=== PATIENT | female | born 1990 ===

== ENCOUNTER 2020-05-19 09:38 | Outpatient (REF) | payer OTHER, SELFPAY ==
[2020-05-19 10:23] LABS: MANUAL DIFF FLAG NO
[2020-05-19 10:30] LABS: Basophils Percent Auto 0.3 % (0-2); Eosinophils Absolute Auto 0.1 X10*3/uL (0.0-0.4); Eosinophils Percent Auto 1.5 % (0-4); Hematocrit 42.2 % (37-47); Hemoglobin 14.6 g/dl (12.0-16.0); Imm Gran Abs Auto 0.04 X10*3/uL (0.00-0.03); Imm Gran Pct Auto 0.7 % (0.0-0.4); Lymphocytes Absolute Auto 2.2 X10*3/uL (1.2-4.9); Lymphocytes Percent Auto 36.9 % (20-40); Mean Corpuscular HGB Conc 34.6 g/dl (31.0-35.0); Mean Corpuscular Hemoglobin 28.2 pg (27.0-33.0); Mean Corpuscular Volume 81.6 fL (80-98); Mean Platelet Volume 11.7 fL (9.4-12.3); Monocytes Absolute Auto 0.4 X10*3/uL (0.1-1.2); Monocytes Percent Auto 5.8 % (2-11); Neutrophils Absolute Auto 3.3 X10*3/uL (2.0-8.3); Neutrophils Percent Auto 54.8 % (45-73); Platelet Count 237 X10*3/uL (160-400); Red Blood Count 5.17 X10*6/uL (4.20-5.50); Red Cell Distribution Width 12.3 % (11.0-16.0)
[2020-05-19 10:55] LABS: Alanine Aminotransferase 34 U/L (0-31); Albumin Level 4.3 g/dL (3.5-5.0); Alkaline Phosphatase 93 U/L (39-117); Anion Gap 14 (12-20); Aspartate Amino Transferase 25 U/L (5-31); Bilirubin Total 0.7 mg/dL (0.0-1.0); Blood Urea Nitrogen 10 mg/dL (9-16); Calcium 9.3 mg/dL (8.4-10.2); Carbon Dioxide 27 mmol/L (22-29); Chloride 98 mmol/L (96-108); Cholesterol 170 mg/dL; Estimated Glomerular Filt Rate > 60; Glucose Fasting 344 mg/dL (60-99); HDL Cholesterol 33 mg/dL; LDL Cholesterol Calculated 88 mg/dl; Potassium 4.7 mmol/L (3.3-5.1); Sodium 134 mmol/L (135-145); Total Protein 7.9 g/dL (6.5-8.0); Triglycerides 247 mg/dL
[2020-05-19 10:59] LABS: Creatinine Urine 98.43 mg/dL; Microalbum/Creatinine Ratio Ur 34.5 ug/mg cr
[2020-05-19 11:06] LABS: Estimated Average Glucose 252 mg/dL; Hemoglobin A1c % 10.4 %
[2020-05-19 11:18] LABS: Thyroid Stimulating Hormone 0.93 uIU/mL (0.32-4.0)
== END 2020-05-19 09:39 | disposition home or self-care (01) ==
LOC: HO.LAB 09:38
PROVIDERS: PCP Internal Medicine; Visit Provider Internal Medicine
DX: Z00.00 Encounter for general adult medical examination without abnormal findings (principal); E11.9 Type 2 diabetes mellitus without complications; E03.9 Hypothyroidism, unspecified
CPT/HCPCS: 36415; 80053; 80061; 82043; 83036; 84443; 85025

== ENCOUNTER 2020-07-09 14:46 | Outpatient (REF) | payer OTHER, SELFPAY | END 2020-07-09 14:47 | disposition home or self-care (01) | LOC: HO.LNP 14:46 | PROVIDERS: Visit Provider Hospitalist | DX: R30.0 Dysuria (principal); E11.9 Type 2 diabetes mellitus without complications; Z79.4 Long term (current) use of insulin | CPT/HCPCS: 87086 ==

== ENCOUNTER 2020-08-05 10:23 | Outpatient (REF) | payer OTHER, SELFPAY ==
--- NOTE | ~2020-08-05 | XR_ITS ---
EXAMINATION: XR ANKLE, LEFT CLINICAL INFORMATION: Lower leg pain. COMPARISON: None TECHNIQUE: AP, lateral, and mortise views of the left ankle. FINDINGS: The lateral metallic plate distal fibula with screws stabilizing old healed fracture. Fracture line is partially visualized on the lateral view. There are 2 cancellous screws from medial malleolar stabilizing healed medial malleolar fracture. The hardware is intact. The ankle mortise and subtalar joints are normal. There is diffuse osteopenia. The soft tissues are normal. XR/XR ankle LT min 3V IMPRESSION: Old healed distal fibular fracture stabilized with metallic plate and screws. The fracture line is partially still visualized on the lateral view. Old healed medial malleolar fracture stabilized with 2 cancellous screws. Mild osteopenia.
== END 2020-08-05 10:24 | disposition home or self-care (01) ==
LOC: HO.HOSX 10:23
PROVIDERS: Visit Provider Orthopaedic Surgery
DX: S82.891D Other fracture of right lower leg, subsequent encounter for closed fracture with routine healing (principal)
CPT/HCPCS: 73610; 99202

== ENCOUNTER → 2020-08-31 14:00 | Outpatient (BNVA) | payer MEDICAID, SELFPAY | PROVIDERS: Visit Provider Nurse Practitioner Gerontology | DX: E11.65 Type 2 diabetes mellitus with hyperglycemia (principal); E11.29 Type 2 diabetes mellitus with other diabetic kidney complication; R80.9 Proteinuria, unspecified; I10 Essential (primary) hypertension; E66.01 Morbid (severe) obesity due to excess calories; Z68.35 Body mass index [BMI] 35.0-35.9, adult; Z79.4 Long term (current) use of insulin | CPT/HCPCS: 82947; 99212 ==

== ENCOUNTER 2020-09-16 10:00 | Emergency (ER) | payer MEDICAID, SELFPAY ==
[2020-09-16 10:11] VITALS: PULSE 95; RESP 16; TEMP 36.6; O2SAT 97; BMI 34.7
--- NOTE | 2020-09-16 10:31 | ED.SKABFB ---
HPI - Skin/Abscess/Foreign Bdy General Chief complaint: Skin/Abscess/Foreign Body Stated complaint: abcess Time Seen by Provider: 09/16/20 10:30 History of Present Illness HPI narrative: patient complains of right groin abscess for 3 days, red swollen small area that is increasingly painful, no fever no chills Related Data Previous Rx's Medication Instructions Recorded blood sugar diagnostic #150 ea 08/31/20 blood-glucose meter #1 ea 08/31/20 flash glucose scanning reader #1 ea 08/31/20 flash glucose sensor #2 ea 08/31/20 insulin glargine U-300 conc 300 120 unit SUBCUT DAILY 30 Days #12 08/31/20 unit/mL (3 mL) subcutaneous pen ml insulin lispro 200 unit/mL (3 mL) 46 unit SUBCUT TID 30 Days #24 ml 08/31/20 subcutaneous pen lancets 28 gauge #200 ea 08/31/20 pen needle, diabetic 32 gauge x #150 ea 08/31/20 cephalexin 500 mg PO QID 7 Days #28 tab 09/16/20 ibuprofen 600 mg PO Q6H PRN #20 tab 09/16/20 sulfamethoxazole-trimethoprim 1 tab PO BID 7 Days #14 tab 09/16/20 [Bactrim DS] Allergies Allergy/AdvReac Type Severity Reaction Status Date / Time metformin Allergy Mild stomach Verified 08/31/20 14:25 pains canagliflozin [From Invokana] Allergy UTI and Verified 08/31/20 14:25 yeast infections dulaglutide [From Trulicity] Allergy stomach Verified 08/31/20 14:25 pains, nausea and vomiting Review of Systems Review of Systems: positive for painful red swollen area on right groin Negative no fever no chills no dizziness no weakness no abdominal pain no nausea no vomiting no diarrhea no dysuria no other rash no joint pains Yes all other systems are reviewed and are negative PMFSH Past Medical History Source: nursing notes reviewed Medical History (Updated 09/16/20 @ 10:38 by KULWINDER Fischer) Diabetes mellitus Essential hypertension Obesity Obesity due to excess calories PCOS (polycystic ovarian syndrome) Proteinuria Type 2 diabetes mellitus with hyperglycemia Type 2 diabetes mellitus with other diabetic kidney complication Surgical History History of ankle surgery History of cholecystectomy History of tonsillectomy Family History Family History (Updated 08/31/20 @ 14:13 by Mai Tracey Fabi) Father Diabetes Mother Diabetes Maternal Grandmother Diabetes Paternal Grandmother Diabetes Social History Social History Housing: Apartment Alcohol intake: current Alcohol intake frequency: holidays/special occasions only Patient Tobacco Use Status: Never used Tobacco Second Hand Smoke Exposure: No Advance Directives: No Advance Directives Information Provided: No Patient : No service: No Current occupational status: employed 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 Physical Exam Vital Signs: Vital Signs: Last Vital Signs Temp 97.9 F 09/16/20 10:11 Pulse 95 09/16/20 10:11 Resp 16 09/16/20 10:11 Pulse Ox 97 09/16/20 10:11 Body Mass Index 34.7 general appearance no distress Head is normocephalic atraumatic Neck is supple Respiratory no distress Abdomen soft nontender Skin exam the right groin area has a 2 cmx 2 cm area of redness fluctuance and tenderness with surrounding erythema, skin is intact there is no discharge No other skin rash no other painful swollen area Extremities full range of motion x4 Course Course Course Narrative: right groin abscess procedure note The abscess is cleansed with Betadine Anesthesia is 6 cc of 1% lidocaine A small incision was made with discharge of pus and packing was placed Discharge Plan Discharge Clinical Impression: Abscess Patient Disposition: Home, Self-Care Additional Instructions: return in 2 days for packing removal and wound check Return any time for spreading redness, worse pain and swelling, fever, any worsening infection any worse condition or any concerns Take probiotics every day you are taking antibiotics to prevent antibiotic associated diarrhea, they are available [id number] at any pharmacy Prescriptions: New sulfamethoxazole-trimethoprim [Bactrim DS] 800-160 mg tablet 1 tab PO BID 7 Days Qty: 14 RF: 0 cephalexin 500 mg tablet 500 mg PO QID 7 Days Qty: 28 RF: 0 ibuprofen 600 mg tablet 600 mg PO Q6H PRN (Reason: pain) Qty: 20 RF: 0 No Action Toujeo Max U-300 SoloStar 300 unit/mL (3 mL) insulin pen 120 unit subcut DAILY 30 Days Qty: 12 RF: 3 Humalog KwikPen Insulin 200 unit/mL (3 mL) insulin pen 46 unit subcut TID 30 Days Qty: 24 RF: 3 (DME) pen needle, diabetic [BD Ultra-Fine Teresa Pen Needle] 32 gauge x 5/32 needle See Rx Instructions .ROUTE .MEDSUPPLY Qty: 150 RF: 10 (DME) FreeStyle Olivia 2 Sensor Kit See Rx Instructions .ROUTE .MEDSUPPLY Qty: 2 RF: 0 (DME) FreeStyle Lite Strips Strip See Rx Instructions .ROUTE .MEDSUPPLY Qty: 150 RF: 11 (DME) lancets [FreeStyle Lancets] 28 gauge misc See Rx Instructions .ROUTE .MEDSUPPLY Qty: 200 RF: 11 (DME) FreeStyle Olivia 2 [place] Misc See Rx Instructions .ROUTE .MEDSUPPLY Qty: 1 RF: 0 (DME) blood-glucose meter [FreeStyle Lite Meter] Kit See Rx Instructions .ROUTE .MEDSUPPLY Qty: 1 RF: 0
[2020-09-16] MEDS: Lidocaine HCl 1 % MPF 5 ML VIAL SUBCUT ×2 (10:50)
[2020-09-16] MEDS: cephALEXin 500 MG CAPSULE PO (11:11)
[2020-09-16] MEDS: Ibuprofen 600 MG TABLET PO (11:11)
== END 2020-09-16 11:15 | disposition home or self-care (01) ==
PROVIDERS: Emergency Provider Emergency Medicine; PCP Internal Medicine
DX: L02.214 Cutaneous abscess of groin (principal); I10 Essential (primary) hypertension; E11.9 Type 2 diabetes mellitus without complications; Z79.4 Long term (current) use of insulin
CPT/HCPCS: 10060; 99284

== ENCOUNTER 2020-09-17 15:50 | Inpatient (IN) | payer MEDICAID, SELFPAY ==
[2020-09-17] VITALS (8 sets, daily range): BP systolic 120–150; BP diastolic 63–86; PULSE 94–134; RESP 16–20; TEMP 36.3–39.2; O2SAT 96–100; BMI 34.7
--- NOTE | ~2020-09-17 | XR_ITS ---
EXAMINATION: XR chest 2V CLINICAL INFORMATION: Reason for Exam fever, r.o pna COMPARISON: No prior chest x-ray available in our system for comparison at the time of this dictation. TECHNIQUE: XR chest 2V Lungs and Kierra: Both lungs are clear. Pleura: Normal. Costophrenic angles are sharp. No pneumothorax. Heart: The heart is normal in size. Mediastinum: The mediastinum is within normal limits.. Bones: Skeletal structures included are normal for patient's age. XR/XR chest 2V IMPRESSION: No radiographic evidence of acute cardiopulmonary disease.
--- NOTE | ~2020-09-17 | CT_ITS ---
EXAMINATION: CT ABDOMEN AND PELVIS WITH CONTRAST CLINICAL INFORMATION: Groin abscess with fever COMPARISON: None TECHNIQUE: Multidetector volumetric images were obtained from the superior aspect of the liver through the pubic symphysis following administration 85 mL of Omnipaque 350 intravenous contrast. Sagittal and coronal reformatted images were obtained on the technologist's workstation. Oral contrast: No This CT examination was performed using dose optimization techniques as appropriate, variously including the following: *Automated exposure control *Adjustment of mA and/or kV according to patient size (this includes techniques or standardized protocols for targeted exams where dose is matched to indication/reason for exam; i.e. extremities or head) *Use of iterative reconstruction technique DLP: 694 mGy-cm FINDINGS: LUNG BASES: The visualized lung bases are unremarkable. LIVER, GALLBLADDER, AND BILIARY TREE: Liver is enlarged at 22.5 cm and demonstrates hepatic steatosis. The gallbladder is unremarkable with no evidence of radiopaque gallstones, gallbladder wall thickening, or obvious pericholecystic inflammatory changes. PANCREAS: Unremarkable. SPLEEN: Mild splenomegaly with spleen measuring 13.2 cm in greatest length. ADRENAL GLANDS: Unremarkable. KIDNEYS AND URETERS: The kidneys are normal in size, shape, and attenuation. There is minimal prominence of the right ureter. No hydronephrosis, hydroureter, or calculi seen. No perinephric stranding. BLADDER: The bladder wall is symmetrically thickened which can be seen with cystitis. GASTROINTESTINAL TRACT: The small and large bowel are unremarkable. The appendix is unremarkable. ABDOMINAL WALL: Streaky changes with inflammation are present in the right groin. A fistulous tract to the skin is seen. Small ill-defined fluid collection present measuring 2.2 x 2.1 x 2.6 cm. Some groin lymph nodes are present. There is no extension of the inflammatory process into the abdominal cavity. LYMPH NODES: No retroperitoneal lymphadenopathy. VASCULAR: Unremarkable. 2 renal arteries present on the right with a single renal artery on the left. PELVIC VISCERA: An anteverted uterus is present. Ovarian cysts are seen. No free intraperitoneal fluid is present. OSSEOUS STRUCTURES: Unremarkable. CT/CT abdomen pelvis w con IMPRESSION: 1. Right groin abscess and inflammatory changes without extension into peritoneal cavity. 2. Enlarged fatty liver 3. Mild splenomegaly 4. Symmetrically thickened bladder wall which can be seen with cystitis. Correlate with urinalysis.
[2020-09-17] MEDS: Acetaminophen 325 MG TABLET 650 MG PO (16:20)
[2020-09-17] MEDS: Ibuprofen 600 MG TABLET PO (17:38)
--- NOTE | 2020-09-17 17:59 | ED.GENADULT ---
HPI - General Adult General Chief complaint: Dizziness Stated complaint: Dizziness/Vomiting Time Seen by Provider: 09/17/20 17:46 Source: patient Mode of arrival: ambulatory Limitations: no limitations History of Present Illness HPI narrative: 29-year-old female with a past medical history of insulin-dependent diabetes, PCOS, hypertension here with complaints of headache, body aches, fevers, chills, lightheadedness with position changes since yesterday. Patient tells me she was seen yesterday for a right groin abscess and had an I&D. She was started on Bactrim and cephalexin but returns. Related Data Previous Rx's Medication Instructions Recorded blood sugar diagnostic #150 ea 08/31/20 blood-glucose meter #1 ea 08/31/20 flash glucose scanning reader #1 ea 08/31/20 flash glucose sensor #2 ea 08/31/20 insulin glargine U-300 conc 300 120 unit SUBCUT DAILY 30 Days #12 08/31/20 unit/mL (3 mL) subcutaneous pen ml insulin lispro 200 unit/mL (3 mL) 46 unit SUBCUT TID 30 Days #24 ml 08/31/20 subcutaneous pen lancets 28 gauge #200 ea 08/31/20 pen needle, diabetic 32 gauge x #150 ea 08/31/20 cephalexin 500 mg PO QID 7 Days #28 tab 09/16/20 ibuprofen 600 mg PO Q6H PRN #20 tab 09/16/20 sulfamethoxazole-trimethoprim 1 tab PO BID 7 Days #14 tab 09/16/20 [Bactrim DS] Allergies Allergy/AdvReac Type Severity Reaction Status Date / Time metformin Allergy Mild stomach Verified 09/17/20 16:18 pains canagliflozin [From Invokana] Allergy UTI and Verified 09/17/20 16:18 yeast infections dulaglutide [From Trulicity] Allergy stomach Verified 09/17/20 16:18 pains, nausea and vomiting Review of Systems Review of Systems: Yes all other systems are reviewed and are negative Constitutional: Constitutional: Reports no additional constitutional complaints, Reports body ache(s), Reports chills, Reports fever(s), Reports headache(s) and Denies weakness Eyes: Eyes: Reports no additional eye complaints and Denies change in vision ENT: Reports system reviewed and no additional complaints, except as documented, Reports dizziness, Reports headache(s), Denies nasal congestion, Denies nasal discharge and Denies neck pain Cardiovascular: Cardiovascular: Reports no additional cardiovascular complaints, Denies chest pain, Denies leg edema and Denies dyspnea Respiratory: Respiratory: Reports no additional respiratory complaints, Denies cough and Denies dyspnea Gastrointestinal: Gastrointestinal: Reports no additional gastrointestinal complaints, Denies abdominal pain, Denies diarrhea, Denies nausea and Denies vomiting Genitourinary: Genitourinary: Reports no additional female genitourinary complaints and Denies urinary incontinence Musculoskeletal: Musculoskeletal: Reports no additional musculoskeletal complaints, Denies back pain, Denies arthralgias, Denies joint swelling, Denies neck pain, Denies numbness and Denies tingling Integumentary/Breasts: Skin/Breast: Reports system reviewed and no additional complaints, except as docu and Denies rash Neurologic: Reports system reviewed and no additional complaints, except as documented, Denies Abnormal speech present, Reports dizziness, Reports headache(s), Denies numbness, Denies tingling and Denies weakness PMFSH Past Medical History Attestation statement: The following information was validated with the patient. Source: old records reviewed and nursing notes reviewed Medical History Diabetes mellitus Essential hypertension Obesity Obesity due to excess calories PCOS (polycystic ovarian syndrome) Proteinuria Type 2 diabetes mellitus with hyperglycemia Type 2 diabetes mellitus with other diabetic kidney complication Surgical History History of ankle surgery History of cholecystectomy History of tonsillectomy Family History Family History Father Diabetes Mother Diabetes Maternal Grandmother Diabetes Paternal Grandmother Diabetes Social History Social History Housing: Apartment Alcohol intake: never Patient Tobacco Use Status: Never used Tobacco Second Hand Smoke Exposure: No Use of substances other than those prescribed or required for medical reasons: No Advance Directives: Yes Advance Directives Information Provided: Yes Advance Directives on File: No Patient : No service: No 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 occupational status: employed 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 Physical Exam Vital Signs: Vital Signs: Last Vital Signs Temp 98.5 F 09/17/20 20:47 Pulse 97 09/17/20 20:47 Resp 18 09/17/20 20:47 BP 124/76 09/17/20 20:47 Pulse Ox 98 09/17/20 20:47 Body Mass Index 34.7 Const: General: cooperative, healthy appearing, comfortable and no acute distress Orientation/consciousness: patient oriented x3 Limitations: no limitations HENMT: Head: Yes normal to inspection Ears: hearing grossly normal bilaterally General nose exam: Normal external nose present Face and sinus: Yes normal facial exam Mouth: Normal oral and palatal mucosa present Throat: Yes posterior oropharynx normal Eyes: General: appearance normal, both eyes and all related structures Pupils: Equal, round and reactive pupils present Neck: Neck: Yes normal visual inspection Chest: Chest palpation & inspection: normal inspection of the chest Resp: Effort & Inspection: normal respiratory effort Auscultation: clear to auscultation bilaterally Cardio: Rate: regular rate Rhythm: regular rhythm Peripheral pulses: Peripheral pulses 2+ throughout GI: Other: To the right groin there is a local area of swelling and induration with packing present there is no edema or warmth or tenderness outside of the local area No redness or swelling extending to the perineum Inspection: Yes normal to inspection Palpation (GI): Soft to palpation and nontender Auscultation: normal bowel sounds Back/Spine/Pelvis: Thoracic/Lumbar Spine: thoracic and lumbar spine normal to inspection Skin: General skin exam: no rashes or lesions noted Neuro: General: patient oriented x3, no focal motor deficits and normal sensation to monofilament Cranial nerves: Yes Equal, round and reactive pupils present Cognition (Neuro): normal cognition Speech: No Abnormal speech present Gait exam (Neuro): Normal gait present Motor exam (neuro): 5/5 motor strength present throughout Extrem: General: Yes normal to inspection, Yes no pedal edema and Yes no calf tenderness Course Course Course Narrative: 29-year-old female with a past medical history of insulin-dependent diabetes, hypertension, PCOS here with recent abscess requiring I and D on antibiotics for 24 hours now with body aches, fevers, chills, headache, lightheadedness. On arrival the patient has tachycardia and febrile. This is from a virus. Will check labs including blood cultures, lactic, COVID screen, chest x-ray, CTA/P, UA. Will order NSB, antipyretic. 2145-CT shows IMPRESSION: 1. Right groin abscess and inflammatory changes without extension into peritoneal cavity. 2. Enlarged fatty liver 3. Mild splenomegaly 4. Symmetrically thickened bladder wall which can be seen with cystitis. Correlate with urinalysis. Chest x-ray, UA and COVID screen negative. Initial chemistry showed mild hyponatremia, mild hyperglycemia, hypo magnesemia which improved with IV hydration and magnesium replacement. -D/t right groin abscess with local cellulitis with fever and tachycardia w/ history of IDDM bacterial infection is considered. At this time infection is suspected (2144). Antibiotics ordered. Call out to medicine to discuss. 2149-Discussed with Dr Wright who accepted admission. Procedures Procedure Narrative Procedure Narrative: Packing removed from right groin. Site was cleansed with NS and hydrogen peroxide. New iodoform packing placed with dressing applied over this. Medical Decision Making MDM Narrative Medical decision making narrative: Viral syndrome, cellulitis, pneumonia, UTI Medical Records Medical records reviewed: Yes I reviewed the patient's medical records. Lab Data Lab results reviewed: Yes I reviewed the patient's lab results. Result diagrams: 09/17/20 18:25 09/17/20 20:59 Labs: Lab Results 09/17/20 09/17/20 09/17/20 Range/Units 18:23 18:24 18:24 WBC (4.8-10.8) X10*3/uL RBC (4.20-5.50) X10*6/uL Hgb (12.0-16.0) g/dl Hct (37-47) % MCV (80-98) fL MCH (27.0-33.0) pg MCHC (31.0-35.0) g/dl RDW (11.0-16.0) % Plt Count (160-400) X10*3/uL MPV (9.4-12.3) fL Immature Gran % (Auto) (0.0-0.4) % Neut % (Auto) (45-73) % Lymph % (Auto) (20-40) % [place] % (Auto) (2-11) % Eos % (Auto) (0-4) % Baso % (Auto) (0-2) % Lymph # (Auto) (1.2-4.9) X10*3/uL [place] # (Auto) (0.1-1.2) X10*3/uL Eos # (Auto) (0.0-0.4) X10*3/uL Baso # (Auto) (0.0-0.2) X10*3/uL Abs Immat Gran (auto) (0.00-0.03) X10*3/uL Absolute Neuts (auto) (2.0-8.3) X10*3/uL Absolute Nucleated RBC (0.0-0.012) X10*3/uL Nucleated RBC % (auto) (0.0-0.2) /100WBC VBG pH (7.32-7.43) VBG pCO2 mmHg VBG pO2 mmHg VBG HCO3 (22-26) mmol/L VBG O2 Saturation % VBG Base Excess mmol/L Sodium (135-145) mmol/L Potassium (3.3-5.1) mmol/L Chloride (96-108) mmol/L Carbon Dioxide (22-29) mmol/L Anion Gap (12-20) BUN (9-16) mg/dL Creatinine (0.5-1.4) mg/dL Estim Creat Clear Calc Estimated GFR Random Glucose (60-115) mg/dL Lactic Acid (0.5-2.0) mmol/L Calcium (8.4-10.2) mg/dL Magnesium (1.6-2.6) mg/dL Total Bilirubin (0.0-1.0) mg/dL Direct Bilirubin (0.0-0.5) mg/dL AST (5-31) U/L ALT (0-31) U/L Alkaline Phosphatase (39-117) U/L Total Protein (6.5-8.0) g/dL Albumin (3.5-5.0) g/dL Urine Color YELLOW Urine Appearance HAZY Urine pH 6.0 (5.0-8.0) Ur Specific [place] 1.025 (1.005-1.025) Urine Protein 1+ H (NEG-TRACE) MG/DL Urine Glucose (UA) 500 H (NEG) MG/DL Urine Ketones 40 (NEG) MG/DL Urine Blood NEG (NEG) Urine Nitrite NEG (NEG) Ur Leukocyte Esterase NEG (NEG) Urine RBC 0-2 (0) /HPF Urine WBC 0-2 (0-4) /HPF Ur Squamous Epith Cells 1+ /LPF Urine Bacteria NONE /LPF Urine Test NEGATIVE (NEGATIVE) Acetone, Qual (Negative) COVID-19 (JOSE) Negative (Negative) COVID-19 Clin Com See Note 09/17/20 09/17/20 09/17/20 Range/Units 18:25 18:25 18:25 WBC 8.2 (4.8-10.8) X10*3/uL RBC 5.41 (4.20-5.50) X10*6/uL Hgb 15.5 (12.0-16.0) g/dl Hct 43.3 (37-47) % MCV 80.0 (80-98) fL MCH 28.7 (27.0-33.0) pg MCHC 35.8 H (31.0-35.0) g/dl RDW 12.6 (11.0-16.0) % Plt Count 158 L D (160-400) X10*3/uL MPV 12.4 H (9.4-12.3) fL Immature Gran % (Auto) 1.2 H (0.0-0.4) % Neut % (Auto) 72.7 (45-73) % Lymph % (Auto) 18.1 L (20-40) % [place] % (Auto) 7.8 (2-11) % Eos % (Auto) 0.0 (0-4) % Baso % (Auto) 0.2 (0-2) % Lymph # (Auto) 1.5 (1.2-4.9) X10*3/uL [place] # (Auto) 0.6 (0.1-1.2) X10*3/uL Eos # (Auto) 0.0 (0.0-0.4) X10*3/uL Baso # (Auto) 0.0 (0.0-0.2) X10*3/uL Abs Immat Gran (auto) 0.10 H (0.00-0.03) X10*3/uL Absolute Neuts (auto) 5.9 (2.0-8.3) X10*3/uL Absolute Nucleated RBC 0.000 (0.0-0.012) X10*3/uL Nucleated RBC % (auto) 0.0 (0.0-0.2) /100WBC VBG pH (7.32-7.43) VBG pCO2 mmHg VBG pO2 mmHg VBG HCO3 (22-26) mmol/L VBG O2 Saturation % VBG Base Excess mmol/L Sodium 130 L (135-145) mmol/L Potassium 3.6 D (3.3-5.1) mmol/L Chloride 98 (96-108) mmol/L Carbon Dioxide 19 L (22-29) mmol/L Anion Gap 17 (12-20) BUN 6 L (9-16) mg/dL Creatinine 0.89 (0.5-1.4) mg/dL Estim Creat Clear Calc 96.6 Estimated GFR > 60 Random Glucose 291 H (60-115) mg/dL Lactic Acid 1.8 (0.5-2.0) mmol/L Calcium 9.5 (8.4-10.2) mg/dL Magnesium 1.5 L (1.6-2.6) mg/dL Total Bilirubin 1.2 H (0.0-1.0) mg/dL Direct Bilirubin 0.5 (0.0-0.5) mg/dL AST 27 (5-31) U/L ALT 40 H (0-31) U/L Alkaline Phosphatase 98 (39-117) U/L Total Protein 8.6 H (6.5-8.0) g/dL Albumin 4.5 (3.5-5.0) g/dL Urine Color Urine Appearance Urine pH (5.0-8.0) Ur Specific [place] (1.005-1.025) Urine Protein (NEG-TRACE) MG/DL Urine Glucose (UA) (NEG) MG/DL Urine Ketones (NEG) MG/DL Urine Blood (NEG) Urine Nitrite (NEG) Ur Leukocyte Esterase (NEG) Urine RBC (0) /HPF Urine WBC (0-4) /HPF Ur Squamous Epith Cells /LPF Urine Bacteria /LPF Urine Test (NEGATIVE) Acetone, Qual (Negative) COVID-19 (JOSE) (Negative) COVID-19 Clin Com 09/17/20 09/17/20 09/17/20 Range/Units 18:26 18:29 20:59 WBC (4.8-10.8) X10*3/uL RBC (4.20-5.50) X10*6/uL Hgb (12.0-16.0) g/dl Hct (37-47) % MCV (80-98) fL MCH (27.0-33.0) pg MCHC (31.0-35.0) g/dl RDW (11.0-16.0) % Plt Count (160-400) X10*3/uL MPV (9.4-12.3) fL Immature Gran % (Auto) (0.0-0.4) % Neut % (Auto) (45-73) % Lymph % (Auto) (20-40) % [place] % (Auto) (2-11) % Eos % (Auto) (0-4) % Baso % (Auto) (0-2) % Lymph # (Auto) (1.2-4.9) X10*3/uL [place] # (Auto) (0.1-1.2) X10*3/uL Eos # (Auto) (0.0-0.4) X10*3/uL Baso # (Auto) (0.0-0.2) X10*3/uL Abs Immat Gran (auto) (0.00-0.03) X10*3/uL Absolute Neuts (auto) (2.0-8.3) X10*3/uL Absolute Nucleated RBC (0.0-0.012) X10*3/uL Nucleated RBC % (auto) (0.0-0.2) /100WBC VBG pH 7.41 (7.32-7.43) VBG pCO2 26 mmHg VBG pO2 67 mmHg VBG HCO3 17 L (22-26) mmol/L VBG O2 Saturation 92.0 % VBG Base Excess -5.5 mmol/L Sodium 134 L (135-145) mmol/L Potassium 3.6 (3.3-5.1) mmol/L Chloride 104 (96-108) mmol/L Carbon Dioxide 18 L (22-29) mmol/L Anion Gap 16 (12-20) BUN 5 L (9-16) mg/dL Creatinine 0.74 (0.5-1.4) mg/dL Estim Creat Clear Calc 116.3 Estimated GFR > 60 Random Glucose 229 H (60-115) mg/dL Lactic Acid (0.5-2.0) mmol/L Calcium 8.3 L D (8.4-10.2) mg/dL Magnesium (1.6-2.6) mg/dL Total Bilirubin (0.0-1.0) mg/dL Direct Bilirubin (0.0-0.5) mg/dL AST (5-31) U/L ALT (0-31) U/L Alkaline Phosphatase (39-117) U/L Total Protein (6.5-8.0) g/dL Albumin (3.5-5.0) g/dL Urine Color Urine Appearance Urine pH (5.0-8.0) Ur Specific [place] (1.005-1.025) Urine Protein (NEG-TRACE) MG/DL Urine Glucose (UA) (NEG) MG/DL Urine Ketones (NEG) MG/DL Urine Blood (NEG) Urine Nitrite (NEG) Ur Leukocyte Esterase (NEG) Urine RBC (0) /HPF Urine WBC (0-4) /HPF Ur Squamous Epith Cells /LPF Urine Bacteria /LPF Urine Test (NEGATIVE) Acetone, Qual Negative (Negative) COVID-19 (JOSE) (Negative) COVID-19 Clin Com 09/17/20 Range/Units 20:59 WBC (4.8-10.8) X10*3/uL RBC (4.20-5.50) X10*6/uL Hgb (12.0-16.0) g/dl Hct (37-47) % MCV (80-98) fL MCH (27.0-33.0) pg MCHC (31.0-35.0) g/dl RDW (11.0-16.0) % Plt Count (160-400) X10*3/uL MPV (9.4-12.3) fL Immature Gran % (Auto) (0.0-0.4) % Neut % (Auto) (45-73) % Lymph % (Auto) (20-40) % [place] % (Auto) (2-11) % Eos % (Auto) (0-4) % Baso % (Auto) (0-2) % Lymph # (Auto) (1.2-4.9) X10*3/uL [place] # (Auto) (0.1-1.2) X10*3/uL Eos # (Auto) (0.0-0.4) X10*3/uL Baso # (Auto) (0.0-0.2) X10*3/uL Abs Immat Gran (auto) (0.00-0.03) X10*3/uL Absolute Neuts (auto) (2.0-8.3) X10*3/uL Absolute Nucleated RBC (0.0-0.012) X10*3/uL Nucleated RBC % (auto) (0.0-0.2) /100WBC VBG pH (7.32-7.43) VBG pCO2 mmHg VBG pO2 mmHg VBG HCO3 (22-26) mmol/L VBG O2 Saturation % VBG Base Excess mmol/L Sodium (135-145) mmol/L Potassium (3.3-5.1) mmol/L Chloride (96-108) mmol/L Carbon Dioxide (22-29) mmol/L Anion Gap (12-20) BUN (9-16) mg/dL Creatinine (0.5-1.4) mg/dL Estim Creat Clear Calc Estimated GFR Random Glucose (60-115) mg/dL Lactic Acid (0.5-2.0) mmol/L Calcium (8.4-10.2) mg/dL Magnesium 2.0 (1.6-2.6) mg/dL Total Bilirubin (0.0-1.0) mg/dL Direct Bilirubin (0.0-0.5) mg/dL AST (5-31) U/L ALT (0-31) U/L Alkaline Phosphatase (39-117) U/L Total Protein (6.5-8.0) g/dL Albumin (3.5-5.0) g/dL Urine Color Urine Appearance Urine pH (5.0-8.0) Ur Specific [place] (1.005-1.025) Urine Protein (NEG-TRACE) MG/DL Urine Glucose (UA) (NEG) MG/DL Urine Ketones (NEG) MG/DL Urine Blood (NEG) Urine Nitrite (NEG) Ur Leukocyte Esterase (NEG) Urine RBC (0) /HPF Urine WBC (0-4) /HPF Ur Squamous Epith Cells /LPF Urine Bacteria /LPF Urine Test (NEGATIVE) Acetone, Qual (Negative) COVID-19 (JOSE) (Negative) COVID-19 Clin Com Imaging Data Chest x-ray: Attestation: I personally reviewed and interpreted this imaging study as follows: Radiologist's impression: IMPRESSION: No radiographic evidence of acute cardiopulmonary disease. CT scan - abdomen: Attestation: I personally reviewed and interpreted this imaging study as follows: Radiologist's impression: FINDINGS: LUNG BASES: The visualized lung bases are unremarkable. LIVER, GALLBLADDER, AND BILIARY TREE: Liver is enlarged at 22.5 cm and demonstrates hepatic steatosis. The gallbladder is unremarkable with no evidence of radiopaque gallstones, gallbladder wall thickening, or obvious pericholecystic inflammatory changes. PANCREAS: Unremarkable. SPLEEN: Mild splenomegaly with spleen measuring 13.2 cm in greatest length. ADRENAL GLANDS: Unremarkable. KIDNEYS AND URETERS: The kidneys are normal in size, shape, and attenuation. There is minimal prominence of the right ureter. No hydronephrosis, hydroureter, or calculi seen. No perinephric stranding. BLADDER: The bladder wall is symmetrically thickened which can be seen with cystitis. GASTROINTESTINAL TRACT: The small and large bowel are unremarkable. The appendix is unremarkable. ABDOMINAL WALL: Streaky changes with inflammation are present in the right groin. A fistulous tract to the skin is seen. Small ill-defined fluid collection present measuring 2.2 x 2.1 x 2.6 cm. Some groin lymph nodes are present. There is no extension of the inflammatory process into the abdominal cavity. LYMPH NODES: No retroperitoneal lymphadenopathy. VASCULAR: Unremarkable. 2 renal arteries present on the right with a single renal artery on the left. PELVIC VISCERA: An anteverted uterus is present. Ovarian cysts are seen. No free intraperitoneal fluid is present. OSSEOUS STRUCTURES: Unremarkable. CT/CT abdomen pelvis w con IMPRESSION: 1. Right groin abscess and inflammatory changes without extension into peritoneal cavity. 2. Enlarged fatty liver 3. Mild splenomegaly 4. Symmetrically thickened bladder wall which can be seen with cystitis. Correlate with urinalysis. Discharge Plan Discharge Clinical Impression: Abscess of groin, right, Fever, Acute hyponatremia, Hypomagnesemia Patient Disposition: Admitted As Inpatient
[2020-09-17] MEDS: 0.9 % Sodium Chloride 2,585.49 ML 2585.49 ML IV (18:30)
[2020-09-17 18:32] LABS: MANUAL DIFF FLAG NO
[2020-09-17 18:35] LABS: Glucose Urine UA 500 MG/DL (NEG); Leukocyte Esterase Urine NEG (NEG); Nitrite Urine NEG (NEG); Specific Gravity - Urine 1.025 (1.005-1.025); Urine Blood NEG (NEG); Urine Ketones 40 MG/DL (NEG); Urine Protein 1+ MG/DL (NEG-TRACE)
[2020-09-17 18:36] LABS: Appearance Urine HAZY; Color Urine YELLOW
[2020-09-17 18:38] LABS: UPreg QC Valid YES; Urine Pregnancy NEGATIVE (NEGATIVE)
[2020-09-17 18:45] LABS: Basophils Percent Auto 0.2 % (0-2); Hematocrit 43.3 % (37-47); Hemoglobin 15.5 g/dl (12.0-16.0); Imm Gran Pct Auto 1.2 % (0.0-0.4); Lymphocytes Absolute Auto 1.5 X10*3/uL (1.2-4.9); Lymphocytes Percent Auto 18.1 % (20-40); Mean Corpuscular HGB Conc 35.8 g/dl (31.0-35.0); Mean Corpuscular Hemoglobin 28.7 pg (27.0-33.0); Mean Platelet Volume 12.4 fL (9.4-12.3); Monocytes Absolute Auto 0.6 X10*3/uL (0.1-1.2); Monocytes Percent Auto 7.8 % (2-11); Neutrophils Absolute Auto 5.9 X10*3/uL (2.0-8.3); Neutrophils Percent Auto 72.7 % (45-73); Platelet Count 158 X10*3/uL (160-400); Red Blood Count 5.41 X10*6/uL (4.20-5.50); Red Cell Distribution Width 12.6 % (11.0-16.0); White Blood Count 8.2 X10*3/uL (4.8-10.8)
[2020-09-17 18:47] LABS: RBC Urine 0-2 /HPF (0); Squamous Epithelial Cell Urine 1+ /LPF; WBC Urine 0-2 /HPF (0-4)
[2020-09-17 18:48] LABS: Acetone, serum QL Negative (Negative)
[2020-09-17 18:49] LABS: COVID-19 Test Negative (Negative)
[2020-09-17 18:52] LABS: Lactic Acid 1.8 mmol/L (0.5-2.0)
[2020-09-17 18:55] LABS: Venous Blood Gas Refer to POC result
[2020-09-17 18:57] LABS: VBG Base Excess -5.5 mmol/L; VBG HCO3 17 mmol/L (22-26); VBG pCO2 26 mmHg; VBG pH 7.41 (7.32-7.43); VBG pO2 67 mmHg
[2020-09-17 18:59] LABS: Alanine Aminotransferase 40 U/L (0-31); Albumin Level 4.5 g/dL (3.5-5.0); Alkaline Phosphatase 98 U/L (39-117); Anion Gap 17 (12-20); Aspartate Amino Transferase 27 U/L (5-31); Bilirubin Direct 0.5 mg/dL (0.0-0.5); Bilirubin Total 1.2 mg/dL (0.0-1.0); Blood Urea Nitrogen 6 mg/dL (9-16); Calcium 9.5 mg/dL (8.4-10.2); Carbon Dioxide 19 mmol/L (22-29); Chloride 98 mmol/L (96-108); Creatinine Clr Calc Pharmacy 96.6; Estimated Glomerular Filt Rate > 60; Glucose Random 291 mg/dL (60-115); Magnesium 1.5 mg/dL (1.6-2.6); Potassium 3.6 mmol/L (3.3-5.1); Sodium 130 mmol/L (135-145); Total Protein 8.6 g/dL (6.5-8.0)
[2020-09-17] MEDS: iohexoL 350 MG/ML 100 ML INFUS..BTL IV (19:37)
[2020-09-17] MEDS: Magnesium Sulfate/H2O 2 GM/50 ML PIGGYBACK IV (19:52)
[2020-09-17 21:35] LABS: Anion Gap 16 (12-20); Blood Urea Nitrogen 5 mg/dL (9-16); Calcium 8.3 mg/dL (8.4-10.2); Carbon Dioxide 18 mmol/L (22-29); Chloride 104 mmol/L (96-108); Creatinine Clr Calc Pharmacy 116.3; Estimated Glomerular Filt Rate > 60; Glucose Random 229 mg/dL (60-115); Potassium 3.6 mmol/L (3.3-5.1); Sodium 134 mmol/L (135-145)
[2020-09-17] MEDS: Piperacillin Sodium/Tazobactam 3.375 GM in 0.9 % Sodium Chloride 50 ML IV (21:57)
--- NOTE | 2020-09-17 22:05 | P.HPHOSP_ITS ---
History of Present Illness Date of Service: 09/17/20 Chief Complaint: Fever 29-year-old female with a past medical history of hypertension, diabetes, PCOS, obesity presented to the hospital with a chief complaint of fever. Patient reported that she came to the ER yesterday with a chief complaint of small red area in her right groin which has been gradually growing and painful; in the ER noted to have small groin abscess status post I&D and sent home on cephalexin, Bactrim; after she went home she cell chills and body aches, dizziness, and had fever; to couple doses of her antibiotics; as she does not feel Code she decided to come to the ER for further evaluation. Denies any discharge. Has packing in place in the groin abscess; complains of pain; Denies any fever chills cough. Denies any urinary symptoms. Denies any diarrhea. Denies any chest pain palpitations lightheadedness or dizziness. Review of all other systems is negative except mentioned above ER course: Per ER team patient noted to have packing in her right groin; on labs noted to have elevated blood glucose levels otherwise CBC and BMP at baseline; pH within normal limits; COVID-19 negative; CT abdomen pelvis showed mild hepatospleno megaly, right groin abscess; given vanc and Zosyn. Admitted for further management. [facility] Medical History Diabetes mellitus Essential hypertension Obesity Obesity due to excess calories PCOS (polycystic ovarian syndrome) Proteinuria Type 2 diabetes mellitus with hyperglycemia Type 2 diabetes mellitus with other diabetic kidney complication Family History Father Diabetes Mother Diabetes Maternal Grandmother Diabetes Paternal Grandmother Diabetes Surgical History History of ankle surgery History of cholecystectomy History of tonsillectomy Social History Household Members: Family Housing: House Do you presently have visiting nurse or other home services: No Alcohol intake: never Patient Tobacco Use Status: Never used Tobacco Second Hand Smoke Exposure: No Advance Directives Date on File: 09/17/20 service: No Current occupational status: employed 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[employer] Allergies Allergy/AdvReac Type Severity Reaction Status Date / Time metformin Allergy Mild stomach Verified 09/23/20 13:18 pains canagliflozin [From Invokana] Allergy UTI and Verified 09/23/20 13:18 yeast infections dulaglutide [From Trulicity] Allergy stomach Verified 09/23/20 13:18 pains, nausea and vomiting Active Medications: Current Medications Generic Name Dose Route Start Last Admin Trade Name Freq PRN Reason Stop Dose Admin Acetaminophen 650 mg 09/17/20 21:56 Acetaminophen 325 Mg Tablet PO Q6H PRN Pain, Mild (Pain Scale 1-3) Heparin Sodium (Porcine) 5,000 unit 09/17/20 22:00 Heparin Sodium,Porcine 5,000 Unit/Ml Vial SUBCUT Q8H [facility] Piperacillin Sod/Tazobactam 50 mls @ 100 mls/hr 09/17/20 21:43 09/17/20 21:57 Sod 3.375 gm/ Sodium Chloride IV 09/17/20 22:12 100 mls/hr ONCE ONE Administration Vancomycin HCl 1,250 mg/ 250 mls @ 166.667 mls/hr 09/17/20 21:43 Sodium Chloride IV 09/17/20 23:12 ONCE ONE Sodium Chloride 1,000 mls @ 100 mls/hr 09/17/20 22:00 Ns IVCONT .Q10H [facility] Vancomycin HCl 1,000 mg/ 270 mls @ 270 mls/hr 09/17/20 22:00 Sodium Chloride IV Q12H [facility] Piperacillin Sod/Tazobactam 50 mls @ 100 mls/hr 09/17/20 22:00 Sod 3.375 gm/ Sodium Chloride IV Q6H [facility] Insulin Glargine 60 unit 09/18/20 09:00 Insulin Glargine,Hum.Rec.Anlog 100 Unit/Ml 10 Ml Vial SUBCUT BID [facility] Insulin Human Lispro 0 unit 09/18/20 07:30 Insulin Lispro 100 Unit/Ml 3 Ml Vial SUBCUT QIDACHS [facility] Protocol Ketorolac Tromethamine 30 mg 09/17/20 21:56 Ketorolac Tromethamine 30 Mg/Ml Vial IVPUSH 09/22/20 21:55 Q6H PRN Pain, Severe (Pain Scale 7-10) Melatonin 6 mg 09/17/20 21:56 Melatonin 3 Mg Tablet PO BEDTIME PRN Insomnia Pharmacy Consult 1 each 09/17/20 21:43 Consult Rx Vancomycin Dosing MISCELLANE DAILY PRN Consult order Pharmacy Consult 1 each 09/17/20 21:59 Consult Rx Vancomycin Dosing MISCELLANE DAILY PRN Consult order Senna 17.2 mg 09/17/20 21:56 Sennosides 8.6 Mg Tablet PO BEDTIME PRN Constipation Sodium Chloride 3 ml 09/18/20 00:00 0.9 % Sodium Chloride Flush 3 Ml Syringe IVFLUSH QSHIFT [facility] Physical Exam Vital Signs and Narrative: Vital Signs: Last Vital Signs Temp 98.5 F 09/17/20 20:47 Pulse 97 09/17/20 20:47 Resp 18 09/17/20 20:47 BP 124/76 09/17/20 20:47 Pulse Ox 98 09/17/20 20:47 Body Mass Index 34.7 Gen: Appears be in no acute distress; obese HEENT: NCAT, Moist mucosa. Pulmonary: Vesicular breath sounds, fair air entry CVS: Normal S1-S2 Abdomen: BS+, Soft, Nontender Extremities: Warm well perfused; right groin local area of swelling and induration; mildly tender; no erythema; packing in place. Neuro: Alert and awake. Results Labs CBC and Chem 7: 09/18/20 05:35 09/18/20 05:35 Labs: Laboratory Results - last 24 hr 09/17/20 09/17/20 09/17/20 18:23 18:24 18:24 MCV MCH MCHC RDW Plt Count MPV Immature Gran % (Auto) Neut % (Auto) Lymph % (Auto) [place] % (Auto) Eos % (Auto) Baso % (Auto) Lymph # (Auto) [place] # (Auto) Eos # (Auto) Baso # (Auto) Abs Immat Gran (auto) Absolute Neuts (auto) Absolute Nucleated RBC Nucleated RBC % (auto) VBG pH VBG pCO2 VBG pO2 VBG HCO3 VBG O2 Saturation VBG Base Excess Anion Gap Estim Creat Clear Calc Estimated GFR Random Glucose Lactic Acid Calcium Magnesium Total Bilirubin Direct Bilirubin AST ALT Alkaline Phosphatase Total Protein Albumin Urine Color YELLOW Urine Appearance HAZY Urine pH 6.0 Ur Specific [place] 1.025 Urine Protein 1+ H Urine Glucose (UA) 500 H Urine Ketones 40 Urine Blood NEG Urine Nitrite NEG Ur Leukocyte Esterase NEG Urine RBC 0-2 Urine WBC 0-2 Ur Squamous Epith Cells 1+ Urine Bacteria NONE Urine Test NEGATIVE Acetone, Qual COVID-19 (JOSE) Negative COVID-19 Clin Com See Note 09/17/20 09/17/20 09/17/20 18:25 18:25 18:25 MCV 80.0 MCH 28.7 MCHC 35.8 H RDW 12.6 Plt Count 158 L D MPV 12.4 H Immature Gran % (Auto) 1.2 H Neut % (Auto) 72.7 Lymph % (Auto) 18.1 L [place] % (Auto) 7.8 Eos % (Auto) 0.0 Baso % (Auto) 0.2 Lymph # (Auto) 1.5 [place] # (Auto) 0.6 Eos # (Auto) 0.0 Baso # (Auto) 0.0 Abs Immat Gran (auto) 0.10 H Absolute Neuts (auto) 5.9 Absolute Nucleated RBC 0.000 Nucleated RBC % (auto) 0.0 VBG pH VBG pCO2 VBG pO2 VBG HCO3 VBG O2 Saturation VBG Base Excess Anion Gap 17 Estim Creat Clear Calc 96.6 Estimated GFR > 60 Random Glucose 291 H Lactic Acid 1.8 Calcium 9.5 Magnesium 1.5 L Total Bilirubin 1.2 H Direct Bilirubin 0.5 AST 27 ALT 40 H Alkaline Phosphatase 98 Total Protein 8.6 H Albumin 4.5 Urine Color Urine Appearance Urine pH Ur Specific [place] Urine Protein Urine Glucose (UA) Urine Ketones Urine Blood Urine Nitrite Ur Leukocyte Esterase Urine RBC Urine WBC Ur Squamous Epith Cells Urine Bacteria Urine Test Acetone, Qual COVID-19 (JOSE) COVID-19 Clin Com 09/17/20 09/17/20 09/17/20 18:26 18:29 20:59 MCV MCH MCHC RDW Plt Count MPV Immature Gran % (Auto) Neut % (Auto) Lymph % (Auto) [place] % (Auto) Eos % (Auto) Baso % (Auto) Lymph # (Auto) [place] # (Auto) Eos # (Auto) Baso # (Auto) Abs Immat Gran (auto) Absolute Neuts (auto) Absolute Nucleated RBC Nucleated RBC % (auto) VBG pH 7.41 VBG pCO2 26 VBG pO2 67 VBG HCO3 17 L VBG O2 Saturation 92.0 VBG Base Excess -5.5 Anion Gap 16 Estim Creat Clear Calc 116.3 Estimated GFR > 60 Random Glucose 229 H Lactic Acid Calcium 8.3 L D Magnesium Total Bilirubin Direct Bilirubin AST ALT Alkaline Phosphatase Total Protein Albumin Urine Color Urine Appearance Urine pH Ur Specific [place] Urine Protein Urine Glucose (UA) Urine Ketones Urine Blood Urine Nitrite Ur Leukocyte Esterase Urine RBC Urine WBC Ur Squamous Epith Cells Urine Bacteria Urine Test Acetone, Qual Negative COVID-19 (JOSE) COVID-19 Clin Com 09/17/20 20:59 MCV MCH MCHC RDW Plt Count MPV Immature Gran % (Auto) Neut % (Auto) Lymph % (Auto) [place] % (Auto) Eos % (Auto) Baso % (Auto) Lymph # (Auto) [place] # (Auto) Eos # (Auto) Baso # (Auto) Abs Immat Gran (auto) Absolute Neuts (auto) Absolute Nucleated RBC Nucleated RBC % (auto) VBG pH VBG pCO2 VBG pO2 VBG HCO3 VBG O2 Saturation VBG Base Excess Anion Gap Estim Creat Clear Calc Estimated GFR Random Glucose Lactic Acid Calcium Magnesium 2.0 Total Bilirubin Direct Bilirubin AST ALT Alkaline Phosphatase Total Protein Albumin Urine Color Urine Appearance Urine pH Ur Specific [place] Urine Protein Urine Glucose (UA) Urine Ketones Urine Blood Urine Nitrite Ur Leukocyte Esterase Urine RBC Urine WBC Ur Squamous Epith Cells Urine Bacteria Urine Test Acetone, Qual COVID-19 (JOSE) COVID-19 Clin Com Imaging Radiologist's Impressions: Impressions Abdomen/Pelvis CT 09/17/20 17:52 IMPRESSION: 1. Right groin abscess and inflammatory changes without extension into peritoneal cavity. 2. Enlarged fatty liver 3. Mild splenomegaly 4. Symmetrically thickened bladder wall which can be seen with cystitis. Correlate with urinalysis. Chest X-Ray 09/17/20 17:52 IMPRESSION: No radiographic evidence of acute cardiopulmonary disease. Assessment and Plan (1) Abscess of groin, right: Status: Acute 29-year-old female with a past medical history of hypertension, diabetes, obesity, PCOS, right groin abscess status post I&D on 09/16/2020; presented with fevers and chills. Noted to be in sepsis. Sepsis: In the setting of right groin abscess. CT abdomen showed small right groin abscess. General surgery consult Continue vanc and Zosyn. Follow-up cultures Id consult Diabetes with hyperglycemia: Patient takes 120 units of Lantus daily and 46 units of lispro t.i.d. at home. Will keep the patient on Lantus 60 units b.i.d. and insulin sliding scale. Mo nitor fingerstick glucose and adjust accordingly. History of asthma: Stable. DVT prophylaxis: Subcu heparin Code status: Full code Quality Stroke Does the patient have a stroke diagnosis?: No VTE Prior VTE?: No VTE Risk Level:: Medical - moderate - high VTE Device Contraindication: Patient Refused VTE Drug Contraindication: N/A - Med Ordered
[2020-09-17] MEDS: vancomycin HCL 1,250 MG in 0.9 % Sodium Chloride 250 ML 166.67 MG IV (22:26)
[2020-09-17] MEDS: Heparin Sodium,Porcine 5,000 UNIT/ML VIAL 5000 UNIT SUBCUT (23:31)
[2020-09-17] MEDS: 0.9 % Sodium Chloride 1,000 ML 100 ML IVCONT (23:31)
[2020-09-17] MEDS: 0.9 % Sodium Chloride Flush 3 ML SYRINGE IVFLUSH (23:34)
[2020-09-17 23:43] LABS: Glucose, Whole Blood 260 mg/dL (60-115)
[2020-09-18] VITALS (7 sets, daily range): BP systolic 121–153; BP diastolic 57–90; PULSE 91–114; RESP 16–18; TEMP 36.4–37.2; O2SAT 97–100
[2020-09-18] MEDS: Piperacillin Sodium/Tazobactam 3.375 GM in 0.9 % Sodium Chloride 50 ML IV ×4 (04:19→20:53)
[2020-09-18] MEDS: Ketorolac Tromethamine 15 MG/ML VIAL 30 MG IVPUSH (04:23)
[2020-09-18] MEDS: Heparin Sodium,Porcine 5,000 UNIT/ML VIAL 5000 UNIT SUBCUT ×3 (05:42→20:52)
[2020-09-18 06:31] LABS: MANUAL DIFF FLAG NO
[2020-09-18 07:14] LABS: Glucose, Whole Blood 226 mg/dL (60-115)
[2020-09-18 07:36] LABS: Basophils Percent Auto 0.4 % (0-2); Eosinophils Percent Auto 0.4 % (0-4); Hematocrit 37.4 % (37-47); Hemoglobin 12.8 g/dl (12.0-16.0); Imm Gran Abs Auto 0.07 X10*3/uL (0.00-0.03); Imm Gran Pct Auto 1.4 % (0.0-0.4); Lymphocytes Absolute Auto 1.2 X10*3/uL (1.2-4.9); Lymphocytes Percent Auto 23.7 % (20-40); Mean Corpuscular HGB Conc 34.2 g/dl (31.0-35.0); Mean Corpuscular Hemoglobin 28.3 pg (27.0-33.0); Mean Corpuscular Volume 82.6 fL (80-98); Mean Platelet Volume 12.7 fL (9.4-12.3); Monocytes Absolute Auto 0.6 X10*3/uL (0.1-1.2); Monocytes Percent Auto 12.4 % (2-11); Neutrophils Absolute Auto 3.2 X10*3/uL (2.0-8.3); Neutrophils Percent Auto 61.7 % (45-73); Platelet Count 117 X10*3/uL (160-400); Red Blood Count 4.53 X10*6/uL (4.20-5.50); Red Cell Distribution Width 12.9 % (11.0-16.0); White Blood Count 5.1 X10*3/uL (4.8-10.8)
[2020-09-18 07:38] LABS: Anion Gap 14 (12-20); Blood Urea Nitrogen 4 mg/dL (9-16); Calcium 7.7 mg/dL (8.4-10.2); Carbon Dioxide 17 mmol/L (22-29); Chloride 107 mmol/L (96-108); Creatinine Clr Calc Pharmacy 130.4; Estimated Glomerular Filt Rate > 60; Glucose Random 228 mg/dL (60-115); Potassium 3.7 mmol/L (3.3-5.1); Sodium 134 mmol/L (135-145)
[2020-09-18] MEDS: Insulin Glargine,Hum.rec.anlog 100 UNIT/ML 10 ML VIAL 60 UNIT SUBCUT ×2 (09:05→20:53)
[2020-09-18] MEDS: 0.9 % Sodium Chloride 1,000 ML 100 ML IVCONT ×2 (09:05→20:56)
[2020-09-18] MEDS: Insulin Lispro 100 UNIT/ML 3 ML VIAL SUBCUT ×4 (09:15→20:53)
--- NOTE | 2020-09-18 09:30 | MHC.CM.PN ---
09/18: No IMM required. Met w/patient: Patient lives w/brother and is fully independent, drives and is employed. She will call for a ride when D/C ready- she was brought by family to hospital. May require VNA for D/C: I&D performed at hospital and may need VNA for a brief period for in-home teaching for self care for wound care teaching.
[2020-09-18] MEDS: vancomycin HCL 1,250 MG in 0.9 % Sodium Chloride 250 ML 166.67 MG IV ×2 (10:36→21:48)
[2020-09-18 11:27] LABS: Glucose, Whole Blood 246 mg/dL (60-115)
--- NOTE | 2020-09-18 13:14 | PM.IMPN ---
Subjective Subjective Date of Service: 09/18/20 Interval History: Follow up groin abscess No fever or chills minimal pain Physical Exam Vital Signs: Vital Signs: Last Vital Signs Temp 98 F 09/18/20 11:27 Pulse 98 09/18/20 11:27 Resp 16 09/18/20 11:27 BP 140/66 H 09/18/20 11:27 Pulse Ox 97 09/18/20 11:27 Body Mass Index 34.7 Appearing in no acute distress lung sounds are clear to auscultation heart regular rate rhythm, clear S1, S2 positive bowel sounds, abdomen is soft, nontender neuro patient is alert x3, no focal deficits Small right groin abscess with packing and dressing Objective Data Current Medications Generic Name Dose Route Start Last Admin Trade Name Freq PRN Reason Stop Dose Admin Acetaminophen 650 mg 09/17/20 21:56 Acetaminophen 325 Mg Tablet PO Q6H PRN Pain, Mild (Pain Scale 1-3) Heparin Sodium (Porcine) 5,000 unit 09/17/20 22:00 09/18/20 12:17 Heparin Sodium,Porcine 5,000 Unit/Ml Vial SUBCUT 5,000 unit Q8H [facility] Administration Sodium Chloride 1,000 mls @ 100 mls/hr 09/17/20 22:00 09/18/20 09:05 Ns IVCONT 100 mls/hr .Q10H [facility] Administration Piperacillin Sod/Tazobactam 50 mls @ 100 mls/hr 09/18/20 04:00 09/18/20 10:35 Sod 3.375 gm/ Sodium Chloride IV Infused Q6H [facility] Infusion Vancomycin HCl 1,250 mg/ 250 mls @ 166.667 mls/hr 09/18/20 10:00 09/18/20 12:48 Sodium Chloride IV Infused Q12H [facility] Infusion Insulin Glargine 60 unit 09/18/20 09:00 09/18/20 09:05 Insulin Glargine,Hum.Rec.Anlog 100 Unit/Ml 10 Ml Vial SUBCUT 60 unit BID [facility] Administration Insulin Human Lispro 0 unit 09/18/20 07:30 09/18/20 12:18 Insulin Lispro 100 Unit/Ml 3 Ml Vial SUBCUT 4 unit QIDACHS [facility] Administration Protocol Ketorolac Tromethamine 30 mg 09/17/20 22:47 09/18/20 04:23 Ketorolac Tromethamine 15 Mg/Ml Vial IVPUSH 30 mg Q6H PRN Administration Pain, Severe (Pain Scale 7-10) Melatonin 6 mg 09/17/20 21:56 Melatonin 3 Mg Tablet PO BEDTIME PRN Insomnia Pharmacy Consult 1 each 09/17/20 21:59 Consult Rx Vancomycin Dosing MISCELLANE DAILY PRN Consult order Senna 17.2 mg 09/17/20 21:56 Sennosides 8.6 Mg Tablet PO BEDTIME PRN Constipation Sodium Chloride 3 ml 09/18/20 00:00 09/18/20 09:06 0.9 % Sodium Chloride Flush 3 Ml Syringe IVFLUSH Not Given QSHIFT [facility] Labs CBC & Chem 7: 09/18/20 05:35 09/18/20 05:35 Labs: Laboratory Results - last 24 hr 09/17/20 09/17/20 09/17/20 18:23 18:24 18:24 MCV MCH MCHC RDW Plt Count MPV Immature Gran % (Auto) Neut % (Auto) Lymph % (Auto) [place] % (Auto) Eos % (Auto) Baso % (Auto) Lymph # (Auto) [place] # (Auto) Eos # (Auto) Baso # (Auto) Abs Immat Gran (auto) Absolute Neuts (auto) Absolute Nucleated RBC Nucleated RBC % (auto) VBG pH VBG pCO2 VBG pO2 VBG HCO3 VBG O2 Saturation VBG Base Excess Anion Gap Estim Creat Clear Calc Estimated GFR POC Glucose Random Glucose Lactic Acid Calcium Magnesium Total Bilirubin Direct Bilirubin AST ALT Alkaline Phosphatase Total Protein Albumin Urine Color YELLOW Urine Appearance HAZY Urine pH 6.0 Ur Specific [place] 1.025 Urine Protein 1+ H Urine Glucose (UA) 500 H Urine Ketones 40 Urine Blood NEG Urine Nitrite NEG Ur Leukocyte Esterase NEG Urine RBC 0-2 Urine WBC 0-2 Ur Squamous Epith Cells 1+ Urine Bacteria NONE Urine Test NEGATIVE Acetone, Qual COVID-19 (JOSE) Negative COVID-19 Clin Com See Note 09/17/20 09/17/20 09/17/20 18:25 18:25 18:25 MCV 80.0 MCH 28.7 MCHC 35.8 H RDW 12.6 Plt Count 158 L D MPV 12.4 H Immature Gran % (Auto) 1.2 H Neut % (Auto) 72.7 Lymph % (Auto) 18.1 L [place] % (Auto) 7.8 Eos % (Auto) 0.0 Baso % (Auto) 0.2 Lymph # (Auto) 1.5 [place] # (Auto) 0.6 Eos # (Auto) 0.0 Baso # (Auto) 0.0 Abs Immat Gran (auto) 0.10 H Absolute Neuts (auto) 5.9 Absolute Nucleated RBC 0.000 Nucleated RBC % (auto) 0.0 VBG pH VBG pCO2 VBG pO2 VBG HCO3 VBG O2 Saturation VBG Base Excess Anion Gap 17 Estim Creat Clear Calc 96.6 Estimated GFR > 60 POC Glucose Random Glucose 291 H Lactic Acid 1.8 Calcium 9.5 Magnesium 1.5 L Total Bilirubin 1.2 H Direct Bilirubin 0.5 AST 27 ALT 40 H Alkaline Phosphatase 98 Total Protein 8.6 H Albumin 4.5 Urine Color Urine Appearance Urine pH Ur Specific [place] Urine Protein Urine Glucose (UA) Urine Ketones Urine Blood Urine Nitrite Ur Leukocyte Esterase Urine RBC Urine WBC Ur Squamous Epith Cells Urine Bacteria Urine Test Acetone, Qual COVID-19 (JOSE) [employer] 09/17/20 09/17/20 09/17/20 18:26 18:29 20:59 MCV MCH MCHC RDW Plt Count MPV Immature Gran % (Auto) Neut % (Auto) Lymph % (Auto) [place] % (Auto) Eos % (Auto) Baso % (Auto) Lymph # (Auto) [place] # (Auto) Eos # (Auto) Baso # (Auto) Abs Immat Gran (auto) Absolute Neuts (auto) Absolute Nucleated RBC Nucleated RBC % (auto) VBG pH 7.41 VBG pCO2 26 VBG pO2 67 VBG HCO3 17 L VBG O2 Saturation 92.0 VBG Base Excess -5.5 Anion Gap 16 Estim Creat Clear Calc 116.3 Estimated GFR > 60 POC Glucose Random Glucose 229 H Lactic Acid Calcium 8.3 L D Magnesium Total Bilirubin Direct Bilirubin AST ALT Alkaline Phosphatase Total Protein Albumin Urine Color Urine Appearance Urine pH Ur Specific [place] Urine Protein Urine Glucose (UA) Urine Ketones Urine Blood Urine Nitrite Ur Leukocyte Esterase Urine RBC Urine WBC Ur Squamous Epith Cells Urine Bacteria Urine Test Acetone, Qual Negative COVID-19 (JOSE) COVID-19 [employer] 09/17/20 09/17/20 09/18/20 20:59 23:36 05:35 MCV 82.6 MCH 28.3 MCHC 34.2 RDW 12.9 Plt Count 117 L D MPV 12.7 H Immature Gran % (Auto) 1.4 H Neut % (Auto) 61.7 Lymph % (Auto) 23.7 [place] % (Auto) 12.4 H Eos % (Auto) 0.4 Baso % (Auto) 0.4 Lymph # (Auto) 1.2 [place] # (Auto) 0.6 Eos # (Auto) 0.0 Baso # (Auto) 0.0 Abs Immat Gran (auto) 0.07 H Absolute Neuts (auto) 3.2 Absolute Nucleated RBC 0.000 Nucleated RBC % (auto) 0.0 VBG pH VBG pCO2 VBG pO2 VBG HCO3 VBG O2 Saturation VBG Base Excess Anion Gap Estim Creat Clear Calc Estimated GFR POC Glucose 260 H Random Glucose Lactic Acid Calcium Magnesium 2.0 Total Bilirubin Direct Bilirubin AST ALT Alkaline Phosphatase Total Protein Albumin Urine Color Urine Appearance Urine pH Ur Specific [place] Urine Protein Urine Glucose (UA) Urine Ketones Urine Blood Urine Nitrite Ur Leukocyte Esterase Urine RBC Urine WBC Ur Squamous Epith Cells Urine Bacteria Urine Test Acetone, Qual COVID-19 (JOSE) [employer] 09/18/20 09/18/20 09/18/20 05:35 07:09 11:24 MCV MCH MCHC RDW Plt Count MPV Immature Gran % (Auto) Neut % (Auto) Lymph % (Auto) [place] % (Auto) Eos % (Auto) Baso % (Auto) Lymph # (Auto) [place] # (Auto) Eos # (Auto) Baso # (Auto) Abs Immat Gran (auto) Absolute Neuts (auto) Absolute Nucleated RBC Nucleated RBC % (auto) VBG pH VBG pCO2 VBG pO2 VBG HCO3 VBG O2 Saturation VBG Base Excess Anion Gap 14 Estim Creat Clear Calc 130.4 Estimated GFR > 60 POC Glucose 226 H 246 H Random Glucose 228 H Lactic Acid Calcium 7.7 L D Magnesium Total Bilirubin Direct Bilirubin AST ALT Alkaline Phosphatase Total Protein Albumin Urine Color Urine Appearance Urine pH Ur Specific [place] Urine Protein Urine Glucose (UA) Urine Ketones Urine Blood Urine Nitrite Ur Leukocyte Esterase Urine RBC Urine WBC Ur Squamous Epith Cells Urine Bacteria Urine Test Acetone, Qual COVID-19 (JOSE) COVID-19 Clin Com Progress Note: A&P (1) Abscess of groin, right: Status: Acute Assessment and Plan: 29-year-old female with a past medical history of hypertension, diabetes, obesity, PCOS, right groin abscess status post I&D on 09/16/2020; presented with fevers and chills. Noted to be in sepsis. Sepsis. In the setting of right groin abscess. CT abdomen showed small right groin abscess. General surgery consult Continue vanc and Zosyn. Follow-up cultures Id consult Diabetes with hyperglycemia Sliding scale, ADA diet Lantus History of asthma Stable. DVT prophylaxis: Subcu heparin Code status: Full code Attending: Dr. Johnson Quality Stroke Does the patient have a stroke diagnosis?: No VTE Prior VTE?: No VTE Risk Level:: Medical - moderate - high VTE Device Contraindication: Patient Refused VTE Drug Contraindication: N/A - Med Ordered
--- NOTE | 2020-09-18 13:42 | PM.CNGS ---
History of Present Illness Consult details Consult date: 09/18/20 Reason for consult: other (Right groin abscess) Requesting physician: Melonie Grimm Narrative: This is a 29-year-old female with a history of polycystic ovarian syndrome, diabetes mellitus, hypertension, who reports that she 1st noticed tenderness and swelling in the right groin about 5 days ago. The area slowly enlarged and became more painful. She was seen 2 days ago and underwent incision and drainage. She change the bandage is instructed the following day and thought the area looked better, but she then experienced some chills and weakness. She thought that this might be a reaction to the antibiotics that she was taking, but she discussed it with her primary physician who advised her to return to the emergency room for re-evaluation. Because of the symptoms, admission for IV antibiotic therapy was advised. She reports that she is feeling better. She does not have any right groin pain and feels that the area has continued to improve. Review of Systems Constitutional: Constitutional: Reports chills, Reports fever(s) (Subjective), Reports malaise and Reports weakness Cardiovascular: Cardiovascular: Denies chest pain, Denies palpitations and Denies dyspnea Respiratory: Respiratory: Denies cough and Denies dyspnea Neurologic: Reports weakness Endocrine: Endocrine: Denies palpitations PMFSH Past Medical History Medical History Diabetes mellitus Essential hypertension Obesity Obesity due to excess calories PCOS (polycystic ovarian syndrome) Proteinuria Type 2 diabetes mellitus with hyperglycemia Type 2 diabetes mellitus with other diabetic kidney complication Family History Family History Father Diabetes Mother Diabetes Maternal Grandmother Diabetes Paternal Grandmother Diabetes Surgical History Surgical History History of ankle surgery History of cholecystectomy History of tonsillectomy Social History Social History Household Members: Family Housing: House Do you presently have visiting nurse or other home services: No Alcohol intake: never Patient Tobacco Use Status: Never used Tobacco Second Hand Smoke Exposure: No Use of substances other than those prescribed or required for medical reasons: No Currently Displaying Signs/Symptoms of Drug Intoxication Withdrawal: No Have you been hit, kicked, punched, or otherwise hurt by someone within the past year? If so, by whom?: No Do you feel safe in your current relationship?: No Current Relationship Is there a partner from a previous relationship who is making you feel unsafe now?: No Are you made to feel afraid or neglected: No Advance Directives: Yes Advance Directives Information Provided: Yes Advance Directives on File: No Advance Directives Date on File: 09/17/20 Do you have thoughts of harming others: None Do you have a plan to hurt others: No Plan Recently lost weight without trying: No Eating poorly because of decreased appetite: No Nutrition Risks: No Nutritional Risk Patient : No : No Poor oral hygiene: No service: No Current occupational status: employed Current occupation: [employer] Allergies Allergy/AdvReac Type Severity Reaction Status Date / Time metformin Allergy Mild stomach Verified 09/17/20 16:18 pains canagliflozin [From Invokana] Allergy UTI and Verified 09/17/20 16:18 yeast infections dulaglutide [From Trulicity] Allergy stomach Verified 09/17/20 16:18 pains, nausea and vomiting Active Medications: Current Medications Generic Name Dose Route Start Last Admin Trade Name Freq PRN Reason Stop Dose Admin Acetaminophen 650 mg 09/17/20 21:56 Acetaminophen 325 Mg Tablet PO Q6H PRN Pain, Mild (Pain Scale 1-3) Heparin Sodium (Porcine) 5,000 unit 09/17/20 22:00 09/18/20 12:17 Heparin Sodium,Porcine 5,000 Unit/Ml Vial SUBCUT 5,000 unit Q8H MURIEL Administration Sodium Chloride 1,000 mls @ 100 mls/hr 09/17/20 22:00 09/18/20 09:05 Ns IVCONT 100 mls/hr .Q10H MURIEL Administration Piperacillin Sod/Tazobactam 50 mls @ 100 mls/hr 09/18/20 04:00 09/18/20 10:35 Sod 3.375 gm/ Sodium Chloride IV Infused Q6H MURIEL Infusion Vancomycin HCl 1,250 mg/ 250 mls @ 166.667 mls/hr 09/18/20 10:00 09/18/20 12:48 Sodium Chloride IV Infused Q12H MURIEL Infusion Insulin Glargine 60 unit 09/18/20 09:00 09/18/20 09:05 Insulin Glargine,Hum.Rec.Anlog 100 Unit/Ml 10 Ml Vial SUBCUT 60 unit BID MURIEL Administration Insulin Human Lispro 0 unit 09/18/20 07:30 09/18/20 12:18 Insulin Lispro 100 Unit/Ml 3 Ml Vial SUBCUT 4 unit QIDACHS [facility] Administration Protocol Ketorolac Tromethamine 30 mg 09/17/20 22:47 09/18/20 04:23 Ketorolac Tromethamine 15 Mg/Ml Vial IVPUSH 30 mg Q6H PRN Administration Pain, Severe (Pain Scale 7-10) Melatonin 6 mg 09/17/20 21:56 Melatonin 3 Mg Tablet PO BEDTIME PRN Insomnia Pharmacy Consult 1 each 09/17/20 21:59 Consult Rx Vancomycin Dosing MISCELLANE DAILY PRN Consult order Senna 17.2 mg 09/17/20 21:56 Sennosides 8.6 Mg Tablet PO BEDTIME PRN Constipation Sodium Chloride 3 ml 09/18/20 00:00 09/18/20 09:06 0.9 % Sodium Chloride Flush 3 Ml Syringe IVFLUSH Not Given QSHIFT [facility] Physical Exam Vital Signs: Vital Signs: Last Vital Signs Temp 98 F 09/18/20 11:27 Pulse 98 09/18/20 11:27 Resp 16 09/18/20 11:27 BP 140/66 H 09/18/20 11:27 Pulse Ox 97 09/18/20 11:27 Body Mass Index 34.7 Const: General: healthy appearing, no acute distress and alert HENMT: Head: Yes normocephalic and Yes atraumatic Resp: Effort & Inspection: normal respiratory effort Auscultation: clear to auscultation bilaterally Cardio: Rate: regular rate Rhythm: regular rhythm Skin: Other: Approximately 1 cm, clean transverse incision right groin with a small amount of serosanguineous drainage present. There is some resolving medium brown purple discoloration of the surrounding skin and mild to moderate induration of the surrounding tissues without significant tenderness Results Labs Result diagrams: 09/18/20 05:35 09/18/20 05:35 Labs: Abnormal lab results 09/17/20 09/17/20 09/17/20 Range/Units 18:24 18:25 18:25 MCHC 35.8 H (31.0-35.0) g/dl Plt Count 158 L D (160-400) X10*3/uL MPV 12.4 H (9.4-12.3) fL Immature Gran % (Auto) 1.2 H (0.0-0.4) % Lymph % (Auto) 18.1 L (20-40) % [place] % (Auto) (2-11) % Abs Immat Gran (auto) 0.10 H (0.00-0.03) X10*3/uL VBG HCO3 (22-26) mmol/L Sodium 130 L (135-145) mmol/L Carbon Dioxide 19 L (22-29) mmol/L BUN 6 L (9-16) mg/dL POC Glucose (60-115) mg/dL Random Glucose 291 H (60-115) mg/dL Calcium (8.4-10.2) mg/dL Magnesium 1.5 L (1.6-2.6) mg/dL Total Bilirubin 1.2 H (0.0-1.0) mg/dL ALT 40 H (0-31) U/L Total Protein 8.6 H (6.5-8.0) g/dL Urine Protein 1+ H (NEG-TRACE) MG/DL Urine Glucose (UA) 500 H (NEG) MG/DL 09/17/20 09/17/20 09/17/20 Range/Units 18:29 20:59 23:36 MCHC (31.0-35.0) g/dl Plt Count (160-400) X10*3/uL MPV (9.4-12.3) fL Immature Gran % (Auto) (0.0-0.4) % Lymph % (Auto) (20-40) % [place] % (Auto) (2-11) % Abs Immat Gran (auto) (0.00-0.03) X10*3/uL VBG HCO3 17 L (22-26) mmol/L Sodium 134 L (135-145) mmol/L Carbon Dioxide 18 L (22-29) mmol/L BUN 5 L (9-16) mg/dL POC Glucose 260 H (60-115) mg/dL Random Glucose 229 H (60-115) mg/dL Calcium 8.3 L D (8.4-10.2) mg/dL Magnesium (1.6-2.6) mg/dL Total Bilirubin (0.0-1.0) mg/dL ALT (0-31) U/L Total Protein (6.5-8.0) g/dL Urine Protein (NEG-TRACE) MG/DL Urine Glucose (UA) (NEG) MG/DL 09/18/20 09/18/20 09/18/20 Range/Units 05:35 05:35 07:09 MCHC (31.0-35.0) g/dl Plt Count 117 L D (160-400) X10*3/uL MPV 12.7 H (9.4-12.3) fL Immature Gran % (Auto) 1.4 H (0.0-0.4) % Lymph % (Auto) (20-40) % [place] % (Auto) 12.4 H (2-11) % Abs Immat Gran (auto) 0.07 H (0.00-0.03) X10*3/uL VBG HCO3 (22-26) mmol/L Sodium 134 L (135-145) mmol/L Carbon Dioxide 17 L (22-29) mmol/L BUN 4 L (9-16) mg/dL POC Glucose 226 H (60-115) mg/dL Random Glucose 228 H (60-115) mg/dL Calcium 7.7 L D (8.4-10.2) mg/dL Magnesium (1.6-2.6) mg/dL Total Bilirubin (0.0-1.0) mg/dL ALT (0-31) U/L Total Protein (6.5-8.0) g/dL Urine Protein (NEG-TRACE) MG/DL Urine Glucose (UA) (NEG) MG/DL 09/18/20 Range/Units 11:24 MCHC (31.0-35.0) g/dl Plt Count (160-400) X10*3/uL MPV (9.4-12.3) fL Immature Gran % (Auto) (0.0-0.4) % Lymph % (Auto) (20-40) % [place] % (Auto) (2-11) % Abs Immat Gran (auto) (0.00-0.03) X10*3/uL VBG HCO3 (22-26) mmol/L Sodium (135-145) mmol/L Carbon Dioxide (22-29) mmol/L BUN (9-16) mg/dL POC Glucose 246 H (60-115) mg/dL Random Glucose (60-115) mg/dL Calcium (8.4-10.2) mg/dL Magnesium (1.6-2.6) mg/dL Total Bilirubin (0.0-1.0) mg/dL ALT (0-31) U/L Total Protein (6.5-8.0) g/dL Urine Protein (NEG-TRACE) MG/DL Urine Glucose (UA) (NEG) MG/DL Short CBC 09/17/20 09/18/20 Range/Units 18:25 05:35 WBC 8.2 5.1 (4.8-10.8) X10*3/uL Hgb 15.5 12.8 (12.0-16.0) g/dl Hct 43.3 37.4 (37-47) % Plt Count 158 L D 117 L D (160-400) X10*3/uL BMP 09/17/20 09/17/20 09/18/20 18:25 20:59 05:35 Sodium 130 L 134 L 134 L Potassium 3.6 D 3.6 3.7 Chloride 98 104 107 Carbon Dioxide 19 L 18 L 17 L BUN 6 L 5 L 4 L Creatinine 0.89 0.74 0.66 Calcium 9.5 8.3 L D 7.7 L D Liver Function 09/17/20 Range/Units 18:25 Total Bilirubin 1.2 H (0.0-1.0) mg/dL Direct Bilirubin 0.5 (0.0-0.5) mg/dL AST 27 (5-31) U/L ALT 40 H (0-31) U/L Alkaline Phosphatase 98 (39-117) U/L Albumin 4.5 (3.5-5.0) g/dL Urine 09/17/20 09/17/20 Range/Units 18:24 18:24 Urine Color YELLOW Urine Appearance HAZY Urine pH 6.0 (5.0-8.0) Ur Specific [place] 1.025 (1.005-1.025) Urine Protein 1+ H (NEG-TRACE) MG/DL Urine Glucose (UA) 500 H (NEG) MG/DL Urine Test NEGATIVE (NEGATIVE) All other labs normal. Assessment and Plan (1) Abscess of groin, right: Status: Acute 29-year-old female with history of PCOS, diabetes mellitus, and resolving abscess right groin presenting with symptoms concerning for systemic infection. Currently on vancomycin and Zosyn. I advanced the packing in the right groin wound and applied a clean dressing. Will return to remove remaining packing tomorrow. No concern for undrained collection or significant soft tissue infection at this time. Procedures Date of Service Date of Service: 09/18/20
[2020-09-18 16:04] LABS: Glucose, Whole Blood 182 mg/dL (60-115)
[2020-09-18] MEDS: Acetaminophen 325 MG TABLET 650 MG PO (16:47)
[2020-09-18 20:35] LABS: Glucose, Whole Blood 173 mg/dL (60-115)
--- NOTE | 2020-09-18 22:42 | W.PM.IDCN ---
History of Present Illness Data of Consult Service Date: 09/18/20 Requesting physician: Seth Stanford Primary Care Provider: Davonte Seals MD [facility] Reason for consult: right groin abscess She presents with 2-3 days of swelling and redness in right groin area She has pain and has diabetes She started Bactrim and Keflex she thinks and is not better Review of Systems Review of Systems: Yes all other systems are reviewed and are negative PMFSH Past Medical History Medical History Diabetes mellitus Essential hypertension Obesity Obesity due to excess calories PCOS (polycystic ovarian syndrome) Proteinuria Type 2 diabetes mellitus with hyperglycemia Type 2 diabetes mellitus with other diabetic kidney complication Family History Family History Father Diabetes Mother Diabetes Maternal Grandmother Diabetes Paternal Grandmother Diabetes Surgical History Surgical History History of ankle surgery History of cholecystectomy History of tonsillectomy Social History Social History Household Members: Family Housing: House Do you presently have visiting nurse or other home services: No Alcohol intake: never Patient Tobacco Use Status: Never used Tobacco Second Hand Smoke Exposure: No Use of substances other than those prescribed or required for medical reasons: No Currently Displaying Signs/Symptoms of Drug Intoxication Withdrawal: No Have you been hit, kicked, punched, or otherwise hurt by someone within the past year? If so, by whom?: No Do you feel safe in your current relationship?: No Current Relationship Is there a partner from a previous relationship who is making you feel unsafe now?: No Are you made to feel afraid or neglected: No Advance Directives: Yes Advance Directives Information Provided: Yes Advance Directives on File: No Advance Directives Date on File: 09/17/20 Do you have thoughts of harming others: None Do you have a plan to hurt others: No Plan Recently lost weight without trying: No Eating poorly because of decreased appetite: No Nutrition Risks: No Nutritional Risk Patient : No : No Poor oral hygiene: No service: No Current occupational status: employed Current occupation: [employer] Meds Allergies Allergy/AdvReac Type Severity Reaction Status Date / Time metformin Allergy Mild stomach Verified 09/17/20 16:18 pains canagliflozin [From Invokana] Allergy UTI and Verified 09/17/20 16:18 yeast infections dulaglutide [From Trulicity] Allergy stomach Verified 09/17/20 16:18 pains, nausea and vomiting Active Medications: Current Medications Generic Name Dose Route Start Last Admin Trade Name Freq PRN Reason Stop Dose Admin Acetaminophen 650 mg 09/17/20 21:56 09/18/20 16:47 Acetaminophen 325 Mg Tablet PO 650 mg Q6H PRN Administration Pain, Mild (Pain Scale 1-3) Heparin Sodium (Porcine) 5,000 unit 09/17/20 22:00 09/18/20 20:52 Heparin Sodium,Porcine 5,000 Unit/Ml Vial SUBCUT 5,000 unit Q8H MURIEL Administration Sodium Chloride 1,000 mls @ 100 mls/hr 09/17/20 22:00 09/18/20 20:56 Ns IVCONT 100 mls/hr .Q10H MURIEL Administration Piperacillin Sod/Tazobactam 50 mls @ 100 mls/hr 09/18/20 04:00 09/18/20 21:43 Sod 3.375 gm/ Sodium Chloride IV Infused Q6H [facility]EL Infusion Vancomycin HCl 1,250 mg/ 250 mls @ 166.667 mls/hr 09/18/20 10:00 09/18/20 21:48 Sodium Chloride IV 166.67 mls/hr Q12H MURIEL Administration Insulin Glargine 60 unit 09/18/20 09:00 09/18/20 20:53 Insulin Glargine,Hum.Rec.Anlog 100 Unit/Ml 10 Ml Vial SUBCUT 60 unit BID MURIEL Administration Insulin Human Lispro 0 unit 09/18/20 07:30 09/18/20 20:53 Insulin Lispro 100 Unit/Ml 3 Ml Vial SUBCUT 2 unit QIDACHS [facility] Administration Protocol Ketorolac Tromethamine 30 mg 09/17/20 22:47 09/18/20 04:23 Ketorolac Tromethamine 15 Mg/Ml Vial IVPUSH 30 mg Q6H PRN Administration Pain, Severe (Pain Scale 7-10) Melatonin 6 mg 09/17/20 21:56 Melatonin 3 Mg Tablet PO BEDTIME PRN Insomnia Pharmacy Consult 1 each 09/17/20 21:59 Consult Rx Vancomycin Dosing MISCELLANE DAILY PRN Consult order Senna 17.2 mg 09/17/20 21:56 Sennosides 8.6 Mg Tablet PO BEDTIME PRN Constipation Sodium Chloride 3 ml 09/18/20 00:00 09/18/20 16:47 0.9 % Sodium Chloride Flush 3 Ml Syringe IVFLUSH Not Given QSHIFT [facility] Physical Exam Vital Signs: Vital Signs: Last Vital Signs Temp 97.5 F 09/18/20 19:08 Pulse 94 09/18/20 19:08 Resp 16 09/18/20 19:08 BP 144/78 H 09/18/20 19:08 Pulse Ox 98 09/18/20 19:08 Body Mass Index 34.7 Const: General: cooperative HENMT: Head: Yes normal to inspection Mouth: Normal oral and palatal mucosa present Eyes: General: appearance normal, both eyes and all related structures Resp: Effort & Inspection: normal respiratory effort Cardio: Rate: regular rate Rhythm: regular rhythm GI: Palpation (GI): Soft to palpation and nontender Extrem: Other: groin one cm right swelling,no drainage Results Labs CBC & Chem 7: 09/18/20 05:35 09/18/20 05:35 Labs: Short CBC 09/18/20 Range/Units 05:35 WBC 5.1 (4.8-10.8) X10*3/uL Hgb 12.8 (12.0-16.0) g/dl Hct 37.4 (37-47) % Plt Count 117 L D (160-400) X10*3/uL BMP 09/18/20 05:35 Sodium 134 L Potassium 3.7 Chloride 107 Carbon Dioxide 17 L BUN 4 L Creatinine 0.66 Calcium 7.7 L D Microbiology Microbiology Results: Microbiology 09/17/20 18:26 Blood - Venous Blood Culture - Preliminary No growth after 24 hours. 09/17/20 18:26 Blood - Venous Blood Culture - Preliminary No growth after 24 hours. Assessment and Plan (1) Abscess of groin, right: Status: Acute There is no evidence of necrotizing fasciitis She still may have gram negative and gram positive infection Suggest Would continue Vancomycin and Zosyn If improved and nothing more to drain change to po Doxycycline and Agumentin for 10 days (2) Type 2 diabetes mellitus with other diabetic kidney complication: Status: Acute
[2020-09-19] MEDS: ondansetron HCL 4 MG/2 ML VIAL IVPUSH (02:17)
[2020-09-19 03:15] VITALS: BP 143/78; PULSE 101; RESP 18; TEMP 36.8; O2SAT 100
[2020-09-19] MEDS: Piperacillin Sodium/Tazobactam 3.375 GM in 0.9 % Sodium Chloride 50 ML IV ×2 (03:21→09:30)
[2020-09-19] MEDS: Heparin Sodium,Porcine 5,000 UNIT/ML VIAL 5000 UNIT SUBCUT (05:07)
[2020-09-19] MEDS: 0.9 % Sodium Chloride 1,000 ML 100 ML IVCONT (05:07)
[2020-09-19 07:14] LABS: Glucose, Whole Blood 157 mg/dL (60-115)
[2020-09-19 07:23] VITALS: BP 132/85; PULSE 96; RESP 20; TEMP 36.8; O2SAT 98
[2020-09-19] MEDS: Insulin Lispro 100 UNIT/ML 3 ML VIAL SUBCUT (07:45)
[2020-09-19] MEDS: Insulin Glargine,Hum.rec.anlog 100 UNIT/ML 10 ML VIAL 60 UNIT SUBCUT (09:29)
[2020-09-19] MEDS: vancomycin HCL 1,500 MG in 0.9 % Sodium Chloride 500 ML 333.33 MG IV (10:10)
[2020-09-19] MEDS: Acetaminophen 325 MG TABLET 650 MG PO (10:10)
--- NOTE | 2020-09-19 10:16 | PM.DS ---
DS: Providers Provider Date of Service: 09/19/20 Date of admission: 09/17/20 21:56 Date of discharge: 09/19/20 Primary care physician: Davonte Seals MD Admitting clinician: Mariano Wright Attending physician on admission: Mariano Wright Consults: 09/17/20 21:59 Consult to General Surgery Routine Consulting Provider: Loki Elaine Reason for consultation: rt groin abscess Consult to Infectious Diseases Routine Consulting Provider: Yareli Doyle Reason for consultation: rt groin abscess 09/18/20 09:57 Consult to General Surgery Routine Consulting Provider: Sybil Browne Reason for consultation: right groin abscess Has provider been notified: Yes Attending physician on discharge: Isauro Johnson Discharging clinician: Melonie Grimm DS: Diagnosis Discharge Diagnosis (1) Abscess of groin, right: Status: Acute (2) Type 2 diabetes mellitus with other diabetic kidney complication: Status: Acute DS: Medications Discharge Medications Home Medications: Previous Rx's Medication Instructions Recorded blood sugar diagnostic #150 08/31/20 blood-glucose meter #1 ea 08/31/20 flash glucose scanning reader #1 ea 08/31/20 flash glucose sensor #2 ea 08/31/20 insulin glargine U-300 conc 300 120 unit SUBCUT DAILY 30 Days #12 08/31/20 unit/mL (3 mL) subcutaneous pen ml insulin lispro 200 unit/mL (3 mL) 46 unit SUBCUT TID 30 Days #24 ml 08/31/20 subcutaneous pen lancets 28 gauge #200 08/31/20 pen needle, diabetic 32 gauge x #150 ea 08/31/20 ibuprofen 600 mg PO Q6H PRN #20 tab 09/16/20 amoxicillin-pot clavulanate 1 tab PO BID #20 tab 09/19/20 [Augmentin] doxycycline hyclate 100 mg PO BID #20 tab 09/19/20 DS: Summary Hospital Course Hospital Course: HP as per admitting provider 29-year-old female with a past medical history of hypertension, diabetes, PCOS, obesity presented to the hospital with a chief complaint of fever. Patient reported that she came to the ER yesterday with a chief complaint of small red area in her right groin which has been gradually growing and painful; in the ER noted to have small groin abscess status post I&D and sent home on cephalexin, Bactrim; after she went home she cell chills and body aches, dizziness, and had fever; to couple doses of her antibiotics; as she does not feel Code she decided to come to the ER for further evaluation. Denies any discharge. Has packing in place in the groin abscess; complains of pain; Denies any fever chills cough. Denies any urinary symptoms. Denies any diarrhea. Denies any chest pain palpitations lightheadedness or dizziness. Review of all other systems is negative except mentioned above ER course: Per ER team patient noted to have packing in her right groin; on labs noted to have elevated blood glucose levels otherwise CBC and BMP at baseline; pH within normal limits; COVID-19 negative; CT abdomen pelvis showed mild hepatosplenomegaly, right groin abscess; given vanc and Zosyn. Admitted for further management . Right-sided groin abscess. History of diabetes mellitus. Initially presented to the ER with 3 days of redness and swelling to the right groin area with increased pain. She had I and D and was sent home with Bactrim and Keflex. She presented back to the ER on 09/17/[address] scan showed right groin abscess and inflammatory changes. The abscess was packed, she was seen and evaluated by General surgery and packing was removed, no further drainage or collection present. She was treated with vancomycin and Zosyn, blood cultures after 24 hour show no growth. She was seen and evaluated by Infectious Disease with recommendation for doxycycline and Augmentin for 10 more days. Patient is to keep the wound clean and apply dressing daily or as needed if soiled and follow-up with her primary care provider. Time Spent with Patient Time attestation: Total time spent providing and/or coordinating discharge services: Discharge coordination time: Greater than 30 minutes Quality: Stroke Does the patient have a stroke diagnosis?: No Physical Exam Vital Signs: Vital Signs: Last Vital Signs Temp 98.2 F 09/19/20 07:23 Pulse 96 09/19/20 07:23 Resp 20 09/19/20 07:23 BP 132/85 09/19/20 07:23 Pulse Ox 98 09/19/20 07:23 Body Mass Index 34.7 Appearing in no acute distress head is normocephalic atraumatic eyes pupils are PERRLA sclera is anicteric mouth throat mucous membranes are intact and moist neck is supple no lymphadenopathy, no JVD noted lung sounds are clear to auscultation heart regular rate rhythm, clear S1, S2 positive bowel sounds, abdomen is soft, nontender neuro patient is alert x3, no focal deficits 0.5 in I&D area of abscess, surrounding skn intact, no erythema DS: Data Data Completed and Pending Labs on day of discharge: Laboratory Results - last 24 hr 09/18/20 09/18/20 09/18/20 11:24 15:59 20:26 POC Glucose 246 H 182 H 173 H Vancomycin Trough 09/19/20 09/19/20 07:10 08:54 POC Glucose 157 H Vancomycin Trough 8.0 L Preliminary micro results at discharge 09/17/20 18:26 Blood Culture - Preliminary Blood - Venous No growth after 24 hours. 09/17/20 18:26 Blood Culture - Preliminary Blood - Venous No growth after 24 hours. Discharge Plan Discharge Anticipated Discharge Date/Time: 09/19/20 10:10 Patient Disposition: Home, Self-Care Discharge Diagnosis: Groin abscess Referrals: Davonte Seals MD [Primary Care Provider] - 1 Week Discharge Medications: New doxycycline hyclate 100 mg tablet 100 mg PO BID Qty: 20 RF: 0 amoxicillin-pot clavulanate [Augmentin] 875-125 mg tablet 1 tab PO BID Qty: 20 RF: 0 Continued ibuprofen 600 mg tablet 600 mg PO Q6H PRN (Reason: pain) Qty: 20 RF: 0 Toujeo Max U-300 SoloStar 300 unit/mL (3 mL) insulin pen 120 unit subcut DAILY 30 Days Qty: 12 RF: 3 Humalog KwikPen Insulin 200 unit/mL (3 mL) insulin pen 46 unit subcut TID 30 Days Qty: 24 RF: 3 (DME) pen needle, diabetic [BD Ultra-Fine Teresa Pen Needle] 32 gauge x 5/32 needle See Rx Instructions .ROUTE .MEDSUPPLY Qty: 150 RF: 10 (DME) FreeStyle Olivia 2 Sensor Kit See Rx Instructions .ROUTE .MEDSUPPLY Qty: 2 RF: 0 (DME) FreeStyle Lite Strips Strip See Rx Instructions .ROUTE .MEDSUPPLY Qty: 150 RF: 11 (DME) lancets [FreeStyle Lancets] 28 gauge misc See Rx Instructions .ROUTE .MEDSUPPLY Qty: 200 RF: 11 (DME) FreeStyle Olivia 2 [place] Misc See Rx Instructions .ROUTE .MEDSUPPLY Qty: 1 RF: 0 (DME) blood-glucose meter [FreeStyle Lite Meter] Kit See Rx Instructions .ROUTE .MEDSUPPLY Qty: 1 RF: 0 Discontinued sulfamethoxazole-trimethoprim [Bactrim DS] 800-160 mg tablet 1 tab PO BID 7 Days Qty: 14 RF: 0 cephalexin 500 mg tablet 500 mg PO QID 7 Days Qty: 28 RF: 0 Discharge Orders: Discharge Order (Routine); Ordered 09/19/20 Ordered By: Melonie Grimm Diet: advance to usual diet Activity on Discharge: As tolerated Stand Alone Forms: Patient Portal Discharge page Care Plan Goals: resolution of abscess Health Concerns: groin abscess Plan of Treatment: Continue 10 days of doxycycline and Augmentin keep wound area clean and dry cover with gauze and bandage follow-up with your primary care provider in 1 week Assessment: See discharge summary
--- NOTE | 2020-09-19 10:20 | MHC.CM.PN ---
Patient has been medically cleared for dc to home today, no services.
--- NOTE | 2020-09-19 10:59 | P.PNGS_ITS ---
Subjective Subjective Date of Service: 09/19/20 Interval history: No significant pain right groin. Reports the dressing was changed last night because of saturation. Physical Exam Vital Signs: Vital Signs: Last Vital Signs Temp 98.2 F 09/19/20 07:23 Pulse 96 09/19/20 07:23 Resp 20 09/19/20 07:23 BP 132/85 09/19/20 07:23 Pulse Ox 98 09/19/20 07:23 Body Mass Index 34.7 Const: General: cooperative, no acute distress and alert Skin: Other: I and D site right groin is clean. Packing out. Has some ongoing serosanguineous drainage. No purulence discharge. Induration of surrounding tissues is resolving slowly. Progress Note: A&P Assessment and plan (1) Abscess of groin, right: Status: Acute (2) Type 2 diabetes mellitus with other diabetic kidney complication: Status: Acute Assessment and Plan: Abscess site right groin is clean and appears well drained. Continue slow improvement in induration of the tissues surrounding I and D site. I discussed wound care with her. Following discharge, she can cleanse the area in the shower, pat it dry and apply a light dressing until the drainage stops. Discharge on oral antibiotics when medically stable. Fall Risk Details Current Medications: Current Medications Generic Name Dose Route Start Last Admin Trade Name Freq PRN Reason Stop Dose Admin Acetaminophen 650 mg 09/17/20 21:56 09/19/20 10:10 Acetaminophen 325 Mg Tablet PO 650 mg Q6H PRN Administration Pain, Mild (Pain Scale 1-3) Heparin Sodium (Porcine) 5,000 unit 09/17/20 22:00 09/19/20 05:07 Heparin Sodium,Porcine 5,000 Unit/Ml Vial SUBCUT 5,000 unit Q8H MURIEL Administration Sodium Chloride 1,000 mls @ 100 mls/hr 09/17/20 22:00 09/19/20 05:07 Ns IVCONT 100 mls/hr .Q10H MURIEL Administration Piperacillin Sod/Tazobactam 50 mls @ 100 mls/hr 09/18/20 04:00 09/19/20 10:04 Sod 3.375 gm/ Sodium Chloride IV Infused Q6H MURIEL Infusion Vancomycin HCl 1,500 mg/ 500 mls @ 333.333 mls/hr 09/19/20 10:00 09/19/20 10:10 Sodium Chloride IV 333.33 mls/hr Q12H MURIEL Administration Insulin Glargine 60 unit 09/18/20 09:00 09/19/20 09:29 Insulin Glargine,Hum.Rec.Anlog 100 Unit/Ml 10 Ml Vial SUBCUT 60 unit BID MURIEL Administration Insulin Human Lispro 0 unit 09/18/20 07:30 09/19/20 07:45 Insulin Lispro 100 Unit/Ml 3 Ml Vial SUBCUT 2 unit QIDACHS MURIEL Administration Protocol Ketorolac Tromethamine 30 mg 09/17/20 22:47 09/18/20 04:23 Ketorolac Tromethamine 15 Mg/Ml Vial IVPUSH 30 mg Q6H PRN Administration Pain, Severe (Pain Scale 7-10) Melatonin 6 mg 09/17/20 21:56 Melatonin 3 Mg Tablet PO BEDTIME PRN Insomnia Pharmacy Consult 1 each 09/17/20 21:59 Consult Rx Vancomycin Dosing MISCELLANE DAILY PRN Consult order Senna 17.2 mg 09/17/20 21:56 Sennosides 8.6 Mg Tablet PO BEDTIME PRN Constipation Sodium Chloride 3 ml 09/18/20 00:00 09/19/20 07:29 0.9 % Sodium Chloride Flush 3 Ml Syringe IVFLUSH Not Given QSHIFT [facility] Time Spent With Patient Time: Total time spent is greater than 50% in coordination of care (as d ocumented) at patient's floor/unit and/or counseling patient: Time with patient: less than 15 minutes Procedures Date of Service Date of Service: 09/19/20 Quality Stroke Does the patient have a stroke diagnosis?: No VTE Prior VTE?: No VTE Risk Level:: Medical - moderate - high VTE Device Contraindication: Patient Refused VTE Drug Contraindication: N/A - Med Ordered
[2020-09-19 11:24] LABS: Glucose, Whole Blood 191 mg/dL (60-115)
== END 2020-09-19 12:28 | disposition home or self-care (01) | DRG 720 ==
LOC: HO.ED 21:51 → HO.IMC 22:40
PROVIDERS: Nurse Practitioner Family; Physician Assistant; Admitting Provider Hospitalist; Emergency Provider Internal Medicine; PCP Internal Medicine; Visit Provider Internal Medicine
DX: A41.9 Sepsis, unspecified organism (principal); E11.65 Type 2 diabetes mellitus with hyperglycemia; L02.214 Cutaneous abscess of groin; E83.42 Hypomagnesemia; J45.909 Unspecified asthma, uncomplicated; E28.2 Polycystic ovarian syndrome; E87.1 Hypo-osmolality and hyponatremia; Z20.822 Contact with and (suspected) exposure to COVID-19; Z79.1 Long term (current) use of non-steroidal anti-inflammatories (NSAID); Z79.4 Long term (current) use of insulin; Z79.899 Other long term (current) drug therapy
CPT/HCPCS: 36415; 71046; 74177; 80048; 80076; 80202; 81001; 81025; 82009; 82947; 83605; 83735; 85025; 87040; 87635; 99219; 99285; J1885; J2405; J2543; J3370; J3475; Q9967

== ENCOUNTER → 2020-09-23 13:06 | Outpatient (BNVA) | payer MEDICAID, SELFPAY | PROVIDERS: Visit Provider Orthopaedic Surgery | DX: S82.899A Other fracture of unspecified lower leg, initial encounter for closed fracture (principal) | CPT/HCPCS: 99212 ==

== ENCOUNTER 2020-12-13 08:12 | Outpatient (REF) | payer OTHER, SELFPAY ==
--- NOTE | ~2020-12-13 | XR_ITS ---
EXAMINATION: XR ANKLE, LEFT CLINICAL INFORMATION: Pain. COMPARISON: Left ankle radiographs dated 08/05/2020. TECHNIQUE: AP, lateral, and mortise views of the left ankle. FINDINGS: Distal fibular lateral stabilization plate with fixation screws. Medial malleoli orthopedic screws. No hardware fracture. No perihardware lucency to suggest loosening or infection. Healed distal fibular and medial malleolar fractures in anatomic alignment. The ankle mortise is maintained. Tibiotalar joint space narrowing with small marginal osteophytes, unchanged. No abnormal soft tissue calcification. XR/XR ankle LT min 3V IMPRESSION: Distal fibular and medial malleoli ORIF without evidence of hardware complication. Chronic, healed fractures in anatomic alignment. 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
== END 2020-12-13 08:13 | disposition home or self-care (01) ==
LOC: HO.HOSX 08:12
PROVIDERS: Visit Provider Orthopaedic Surgery
DX: S82.892D Other fracture of left lower leg, subsequent encounter for closed fracture with routine healing (principal)
CPT/HCPCS: 73610; 99212

== ENCOUNTER → 2021-01-13 08:56 | Outpatient (BNVA) | payer OTHER, SELFPAY | PROVIDERS: PCP Internal Medicine; Visit Provider Nurse Practitioner Gerontology | DX: E11.65 Type 2 diabetes mellitus with hyperglycemia (principal); E11.29 Type 2 diabetes mellitus with other diabetic kidney complication; E66.01 Morbid (severe) obesity due to excess calories; I10 Essential (primary) hypertension; R80.9 Proteinuria, unspecified; Z79.4 Long term (current) use of insulin; Z68.35 Body mass index [BMI] 35.0-35.9, adult | CPT/HCPCS: 82947; 83036; 99212 ==

== ENCOUNTER → 2021-01-26 13:34 | Outpatient (BNVA) | payer OTHER, SELFPAY | PROVIDERS: PCP Internal Medicine; Visit Provider Registered Nurse Diabetes Educator ==

== ENCOUNTER → 2021-03-16 07:21 | Outpatient (BNVA) | payer OTHER, SELFPAY | PROVIDERS: PCP Internal Medicine; Visit Provider Internal Medicine ==

== ENCOUNTER 2021-04-20 07:01 | Outpatient (REF) | payer OTHER, SELFPAY ==
[2021-04-20 07:42] LABS: Estimated Average Glucose 174 mg/dL; Hemoglobin A1c % 7.7 %
[2021-04-20 07:57] LABS: Cholesterol 182 mg/dL; HDL Cholesterol 26 mg/dL; Triglycerides 739 mg/dL
[2021-04-20 07:58] LABS: Alanine Aminotransferase 31 U/L (0-31); Albumin Level 4.3 g/dL (3.5-5.0); Alkaline Phosphatase 75 U/L (39-117); Anion Gap 12 (12-20); Aspartate Amino Transferase 22 U/L (5-31); Bilirubin Total 0.7 mg/dL (0.0-1.0); Blood Urea Nitrogen 12 mg/dL (9-16); Calcium 9.5 mg/dL (8.4-10.2); Carbon Dioxide 26 mmol/L (22-29); Chloride 102 mmol/L (96-108); Cholesterol 184 mg/dL; Estimated Glomerular Filt Rate > 60; Glucose Fasting 214 mg/dL (60-99); HDL Cholesterol 27 mg/dL; Sodium 136 mmol/L (135-145); Total Protein 8.7 g/dL (6.5-8.0); Triglycerides 750 mg/dL
[2021-04-20 08:19] LABS: Free T4 (Free Thyroxine) 0.95 ng/dL (0.71-1.85); HCG Quantitative < 2 mIU/mL; Thyroid Stimulating Hormone 1.76 uIU/mL (0.32-4.0); Vitamin D 25-OH Total 8.8 ng/mL (>30)
[2021-04-20 08:20] LABS: Free T4 (Free Thyroxine) 0.94 ng/dL (0.71-1.85); Thyroid Stimulating Hormone 1.86 uIU/mL (0.32-4.0)
[2021-04-20 09:38] LABS: Creatinine Urine 135.36 mg/dL; Microalbum/Creatinine Ratio Ur 18.4 ug/mg cr
[2021-04-20 13:53] LABS: Cortisol Random 11.7 ug/dL
[2021-04-20 16:27] LABS: CT PCR NOT DETECTED (Not Detect.); NG PCR NOT DETECTED (Not Detect.)
[2021-04-21 09:19] LABS: BV Int Neg Control Negative (Negative); BV Int Pos Control Positive (Positive)
[2021-04-22 06:17] LABS: Follicle Stimulating Hormone 5.4 mIU/mL; Lutenizing Hormone 13.2 mIU/mL; Prolactin 10.3 ng/mL; Sex Hormone Binding Globulin 22 nmol/L (17-124)
[2021-04-22 07:06] LABS: LDL Cholesterol Direct 80 mg/dL (<100)
[2021-04-22 07:51] LABS: DHEA Sulfate 227 mcg/dL (18-391)
[2021-04-22 08:07] LABS: LDL Cholesterol Direct 84 mg/dL (<100)
[2021-04-22 11:07] LABS: Adrenocorticotropic Hormone 47 pg/mL (6-50)
[2021-04-26 16:22] LABS: Androstenedione 199 ng/dL
[2021-04-26 17:37] LABS: Testosterone, Free 22.4 pg/mL (0.1-6.4); Testosterone, Total 128 ng/dL (2-45)
[2021-04-28 22:26] LABS: Estradiol Free 0.83 pg/mL; Estradiol, Ultrasensitive 44 pg/mL
== END 2021-04-20 07:02 | disposition home or self-care (01) ==
LOC: HO.LAB 07:01
PROVIDERS: Advanced Practice Midwife; Absent Provider Internal Medicine; PCP Internal Medicine; Visit Provider Nurse Practitioner Gerontology
DX: Z01.419 Encounter for gynecological examination (general) (routine) without abnormal findings (principal); N89.8 Other specified noninflammatory disorders of vagina; R30.0 Dysuria; E28.2 Polycystic ovarian syndrome; Z11.3 Encounter for screening for infections with a predominantly sexual mode of transmission; Z11.8 Encounter for screening for other infectious and parasitic diseases; L68.0 Hirsutism; E11.29 Type 2 diabetes mellitus with other diabetic kidney complication; E11.65 Type 2 diabetes mellitus with hyperglycemia; E55.9 Vitamin D deficiency, unspecified; E66.01 Morbid (severe) obesity due to excess calories; Z68.38 Body mass index [BMI] 38.0-38.9, adult; Z88.8 Allergy status to other drugs, medicaments and biological substances; Z79.4 Long term (current) use of insulin; N28.9 Disorder of kidney and ureter, unspecified
CPT/HCPCS: 36415; 80053; 80061; 81003; 82024; 82043; 82157; 82306; 82533; 82627; 82670; 82681; 83001; 83002; 83036; 83498; 83721; 84146; 84270; 84402; 84403; 84439; 84443; 84702; 87480; 87491; 87510; 87591; 87660; 88142

== ENCOUNTER → 2021-05-06 10:00 | Outpatient (BNVA) | payer OTHER, SELFPAY | PROVIDERS: PCP Internal Medicine; Visit Provider Nurse Practitioner Gerontology ==

== ENCOUNTER → 2021-05-11 09:37 | Outpatient (BNVA) | payer OTHER, SELFPAY | PROVIDERS: PCP Internal Medicine; Visit Provider Internal Medicine | DX: L68.0 Hirsutism (principal); E11.65 Type 2 diabetes mellitus with hyperglycemia; E55.9 Vitamin D deficiency, unspecified; E66.01 Morbid (severe) obesity due to excess calories; R79.89 Other specified abnormal findings of blood chemistry; Z68.37 Body mass index [BMI] 37.0-37.9, adult; Z79.4 Long term (current) use of insulin | CPT/HCPCS: 99212 ==

== ENCOUNTER → 2021-06-06 08:18 | Outpatient (BNVA) | payer OTHER, SELFPAY | PROVIDERS: PCP Internal Medicine; Visit Provider Physician Assistant Surgical | DX: Z13.89 Encounter for screening for other disorder (principal) ==

== ENCOUNTER 2021-06-13 07:36 | Outpatient (REF) | payer OTHER, SELFPAY ==
--- NOTE | ~2021-06-13 | US_ITS ---
EXAMINATION: PELVIC ULTRASOUND CLINICAL INFORMATION: Elevated testosterone COMPARISON: Previous CT of the abdomen and pelvis September 2020 TECHNIQUE: Transabdominal and transvaginal pelvic ultrasound was performed. Transvaginal exam was performed for better visualization of the uterus and ovaries. FINDINGS: The uterus is anteverted and measures 7.3 x 3.7 x 4.4 cm in dimension. No focal uterine lesion is seen. The right ovary is enlarged. The right ovary measures 5.2 x 4.1 x 4.5 cm. There is a 2.8 x 2.6 x 3.1 cm right ovarian cyst. Ultrasound follow-up in a patient of this age not indicated. The left ovary is prominent and measures 4.5 x 2.7 x 2.9 cm. There are small peripheral cysts or follicles seen in the left ovary or polycystic appearance. There is no fluid in the pelvis. US/US transvaginal IMPRESSION: Enlarged right ovary. 2.8 x 2.6 x 3.1 cm right ovarian simple cyst. Polycystic appearance of the left ovary.
--- NOTE | ~2021-06-13 | US_ITS ---
EXAMINATION: PELVIC ULTRASOUND CLINICAL INFORMATION: Elevated testosterone COMPARISON: Previous CT of the abdomen and pelvis September 2020 TECHNIQUE: Transabdominal and transvaginal pelvic ultrasound was performed. Transvaginal exam was performed for better visualization of the uterus and ovaries. FINDINGS: The uterus is anteverted and measures 7.3 x 3.7 x 4.4 cm in dimension. No focal uterine lesion is seen. The right ovary is enlarged. The right ovary measures 5.2 x 4.1 x 4.5 cm. There is a 2.8 x 2.6 x 3.1 cm right ovarian cyst. Ultrasound follow-up in a patient of this age not indicated. The left ovary is prominent and measures 4.5 x 2.7 x 2.9 cm. There are small peripheral cysts or follicles seen in the left ovary or polycystic appearance. There is no fluid in the pelvis. US/US pelvic complete IMPRESSION: Enlarged right ovary. 2.8 x 2.6 x 3.1 cm right ovarian simple cyst. Polycystic appearance of the left ovary.
--- NOTE | ~2021-06-13 | XR_ITS ---
EXAMINATION: XR CHEST CLINICAL INFORMATION: Obesity COMPARISON: Previous chest x-ray most recent September 2020 TECHNIQUE: 2 views of the chest were obtained. FINDINGS: No significant abnormality is noted involving the heart, lungs, mediastinum, bony thorax or soft tissues. XR/XR chest 2V IMPRESSION: Unremarkable examination.
--- NOTE | 2021-06-13 07:57 | ECG_ITS ---
Test Reason : E66.01 Blood Pressure : / mmHG Vent. Rate : 093 BPM Atrial Rate : 093 BPM P-R Int : 146 ms QRS Dur : 078 ms QT Int : 358 ms P-R-T Axes : 037 022 029 degrees QTc Int : 445 ms Normal sinus rhythm Normal ECG No previous ECGs available Referred By: [place] Electronically Signed By:ASIA ARGUELLO MD
[2021-06-13 08:09] LABS: MANUAL DIFF FLAG NO
[2021-06-13 08:27] LABS: Basophils Percent Auto 0.4 % (0-2); Eosinophils Percent Auto 0.4 % (0-4); Hematocrit 44.1 % (37.0-47.0); Hemoglobin 15.3 g/dl (12.0-16.0); Imm Gran Abs Auto 0.04 X10*3/uL (0.00-0.03); Imm Gran Pct Auto 0.5 % (0.0-0.4); Lymphocytes Absolute Auto 2.1 X10*3/uL (1.2-4.9); Lymphocytes Percent Auto 24.3 % (20-40); Mean Corpuscular HGB Conc 34.7 g/dl (31.0-35.0); Mean Corpuscular Hemoglobin 28.8 pg (27.0-33.0); Mean Corpuscular Volume 82.9 fL (80.0-98.0); Mean Platelet Volume 12.4 fL (9.4-12.3); Monocytes Absolute Auto 0.4 X10*3/uL (0.1-1.2); Monocytes Percent Auto 4.8 % (2-11); Neutrophils Absolute Auto 5.9 x10*3/uL (2.0-8.3); Neutrophils Percent Auto 69.6 % (45-73); Platelet Count 220 X10*3/uL (160-400); Red Blood Count 5.32 X10*6/uL (4.20-5.50); Red Cell Distribution Width 12.2 % (11.0-16.0); White Blood Count 8.5 X10*3/uL (4.8-10.8)
[2021-06-13 08:35] LABS: Estimated Average Glucose 203 mg/dL; Hemoglobin A1c % 8.7 %
[2021-06-13 09:05] LABS: Cholesterol 202 mg/dL; HDL Cholesterol 36 mg/dL; Iron 77 mcg/dL (30-160); LDL Cholesterol Calculated 136 mg/dl; Percent Iron Saturation 21 % (15-50); Total Iron Binding Capacity 368 mcg/dL (228-428); Triglycerides 151 mg/dL; Unsaturated Iron Binding 291 ug/dL
[2021-06-13 09:12] LABS: Ferritin 258 ng/mL (10-122)
[2021-06-13 10:34] LABS: Folate > 20.0 ng/mL (> or = 4.0); Vitamin B12 554 pg/mL (200-900)
[2021-06-13 11:15] LABS: Cortisol Random < 1.0 ug/dL
[2021-06-14 13:27] LABS: Calcium (PTHI) 10.1 mg/dL (8.6-10.2); PTHI 22 pg/mL (16-77)
[2021-06-14 18:17] LABS: Adrenocorticotropic Hormone 5 pg/mL (6-50)
[2021-06-17 06:17] LABS: Zinc 85 mcg/dL (60-130)
[2021-06-17 13:26] LABS: Vitamin B1 9 nmol/L (8-30)
[2021-06-20 09:07] LABS: Vitamin A 51 mcg/dL (38-98)
[2021-06-22 15:06] LABS: Dexamethasone 526 ng/dL
== END 2021-06-13 07:37 | disposition home or self-care (01) ==
LOC: HO.US 07:36
PROVIDERS: Absent Provider Physician Assistant Surgical; PCP Internal Medicine; Visit Provider Internal Medicine
DX: E66.01 Morbid (severe) obesity due to excess calories (principal); Z68.35 Body mass index [BMI] 35.0-35.9, adult; L68.0 Hirsutism; E11.65 Type 2 diabetes mellitus with hyperglycemia; E78.1 Pure hyperglyceridemia; Z79.4 Long term (current) use of insulin; R79.89 Other specified abnormal findings of blood chemistry
CPT/HCPCS: 36415; 71046; 76830; 76856; 80061; 80299; 82024; 82533; 82607; 82728; 82746; 83036; 83540; 83970; 84425; 84590; 84630; 85025; 86140; 93005

== ENCOUNTER 2021-06-16 08:43 | Emergency (ER) | payer OTHER, SELFPAY ==
[2021-06-16 08:49] VITALS: BP 159/100; PULSE 94; RESP 16; TEMP 37; O2SAT 100; BMI 36.9
--- NOTE | 2021-06-16 09:26 | ED_ITS ---
HPI - Abdominal Pain General Chief Complaint: Abdominal Pain Stated Complaint: abd pain Time Seen by Provider: 06/16/21 09:15 Source: patient Mode of arrival: ambulatory Limitations: no limitations History of Present Illness HPI narrative: Patient is a 30 year old female presenting to the emergency department today with abdominal pain. Patient states that she was seen here a few days ago for pain and had an ultrasound that showed an ovarian cyst. Patient describes the pain as being in her lower abdomen. Patient denies any vaginal discharge or vaginal bleeding. Patient denies any dizziness, lightheadedness, nausea, vomiting, fever, chills, blurry vision, double vision, loss of vision, chest pain, difficulty breathing, shortness of breath, back pain, night sweats, pain with urination, increased urinary frequency, increased urinary urgency, blood in her urine or stool, syncope or a near syncopal episode, recent trauma or falls, bowel incontinence, bladder incontinence, bowel retention, bladder retention, or any other complaints at this time. MD elicited complaint: abdominal pain Pertinent past history: none Onset (ago): day(s) Pain Consistency: intermittent Location: suprapubic Severity: mild Pain scale (0-10): 3 Quality: dull Radiation: none Migration to: no migration Exacerbating factors: nothing Relieving factors: nothing Associated symptoms: denies other symptoms Related Data Home Medications Medication Instructions Recorded Confirmed metformin 500 mg tablet,extended 500 mg PO BID tab 05/06/21 06/06/21 release 24hr fluconazole 150 mg tablet 150 mg PO Q3D 05/19/21 06/06/21 (Diflucan) Previous Rx's Medication Instructions Recorded blood-glucose meter (FreeStyle #1 ea 08/31/20 Lite Meter) flash glucose scanning reader #1 ea 08/31/20 (FreeStyle Olivia 2 [place]) ibuprofen 600 mg tablet 600 mg PO Q6H PRN #20 tab 09/16/20 pioglitazone 15 mg tablet 15 mg PO DAILY #30 tab 01/13/21 flash glucose sensor (FreeStyle #2 ea 02/23/21 Olivia 2 Sensor) cholecalciferol (vitamin D3) 50 50 mcg PO DAILY 30 Days #30 cap 04/20/21 mcg (2,000 unit) capsule fenofibrate micronized 67 mg 67 mg PO DAILY #30 cap 05/06/21 capsule insulin glargine U-300 conc 300 130 unit (0.4333 mL) SUBCUT DAILY 05/06/21 unit/mL (3 mL) subcutaneous pen 30 Days #18 ml (Toujeo Max U-300 SoloStar) insulin lispro 200 unit/mL (3 mL) 46 - 68 unit (0.23 - 0.34 mL) 05/06/21 subcutaneous pen (Humalog KwikPen SUBCUT TID 30 Days #30.6 ml U-200 Insulin) liraglutide 0.6 mg/0.1 mL (18 mg/3 0.6 mg (0.1 mL) SUBCUT DAILY #9 ml 05/06/21 mL) subcutaneous pen injector (Victoza 3-Jamshid) dexamethasone 1 mg tablet 1 mg PO ONCE #1 tab 05/11/21 fluconazole 100 mg tablet 100 mg PO DAILY #3 tab 06/06/21 (Diflucan) Allergies Allergy/AdvReac Type Severity Reaction Status Date / Time metformin Allergy Mild stomach Verified 06/06/21 11:37 pains canagliflozin [From Invokana] Allergy UTI and Verified 06/06/21 11:37 yeast infections dulaglutide [From Trulicity] Allergy stomach Verified 06/06/21 11:37 pains, nausea and vomiting Review of Systems Constitutional: Reports no additional constitutional complaints, Denies chills, Denies fever(s) and Denies night sweats Eyes: Reports no additional eye complaints, Denies blurry vision, Denies change in vision, Denies diplopia, Denies eye discharge, Denies loss of vision and Denies eye pain Denies dizziness Cardiovascular: Reports no additional cardiovascular complaints, Denies chest pain, Denies lightheadedness, Denies Loss of Consciousness and Denies dyspnea Respiratory: Reports no additional respiratory complaints and Denies dyspnea Gastrointestinal: Reports no additional gastrointestinal complaints, Reports abdominal pain, Denies melena, Denies hematochezia, Denies change in bowel habits and Denies change in stool character Genitourinary: Denies hematuria, Denies urinary frequency, Denies dysuria, Denies urinary incontinence, Denies urinary hesitancy and Denies urinary urgency Musculoskeletal: Reports no additional musculoskeletal complaints, Denies numbness and Denies tingling Denies dizziness, Denies loss of vision, Denies numbness and Denies tingling Psychiatric: Reports no additional psychiatric complaints Endocrine: Reports no additional endocrine complaints Hematologic/Lymphatic: Reports no additional hematologic/lymphatic complaints Allergic/Immunologic: Reports no additional allergic/immunologic complaints [facility] Past Medical History Attestation statement: The following information was validated with the patient. Source: old records reviewed Medical History Diabetes mellitus Elevated testosterone level in female Essential hypertension Hirsutism Hypertriglyceridemia Obesity Obesity due to excess calories PCOS (polycystic ovarian syndrome) Proteinuria Type 2 diabetes mellitus with hyperglycemia Type 2 diabetes mellitus with other diabetic kidney complication Vitamin D deficiency Surgical History History of ankle surgery History of cholecystectomy History of tonsillectomy Family History Family History Father Diabetes Mother Diabetes Maternal Grandmother Diabetes Paternal Grandmother Diabetes Brother No problems noted. 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 Sexual orientation: Straight/Heterosexual Gender identity: Female Physical Exam ED Vital Signs: Vital Signs - 24 hr 06/16/21 08:49 06/16/21 09:47 Temperature 98.6 F 98.6 F Pulse Rate 94 86 Respiratory Rate 16 Blood Pressure 159/100 H 134/88 Pulse Oximetry 100 99 BMI result Body Mass Index 36.9 Const General: cooperative, no acute distress, alert and awake Nutritional Appearance: well nourished Orientation/consciousness: patient oriented x3 Limitations: no limitations HENMT Head: Yes normal to inspection and Yes atraumatic Ears: hearing grossly normal bilaterally and external ears normal General nose exam: Normal external nose present, no nasal discharge noted and no epistaxis Face and sinus: Yes normal facial exam, No abrasion and No laceration Mouth: Normal oral and palatal mucosa present, no drooling and no muffled voice Eyes General: appearance normal, both eyes and all related structures Periorbital: periorbital findings normal Eyelids: Yes eyelids normal Conjunctivae: conjunctivae normal Pupils: Equal, round and reactive pupils present EOM: EOMs intact bilaterally Neck Neck: Yes normal visual inspection, Yes full ROM and Yes no lymphadenopathy Chest Chest palpation & inspection: normal inspection of the chest Resp Effort & Inspection: normal respiratory effort and able to speak in complete sentences Auscultation: clear to auscultation bilaterally Cardio Rate: regular rate Rhythm: regular rhythm GI Inspection: Yes normal to inspection Neuro General: patient oriented x3 and moves all extremities Cranial nerves: Yes Equal, round and reactive pupils present Cognition (Neuro): normal cognition Motor exam (neuro): 5/5 motor strength present throughout Sensory Exam: Normal double simultaneous stimulation for sensation Coordination: [id number] test normal Extrem General: Yes normal to inspection, Yes full ROM and Yes capillary refill normal Psych Appearance: grossly normal Mental Status: mental status grossly normal Affect: normal affect Attitude: cooperative Thought process: Normal thought process present Thought content: Normal thought content present Insight: Good insight present (Psych) MDM - Abdominal Pain MDM Narrative Medical decision making narrative: Patient is a 30 year old female presenting to the emergency department today with abdominal pain. Patient's physical exam was unremarkable. Patient's blood work was unremarkable. I explained my physical exam findings as well as all test results to the patient. I answered all questions asked by the patient. Patient received IM Toradol which she stated helped her symptoms significantly. I stressed the importance of the patient taking her medication as prescribed. I stressed the importance of the patient following up with her primary care provider. I stressed the importance of the patient returning to the emergency department immediately if her symptoms were to worsen or if she were to develop any dizziness, shortness of breath, difficulty breathing, chest pain, blurry vision, loss of vision, nausea, vomiting, abdominal pain, fever, chills, back pain, or any other complaints. Patient verbalized agreement and understanding with this treatment plan and discharge. Differential Diagnosis Differential diagnosis: Likely abdominal pain and ovarian cyst Medical Records Attestation: I reviewed the patient's medical records. Lab Data Attestation: I reviewed the patient's lab results. Result diagrams: 06/16/21 09:56 06/16/21 09:56 Labs: Lab Results 06/16/21 06/16/21 Range/Units 09:56 09:56 WBC 7.8 (4.8-10.8) X10*3/uL RBC 4.80 (4.20-5.50) X10*6/uL Hgb 14.1 (12.0-16.0) g/dl Hct 40.0 (37.0-47.0) % MCV 83.3 (80.0-98.0) fL MCH 29.4 (27.0-33.0) pg MCHC 35.3 H (31.0-35.0) g/dl RDW 12.2 (11.0-16.0) % Plt Count 189 (160-400) X10*3/uL MPV 12.1 (9.4-12.3) fL Immature Gran % (Auto) 0.4 (0.0-0.4) % Neut % (Auto) 53.2 (45-73) % Lymph % (Auto) 36.7 (20-40) % [place] % (Auto) 8.9 (2-11) % Eos % (Auto) 0.5 (0-4) % Baso % (Auto) 0.3 (0-2) % Lymph # (Auto) 2.9 (1.2-4.9) X10*3/uL [place] # (Auto) 0.7 (0.1-1.2) X10*3/uL Eos # (Auto) 0.0 (0.0-0.4) X10*3/uL Baso # (Auto) 0.0 (0.0-0.2) X10*3/uL Abs Immat Gran (auto) 0.03 (0.00-0.03) X10*3/uL Absolute Neuts (auto) 4.2 (2.0-8.3) x10*3/uL Absolute Nucleated RBC 0.000 (0.0-0.012) X10*3/uL Nucleated RBC % (auto) 0.0 (0.0-0.2) /100WBC Sodium 134 L (135-145) mmol/L Potassium 4.9 D (3.3-5.1) mmol/L Chloride 103 (96-108) mmol/L Carbon Dioxide 25 (22-29) mmol/L Anion Gap 11 L (12-20) BUN 12 (9-16) mg/dL Creatinine 0.80 (0.5-1.4) mg/dL Estim Creat Clear Calc 110.2 Estimated GFR > 60 Random Glucose 226 H (60-115) mg/dL Calcium 9.9 (8.4-10.2) mg/dL Total Bilirubin 0.9 (0.0-1.0) mg/dL AST 24 (5-31) U/L ALT 37 H (0-31) U/L Alkaline Phosphatase 65 (39-117) U/L Total Protein 7.8 (6.5-8.0) g/dL Albumin 4.2 (3.5-5.0) g/dL Discharge Plan Discharge Clinical Impression: Ovarian cyst Patient Disposition: Home, Self-Care Instructions: Ovarian Cyst (ED) Additional Instructions: Follow up with your primary care provider. Return to the emergency department immediately if your symptoms worsen or if you develop any dizziness, shortness of breath, difficulty breathing, chest pain, blurry vision, loss of vision, nausea, vomiting, abdominal pain, fever, chills, back pain, or any other complaints. Prescriptions: No Action (DME) FreeStyle Olivia 2 Sensor Kit See Rx Instructions .ROUTE .MEDSUPPLY Qty: 2 11RF Rx Instructions: As directed every 2 weeks cholecalciferol (vitamin D3) 50 mcg (2,000 unit) capsule 50 mcg PO DAILY 30 Days Qty: 30 11RF fluconazole [Diflucan] 150 mg tablet 150 mg PO Q3D 0RF fluconazole [Diflucan] 100 mg tablet 100 mg PO DAILY Qty: 3 0RF ibuprofen 600 mg tablet 600 mg PO Q6H PRN (Reason: pain) Qty: 20 0RF (DME) FreeStyle Olivia 2 [place] Misc See Rx Instructions .ROUTE .MEDSUPPLY Qty: 1 0RF Rx Instructions: As directed (DME) blood-glucose meter [FreeStyle Lite Meter] Kit See Rx Instructions .ROUTE .MEDSUPPLY Qty: 1 0RF Rx Instructions: to test bg 4 times a day pioglitazone 15 mg tablet 15 mg PO DAILY Qty: 30 6RF metformin 500 mg tablet extended release 24hr 500 mg PO BID 0RF Humalog KwikPen Insulin 200 unit/mL (3 mL) insulin pen 46 - 68 unit subcut TID 30 Days Qty: 30.6 6RF Rx Instructions: as directed fenofibrate micronized 67 mg capsule 67 mg PO DAILY Qty: 30 6RF Toujeo Max U-300 SoloStar 300 unit/mL (3 mL) insulin pen 130 unit subcut DAILY 30 Days Qty: 18 5RF Victoza 3-Jamshid 0.6 mg/0.1 mL (18 mg/3 mL) pen injector 0.6 mg subcut DAILY Qty: 9 6RF dexamethasone 1 mg tablet 1 mg PO ONCE Qty: 1 0RF Referrals: Davonte Seals MD [Primary Care Provider] - (Follow up with your PCP as needed. ) Stand Alone Forms: Work/School Release Interventions: ED Discharge Assessment Last Done: 06/16/21 11:03 Discharge Date/Time: 06/16/21 11:04 Print Language: Armenian
[2021-06-16 09:47] VITALS: BP 134/88; PULSE 86; TEMP 37; O2SAT 99
[2021-06-16 10:00] LABS: MANUAL DIFF FLAG NO
[2021-06-16] MEDS: Ketorolac Tromethamine 30 MG/ML VIAL IM (10:00)
[2021-06-16 10:08] LABS: Basophils Percent Auto 0.3 % (0-2); Eosinophils Percent Auto 0.5 % (0-4); Hemoglobin 14.1 g/dl (12.0-16.0); Imm Gran Abs Auto 0.03 X10*3/uL (0.00-0.03); Imm Gran Pct Auto 0.4 % (0.0-0.4); Lymphocytes Absolute Auto 2.9 X10*3/uL (1.2-4.9); Lymphocytes Percent Auto 36.7 % (20-40); Mean Corpuscular HGB Conc 35.3 g/dl (31.0-35.0); Mean Corpuscular Hemoglobin 29.4 pg (27.0-33.0); Mean Corpuscular Volume 83.3 fL (80.0-98.0); Mean Platelet Volume 12.1 fL (9.4-12.3); Monocytes Absolute Auto 0.7 X10*3/uL (0.1-1.2); Monocytes Percent Auto 8.9 % (2-11); Neutrophils Absolute Auto 4.2 x10*3/uL (2.0-8.3); Neutrophils Percent Auto 53.2 % (45-73); Platelet Count 189 X10*3/uL (160-400); Red Cell Distribution Width 12.2 % (11.0-16.0); White Blood Count 7.8 X10*3/uL (4.8-10.8)
[2021-06-16 10:34] LABS: Alanine Aminotransferase 37 U/L (0-31); Albumin Level 4.2 g/dL (3.5-5.0); Alkaline Phosphatase 65 U/L (39-117); Anion Gap 11 (12-20); Aspartate Amino Transferase 24 U/L (5-31); Bilirubin Total 0.9 mg/dL (0.0-1.0); Blood Urea Nitrogen 12 mg/dL (9-16); Calcium 9.9 mg/dL (8.4-10.2); Carbon Dioxide 25 mmol/L (22-29); Chloride 103 mmol/L (96-108); Creatinine Clr Calc Pharmacy 110.2; Estimated Glomerular Filt Rate > 60; Glucose Random 226 mg/dL (60-115); Potassium 4.9 mmol/L (3.3-5.1); Sodium 134 mmol/L (135-145); Total Protein 7.8 g/dL (6.5-8.0)
== END 2021-06-16 11:04 | disposition home or self-care (01) ==
PROVIDERS: Physician Assistant Medical; Emergency Provider Emergency Medicine Emergency Medical Services; PCP Internal Medicine
DX: N83.209 Unspecified ovarian cyst, unspecified side (principal); R10.30 Lower abdominal pain, unspecified; I10 Essential (primary) hypertension; E11.9 Type 2 diabetes mellitus without complications; Z79.4 Long term (current) use of insulin
CPT/HCPCS: 36415; 80053; 85025; 96372; 99284; J1885

== ENCOUNTER → 2021-06-24 09:21 | Outpatient (BNVA) | payer OTHER, SELFPAY | PROVIDERS: PCP Internal Medicine; Referring Provider Internal Medicine; Visit Provider Physician Assistant Surgical | DX: Z11.0 Encounter for screening for intestinal infectious diseases (principal); E66.9 Obesity, unspecified | CPT/HCPCS: 36415; 99211 ==

== ENCOUNTER 2021-06-24 14:57 | Outpatient (REF) | payer OTHER, SELFPAY ==
[2021-06-26 10:30] LABS: H Pylori Breath Test Negative (Negative)
== END 2021-06-24 14:58 | disposition home or self-care (01) ==
LOC: HO.LNP 14:57
PROVIDERS: Visit Provider Physician Assistant Surgical
DX: E66.9 Obesity, unspecified (principal)
CPT/HCPCS: 83013

== ENCOUNTER → 2021-07-04 08:11 | Outpatient (BNVA) | payer OTHER, SELFPAY | PROVIDERS: PCP Internal Medicine; Visit Provider Surgery | DX: Z13.89 Encounter for screening for other disorder (principal) ==

== ENCOUNTER → 2021-07-07 15:00 | Outpatient (BNVA) | payer OTHER, SELFPAY | PROVIDERS: PCP Internal Medicine; Visit Provider Counselor Mental Health | DX: F32.A Depression, unspecified (principal); E28.2 Polycystic ovarian syndrome; E66.9 Obesity, unspecified | CPT/HCPCS: 90791 ==

== ENCOUNTER → 2021-07-08 08:06 | Outpatient (BNVA) | payer OTHER, SELFPAY | PROVIDERS: PCP Internal Medicine; Visit Provider Dietitian, Registered | DX: E66.9 Obesity, unspecified (principal); Z68.37 Body mass index [BMI] 37.0-37.9, adult | CPT/HCPCS: 97802 ==

== ENCOUNTER 2021-07-13 10:48 | Outpatient (REF) | payer OTHER, SELFPAY ==
--- NOTE | ~2021-07-13 | CT_ITS ---
EXAMINATION: CT ABDOMEN WITHOUT CONTRAST CLINICAL INFORMATION: Elevated testosterone level COMPARISON: Previous CT of the abdomen and pelvis September 2020 TECHNIQUE: Contiguous axial thin section helical images of the abdomen were performed without contrast. The data set was reformatted in the coronal and sagittal planes and reviewed on an independent workstation. This CT examination was performed using dose optimization techniques as appropriate, variously including the following: *Automated exposure control *Adjustment of mA and/or kV according to patient size (this includes techniques or standardized protocols for targeted exams where dose is matched to indication/reason for exam; i.e. extremities or head) *Use of iterative reconstruction technique DLP: 256 mGy-cm FINDINGS: LIVER, GALLBLADDER, BILIARY TREE: The visualized liver is normal appearing. The gallbladder is not seen. There is no biliary duct dilatation or focal liver lesion. PANCREAS: Normal SPLEEN: The visualized spleen is normal. ADRENAL GLANDS AND KIDNEYS: The adrenal glands are normal. There is a small 1 mm stone in the mid left kidney. Kidneys are otherwise normal. BOWEL LOOPS: Visualized bowel is normal. LYMPH NODES: Normal. VASCULAR: Normal. BONES: Normal CT/CT abdomen wo con IMPRESSION: Normal adrenal glands. Small 1 mm nonobstructing left renal stone. Fleischner guidelines were followed.
== END 2021-07-13 10:49 | disposition home or self-care (01) ==
LOC: HO.CT 10:48
PROVIDERS: Visit Provider Internal Medicine
DX: R79.89 Other specified abnormal findings of blood chemistry (principal)
CPT/HCPCS: 74150

== ENCOUNTER → 2021-07-21 12:15 | Outpatient (BNVA) | payer OTHER, SELFPAY | PROVIDERS: PCP Internal Medicine; Visit Provider Counselor Mental Health | DX: F32.A Depression, unspecified (principal); E28.2 Polycystic ovarian syndrome; E66.9 Obesity, unspecified | CPT/HCPCS: 90832 ==

== ENCOUNTER → 2021-08-05 08:23 | Outpatient (BNVA) | payer OTHER, SELFPAY | PROVIDERS: PCP Internal Medicine; Visit Provider Surgery | DX: Z13.89 Encounter for screening for other disorder (principal) ==

== ENCOUNTER 2021-08-09 08:05 | Outpatient (REF) | payer OTHER, SELFPAY ==
--- NOTE | ~2021-08-09 | FL_ITS ---
EXAMINATION: XR FLUOROSCOPY UPPER GI WITH AIR CLINICAL INFORMATION: Obesity. COMPARISON: None TECHNIQUE: Routine upper GI air-contrast study was performed. FINDINGS: Following oral administration of thick barium and effervescent granules there is normal propagation of bolus from the oral cavity through the pharynx, esophagus into stomach without any evidence of obstruction, narrowing or stricture. There is retention of barium in the right piriform sinus which clears with subsequent dry swallowing. The mucosal pattern of esophagus is normal. On placing patient supine and prone there is moderate gastroesophageal reflux without hiatal hernia. Rest of the course of the stomach, duodenal bulb and the sweep is normal. The mucosal pattern of the stomach and the duodenum is normal. FLUOROSCOPY TIME: 2.6 minutes DOSE AREA PRODUCT: 36.403 uGy-m2 (microgray-meter squared) FL/FL upper GI w air IMPRESSION: Moderate gastroesophageal reflux without hiatal hernia. Mild retention of barium in the right piriform sinus which clears with subsequent swallowing.
--- NOTE | ~2021-08-09 | US_ITS ---
EXAMINATION: US COMPLETE ABDOMEN WITH LIVER ELASTOGRAPHY CLINICAL INFORMATION: Obesity. COMPARISON: None. TECHNIQUE: Real-time imaging of the abdominal viscera. Noninvasive ultrasound liver fibrosis assessment is performed using Saul ElastPQ point quantification shear wave elastography (2D-SWE) with a C5-2 MHz transducer. Multiple elastography samples are obtained. FINDINGS: PANCREAS: Normal. The visualized pancreatic head and body are normal in appearance. The remainder of the pancreas is obscured from visualization by the overlying bowel gas. ABDOMINAL AORTA: The proximal abdominal aorta is obscured by overlying gas. The middle, and distal aortic segments are normal in caliber. INFERIOR VENA CAVA: Visualized portions are normal. LIVER: The liver demonstrates normal size, contour and diffuse increased echogenicity. No focal lesion or intrahepatic biliary duct dilatation. The right lobe measures 18.4 cm in length. The left lobe measures 11.9 cm in length. Portal flow is hepatopedal. Shear wave liver elastography median stiffness is 1.61 m/s (reference: normal median stiffness is 1.3 m/s or less). IQR/median stiffness to assess sampling precision is 0.06 (reference: good quality data set is IQR/median stiffness of 0.15 or less). GALLBLADDER: Normal. The gallbladder is physiologically distended without evidence of stones, sludge, polyps, wall thickening or pericholecystic fluid. COMMON BILE DUCT: Normal in caliber measuring 0.7 cm in diameter. RIGHT KIDNEY: Normal. No hydronephrosis. No renal calculi or focal parenchymal lesions. The kidney measures 12.1 cm in maximum dimension. LEFT KIDNEY: Normal. No hydronephrosis. No renal calculi or focal parenchymal lesions. The kidney measures 12.7 cm in maximum dimension. SPLEEN: Normal. The spleen measures 12.5 cm in maximum dimension. FREE FLUID: None. US/US abdomen comp w elastography IMPRESSION: 1. Mild hepatic steatosis without focal lesion. The rest of the abdominal ultrasound is unremarkable. 2. Liver elastography: Median liver stiffness 1.61 m/s suggestive of cACLD ruled out. REFERENCE: Society of Radiologists in Ultrasound Liver Stiffness Thresholds (2019): LIVER STIFFNESS THRESHOLDS: *Liver Stiffness equal or less than 1.3 m/s: High probability of being normal. *Liver Stiffness less than 1.7 m/s: In the absence of other known clinical signs, rules out compensated advanced chronic liver disease. *Liver Stiffness 1.7-2.1 m/s: Suggestive of compensated advanced chronic liver disease but need further test for confirmation. *Liver Stiffness over 2.1 m/s: Rules in compensated advanced chronic liver disease. *Liver Stiffness over 2.4 m/s: Suggestive of clinically significant portal hypertension. QUALITY OF DATA SET: *IQR/Median value equal or less than 0.15 implies a quality data set. *IQR/Median value over 0.15 implies a poor quality data set. SIGNIFICANT CHANGE FROM PRIOR EXAM: Significant change if liver stiffness measurement is 10% or greater from prior exam. OTHER CONSIDERATIONS: The stage of liver fibrosis may be overestimated in the setting of acute hepatitis, liver inflammation, elevated liver function tests, hepatic vascular congestion, obstructive cholestasis, non-fasting state, and infiltrative diseases such as amyloidosis and lymphoma. In some patients with NAFLD, the liver stiffness thresholds for compensated advanced chronic liver disease may be lower. In causes other than viral hepatitis and NAFLD, liver stiffness thresholds are not well established.
== END 2021-08-09 08:06 | disposition home or self-care (01) ==
LOC: HO.US 08:05
PROVIDERS: Visit Provider Surgery
DX: E66.9 Obesity, unspecified (principal)
CPT/HCPCS: 74246; 76705; 76981

== ENCOUNTER → 2021-08-16 12:31 | Outpatient (BNVA) | payer OTHER, SELFPAY | PROVIDERS: PCP Internal Medicine; Visit Provider Internal Medicine | DX: Z13.89 Encounter for screening for other disorder (principal) ==

== ENCOUNTER 2021-11-03 06:24 | Inpatient (IN) | payer OTHER, SELFPAY ==
[2021-10-20 11:30] VITALS: BMI 33.3
[2021-10-28 09:05] LABS: MANUAL DIFF FLAG NO
[2021-10-28 09:31] LABS: Basophils Percent Auto 0.3 % (0-2); Eosinophils Percent Auto 0.6 % (0-4); Estimated Average Glucose 140 mg/dL; Hematocrit 42.5 % (37.0-47.0); Hemoglobin A1c % 6.5 %; Imm Gran Abs Auto 0.03 X10*3/uL (0.00-0.03); Imm Gran Pct Auto 0.4 % (0.0-0.4); Lymphocytes Absolute Auto 1.9 X10*3/uL (1.2-4.9); Lymphocytes Percent Auto 28.2 % (20-40); Mean Corpuscular HGB Conc 35.3 g/dl (31.0-35.0); Mean Corpuscular Hemoglobin 29.2 pg (27.0-33.0); Mean Corpuscular Volume 82.8 fL (80.0-98.0); Mean Platelet Volume 13.4 fL (9.4-12.3); Monocytes Absolute Auto 0.4 X10*3/uL (0.1-1.2); Monocytes Percent Auto 6.5 % (2-11); Neutrophils Absolute Auto 4.4 x10*3/uL (2.0-8.3); Platelet Count 165 X10*3/uL (160-400); Red Blood Count 5.13 X10*6/uL (4.20-5.50); Red Cell Distribution Width 12.4 % (11.0-16.0); White Blood Count 6.8 X10*3/uL (4.8-10.8)
[2021-10-28 09:47] LABS: INTERNATIONAL NORM RATIO 1.1 (0.9-1.1); Prothrombin Time 12.8 SEC (10.0-13.1)
[2021-10-28 09:49] LABS: Partial Thromboplastin Time 32.4 SEC (26.0-36.4)
[2021-10-28 09:50] LABS: Alanine Aminotransferase 15 U/L (0-31); Albumin Level 4.8 g/dL (3.5-5.0); Alkaline Phosphatase 69 U/L (39-117); Anion Gap 15 (12-20); Aspartate Amino Transferase 15 U/L (5-31); Bilirubin Total 0.5 mg/dL (0.0-1.0); Blood Urea Nitrogen 11 mg/dL (9-16); C Reactive Protein 0.21 mg/dL (< or = 0.50); Calcium 10.2 mg/dL (8.4-10.2); Carbon Dioxide 25 mmol/L (22-29); Chloride 103 mmol/L (96-108); Cholesterol 154 mg/dL; Creatinine Clr Calc Pharmacy 108.3; Estimated Glomerular Filt Rate > 60; Glucose Random 175 mg/dL (60-115); HDL Cholesterol 37 mg/dL; LDL Cholesterol Calculated 97 mg/dl; Potassium 4.6 mmol/L (3.3-5.1); Sodium 138 mmol/L (135-145); Total Protein 8.8 g/dL (6.5-8.0); Triglycerides 104 mg/dL
[2021-10-28 10:13] LABS: TSH reflex Free T4 1.09 uIU/mL (0.32-4.0)
--- NOTE | 2021-10-29 14:26 | MHC.SHP ---
Pre-Procedural Eval Section A Date of Service: 10/29/21 The patient is an INPATIENT: Yes The History & Physical has been completed within 30 days and I have reviewed it.: Yes Section B Chief Complaint: obesity Relevant Family History (Specify if Yes): No Relevant Social History: None Present Medications: None Medical History: No relevant PMH History of Previous Operations: No relevant previous surgery Allergies: Allergies Allergy/AdvReac Type Severity Reaction Status Date / Time dulaglutide [From Trulicity] Allergy Severe stomach Verified 10/20/21 11:29 pains, nausea and vomiting metformin Allergy Severe stomach Verified 10/20/21 11:29 pains canagliflozin [From Invokana] Allergy Intermediate UTI and Verified 10/20/21 11:29 yeast infections Review of Systems Sugical H&P ROS: Negative: Constitution, Cardiovascular, Respiratory, Neurological, Psychiatric, Hem-Onc, Allergic/Immunologic, Gastrointestinal, Genitourinary, Musculoskeletal, Integumentary, Endocrine and Eyes/Ears/Nose/Throat Exam Surgical H&P Exam: Normal: HEENT, Normal: Heart, Normal: Lungs, Normal: Extremities, Normal: Abdomen, Normal: Skin and Normal: Neurological Plan Diagnosis/Plan: Unchanged I have reviewed the history and physical and performed a pertinent physical examination on my patient. No changes have occurred unless specified.
[2021-11-02 12:26] LABS: COVID-19 Test Negative (Negative)
[2021-11-03] VITALS (16 sets, daily range): BP systolic 131–168; BP diastolic 80–103; PULSE 88–111; RESP 12–24; TEMP 36.1–36.7; O2SAT 98–100
[2021-11-03 06:42] LABS: Glucose, Whole Blood 150 mg/dL (60-115)
[2021-11-03 06:53] LABS: UPreg QC Valid YES; Urine Pregnancy NEGATIVE (NEGATIVE)
[2021-11-03] MEDS: Lactated Ringers 1,000 ML 999 ML IV (06:55)
--- NOTE | 2021-11-03 07:22 | HO.ANESPROP2 ---
HPI - Anesthesia Eval Consult details Narrative: 31 F for Sleeve Gastrectomy DM, PCOS , Obesity PMFSH Active Problems Active Problems: All Active Problems (Updated 10/27/21 @ 09:20 by Desirae Taylor RN) Physical exam (Acute) Dysuria (Acute) Ankle fracture (Acute) Abscess of groin, right (Acute) Abscess of skin (Acute) Knee pain (Acute) BMI 37.0-37.9, adult (Acute) Hordeolum externum right upper eyelid (Acute) BMI 36.0-36.9,adult (Acute) Physical exam (Acute) Obesity (Acute) Constipation (Acute) BMI 35.0-35.9,adult (Acute) Pre-op evaluation (Acute) PCOS (polycystic ovarian syndrome) (Acute) Anxiety (Acute) Depression (Acute) Elevated testosterone level in female (Acute) Hypertriglyceridemia (Acute) Vitamin D deficiency (Acute) Hirsutism (Acute) Essential hypertension (Acute) Proteinuria (Acute) Type 2 diabetes mellitus with other diabetic kidney complication (Acute) Type 2 diabetes mellitus with hyperglycemia (Acute) Obesity due to excess calories (Acute) Obesity (Acute) PCOS (polycystic ovarian syndrome) (Acute) Diabetes mellitus (Acute) Past Medical History Medical History (Updated 11/03/21 @ 10:25 by Surya Baron MD) Anesthesia Anxiety Depression Diabetes mellitus Elevated testosterone level in female Essential hypertension Hirsutism Hypertriglyceridemia Obesity Obesity due to excess calories PCOS (polycystic ovarian syndrome) PCOS (polycystic ovarian syndrome) Proteinuria Type 2 diabetes mellitus with hyperglycemia Type 2 diabetes mellitus with other diabetic kidney complication Vitamin D deficiency Functional capacity: independent ambulation Family History Family History Father Diabetes Mother Diabetes Maternal Grandmother Diabetes Paternal Grandmother Diabetes Brother No problems noted. Family history of problems with anesthesia: Yes (Delayed emergence in mother ) Surgical History Surgical History (Updated 11/03/21 @ 10:25 by Surya Baron MD) History of ankle surgery History of cholecystectomy History of myringotomy History of tonsillectomy History of Problems with Anesthesia: No Social History Social History Household Members: Family Housing: House Are you a primary career services manager to a significant other at home: No Do you presently have visiting nurse or other home services: No Alcohol intake: current Alcohol intake frequency: does not drink Patient Tobacco Use Status: Never used Tobacco e-Cigarette/Vaping Use: Never Used Second Hand Smoke Exposure: No Use of substances other than those prescribed or required for medical reasons: No Currently Displaying Signs/Symptoms of Drug Intoxication Withdrawal: No Have you been hit, kicked, punched, or otherwise hurt by someone within the past year? 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 Sexual orientation: Straight/Heterosexual Gender identity: Female Cognitive needs: No Hearing needs: No Vision needs: No Meds Allergies Allergy/AdvReac Type Severity Reaction Status Date / Time dulaglutide [From Trulicity] Allergy Severe stomach Verified 10/20/21 11:29 pains, nausea and vomiting metformin Allergy Severe stomach Verified 10/20/21 11:29 pains canagliflozin [From Invokana] Allergy Intermediate UTI and Verified 10/20/21 11:29 yeast infections Active Medications: Current Medications Lactated Ringer's (Lr) 1,000 mls @ 999 mls/hr IV .Q1H1M [facility] Stop: 11/03/21 08:30 Last Admin: 11/03/21 06:55 Dose: 999 mls/hr Lactated Ringer's (Lr) 1,000 mls @ 50 mls/hr IVCONT .Q20H [facility] Exam Exam Date and Time: November 03, 2021721 Height,Weight and Vital Signs: Height 5 ft 2 in Weight 82.554 kg Last Vital Signs Temp 97.8 F 11/03/21 06:37 Pulse 90 11/03/21 06:37 Resp 18 11/03/21 06:37 BP 131/84 11/03/21 06:37 Pulse Ox 99 11/03/21 06:37 O2 Del Method 11/03/21 06:37 Pertinent Lab Results Pertinent Lab Results: Laboratory Tests 10/28/21 10/28/21 10/28/21 09:00 09:03 09:03 WBC 6.8 RBC 5.13 Hgb 15.0 Hct 42.5 MCV 82.8 MCH 29.2 MCHC 35.3 H RDW 12.4 Plt Count 165 MPV 13.4 H Immature Gran % (Auto) 0.4 Neut % (Auto) 64.0 Lymph % (Auto) 28.2 Bowie % (Auto) 6.5 Eos % (Auto) 0.6 Baso % (Auto) 0.3 Lymph # (Auto) 1.9 Bowie # (Auto) 0.4 Eos # (Auto) 0.0 Baso # (Auto) 0.0 Abs Immat Gran (auto) 0.03 Absolute Neuts (auto) 4.4 Absolute Nucleated RBC 0.000 Nucleated RBC % (auto) 0.0 PT 12.8 INR 1.1 APTT 32.4 Sodium Potassium Chloride Carbon Dioxide Anion Gap BUN Creatinine Estim Creat Clear Calc Estimated GFR POC Glucose Random Glucose Estimat Average Glucose Hemoglobin A1c % Calcium Total Bilirubin AST ALT Alkaline Phosphatase C-Reactive Protein Total Protein Albumin Triglycerides Cholesterol LDL Cholesterol, Calc HDL Cholesterol TSH Urine Test COVID-19 ([facility]SE) COVID-[employer] Com Blood Type O Positive Antibody Screen NEGATIVE 10/28/21 10/28/21 11/02/21 09:03 09:03 12:00 WBC RBC Hgb Hct MCV MCH MCHC RDW Plt Count MPV Immature Gran % (Auto) Neut % (Auto) Lymph % (Auto) Bowie % (Auto) Eos % (Auto) Baso % (Auto) Lymph # (Auto) Bowie # (Auto) Eos # (Auto) Baso # (Auto) Abs Immat Gran (auto) Absolute Neuts (auto) Absolute Nucleated RBC Nucleated RBC % (auto) PT INR APTT Sodium 138 Potassium 4.6 Chloride 103 Carbon Dioxide 25 Anion Gap 15 BUN 11 Creatinine 0.77 Estim Creat Clear Calc 108.3 Estimated GFR > 60 POC Glucose Random Glucose 175 H Estimat Average Glucose 140 Hemoglobin A1c % 6.5 Calcium 10.2 Total Bilirubin 0.5 AST 15 ALT 15 Alkaline Phosphatase 69 C-Reactive Protein 0.21 Total Protein 8.8 H Albumin 4.8 Triglycerides 104 Cholesterol 154 D LDL Cholesterol, Calc 97 HDL Cholesterol 37 TSH 1.09 Urine Test COVID-19 (JOSE) Negative COVID-[employer] See Note Blood Type Antibody Screen 11/03/21 11/03/21 06:27 06:38 WBC RBC Hgb Hct MCV MCH MCHC RDW Plt Count MPV Immature Gran % (Auto) Neut % (Auto) Lymph % (Auto) Bowie % (Auto) Eos % (Auto) Baso % (Auto) Lymph # (Auto) Bowie # (Auto) Eos # (Auto) Baso # (Auto) Abs Immat Gran (auto) Absolute Neuts (auto) Absolute Nucleated RBC Nucleated RBC % (auto) PT INR APTT Sodium Potassium Chloride Carbon Dioxide Anion Gap BUN Creatinine Estim Creat Clear Calc Estimated GFR POC Glucose 150 H Random Glucose Estimat Average Glucose Hemoglobin A1c % Calcium Total Bilirubin AST ALT Alkaline Phosphatase C-Reactive Protein Total Protein Albumin Triglycerides Cholesterol LDL Cholesterol, Calc HDL Cholesterol TSH Urine Test NEGATIVE COVID-19 (JOSE) COVID-19 Clin Com Blood Type Antibody Screen Airway Mallampati Class: III TM Dist: <=3cm Neck ROM: Full Loose/Missing/Broken Teeth: Yes Heart: S1,S2 Lungs: b/l breath sounds Assessment and Plan Final Anesthetic Review Family History of Problems with Anesthesia: Yes (Delayed emergence in mother ) History of Problems with Anesthesia: No NPO: Yes ASA Class: III Final Preanesthetic Review: Meds/Allgs Chart Reviewed, Consent Obtained/Reviewed and Anes Risks/Benef Reviewed Patient Risk: Intermediate Procedure Risk: Intermediate Anesthetic Plan Anesthetic Plan: GA Disposition: Standard PACU
--- NOTE | 2021-11-03 10:14 | PM.DS ---
DS: Providers Provider Date of Service: 11/04/21 Date of admission: 11/03/21 06:24 Primary care physician: Unknown Physician DS: Summary Hospital Course Hospital Course: ADMITTING DIAGNOSIS: obesity, PCOS, anxiety, depression ? DISCHARGE DIAGNOSIS: same, s/p laparoscopic sleeve gastrectomy ? PAST SURGICAL HISTORY: ankle surgey, tonsillectomy ? PROCEDURE: upper endoscopy, laparoscopic sleeve gastrectomy ? DISCHARGE SUMMARY: ? History of Present Illness: ? The patient is a?31 year-old woman with a BMI of?37.3 kg/m2 and associated co-morbidities as described above. The patient had extensive work-up,lost?19.4 lbs preoperatively and was electively scheduled for laparoscopic, possible open sleeve gastrectomy and gastropexy. Risks and complications of the surgery were discussed with the patient in advance, particularly the possibility of , pulmonary embolism, anastomotic leak, bleeding, bowel injury, GERD, cardiac, renal or pulmonary complications. The patient understood all the risks and was in agreement with the surgical plan. ? Hospital Course: ? The patient underwent an uneventful laparoscopic sleeve gastrectomy with gastropexy on the day of admission. Postoperatively, the patient was transferred to the surgical floor. The patient received IV Acetaminophen and IV dilaudid for pain control. Patient was started on bariatric phase 1 diet POD #0. On postoperative day one, the patient was feeling well without nausea, vomiting, fevers, or tachycardia. The patient had some mild incisional pain and the abdomen was soft. ? On the morning of postoperative day one, the patient was continued on 1 ounce of water or ice every half hour. During the day, the patient did fairly well, having some incisional pain, but able to ambulate adequately and to tolerate liquids well. ? Since the patient is doing well, we decided that the patient was ready to be discharged. The patient was given instructions to follow-up with me next week and to call my office for any fever over 101, persistent abdominal pain, nausea, vomiting, GERD, symptoms of DVT such as calf tenderness, or leg swelling, or pulmonary embolism such as chest pain or shortness of breath. The patient was also instructed to drink 40-60 ounces of liquids per day using the 1-ounce cups. The patient had been given prescriptions for Tylenol for pain, Zofran prn for nausea, and pantoprazole and carafate previously. The patient was encouraged to ambulate and use the incentive spirometer. The patient was allowed to shower, but no baths, and encouraged to stay active at home. All of these instructions were given to the patient personally. All questions were answered and the patient understood all instructions, the instructions were also given to the patient in print. Time Spent with Patient Time attestation: Total time spent providing and/or coordinating discharge services: Discharge coordination time: Less than 30 minutes Quality: Safe Use of Opioids Does Pt have an Active Cancer Diagnosis on the Problem List?: No Quality: Stroke Does the patient have a stroke diagnosis?: No Physical Exam Vital Signs: Vital Signs: Last Vital Signs Temp 97.8 F 11/03/21 06:37 Pulse 90 11/03/21 06:37 Resp 18 11/03/21 06:37 BP 131/84 11/03/21 06:37 Pulse Ox 99 11/03/21 06:37 O2 Del Method 11/03/21 06:37 BMI result Body Mass Index 33.3 DS: Data Data Completed and Pending Pending studies at discharge: Pending at discharge 11/03/21 09:25 Surgical [PTH] Routine Labs on day of discharge: Laboratory Results - last 24 hr 11/02/21 11/03/21 11/03/21 12:00 06:27 06:38 POC Glucose 150 H Urine Test NEGATIVE COVID-19 ([facility]SE) Negative COVID-19 Clin Com See Note Discharge Plan Discharge Patient Disposition: Home, Self-Care Discharge Diagnosis: s/p laparoscopic sleeve gastrectomy Referrals: Physician,Unknown J [Primary Care Provider] - 1 Week Discharge Medications: Continued (DME) FreeStyle Olivia 2 Sensor Kit See Rx Instructions .ROUTE .MEDSUPPLY Qty: 2 11RF Rx Instructions: As directed every 2 weeks (DME) FreeStyle Olivia 2 [place] Misc See Rx Instructions .ROUTE .MEDSUPPLY Qty: 1 0RF Rx Instructions: As directed (DME) blood-glucose meter [FreeStyle Lite Meter] Kit See Rx Instructions .ROUTE .MEDSUPPLY Qty: 1 0RF Rx Instructions: to test bg 4 times a day docusate sodium [Colace] 100 mg capsule 100 mg PO DAILY Qty: 30 2RF pantoprazole 40 mg tablet,delayed release (DR/EC) 40 mg PO DAILY Qty: 30 2RF sucralfate 100 mg/mL suspension 10 ml PO BID Qty: 400 3RF ondansetron HCl 4 mg tablet 4 mg PO Q6H PRN (Reason: nausea and vomiting) Qty: 20 0RF Discontinued cholecalciferol (vitamin D3) 50 mcg (2,000 unit) capsule 50 mcg PO DAILY 30 Days Qty: 30 11RF Discharge Orders: Discharge Order (Routine); Ordered 11/04/21 Ordered By: Surya Baron Activity on Discharge: No heavy lifting Stand Alone Forms: Patient Portal Discharge page Care Plan Goals: weight loss Health Concerns: obesity Plan of Treatment: No tub baths, sex or returning to work until discussed at first post op appointment. No exercise, alcohol, tobacco or illegal drug use. Continue to use incentive spirometer hourly while awake. Walk in home for 5- 10 minutes every 2 hours during the first week. Follow all instructions in the bariatric handbook and call with any questions.Discharge Instructions 1. Please call your doctor or come back to the emergency room should any new symptoms arise. 2. You will receive a courtesy call from [facility] 24-48 hours after discharge. 3. Activity: abstain from alcohol, practice limited stair climbing, no bending, no driving, no exercise, no illicit substances, no lifting, no sex, no tub bath, no work. 4. Diet: continue as discussed with Dr. Baron. 5. Dressing Change/Wound Care: Your incision is covered by clear bandages and guaze underneath. If the area is tender, you may apply an ice pack for short intervals (no more than 20 minutes on, followed by at least 20 minutes off). Do not apply heat. Do not use creams, lotions, or topical antibiotics unless instructed to do so by your surgeon. These can cause infection or allergic reaction. 6. Call your doctor if: - Your temperature exceeds 101.5 F - You experience excessive pain or swelling - You have an unexpected reaction to medication - You have excessive bleeding - You experience continued vomiting/nausea - Your incision begins to separate - Your incision shows signs of infection such as increased redness, swelling, excessive pain, heat, or drainage (light blood or clear fluid is normal) 7. General instructions: No lifting greater than 5 lbs for the next 4 weeks[address] within 24 hours of taking narcotic pain medications. If you do not move your bowels in the next 2 days, please take milk of magnesia over the counter. Please follow the post op diet and do not advance your diet until you are seen in the office in about 2 weeks. Please walk around your home every hour or two to prevent blood clots from forming in your legs. You do not need to wake from sleeping to walk. Please sleep in a bed or couch to prevent kinking at the hips and knees. Please take your incentive spirometer (your lung turbine blade assembler) home with you and use it for the next few days to prevent pneumonias. You may shower, no hot tubs, baths or swimming pools. Please call the office with any questions or concerns such as increasing abdominal pain, fever, chills, shortness of breath, chest pain, leg pain or swelling, or redness or drainage from your incisions. Please stay on stage 3 diet which includes sugar free clear liquids such as ice pops and jello and broth and crystal light. Avoid all carbonation. Please drink 3 protein shakes with at least 25-30 grams of protein daily or 3 of the Celebrate 4:1 shakes which can be purchased in our office. The Celebrate shakes have all of the bariatric vitamins you need if you consume these shakes. If you are drinking other protein shakes, you will need to purchase the Celebrate multivitamins and calcium that we provide in the office (they will provide all the vitamins you need). Please make sure you are consuming at least 40-60 ounces of water in addition to your 3 protein shakes daily. Do not hesitate to contact the office with any questions at . The patient's medical history has been reviewed and they are considered low risk for post op DVT and therefore DVT prophylaxis is not considered necessary. Travel after surgery was reviewed. The patient has not disclosed any travel plans during the first 30 days after surgery and they have been advised that within the first 30 days after surgery any bus, plane, train or car travel over 2 hours in duration is contraindicated due to the possibility of developing blood clots from immobility. Any travel, needs to include periods of ambulation of 10 minutes in duration every 2 hours.? The patient was instructed to discuss any plans for travel during this period with their bariatric surgeon. Assessment: stable s/p laparoscopic sleeve gastrectomy
--- NOTE | 2021-11-03 10:16 | PM.OP ---
Brief Operative Note Date of Service: 11/03/21 Pre-op diagnosis: Severe obesity with comorbidities (see below) Post-op diagnosis: same Procedure: INITIAL PATIENT BMI ON PRESENTATION AT OUR OFFICE: 37.3 kg/m2 LAST BMI BEFORE SURGERY: 33.3 kg/m2 COMORBIDITIES: insulin dependent diabetes, hyperlipidemia, PCOS, depression, GERD, liver steatosis, liver fibrosis, ankle pain ?The patient presented to the Weight Management Program with significant obesity that was negatively impacting the patient's comorbidities as listed above.? The program is a phased program with a special focus on preoperative medical weight management to promote substantial weight loss and prepare the patients for the second phase of the program: bariatric surgery. The patient participated in an intensive weekly lifestyle ?intervention and exercise program during which the patient ?has lost between the initial office visit and the last preoperative visit 23 lbs, or 11.29% of initial actual body weight. It was deemed appropriate for the patient to now have bariatric surgery. In light of the current Covid-19 pandemic and the well documented strong association of obesity and increased risk of worse outcomes if infected with Covid-19 (REFERENCES:https://pubmed.ncbi.nlm.nih.gov/01297659/,?https://pubmed.ncbi.nlm.nih.gov/98040907/), any delay in undergoing bariatric surgery may lead to the patient's worsening health condition and increased?risk of more severe Covid-19 disease if infected. In addition a recent?study from [facility] published in [facility] [facility] on 03/07/2021 ([email or web address]) found that, among patients with obesity, substantial weight loss achieved with surgery was associated with improved outcomes of COVID-19 infection. The findings suggest that obesity can be a modifiable risk factor for the severity of COVID-19 infection. In addition, the patient met the BMI-criteria for bariatric surgery based on the BMI on initial presentation. The patient should not be penalized for achieving such weight loss because ?it is not sustainable long-term without surgical intervention and it was achieved in preparation for bariatric surgery ?under my direction and based on my published research ([email or web address]).[email or web address] and?[email or web address].soard.org/article/[email or web address])07730-X/pdf) ?that a 10% preoperative weight loss improves long-term weight loss after surgery and reduces perioperative complications.? Insurance carriers such as [facility] have endorsed my recommendations ?and have included in their policies criteria to include a 10% preoperative weight loss requirement. PROCEDURE: Esophago-gastroscopy, laparoscopic lysis of adhesions, laparoscopic sleeve gastrectomy and laparoscopic gastropexy INDICATIONS: This is a 31 year-old female who was electively scheduled for laparoscopic, possibly open sleeve gastrectomy. The risks and complications of the procedure were discussed with the patient in advance, particularly the possibility of ; pulmonary embolism; staple line leak; bleeding; GERD; cardiac, pulmonary, or renal complications; as well as long-term problems such as insufficient weight loss, vitamin deficiency, strictures, or ulcers. The patient understood all the risks, and was in agreement to proceed with surgery. DESCRIPTION OF PROCEDURE: After informed consent was obtained from the patient, the patient was given preoperative antibiotics, and was transferred to the operating room. After successful induction of general anesthesia, pneumatic compression devices were placed on both lower extremities. An upper endoscopy was performed next. The oropharynx and esophagus appeared to be within normal limits. There was no diaphragmatic hernia present consistent with the findings of the preoperative upper GI. The stomach was entered. Then after all fluid and air were suctioned and the stomach was fully decompressed, the scope was withdrawn and secured in the mid esophagus. The patient was then prepped and draped in the usual sterile manner, and abdominal access was established at the right upper quadrant with the Norm technique. A 12 mm blunt port was inserted, and the abdomen was insufflated with CO2 to a pressure of 15 mmHg. Under direct visualization, additional ports were placed, specifically two 5 mm Versi-step ports to the left upper quadrant, and a 5 mm Versi-Step port to the right upper quadrant. 1% lidocaine plain was used to infiltrate all port sites as well as all fascia defects. Using the EndoClose suture passer device, I placed a #1 Polysorb tie across the falciform ligament in order to retract it up against the abdominal wall and prevent injury of the ligament with our instruments during the procedure. Following that, the patient was placed in a steep reverse Trendelenburg position. An additional 5 mm port was placed to the right flank for the Mediflex retractor that was used to retract the left lobe of the liver. The gastro-esophageal fat pad was opened with the ultrasonic device (Thunderbeat, Olympus) and the anterior esophagus and hiatus were exposed. The angle of His was opened with the ultrasonic device the fundus of the stomach from any diaphragmatic and splenic attachments. I then opened the gastrocolic ligament between the transverse colon and the greater curvature of the stomach with the ultrasonic device to enter the lesser sac and facilitate the ligation of the short gastric vessels. I started at a mid-point along the greater curvature and using the Thunderbeat, all short gastric vessels were divided all the way to the angle of His until the left ines was completely dissected at its entirety. I then divided the gastro-colic ligament distally to a distance of about 3-4 cm proximal to the pylorus. There were extensive congenital adhesions between the pancreas and posterior gastric wall. Those were lysed completely with the ultrasonic device. Adhesiolysis took approximately 45 min to complete. The stomach was then divided transversely with one Endo UMU-45 purple, one UMU-45 orange load, 2 UMU-60 purple loads and 2 UMU-60 articulating orange loads using the AEON stapler and loads. Every effort was made that the gastric sleeve had a tubular shape and an even caliber throughout. Once the sleeve resection was completed, the staple line of the gastric sleeve was reinforced with Hemoclips. The resected stomach was retrieved without difficulty from the Norm port. A gastropexy was then performed in order to prevent postoperative GERD and partial gastric volvulus. Several interrupted 2.0 Surgidac sutures were placed between the sleeve's staple line and the previously divided greater omentum and gastro-colic ligament using the Endo-Stitch device. ?An upper endoscopy was performed. There was no narrowing at the GE junction. The scope was easily advanced all the way to the pylorus which was clearly visualized. There was no narrowing anywhere and the sleeve's caliber was even throughout. The sleeve's staple line was inspected and there was no evidence of ischemia, bleeding or dehiscence. At that point the gastroscope was withdrawn from the patient?s mouth while we were decompressing the bowel and the stomach from any remaining air. I looked into the lesser sac to see how the sleeve was situating and it was situating well. There was no bleeding from the staple line, spleen, or short gastric vessels. The Mediflex retractor was removed, and the undersurface of the liver was inspected and there was no bleeding. The patient was placed in supine position. I closed the fascial defect of the 12 mm port site with a figure of eight #1 Polysorb suture. Then 60cc Ropivacaine plain with 10 mg of Dexamethasone were used to infiltrate the fascial closure as well as all skin incisions. A total of 7ml of Zynrelef was placed in the Norm wound. At this point, the abdomen was deflated, all ports were removed under direct vision, and no bleeding was noted from any of the port sites. The skin incisions were irrigated with saline and were closed with 4-0 absorbable monofilament sutures. Steri-Strips and OpSites were used to cover all incisions. The patient was extubated and was transferred in stable condition to the recovery room for further care. I was present and performed all delong parts of the procedure. Mr. Bay was the retail event and sales assistant. There were no residents to assist with this case. Romulo Baron MD, PhD, FACS Surgeon: Surya Baron MD Anesthesia: GETA, local and other (TAP block & 7ml Zynrelef) Was an Grand Jury Deputy Sheriff used for this Procedure?: Yes Grand Jury Deputy Sheriff: Tu Bay Estimated blood loss (mL): 10 IV fluids (mL): 3,000 Urine output (mL): 0 (No Jacinto to record) Pathology: other (Stomach) Condition: stable Disposition: PACU
--- NOTE | 2021-11-03 10:21 | PM.PNGS ---
Subjective Subjective Date of Service: 11/04/21 Interval history: Patient has mild incisional pain, but was able to ambulate and use the incentive spirometer. She is tolerating phase 1 bariatric diet Physical Exam Vital Signs: Vital Signs: Last Vital Signs Temp 97.8 F 11/03/21 06:37 Pulse 90 11/03/21 06:37 Resp 18 11/03/21 06:37 BP 131/84 11/03/21 06:37 Pulse Ox 99 11/03/21 06:37 O2 Del Method 11/03/21 06:37 BMI result Body Mass Index 33.3 GI: Inspection: Yes normal to inspection, Yes incision (dry, clean and intact) and Yes obesity Extrem: Right lower extremity: normal to inspection (no calf tenderness) Left lower extremity: normal to inspection (no calf tenderness) Objective Data Active Medications Famotidine (Famotidine/Pf 20 Mg/2 Ml Vial) 20 mg IVPUSH BID MURIEL Fentanyl (Fentanyl Citrate/Pf 100 Mcg/2 Ml Vial) 25 mcg IVPUSH Q5M PRN; Protocol PRN Reason: Pain, Moderate (Pain Scale 4-6 Hydromorphone HCl (Hydromorphone Hcl 0.5 Mg/0.5 Ml Syringe) 0.25 mg IVPUSH Q5M PRN; Protocol PRN Reason: Pain, Severe (Pain Scale 7-10) Lactated Ringer's (Lr) 1,000 mls @ 50 mls/hr IVCONT .Q20H [facility] Promethazine HCl 6.25 mg/ (Sodium Chloride) 50.25 mls @ 201 mls/hr IV ONCE PRN PRN Reason: Nausea and Vomiting Lactated Ringer's (Lr) 1,000 mls @ 125 mls/hr IVCONT .Q8H [facility] Labs CBC & Chem 7: 11/04/21 05:57 11/04/21 05:57 Labs: Laboratory Results - last 24 hr 11/02/21 11/03/21 11/03/21 12:00 06:27 06:38 POC Glucose 150 H Urine Test NEGATIVE COVID-19 (JOSE) Negative COVID-19 Clin Com See Note Procedures Date of Service Date of Service: 11/04/21 Progress Note: A&P Assessment and plan (1) Obesity: Status: Acute Assessment and Plan: s/p laparoscopic sleeve gastrectomy, lysis of adhesions and gastropexy Doing well Check am labs. If OK, will discharge home? 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
[2021-11-03] MEDS: fentaNYL citrate/PF 100 MCG/2 ML VIAL 25 MCG IVPUSH (10:48)
[2021-11-03] MEDS: Famotidine/PF 20 MG/2 ML VIAL IVPUSH ×2 (10:52→20:41)
[2021-11-03 11:21] LABS: Anion Gap 19 (12-20); Blood Urea Nitrogen 7 mg/dL (9-16); Carbon Dioxide 16 mmol/L (22-29); Chloride 104 mmol/L (96-108); Creatinine Clr Calc Pharmacy 105.9; Estimated Glomerular Filt Rate > 60; Glucose Random 206 mg/dL (60-115); Potassium 4.3 mmol/L (3.3-5.1); Sodium 135 mmol/L (135-145)
[2021-11-03 11:27] LABS: Calcium 8.6 mg/dL (8.4-10.2)
[2021-11-03] MEDS: Metoclopramide HCl 10 MG/2 ML VIAL IVPUSH (11:46)
[2021-11-03 12:32] LABS: Hematocrit 38.9 % (37.0-47.0); Hemoglobin 13.8 g/dl (12.0-16.0)
[2021-11-03] MEDS: ceFAZolin Sodium/Dextrose,Iso 2 GM/50 ML PIGGYBACK IV (13:13)
--- NOTE | 2021-11-03 14:57 | PHA.MEDREC ---
Pharmacy Consult ? Medication Reconciliation Pharmacy has completed the medication reconciliation.
--- NOTE | 2021-11-03 15:31 | MHC.CM.PN ---
PATIENT LIVES WITH FAMILY HCP/COPY REQUESTED INDEPENDENT AT HOME AND COMMUNITY DENIES DME USE OR HOME SERVICES COVID SUSIE'D X3 MRNA PCP: ALIA TOSCANO FATHER WILL TRANSPORT D/C PLAN: HOME SELF-CARE
[2021-11-03] MEDS: ondansetron HCL 4 MG/2 ML VIAL IVPUSH (19:15)
[2021-11-04] MEDS: Lactated Ringers 1,000 ML 125 ML IVCONT ×2 (01:18→09:23)
[2021-11-04] MEDS: Metoclopramide HCl 10 MG/2 ML VIAL IVPUSH (01:37)
--- NOTE | 2021-11-04 01:40 | PC.NURSE ---
Pt c/o nausea-Reglan given at 01:37.
[2021-11-04 03:33] VITALS: BP 136/75; PULSE 89; RESP 16; TEMP 36.4; O2SAT 98
[2021-11-04] MEDS: ondansetron HCL 4 MG/2 ML VIAL IVPUSH (03:48)
[2021-11-04 06:29] LABS: MANUAL DIFF FLAG NO
[2021-11-04 06:40] LABS: Basophils Percent Auto 0.1 % (0-2); Hematocrit 32.8 % (37.0-47.0); Hemoglobin 11.7 g/dl (12.0-16.0); Imm Gran Abs Auto 0.07 X10*3/uL (0.00-0.03); Imm Gran Pct Auto 0.6 % (0.0-0.4); Lymphocytes Absolute Auto 1.5 X10*3/uL (1.2-4.9); Lymphocytes Percent Auto 12.1 % (20-40); Mean Corpuscular HGB Conc 35.7 g/dl (31.0-35.0); Mean Corpuscular Hemoglobin 28.4 pg (27.0-33.0); Mean Corpuscular Volume 79.6 fL (80.0-98.0); Mean Platelet Volume 12.9 fL (9.4-12.3); Monocytes Absolute Auto 0.7 X10*3/uL (0.1-1.2); Monocytes Percent Auto 5.8 % (2-11); Neutrophils Absolute Auto 10.1 x10*3/uL (2.0-8.3); Neutrophils Percent Auto 81.4 % (45-73); Platelet Count 163 X10*3/uL (160-400); Red Blood Count 4.12 X10*6/uL (4.20-5.50); White Blood Count 12.4 X10*3/uL (4.8-10.8)
[2021-11-04 06:41] LABS: Glucose, Whole Blood 154 mg/dL (60-115)
[2021-11-04 07:04] LABS: Anion Gap 14 (12-20); Blood Urea Nitrogen 7 mg/dL (9-16); Calcium 8.8 mg/dL (8.4-10.2); Carbon Dioxide 23 mmol/L (22-29); Chloride 104 mmol/L (96-108); Creatinine Clr Calc Pharmacy 127.2; Estimated Glomerular Filt Rate > 60; Glucose Random 151 mg/dL (60-115); Potassium 4.1 mmol/L (3.3-5.1); Sodium 137 mmol/L (135-145)
[2021-11-04 07:23] VITALS: BP 149/85; PULSE 84; RESP 18; TEMP 36.6; O2SAT 99
[2021-11-04 08:16] VITALS: O2SAT 99
--- NOTE | 2021-11-04 08:46 | MHC.CM.PN ---
PATIENT IS MEDICALLY CLEARED FOR DISCHARGE TODAY; DISCHARGE DISPOSITION IS HOME SELF-CARE. FAMILY WILL TRANSPORT
[2021-11-04] MEDS: Famotidine/PF 20 MG/2 ML VIAL IVPUSH (09:21)
[2021-11-04] MEDS: 0.9 % Sodium Chloride Flush 3 ML SYRINGE IVFLUSH (09:23)
--- NOTE | 2021-11-04 14:53 | HO.POSTANES ---
Post Anesthesia Evaluation Post Anesthesia Evaluation Vital Signs: Vital Signs Temp Pulse Resp BP Pulse Ox O2 Del Method 11/04/21 08:16 99 Room Air 11/04/21 07:23 97.8 F 84 18 149/85 H 99 Room Air 11/04/21 03:33 97.5 F 89 16 136/75 98 Room Air Anesthesia: General Endotracheal-GETA Mental Status: Awake Pain Control: Satisfactory Nausea/Vomiting: None Hydration: Adequate Anesthesia-Related Issues: No Anes. Related Issues
== END 2021-11-04 10:44 | disposition home or self-care (01) | DRG 403 ==
LOC: HO.SSSA 10:16 → HO.S3 10:28
PROVIDERS: Anesthesiology; Physician Assistant Surgical; Admitting Provider Surgery; PCP Internal Medicine; Visit Provider Surgery
PROC: 0DB64Z3 Excision of Stomach, Percutaneous Endoscopic Approach, Vertical (ICD-10-PCS; CPT 43845; principal; 2021-11-03 07:30)
DX: E66.01 Morbid (severe) obesity due to excess calories (principal); E11.9 Type 2 diabetes mellitus without complications; K21.9 Gastro-esophageal reflux disease without esophagitis; E78.1 Pure hyperglyceridemia; Z68.33 Body mass index [BMI] 33.0-33.9, adult; E28.2 Polycystic ovarian syndrome; K66.0 Peritoneal adhesions (postprocedural) (postinfection); F41.9 Anxiety disorder, unspecified; F32.A Depression, unspecified; E55.9 Vitamin D deficiency, unspecified; Z20.822 Contact with and (suspected) exposure to COVID-19; Z88.8 Allergy status to other drugs, medicaments and biological substances; Z79.899 Other long term (current) drug therapy
CPT/HCPCS: 36415; 80048; 80053; 80061; 81025; 82947; 83036; 84443; 85014; 85018; 85025; 85610; 85730; 86140; 86850; 86900; 86901; 87635; 88307; 88342; A4649; C9088; J0131; J0690; J1100; J1170; J2250; J2370; J2405; J2550; J2765; J2795; J3010

== ENCOUNTER → 2022-02-08 12:43 | Outpatient (BNVA) | payer OTHER, SELFPAY | PROVIDERS: PCP Internal Medicine; Visit Provider Physician Assistant Surgical | DX: Z90.3 Acquired absence of stomach [part of] (principal) | CPT/HCPCS: 99212 ==

== ENCOUNTER → 2022-03-03 13:39 | Outpatient (BNVA) | payer OTHER, SELFPAY | PROVIDERS: PCP Internal Medicine; Visit Provider Dietitian, Registered | DX: E66.3 Overweight (principal); Z68.28 Body mass index [BMI] 28.0-28.9, adult | CPT/HCPCS: 97803 ==

== ENCOUNTER 2022-08-08 17:06 | Emergency (ER) | payer OTHER, SELFPAY ==
[2022-08-08 17:56] LABS: MANUAL DIFF FLAG NO
[2022-08-08 17:58] LABS: Basophils Percent Auto 0.4 % (0-2); Eosinophils Absolute Auto 0.1 X10*3/uL (0.0-0.4); Eosinophils Percent Auto 1.5 % (0-4); Hematocrit 40.1 % (37.0-47.0); Imm Gran Abs Auto 0.02 X10*3/uL (0.00-0.03); Imm Gran Pct Auto 0.2 % (0.0-0.4); Lymphocytes Absolute Auto 2.4 X10*3/uL (1.2-4.9); Lymphocytes Percent Auto 29.1 % (20-40); Mean Corpuscular HGB Conc 34.9 g/dl (31.0-35.0); Mean Corpuscular Hemoglobin 29.7 pg (27.0-33.0); Mean Corpuscular Volume 85.1 fL (80.0-98.0); Monocytes Absolute Auto 0.6 X10*3/uL (0.1-1.2); Monocytes Percent Auto 7.2 % (2-11); Neutrophils Absolute Auto 5.2 x10*3/uL (2.0-8.3); Neutrophils Percent Auto 61.6 % (45-73); Platelet Count 191 X10*3/uL (160-400); Red Blood Count 4.71 X10*6/uL (4.20-5.50); Red Cell Distribution Width 11.9 % (11.0-16.0); White Blood Count 8.4 X10*3/uL (4.8-10.8)
[2022-08-08 18:00] VITALS: BP 156/91; PULSE 90; RESP 18; TEMP 36.6; O2SAT 98; BMI 29.3
--- NOTE | 2022-08-08 18:00 | ED.PREGNANCY ---
HPI - General Chief complaint: Abdominal Pain Stated complaint: pain in abdominal Time Seen by Provider: 08/08/22 19:44 Source: patient Mode of arrival: ambulatory Limitations: no limitations History of Present Illness HPI Narrative: 31-year-old female presents to the ER for evaluation of lower abdominal cramping and vaginal spotting that started today. She states the pain is a 3/10, intermittent and comes and goes. She states her last menstrual period was May 28 and she has had both positive and negative home test. She has never been before. She denies any vaginal discharge, fevers, chills, nausea, vomiting. She called her OBGYN has an appointment tomorrow. MD Complaint: abdominal pain and vaginal bleeding Onset (ago): hour(s) Pain Consistency: intermittent Location: pelvis Severity: mild Severity scale (1-10): 3 Quality: Cramping and Aching Relieving factors: none Exacerbating factors: none Associated symptoms: vaginal bleeding Vaginal discharge: none Vaginal bleeding: light Date of Last Menstrual Period: 05/28/22 Related Data Previous Rx's Medication Instructions Recorded flash glucose scanning reader #1 ea 08/31/20 (FreeStyle Olivia 2 [place]) flash glucose sensor (FreeStyle #2 ea 02/23/21 Olivia 2 Sensor kit) Allergies Allergy/AdvReac Type Severity Reaction Status Date / Time dulaglutide [From Trulicity] Allergy Severe stomach Verified 08/08/22 18:00 pains, nausea and vomiting metformin Allergy Severe stomach Verified 08/08/22 18:00 pains canagliflozin [From Invokana] Allergy Intermediate UTI and Verified 08/08/22 18:00 yeast infections Review of Systems Review of Systems: Yes all other systems are reviewed and are negative PMFSH Past Medical History Medical History Anesthesia Anxiety Depression Diabetes mellitus Elevated testosterone level in female Essential hypertension Hirsutism Hypertriglyceridemia Obesity Obesity due to excess calories PCOS (polycystic ovarian syndrome) PCOS (polycystic ovarian syndrome) Proteinuria Type 2 diabetes mellitus with hyperglycemia Type 2 diabetes mellitus with other diabetic kidney complication Vitamin D deficiency Surgical History History of ankle surgery History of cholecystectomy History of myringotomy History of tonsillectomy Date of Last Menstrual Period: 03/19/23 Family History Family History Father Diabetes Mother Diabetes Maternal Grandmother Diabetes Paternal Grandmother Diabetes Brother No problems noted. 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 Oriented X3. No acute distress. Head: normocephalic, atraumatic. Eyes: Pupils equal, round and reactive to light. ENT: Normal external inspection Neck: Normal inspection. CVS: Normal heart rate and rhythm. Pulses normal. Respiratory: No respiratory distress. Breath sounds normal. Abdomen: Soft and nontender. +BS x4. Pelvic deferred Skin: Skin warm and dry. Normal skin color. Normal skin turgor. No rashes. Extremities: No lower extremity edema. No joint swelling. Neuro/psych: Oriented X 3. Nonfocal, grossly normal Course Course Course Narrative: RME - 31 yo female presents to the ER for evaluation of 3/10 lower abdominal cramping and spotting that started today. She states her LMP was 3. No history of in the past. RH+ Plan: beta HCG, lab workup, UA. if will get U/S Medical Decision Making Medical Decision Making MDM Narrative: 31-year-old female presents the ER for evaluation of light vaginal bleeding and cramping that started today. Last menstrual period was in May, with both positive and negative home test. Lab workup today shows beta hCG is less than 2. She may have had a miscarriage at home over the last couple of months. No role for imaging today. She has outpatient follow-up tomorrow with her OBGYN. She is stable for discharge. Differential Diagnosis Differential Diagnoses: The differential diagnosis associated with the presentation includes Miscarriage, bleeding in early , missed , menstrual cycle, dysfunctional uterine bleeding Lab Data MDM Lab Attestation statement: I reviewed the patient's lab results. Normal CBC, no anemia. HCG negative. 08/08/22 17:48 08/08/22 17:48 Labs: Lab Results 08/08/22 08/08/22 Range/Units 17:48 17:48 WBC 8.4 (4.8-10.8) X10*3/uL RBC 4.71 (4.20-5.50) X10*6/uL Hgb 14.0 (12.0-16.0) g/dl Hct 40.1 D (37.0-47.0) % MCV 85.1 (80.0-98.0) fL MCH 29.7 (27.0-33.0) pg MCHC 34.9 (31.0-35.0) g/dl RDW 11.9 (11.0-16.0) % Plt Count 191 (160-400) X10*3/uL MPV 12.0 (9.4-12.3) fL Immature Gran % (Auto) 0.2 (0.0-0.4) % Neut % (Auto) 61.6 (45-73) % Lymph % (Auto) 29.1 (20-40) % [place] % (Auto) 7.2 (2-11) % Eos % (Auto) 1.5 (0-4) % Baso % (Auto) 0.4 (0-2) % Lymph # (Auto) 2.4 (1.2-4.9) X10*3/uL [place] # (Auto) 0.6 (0.1-1.2) X10*3/uL Eos # (Auto) 0.1 (0.0-0.4) X10*3/uL Baso # (Auto) 0.0 (0.0-0.2) X10*3/uL Abs Immat Gran (auto) 0.02 (0.00-0.03) X10*3/uL Absolute Neuts (auto) 5.2 (2.0-8.3) x10*3/uL Absolute Nucleated RBC 0.000 (0.0-0.012) X10*3/uL Nucleated RBC % (auto) 0.0 (0.0-0.2) /100WBC Sodium 140 (135-145) mmol/L Potassium 4.2 (3.3-5.1) mmol/L Chloride 106 (96-108) mmol/L Carbon Dioxide 25 (22-29) mmol/L Anion Gap 13 (12-20) BUN 14 (9-16) mg/dL Creatinine 0.76 (0.5-1.4) mg/dL Estim Creat Clear Calc 101.8 Estimated GFR > 60 Random Glucose 120 H (60-115) mg/dL Calcium 9.9 D (8.4-10.2) mg/dL Magnesium 1.7 (1.6-2.6) mg/dL Total Bilirubin 0.6 (0.0-1.0) mg/dL Direct Bilirubin 0.1 (0.0-0.5) mg/dL AST 16 (5-31) U/L ALT 27 (0-31) U/L Alkaline Phosphatase 61 (39-117) U/L Total Protein 8.0 (6.5-8.0) g/dL Albumin 4.2 (3.5-5.0) g/dL Lipase 25 (8-78) U/L Beta HCG, Quant < 2 mIU/mL Independent Historian Clinical information obtained from an independent historian. History obtained from or confirmed by: Parent External Record Review External record reviewed: Office record, Outpatient record and Prior outpatient labs Tests considered The following testing was considered but not selected: Pelvic ultrasound considered, deferred today given negative test. Chronic Conditions Patient?s care impacted by: Diabetes Critical Care Time Critical Care Time Critical Care Time: No Discharge Plan Discharge Clinical Impression: Abdominal cramping Patient Disposition: Home, Self-Care Instructions: Acute Abdominal Pain (ED) Additional Instructions: Your lab workup today was unremarkable. Your hormone was negative. Follow-up with your OBGYN as scheduled tomorrow. If you develop new or worsening symptoms call 911 or come back to the ER for further evaluation. Prescriptions: No Action (DME) FreeStyle Olivia 2 Sensor Kit See Rx Instructions .ROUTE .MEDSUPPLY Qty: 2 11RF Rx Instructions: As directed every 2 weeks (DME) FreeStyle Olivia 2 [place] Misc See Rx Instructions .ROUTE .MEDSUPPLY Qty: 1 0RF Rx Instructions: As directed Interventions: ED Discharge Assessment Last Done: 08/08/22 19:46 Discharge Date/Time: 08/08/22 19:50
[2022-08-08 18:15] LABS: Alanine Aminotransferase 27 U/L (0-31); Albumin Level 4.2 g/dL (3.5-5.0); Alkaline Phosphatase 61 U/L (39-117); Anion Gap 13 (12-20); Aspartate Amino Transferase 16 U/L (5-31); Bilirubin Direct 0.1 mg/dL (0.0-0.5); Bilirubin Total 0.6 mg/dL (0.0-1.0); Blood Urea Nitrogen 14 mg/dL (9-16); Calcium 9.9 mg/dL (8.4-10.2); Carbon Dioxide 25 mmol/L (22-29); Chloride 106 mmol/L (96-108); Creatinine Clr Calc Pharmacy 101.8; Estimated Glomerular Filt Rate > 60; Glucose Random 120 mg/dL (60-115); Lipase 25 U/L (8-78); Magnesium 1.7 mg/dL (1.6-2.6); Potassium 4.2 mmol/L (3.3-5.1); Sodium 140 mmol/L (135-145)
[2022-08-08 18:51] LABS: HCG Quantitative < 2 mIU/mL
== END 2022-08-08 19:50 | disposition home or self-care (01) ==
LOC: HO.ED 19:50
PROVIDERS: Physician Assistant; Emergency Provider Emergency Medicine
DX: R10.9 Unspecified abdominal pain (principal); E11.9 Type 2 diabetes mellitus without complications; I10 Essential (primary) hypertension
CPT/HCPCS: 36415; 80048; 80076; 83690; 83735; 84702; 85025; 99282; 99283

== ENCOUNTER 2022-08-09 09:32 | Outpatient (REF) | payer OTHER, SELFPAY ==
[2022-08-09 15:41] LABS: CT PCR NOT DETECTED (Not Detect.); NG PCR NOT DETECTED (Not Detect.)
[2022-08-10 08:54] LABS: BV Int Neg Control Negative (Negative); BV Int Pos Control Positive (Positive)
== END 2022-08-09 09:33 | disposition home or self-care (01) ==
LOC: HO.LAB 09:32
PROVIDERS: PCP Internal Medicine; Visit Provider Advanced Practice Midwife
DX: N94.6 Dysmenorrhea, unspecified (principal); Z20.2 Contact with and (suspected) exposure to infections with a predominantly sexual mode of transmission
CPT/HCPCS: 0353U; 87480; 87510; 87660

== ENCOUNTER 2022-08-09 10:04 | Outpatient (REF) | payer OTHER, SELFPAY | END 2022-08-09 10:05 | disposition home or self-care (01) | LOC: HO.LNP 10:04 | PROVIDERS: Visit Provider Advanced Practice Midwife | DX: Z13.89 Encounter for screening for other disorder (principal) ==

== ENCOUNTER 2022-11-05 10:02 | Emergency (ER) | payer OTHER, SELFPAY ==
--- NOTE | ~2022-11-05 | XR_ITS ---
EXAMINATION: XR HAND, LEFT CLINICAL INFORMATION: Swelling COMPARISON: None available. TECHNIQUE: PA, lateral, and oblique views of the left hand. FINDINGS: Nondisplaced oblique fracture through the diaphysis of the distal phalanx fourth finger. No dislocation. No other fractures. No radiodense foreign body. XR/XR hand LT min 3V IMPRESSION: Nondisplaced oblique fracture through the proximal diaphysis of the distal phalanx fourth finger.
[2022-11-05 10:03] VITALS: PULSE 79; RESP 18; O2SAT 100; BMI 31.7
--- NOTE | 2022-11-05 10:24 | ED_ITS ---
HPI - Extremity Problem General Chief complaint: Extremity Injury, Upper Stated complaint: Broken finger L hand Time Seen by Provider: 11/05/22 10:22 Source: patient Mode of arrival: ambulatory Limitations: no limitations History of Present Illness HPI Narrative: Patient is a 32-year-old uqhmu-roms-rnzvwkrg female presenting to the emergency department with complaint of left 4th finger pain. Patient reports that she was attempting to get in to her door earlier this morning, as she was opening the door she tripped on the step and when she tried to prevent herself from falling got her hand stuck in the door. States is unable to flex finger at distal joint. States pain is radiating down hand towards wrist. Took Tylenol prior to arrival. Denies numbness or tingling. MD Complaint: extremity pain Onset (ago): hour(s) Pain Consistency: constant Location: left and other (4th finger) Severity scale (1-10): 9 Quality: aching Radiation: proximal Relieving factors: nothing Exacerbating factors: range of motion and palpation Associated symptoms: denies other symptoms Related Data Home Medications Medication Instructions Recorded Confirmed pantoprazole 40 mg tablet,delayed 40 mg PO DAILY 08/09/22 release Previous Rx's Medication Instructions Recorded flash glucose scanning reader #1 ea 08/31/20 (FreeStyle Olivia 2 [place]) flash glucose sensor (FreeStyle #2 ea 02/23/21 Olivia 2 Sensor kit) metronidazole 500 mg tablet 500 mg PO BID 7 days #14 tabs 08/23/22 Allergies Allergy/AdvReac Type Severity Reaction Status Date / Time dulaglutide [From Trulicity] Allergy Severe stomach Verified 11/05/22 10:08 pains, nausea and vomiting metformin Allergy Severe stomach Verified 11/05/22 10:08 pains canagliflozin [From Invokana] Allergy Intermediate UTI and Verified 11/05/22 10:08 yeast infections Review of Systems Review of Systems: As per HPI. Yes all other systems are reviewed and are negative Constitutional: Constitutional: Reports as per HPI [facility] Past Medical History Medical History Anesthesia Anxiety Depression Diabetes mellitus Elevated testosterone level in female Essential hypertension Hirsutism Hypertriglyceridemia Obesity Obesity due to excess calories PCOS (polycystic ovarian syndrome) PCOS (polycystic ovarian syndrome) Proteinuria Type 2 diabetes mellitus with hyperglycemia Type 2 diabetes mellitus with other diabetic kidney complication Vitamin D deficiency Surgical History H/O gastric sleeve History of ankle surgery History of cholecystectomy History of myringotomy History of tonsillectomy Family History Family History Father Diabetes Mother Diabetes Maternal Grandmother Diabetes Paternal Grandmother Diabetes Brother No problems noted. 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 Sexual orientation: Straight/Heterosexual Gender identity: Female Cognitive needs: No Hearing needs: No Vision needs: No Physical Exam Vital Signs: Vital Signs: Last Vital Signs Temp 96.6 F L 11/05/22 10:29 Pulse 79 11/05/22 10:03 Resp 18 11/05/22 10:03 BP 137/89 11/05/22 10:29 Pulse Ox 100 11/05/22 10:03 O2 Del Method Room Air 11/05/22 10:03 BMI result Body Mass Index 31.7 Const: General: cooperative, healthy appearing and no acute distress Orientation/consciousness: oriented to person, oriented to place, oriented to time and patient oriented x3 Limitations: no limitations HEENT: Head: Yes normocephalic and Yes atraumatic Ears: external ears normal General nose exam: Normal external nose present Face and sinus: Yes face symmetric Mouth: oropharynx normal and moist mucous membranes Throat: Yes uvula midline Eyes: Pupils: Equal, round and reactive pupils present Neck: Neck: Yes normal visual inspection and Yes supple Resp: Effort & Inspection: normal respiratory effort and able to speak in co mplete sentences Auscultation: clear to auscultation bilaterally Cardio: Rate: regular rate Rhythm: regular rhythm Heart sounds: S1 normal heart sound present and S2 normal heart sound present GI: Palpation (GI): Soft to palpation and nontender Auscultation: normoactive bowel sounds : General: Yes no CVA tenderness Back/Spine/Pelvis: Back: no CVA tenderness Skin: General skin exam: elasticity normal and turgor normal Neuro: General: oriented to person, oriented to place, oriented to time, patient oriented x3, gait normal, tone normal, moves all extremities, no focal motor deficits and CN's II-XI intact bilaterally Cranial nerves: Yes Equal, round and reactive pupils present Cognition (Neuro): normal cognition Extrem: General: Yes full ROM, Yes normal exam except as noted, Yes no pedal edema and Yes no calf tenderness Left upper extremity: hand Details: normal capillary refill, neurosensory exam normal, tenderness Location: of the 4th digit Location: at the middle phalanx, at the distal phalanx and at the DIP joint, vascular exam Details: normal capillary refill and abnormal ROM of finger Details: unable to flex (ROM to all other digits normal) Location: of the 4th digit; ROM of fingers abnormal Psych: Mental Status: mental status grossly normal Affect: normal affect Thought process: Normal thought process present Medical Decision Making Medical Decision Making MDM Narrative: Patient is a 32-year-old iygmv-stef-qmyetqdk female presenting to the emergency department with complaint of left 4th finger pain. On exam patient is awake, A+Ox3, VS WNL, afebrile, normal neurological exam without focal deficits, left 4th finger tenderness to palpation of middle and distal phalanx, unable to flex DIP joint, all other fingers with normal range of motion, normal cap refill all fingers. Given reported symptoms and physical exam findings, initial differential includes fracture, contusion, sprain/strain. X-ray notable for nondisplaced oblique fracture through proximal diaphysis of distal phalanx 4th finger. My interpretation is in agreement with the radiologist's interpretation. Finger splint applied in the emergency department. Patient specifically requesting referral to Dr. Suggs as she has seen him previously. Will refer to Dr. Chamorro as well. Advised patient to apply ice to finger for 10-15 minutes at a time several times daily, Tylenol and ibuprofen as needed for discomfort. Patient instructed to keep splint in place until follow-up with Orthopedics. All results discussed and all questions answered. Return precautions discussed at bedside. Patient verbalized understanding of and ag reement with plan. Differential Diagnosis Differential Diagnoses: The differential diagnosis associated with the presentation includes As per MDM. Independent Interpretation I performed an independent interpretation of an: Plain X-Ray Interpretation: Left 4th distal phalanx fracture Radiology Impression Discussion of test interpretation with radiology: I have reviewed the radiologist's reading. Radiologist Impression: RDER #: [id number] XR/XR hand LT min 3V IMPRESSION: ? Nondisplaced oblique fracture through the proximal diaphysis of the distal phalanx fourth finger. ? External Record Review External record reviewed: Inpatient record, Office record and Outpatient record Discharge Plan Discharge Clinical Impression: Fracture of distal phalanx of finger of left hand Patient Disposition: Home, Self-Care Instructions: Finger Fracture (ED), R.I.C.E. Treatment (ED) Additional Instructions: You have been evaluated in the emergency department today for finger pain. Your x-ray showed a fracture to your distal 4th phalanx. A splint was applied in the emergency department today. Please do not remove the splint until your follow-up appointment with Orthopedics. Please rest, ice, and elevate your hand. You should not bear weight with your left hand until you follow-up with orthopedics. We recommend you take 600mg ibuprofen every 6 hours or 650mg Tylenol every 6 hours as needed for pain. If needed you can alternate these medications as they take 1 medication every 3 hours. For instance at noon take ibuprofen, then at 3:00 p.m. take Tylenol, then at 6:00 p.m. take ibuprofen. Please schedule an appointment for follow-up with your primary care provider this week. Return to the emergency department if you experience worsening pain, numbness, tingling, change of color in your finger or hand, or any other concerning symptoms. Prescriptions: No Action (DME) FreeStyle Olivia 2 Sensor Kit See Rx Instructions .ROUTE .MEDSUPPLY Qty: 2 11RF Rx Instructions: As directed every 2 weeks metronidazole 500 mg tablet 500 mg PO BID 7 Days Qty: 14 0RF Rx Instructions: Take with food, Avoid alcohol and vinegar products (DME) FreeStyle Olivia 2 [place] [facility] Rx Instructions .ROUTE .MEDSUPPLY Qty: 1 0RF Rx Instructions: As directed pantoprazole 40 mg tablet,delayed release (DR/EC) 40 mg PO DAILY Referrals: [facility] [place] [facility] [Provider Group] Kacy Chamorro MD [Physician] -
[2022-11-05 10:29] VITALS: BP 137/89; TEMP 35.9
== END 2022-11-05 12:17 | disposition home or self-care (01) ==
PROVIDERS: Emergency Provider Emergency Medicine; PCP Internal Medicine
DX: S62.635A Displaced fracture of distal phalanx of left ring finger, initial encounter for closed fracture (principal); W18.49XA Other slipping, tripping and stumbling without falling, initial encounter; W23.0XXA Caught, crushed, jammed, or pinched between moving objects, initial encounter; Y93.9 Activity, unspecified; Y92.9 Unspecified place or not applicable; Y99.9 Unspecified external cause status; M79.645 Pain in left finger(s); E11.9 Type 2 diabetes mellitus without complications; I10 Essential (primary) hypertension
CPT/HCPCS: 73130; 99282; 99283

== ENCOUNTER 2022-11-07 10:31 | Outpatient (AMB) | payer OTHER, SELFPAY ==
--- NOTE | 2022-11-07 10:46 | MHC.PC.OV ---
Vital Signs 11/07/22 10:47 Height 5 ft 2 in Weight 173 lb 8 oz BMI 31.7 BP 110/70 Blood Pressure Location Rt brachial Position Sitting Pulse 73 Pulse Source Pulse Oximeter Pulse Oximetry (%) 99 Oxygen Delivery Method Room Air Intake Visit Reasons: [facility] 11/05/22 Broken Finger Intake Note: Patient is here to follow-up after a visit the emergency department at [facility] on 11/05/22. Request letter for work. 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: Not Required per policy Accompanied by: Self / Same As Patient Allergies dulaglutide [From Trulicity] Allergy (Severe, Verified 11/07/22 10:46) stomach pains, nausea and vomiting metformin Allergy (Severe, Verified 11/07/22 10:46) stomach pains canagliflozin [From Invokana] Allergy (Intermediate, Verified 11/07/22 10:46) UTI and yeast infections Medication List - Last Reconciled 11/07/22 by Davonte Seals MD pantoprazole 40 mg PO DAILY Tobacco use date assessed: 11/07/22 Dental Screening Dental Screen Date: 11/07/22 Did you have a dental visit in the last 12 months?: Yes Did you have a dental problem in the last 6 months where you did not have access to dental care?: No Was dental information given to patient?: Patient has dentist HPI [facility] 11/05/22 Broken Finger HPI Details broke distal phal right 4th finger; nees oow note; has appt with ortho next week [facility] Medical History Anesthesia Anxiety Depression Diabetes mellitus Elevated testosterone level in female Essential hypertension Hirsutism Hypertriglyceridemia Obesity Obesity due to excess calories PCOS (polycystic ovarian syndrome) PCOS (polycystic ovarian syndrome) Proteinuria Type 2 diabetes mellitus with hyperglycemia Type 2 diabetes mellitus with other diabetic kidney complication Vitamin D deficiency Surgical History H/O gastric sleeve History of ankle surgery History of cholecystectomy History of myringotomy History of tonsillectomy Family History Father Diabetes Mother Diabetes Maternal Grandmother Diabetes Paternal Grandmother Diabetes Brother No problems noted. 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 1. Little interest or pleasure in doing things: not at all 2. Feeling down, depressed, or hopeless: not at all 3. Trouble falling or staying asleep, or sleeping too much: not at all 4. Feeling tired or having little energy: not at all 5. Poor appetite or overeating: not at all 6. Feeling bad about yourself - or that you are a failure or have let yourself or your family down: not at all 7. Trouble concentrating on things, such as reading the newspaper or watching television: not at all 8. Moving or speaking so slowly that other people could have noticed. Or the opposite - being so fidgety or restless that you have been moving around a lot more than usual: not at all 9. Thoughts that you would be better off or of hurting yourself in some way: not at all Total score: 0 Depression Screening Interpretation: Negative Source: Developed by Drs. Ramo Gallego, Sujey Price, Ulises Bains and colleagues, with an educational tata from [employer]. Thrive Questionnaire Date Thrive assessed: 11/07/22 I am a: Patient What is your living situation today?: I have a steady place to live Within the past 12 months, did the food you bought not last and you didn't have the money to get more?: Never true Within the past 12 months, did you worry whether your food would run out before you got money to buy more?: Never true Do you have trouble paying for medicines?: No Do you have trouble getting transportation to medical appointments?: No Do you have trouble paying your heating and electricity bill?: No Do you have trouble taking care of your child, family member or friend?: No Do you have trouble with day-to-day activities such as bathing, preparing meals, shopping, managing finances, etc.?: No Are you currently unemployed and looking for a job?: No Are you interested in more education?: No Currently or been in a relationship where the following occur: no concerns reported AUDIT C Alcohol Use Questionnaire (AUDIT-C) 1. How often do you have a drink containing alcohol?: Monthly or less 2. How many drinks containing alcohol do you have on a typical day when you are drinking?: 1 or 2 Total Score: 1 EFRAIN-7 AMB Questionnaire EFRAIN-7 Date EFRAIN - 7 assessed: 08/22/21 Feeling nervous, anxious, or on edge: 0 = Not at all Not being able to stop or control worryin = Not at all Worrying too much about different things: 0 = Not at all Trouble relaxin = Not at all Being so restless that it is hard to sit still: 0 = Not at all Becoming easily annoyed or irritable: 0 = Not at all Feeling afraid as if something awful might happen: 0 = Not at all Total EFRAIN-7 score (0-4 normal; 5-9 mild; 10-14 moderate; 15-21 severe): 0 Source: Developed by Drs. Ramo Gallego, Sujey Price, Ulises Bains and colleagues, with an educational tata from [employer]. Review of Systems Const Denies chills, Denies headache(s) and Denies weight loss ENT Denies headache(s) Card Denies chest pain, Denies syncope, Denies irregular heart rhythm and Denies dyspnea Resp Denies chest congestion, Denies cough and Denies dyspnea GI Denies abdominal pain, Denies change in stool character, Denies nausea and Denies vomiting Musc Denies deformity and Denies joint swelling Neuro Denies syncope and Denies headache(s) Physical exam (Primary Care) Vital Signs: Last Vital Signs Pulse 73 11/07/22 10:47 BP 110/70 11/07/22 10:47 Pulse Ox 99 11/07/22 10:47 Oxygen Delivery Method Room Air 11/07/22 10:47 BMI result Body Mass Index 31.7 Tobacco/Smoking Status: Tobacco use Status Tobacco use date assessed 11/07/22 11/07/22 10:51 Patient Tobacco Use Status Never used Tobacco 11/07/22 10:51 e-Cigarette/Vaping Use Never Used 11/07/22 10:51 PHQ-9: PHQ-9 Score PHQ-9: Total score 0 11/07/22 10:51 Depression Screening Interpretation: Negative Thrive Assessment: Date of Thrive Assessment Date Thrive assessed 11/07/22 11/07/22 10:51 Currently or been in a relationship where the following occur: no concerns reported Const General: cooperative, comfortable and no acute distress HENMT Head: Yes normal to inspection Eyes General: appearance normal, both eyes and all related structures Neck Neck: Yes normal visual inspection Extrem Other: right 4th finger splinted Assessment and Plan Assessment & Plan (1) Finger fracture, right: Code(s): S62.609A - Fracture of unspecified phalanx of unspecified finger, initial encounter for closed fracture Plan: per ortho Coding Level of Care Code Est Pt Level 3 (71893) Diagnoses Finger fracture, right S62.609A
[2022-11-07 10:47] VITALS: BP 110/70; PULSE 73; O2SAT 99; BMI 31.7
== END 2022-11-07 11:06 | disposition home or self-care (01) ==
PROVIDERS: PCP Internal Medicine; Visit Provider Internal Medicine
DX: S62.609A Fracture of unspecified phalanx of unspecified finger, initial encounter for closed fracture (principal)
CPT/HCPCS: 99213

== ENCOUNTER 2022-11-14 08:55 | Outpatient (REF) | payer OTHER, SELFPAY ==
--- NOTE | ~2022-11-14 | XR_ITS ---
EXAMINATION: XR HAND, LEFT CLINICAL INFORMATION: Pain COMPARISON: Previous x-ray October 2022 TECHNIQUE: PA, lateral, and oblique views of the left hand. FINDINGS: Transverse nondisplaced fracture of the distal phalanx of the fourth finger. This appears unchanged. No other fracture. Joint spaces are normal. Soft tissues are normal. XR/XR hand LT min 3V IMPRESSION: Nondisplaced fracture of the distal phalanx of the fourth finger.
== END 2022-11-14 08:56 | disposition home or self-care (01) ==
LOC: HO.HOSX 08:55
PROVIDERS: Visit Provider Orthopaedic Surgery
DX: S62.635A Displaced fracture of distal phalanx of left ring finger, initial encounter for closed fracture (principal)
CPT/HCPCS: 73130

== ENCOUNTER 2022-11-14 15:08 | Outpatient (AMB) | payer OTHER, SELFPAY ==
--- NOTE | 2022-11-14 15:45 | A.OFFVIS_ITS ---
Intake Vital Signs 11/14/22 15:46 Height 5 ft 2 in Weight 173 lb BMI 31.6 Intake Visit Reasons: N/P left RF fx 11/05/22 Intake Note: Apurva 32 yr old right hand dominant female presents today for her left ring finger. Patient reports on 11/05/22, she was attempting to get in to her door, as she was opening the door she tripped on the step and when she tried to prevent herself from falling got her hand stuck in the screen door. Seen in ED same day where xrays were taken and patient was placed in a finger splint. Currently states her pain is currently at an 10/19. Allergies dulaglutide [From Trulicity] Allergy (Severe, Verified 11/14/22 15:46) stomach pains, nausea and vomiting metformin Allergy (Severe, Verified 11/14/22 15:46) stomach pains canagliflozin [From Invokana] Allergy (Intermediate, Verified 11/14/22 15:46) UTI and yeast infections HPI N/P left RF fx 11/05/22 HPI Details Apurva is a 32 year old right hand dominant woman who presents to discuss her left ring finger fracture. She says she got her finger caught in her screen door on 11/05/22. She was seen in the ED, splinted, and referred here. She complains of pain in her ring finger. She is seen today wearing her splint. She is a Diabetic [facility] Medical History Anesthesia Anxiety Depression Diabetes mellitus Elevated testosterone level in female Essential hypertension Hirsutism Hypertriglyceridemia Obesity Obesity due to excess calories PCOS (polycystic ovarian syndrome) PCOS (polycystic ovarian syndrome) Proteinuria Type 2 diabetes mellitus with hyperglycemia Type 2 diabetes mellitus with other diabetic kidney complication Vitamin D deficiency Surgical History H/O gastric sleeve History of ankle surgery History of cholecystectomy History of myringotomy History of tonsillectomy Family History Father Diabetes Mother Diabetes Maternal Grandmother Diabetes Paternal Grandmother Diabetes Brother No problems noted. 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 Sexual orientation: Straight/Heterosexual Gender identity: Female Cognitive needs: No Hearing needs: No Vision needs: No Review of Systems Const All systems reviewed & are unremarkable except as noted in HPI and below Physical Exam Vital Signs: BMI result Body Mass Index 31.6 Const General: cooperative, healthy appearing and no acute distress Orientation/consciousness: patient oriented x3 HEENT Head: Yes normocephalic and Yes atraumatic Eyes EOM: EOMs intact bilaterally Resp Effort & Inspection: normal respiratory effort and able to speak in complete sentences Cardio Jugular venous distension: no JVD Skin General skin exam: turgor normal Rashes: no rashes Neuro General: patient oriented x3 Extrem Other: Evaluation of Left Upper Extremity: The patient is alert, oriented, and in no acute distress Neuro: Median, Ulnar, Radial nerves motor and sensory intact and sensation is normal to the tips of all digits Vascular: Cap refill brisk ROM: With encouragement she could make a fist and extend all her digits at the PIP & MCP joints Skin: No lacerations or abrasions. No open wounds Nailbed intact General: No Ecchymosis. No Erythema or evidence of infection. Tender over the ring finger distal phalanx fracture site No lacerations or evidence of open injury. No nail bed injury seen. Radiographs: 3 views of the left hand, with attention to the ring finger, were taken and viewed by me today in clinic. They show a ring finger distal phalanx fracture, transverse through the body and non-displaced. Psych Appearance: grossly normal Affect: normal affect Attitude: cooperative Office Procedures Fracture Care Details: Fracture care [id number] Fracture Billing Code: Fracture Billing Code Assessment & Plan Assessment & Plan (1) Diabetes mellitus: Code(s): E11.9 - Type 2 diabetes mellitus without complications Qualifiers: Diabetes mellitus complication status: without complication Diabetes mellitus principal technical specialist insulin use: with principal technical specialist use Diabetes mellitus type: type 2 Qualified Code(s): E11.9 - Type 2 diabetes mellitus without complications; Z79.4 - retirement (current) use of insulin (2) Closed fracture of distal phalanx of left ring finger: Code(s): S62.635A - Displaced fracture of distal phalanx of left ring finger, initial encounter for closed fracture Plan Assessment & Plan: 1. Left ring finger distal phalanx fracture, transverse & non-displaced From an injury, DOI: 11/05/22 I educated her about this condition This has been managed non-operative with a finger splint I recommend we continue to manage this non-operatively She was fitted for a new velcro finger spica splint that allows for PIP joint motion, to be worn for the next 3 weeks She will work on finger ROM exercises at home while wearing her splint She is to avoid any heavy impact or lifting activities, or activities prone to falling. 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 I suspect she can return to work 4-6 weeks post-injury, depending on hr healing She will follow up in 3 weeks for a ROM check, x-rays. Depending on her motion I may consider ordering OT hand therapy Scribed for Kacy Chamorro MD by Tj Ferraro, medical van driver, on 11/14/22 at 4:05 PM, EST. Orders: Orders XR hand LT min 3V Today M79.642 - Pain in left hand Coding Level of Care Code New Pt Level 3 (36612) Diagnoses Diabetes mellitus E11.9; Z79.4 Diabetes mellitus complication status: without complication Diabetes mellitus mcc insulin use: with mcc use Diabetes mellitus type: type 2 Closed fracture of distal phalanx of left ring finger S62.635A CPT Codes Fracture Care - Fracture Billing Code: Fracture Billing Code ([id number])
[2022-11-14 15:46] VITALS: BMI 31.6
== END 2022-11-14 16:21 | disposition home or self-care (01) ==
PROVIDERS: PCP Internal Medicine; Visit Provider Orthopaedic Surgery
DX: S62.665A Nondisplaced fracture of distal phalanx of left ring finger, initial encounter for closed fracture (principal)
CPT/HCPCS: 26750; 99214

== ENCOUNTER 2022-12-05 11:47 | Outpatient (AMB) | payer OTHER, SELFPAY ==
--- NOTE | 2022-12-05 11:07 | MHC.OFFVIS ---
Intake Vital Signs 12/05/22 12:14 Height 5 ft 2 in Weight 173 lb BMI 31.6 Intake Visit Reasons: OV- RT Ring fx ROM check & discuss RTW status Intake Note: Apurva 32 yr old right hand dominant female presents today for her follow up visit for her Left ring finger distal phalanx fracture, transverse & non-displaced from an injury, DOI: 11/05/22 ROM check. States she has not tried to bend her DIP, state she has no trouble bending at her PIP. Denies numbness or tingling. Allergies dulaglutide [From Trulicity] Allergy (Severe, Verified 12/05/22 12:25) stomach pains, nausea and vomiting metformin Allergy (Severe, Verified 12/05/22 12:25) stomach pains canagliflozin [From Invokana] Allergy (Intermediate, Verified 12/05/22 12:25) UTI and yeast infections HPI OV- RT Ring fx ROM check & discuss RTW status HPI Details Apurva is a 32 year old right hand dominant woman who presents for a ROM check concerning her left ring finger distal phalanx fracture. She says she got her finger caught in her screen door on 11/05/22. She says she continues to have pain when trying to bend her finger, or whenever pressure is applied. She says she has no issue bending her ring finger at the PIP joint but has not attempted to bend at the DIP joint due to the pain. 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 [facility] Medical History Anesthesia Anxiety Depression Diabetes mellitus Elevated testosterone level in female Essential hypertension Hirsutism Hypertriglyceridemia Obesity Obesity due to excess calories PCOS (polycystic ovarian syndrome) PCOS (polycystic ovarian syndrome) Proteinuria Type 2 diabetes mellitus with hyperglycemia Type 2 diabetes mellitus with other diabetic kidney complication Vitamin D deficiency Surgical History H/O gastric sleeve History of ankle surgery History of cholecystectomy History of myringotomy History of tonsillectomy Family History Father Diabetes Mother Diabetes Maternal Grandmother Diabetes Paternal Grandmother Diabetes Brother No problems noted. 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 Sexual orientation: Straight/Heterosexual Gender identity: Female Cognitive needs: No Hearing needs: No Vision needs: No Review of Systems Const All systems reviewed & are unremarkable except as noted in HPI and below Physical Exam Vital Signs: BMI result Body Mass Index 31.6 Const General: no acute distress and alert Orientation/consciousness: patient oriented x3 Neuro General: patient oriented x3 Extrem Other: Evaluation of Left Upper Extremity: The patient is alert, oriented, and in no acute distress Neuro: Median, Ulnar, Radial nerves motor and sensory intact and sensation is normal to the tips of all digits Vascular: Cap refill brisk ROM: She can make a fist and has active flexion at the DIP joint, and bring her fingers back into extension Tender over the ring finger distal phalanx fracture site Increase in displacement and apex volar deformirty No lacerations or evidence of open injury. No nail bed injury seen. Radiographs: 3 views of the left hand, with attention to the ring finger, were taken and viewed by me today in clinic. They show a ring finger distal phalanx fracture, transverse through the body, with an increased apex volar deformity, now to about 20-25 degrees, seen on the lateral view when compared to images from 11/05/22. Psych Appearance: grossly normal Affect: normal affect Attitude: cooperative Assessment & Plan Assessment & Plan (1) Diabetes mellitus: Code(s): E11.9 - Type 2 diabetes mellitus without complications Qualifiers: Diabetes mellitus complication status: without complication Diabetes mellitus remote computer terminal operator insulin use: with remote computer terminal operator use Diabetes mellitus type: type 2 Qualified Code(s): E11.9 - Type 2 diabetes mellitus without complications; Z79.4 - ocean transportation intermediary (current) use of insulin (2) Closed fracture of distal phalanx of left ring finger: Code(s): S62.635A - Displaced fracture of distal phalanx of left ring finger, initial encounter for closed fracture Plan Assessment & Plan: 1. Left ring finger distal phalanx fracture, transverse & now with increased displacement Clarissa volar deformity of ~25 degrees, seen on lateral view spinning frame tender on exam From an injury, DOI: 11/05/22 I educated her about this condition This has been managed non-operative with a finger splint, however she now has some increased displacement and apex volar deformity We discussed operative and non operative treatment options. I recommend surgery, and she is in agreement The risks and benefits of operative treatment were discussed with the patient and the patient wishes to proceed with surgery. These risks include, but are not limited to risk of damage to blood vessels, nerves, tendons, infection, recurrence, incomplete relief of preoperative symptoms, persistent pain, possible need for further surgery and the risks associated with regional blocks and anesthesia. The plan is to take the patient to the operating room sometime on 12/07/22 for the following procedures: 1. Left ring finger distal phalanx fracture CR vs ORIF, under general All of the preoperative paperwork including the consent was filled out today. All the patient's questions were answered. The patient understands that they will be contacted by our spares scheduler soon to schedule this procedure She denies blood thinners, asthma, heart, lung, kidney issues She is a Diabetic and says she is well-controlled. Scribed for Kacy Chamorro MD by Tj Ferraro, medical laboratory technician, on 12/05/22 at 1:20 PM, EST. Orders: Orders XR hand LT min 3V Today M79.642 - Pain in left hand Coding Level of Care Code Est Pt Level 4 (26144) Diagnoses Type 2 diabetes mellitus without complication, with long-term current use of insulin E11.9; Z79.4 Diabetes mellitus complication status: without complication Diabetes mellitus remote computer terminal operator insulin use: with chcf use Diabetes mellitus type: type 2 Closed fracture of distal phalanx of left ring finger S62.635A
[2022-12-05 12:14] VITALS: BMI 31.6
== END 2022-12-05 13:49 | disposition home or self-care (01) ==
PROVIDERS: PCP Internal Medicine; Visit Provider Orthopaedic Surgery
DX: S62.635A Displaced fracture of distal phalanx of left ring finger, initial encounter for closed fracture (principal)
CPT/HCPCS: 99024

== ENCOUNTER 2022-12-05 11:55 | Outpatient (REF) | payer OTHER, SELFPAY ==
--- NOTE | ~2022-12-05 | XR_ITS ---
EXAMINATION: XR HAND, LEFT CLINICAL INFORMATION: Pain in left hand COMPARISON: None available. TECHNIQUE: PA, lateral, and oblique views of the left hand. FINDINGS: There is a mildly displaced dorsally angulated fracture of the proximal shaft of the distal phalanx of the ring finger with associated soft tissue swelling. The remainder of the bones are intact. Joint spaces are within normal limits. XR/XR hand LT min 3V IMPRESSION: Mildly displaced dorsally angulated fracture of the proximal shaft of the distal phalanx of the ring finger.
== END 2022-12-05 11:56 | disposition home or self-care (01) ==
LOC: HO.HOSX 11:55
PROVIDERS: Visit Provider Orthopaedic Surgery
DX: S62.635A Displaced fracture of distal phalanx of left ring finger, initial encounter for closed fracture (principal); E11.9 Type 2 diabetes mellitus without complications; Z79.4 Long term (current) use of insulin
CPT/HCPCS: 73130; 99212

== ENCOUNTER 2022-12-07 08:38 | Day surgery (SDC) | payer OTHER, SELFPAY ==
--- NOTE | 2022-12-06 09:17 | HO.ANESPROP2 ---
Documented by User: Enriqueta Ordonez NP 12/06/22 09:18 HPI - Anesthesia Eval Consult details Narrative: 32yo F for Left Ring finger Distal Phanlax Finger Fx Closed vs ORIF PMFSH Active Problems Active Problems: All Active Problems (Updated 11/14/22 @ 16:06 by Tj Ferraro) Closed fracture of distal phalanx of left ring finger (Acute) Cough (Acute) Status post sleeve gastrectomy (Acute) Congenital intra-abdominal adhesions (Acute) Intra-abdominal adhesions (Acute) Liver fibrosis (Acute) Steatosis, liver (Acute) Ankle pain (Acute) Insulin dependent type 2 diabetes mellitus (Acute) BMI 33.0-33.9,adult (Acute) Physical exam (Acute) Dysuria (Acute) Ankle fracture (Acute) Abscess of groin, right (Acute) Abscess of skin (Acute) Knee pain (Acute) BMI 37.0-37.9, adult (Acute) Hordeolum externum right upper eyelid (Acute) BMI 36.0-36.9,adult (Acute) Physical exam (Acute) Obesity (Acute) Constipation (Acute) BMI 35.0-35.9,adult (Acute) Pre-op evaluation (Acute) PCOS (polycystic ovarian syndrome) (Acute) Anxiety (Acute) Depression (Acute) Elevated testosterone level in female (Acute) Hypertriglyceridemia (Acute) Vitamin D deficiency (Acute) Hirsutism (Acute) Essential hypertension (Acute) Proteinuria (Acute) Type 2 diabetes mellitus with other diabetic kidney complication (Acute) Type 2 diabetes mellitus with hyperglycemia (Acute) Obesity due to excess calories (Acute) Obesity (Acute) PCOS (polycystic ovarian syndrome) (Acute) Diabetes mellitus (Acute) Past Medical History Medical History Anesthesia PCOS (polycystic ovarian syndrome) Anxiety Depression Elevated testosterone level in female Hypertriglyceridemia Vitamin D deficiency Hirsutism Essential hypertension Proteinuria Type 2 diabetes mellitus with other diabetic kidney complication Obesity due to excess calories Type 2 diabetes mellitus with hyperglycemia Family History Family History Father Diabetes Mother Diabetes Maternal Grandmother Diabetes Paternal Grandmother Diabetes Brother No problems noted. Family history of problems with anesthesia: Yes (Delayed emergence in mother ) Surgical History Surgical History H/O gastric sleeve History of myringotomy History of ankle surgery History of cholecystectomy History of tonsillectomy History of Problems with Anesthesia: No Social History Social History Household Members: Family Housing: House Are you a primary day care home provider to a significant other at home: No Do you presently have visiting nurse or other home services: No Alcohol intake: never Patient Tobacco Use Status: Never used Tobacco e-Cigarette/Vaping Use: Never Used Second Hand Smoke Exposure: No Use of substances other than those prescribed or required for medical reasons: No Are you DNR?: No Advance Directives: No Advance Directives Information Provided: Yes Advance Directives Date on File: 09/17/20 service: No Current occupational status: employed 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 Sexual orientation: Straight/Heterosexual Gender identity: Female Cognitive needs: No Hearing needs: No Vision needs: No Meds Allergies Allergy/AdvReac Type Severity Reaction Status Date / Time dulaglutide [From Trulicity] Allergy Severe stomach Verified 12/05/22 12:25 pains, nausea and vomiting metformin Allergy Severe stomach Verified 12/05/22 12:25 pains canagliflozin [From Invokana] Allergy Intermediate UTI and Verified 12/05/22 12:25 yeast infections Home Medications Medication Instructions Recorded Confirmed Last Taken Type pantoprazole 40 mg tablet,delayed 40 mg PO DAILY 08/09/22 12/07/22 Unknown History release Exam Exam Date and Time: December 06, [id number] Pertinent Lab Results Pertinent Lab Results: Laboratory Tests 08/08/22 17:48 WBC 8.4 Hgb 14.0 Hct 40.1 D Plt Count 191 Sodium 140 Potassium 4.2 Chloride 106 Carbon Dioxide 25 BUN 14 Creatinine 0.76 Assessment and Plan Assessment Anesthesia Assessment: Chart Reviewed Final Anesthetic Review Family History of Problems with Anesthesia: Yes (Delayed emergence in mother ) History of Problems with Anesthesia: No Documented by User: Bud Jeffery MD 12/07/22 12:29 [facility] Past Medical History Medical History Anesthesia PCOS (polycystic ovarian syndrome) Anxiety Depression Elevated testosterone level in female Hypertriglyceridemia Vitamin D deficiency Hirsutism Essential hypertension Proteinuria Type 2 diabetes mellitus with other diabetic kidney complication Obesity due to excess calories Type 2 diabetes mellitus with hyperglycemia Family History Family History Father Diabetes Mother Diabetes Maternal Grandmother Diabetes Paternal Grandmother Diabetes Brother No problems noted. Surgical History Surgical History H/O gastric sleeve History of myringotomy History of ankle surgery History of cholecystectomy History of tonsillectomy Social History Social History Household Members: Family Housing: House Are you a primary day care home provider to a significant other at home: No Do you presently have visiting nurse or other home services: No Alcohol intake: never Patient Tobacco Use Status: Never used Tobacco e-Cigarette/Vaping Use: Never Used Second Hand Smoke Exposure: No Use of substances other than those prescribed or required for medical reasons: No Are you DNR?: No Advance Directives: No Advance Directives Information Provided: Yes Advance Directives Date on File: 09/17/20 service: No Current occupational status: employed 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 Sexual orientation: Straight/Heterosexual Gender identity: Female Cognitive needs: No Hearing needs: No Vision needs: No Meds Allergies Allergy/AdvReac Type Severity Reaction Status Date / Time dulaglutide [From Trulicity] Allergy Severe stomach Verified 12/05/22 12:25 pains, nausea and vomiting metformin Allergy Severe stomach Verified 12/05/22 12:25 pains canagliflozin [From Invokana] Allergy Intermediate UTI and Verified 12/05/22 12:25 yeast infections Home Medications Medication Instructions Recorded Confirmed Last Taken Type pantoprazole 40 mg tablet,delayed 40 mg PO DAILY 08/09/22 12/07/22 Unknown History release Exam Airway Mallampati Class: II TM Dist: >3cm Neck ROM: Full Loose/Missing/Broken Teeth: Yes Assessment and Plan Assessment Anesthesia Assessment: Anesthesia Plan Discussed Final Anesthetic Review NPO: Yes ASA Class: III Final Preanesthetic Review: No Changes in Pt Med Stat, Meds/Allgs Chart Reviewed, Consent Obtained/Reviewed and Anes Risks/Benef Reviewed Patient Risk: Intermediate Procedure Risk: Low Anesthetic Plan Anesthetic Plan: GA Disposition: Standard PACU
--- NOTE | ~2022-12-07 | FL_ITS ---
EXAMINATION: XR FLUOROSCOPY WITH IMAGES CLINICAL INFORMATION: Fracture left ring finger. COMPARISON: None available. TECHNIQUE: Fluoroscopy Supervised By: Dr. Kacy Chamorro. Fluoroscopy Time: 11.60 seconds. Cumulative Dose: 0.1998 mGy. DAP: 0.0121 Gycm2. Images: 4. FINDINGS: There is a displaced fracture of the distal phalanx of the left fourth finger. Images demonstrate K wire or pin across the fracture and DIP joint. There is improved alignment. FL/FL guidance in OR IMPRESSION: Fluoroscopy guidance for ORIF of left fourth finger distal phalanx fracture.
[2022-12-07 09:07] LABS: UPreg QC Valid YES; Urine Pregnancy NEGATIVE (NEGATIVE)
[2022-12-07 09:19] VITALS: BMI 31.8
[2022-12-07 10:17] VITALS: BP 129/81; PULSE 81; RESP 18; TEMP 36.1; O2SAT 99
--- NOTE | 2022-12-07 12:05 | MHC.SHP ---
Pre-Procedural Eval Section A Date of Service: 12/07/22 The patient is an INPATIENT: No Changes since office visit: No Cold of Flu in the past 2 weeks, No New Medical Problems, No Changes in Medication and No Patient answered all questions The History & Physical has been completed within 30 days and I have reviewed it.: Yes Section B Chief Complaint: Displaced fracture of distal phalanx of left ring Allergies: Allergies Allergy/AdvReac Type Severity Reaction Status Date / Time dulaglutide [From Trulicity] Allergy Severe stomach Verified 12/05/22 12:25 pains, nausea and vomiting metformin Allergy Severe stomach Verified 12/05/22 12:25 pains canagliflozin [From Invokana] Allergy Intermediate UTI and Verified 12/05/22 12:25 yeast infections Plan I have reviewed the history and physical and performed a pertinent physical examination on my patient. No changes have occurred unless specified. Time Spent With Patient Time: Total time managing care of this patient today ____ minutes.
--- NOTE | 2022-12-07 12:05 | W.PM.OPN ---
Operative Note Operative Note Date of Service: 12/07/22 Narrative: Operative Note Narrative: Preop diagnosis: 1. left ring finger distal phalanx fracture with displacement Postop diagnosis: Same Procedure: 1. left ring finger distal phalanx fracture closed reduction percutaneous pinning Surgeon: Kacy Chamorro MD Anesthesia: General Anesthesia Findings: finger fracture Implants: 0.045 K-wires times 1 Tourniquet time: None EBL: Minimal Specimen: None Drains: None Complications: None Disposition: Brought to the recovery room in stable condition Plan: Follow-up in 10-14 days for a wound check, postop radiographs if things look good she can be to transition to a regular finger splint that will extend beyond the pin to protected. She can also be taught pin site care and work on MCP and PIP range of motion. Anticipate K-wire removal in 4 weeks Postop based on interval bony healing Educate the patient that full fracture healing anticipated in approximately 8 weeks. Indications: The patient is 32 years old with a left ring finger distal phalanx fracture with increased apex volar angulation. . The risks and benefits of operative treatment, including but not limited to risk of damage to blood vessels, nerves, tendons, infection, recurrence, delayed or nonunion of fracture, persistent pain or numbness, incomplete resolution of preoperative symptoms, or need for further surgery were discussed with the patient and they wished to proceed with surgery. Procedure: Once consent was obtained patient was brought back to the operating suite and placed in the operating table in a supine position. . Perioperative antibiotics and general anesthesia was administered by the anesthesia team. A tourniquet was applied to the proximal aspect of the Left upper extremity and the limb was prepped and draped in a standard surgical fashion. Tourniquet was not inflated during the case. The FluoroScan was used during the case to assist with our fracture reduction and placement of all implants. A closed reduction was performed on the patient's left ring finger distal phalanx fracture. I placed a single 0.045 K-wire retrograde through the tip of the left ring finger distal phalanx. This was advanced retrograde across the fracture site and then across the D IP joint down the shaft of the middle phalanx. Fracture alignment was assessed for both angular and rotational malalignment. Once satisfied with our fracture reduction and implant placement, the K-wire Wasbent and cut short and pin caps applied. Final fluoroscopic images were then obtained. The wounds were copiously irrigated with normal saline. a digital block was performed using some 0.5% plain ropivacaine for postop pain control. A Sterile dressing and short volar splint extending From the fingertips of the small and ring fingersto the forearm was applied. The patient appears to have tolerated the procedure well and with no complications. All digits were well vascularized at the conclusion of the case.
[2022-12-07 12:52] VITALS: BP 140/84; PULSE 95; RESP 16; TEMP 36.4; O2SAT 100
[2022-12-07 12:57] VITALS: BP 129/84; PULSE 85; RESP 16; O2SAT 100
[2022-12-07 13:02] VITALS: BP 134/83; PULSE 85; RESP 16; O2SAT 100
[2022-12-07 13:07] VITALS: BP 140/85; PULSE 70; RESP 16; O2SAT 100
[2022-12-07 13:22] VITALS: BP 132/87; PULSE 74; RESP 18; TEMP 36.4; O2SAT 100
== END 2022-12-07 13:53 | disposition home or self-care (01) ==
PROVIDERS: Nurse Practitioner; PCP Internal Medicine; Visit Provider Orthopaedic Surgery
PROC: (CPT 26756; principal; 2022-12-07 11:00)
DX: S62.635A Displaced fracture of distal phalanx of left ring finger, initial encounter for closed fracture (principal); W23.0XXA Caught, crushed, jammed, or pinched between moving objects, initial encounter; Y93.9 Activity, unspecified; Y92.89 Other specified places as the place of occurrence of the external cause; Y99.8 Other external cause status; I10 Essential (primary) hypertension; E11.8 Type 2 diabetes mellitus with unspecified complications; Z79.4 Long term (current) use of insulin; Z88.8 Allergy status to other drugs, medicaments and biological substances; E66.01 Morbid (severe) obesity due to excess calories; Z68.31 Body mass index [BMI] 31.0-31.9, adult; Z98.84 Bariatric surgery status; Z98.890 Other specified postprocedural states
CPT/HCPCS: 26756; 81025; J0690; J1100; J2405; J2795; J3010

== ENCOUNTER → 2022-12-07 08:38 | Outpatient (BNV) | payer OTHER, SELFPAY | PROVIDERS: PCP Internal Medicine; Visit Provider Orthopaedic Surgery | DX: S62.635A Displaced fracture of distal phalanx of left ring finger, initial encounter for closed fracture (principal) | CPT/HCPCS: 26756 ==

== ENCOUNTER 2022-12-19 08:57 | Outpatient (AMB) | payer OTHER, SELFPAY ==
--- NOTE | 2022-12-19 09:45 | MHC.OFFVIS ---
Intake Intake Visit Reasons: PO-Lt RF P3Fx CRPP vs ORIF 12/07 Intake Note: Apurva 32 year old female presents today for her P/O visit for her left ring finger P3 fracture CRPP from 12/07/[address] Chamorro. Dressing removed and xrays updated in office. States she has no pain at the moment. Allergies dulaglutide [From Trulicity] Allergy (Severe, Verified 12/19/22 09:45) stomach pains, nausea and vomiting metformin Allergy (Severe, Verified 12/19/22 09:45) stomach pains canagliflozin [From Invokana] Allergy (Intermediate, Verified 12/19/22 09:45) UTI and yeast infections HPI PO-Lt RF P3Fx CRPP vs ORIF 12/07 HPI Details Apurva is a 32 year old right hand dominant woman who presents S/P left ring finger CRPP, DOS: 12/07/22. She says she got her finger caught in her screen door on 11/05/22. She says she is doing well and denies any pain at this time. She is happy with the results of her surgery at this time. 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 She says her Diabetes is well controlled and she had Bariatric surgery last year which has helped her to lose weight. She is currently out of work until the end of the month. [facility] Medical History Anesthesia PCOS (polycystic ovarian syndrome) Anxiety Depression Elevated testosterone level in female Hypertriglyceridemia Vitamin D deficiency Hirsutism Essential hypertension Proteinuria Type 2 diabetes mellitus with other diabetic kidney complication Obesity due to excess calories Type 2 diabetes mellitus with hyperglycemia Surgical History H/O gastric sleeve History of myringotomy History of ankle surgery History of cholecystectomy History of tonsillectomy Family History Father Diabetes Mother Diabetes Maternal Grandmother Diabetes Paternal Grandmother Diabetes Brother No problems noted. 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 With encouragement she can make a fist and extend all her digits Fracture site is non-tender to palpation Sensation is intact Cap refill is brisk Radiographs: 3 views of the left hand, with attention to the ring finger, were taken and viewed by me today in clinic. They show a distal phalanx fracture with satisfactory fracture alignment and position of K-wire Psych Appearance: grossly normal Affect: normal affect Attitude: cooperative Assessment & Plan Assessment & Plan (1) Diabetes mellitus: Code(s): E11.9 - Type 2 diabetes mellitus without complications Qualifiers: Diabetes mellitus complication status: without complication Diabetes mellitus exterminator insulin use: with exterminator use Diabetes mellitus type: type 2 Qualified Code(s): E11.9 - Type 2 diabetes mellitus without complications; Z79.4 - termite control technician (current) use of insulin (2) Closed fracture of distal phalanx of left ring finger: Code(s): S62.635A - Displaced fracture of distal phalanx of left ring finger, initial encounter for closed fracture Plan Assessment & Plan: 1. Left ring finger distal phalanx fracture, S/P CRPP From an injury, DOI: 11/05/22 DOS: 12/07/22 The patient appears to be doing well post-operatively I educated her about the post-operative course & pin-site care which she will perform at home. I explained the signs and symptoms of infection, if the patient develops any new or worsening erythema, drainage, pain, or warmth they should contact the clinic or attend the ED. I discussed activity modifications, she is to lift nothing heavier than a cellphone for the next 2 weeks She was fitted for a finger spica splint that allows for PIP joint ROM to wear for the next 2 weeks She is to avoid any underwater activities at this time She will work on gentle ROM exercises at home Her previous note for work has her remaining out of work until 01/09/23, we will keep this date She will follow up in 2 weeks, no X-rays unless she has pain I anticipate removal of her K-wire depending on her healing Scribed for Kacy Chamorro MD by Tj Ferraro, medical esthetician, on 12/19/22 at 9:50 AM, EST. Orders: Orders XR hand LT min 3V Today M79.642 - Pain in left hand Coding Level of Care Code Global (14216) Diagnoses Type 2 diabetes mellitus without complication, with long-term current use of insulin E11.9; Z79.4 Diabetes mellitus complication status: without complication Diabetes mellitus exterminator insulin use: with assisted use Diabetes mellitus type: type 2 Closed fracture of distal phalanx of left ring finger S62.635A
== END 2022-12-19 10:18 | disposition home or self-care (01) ==
PROVIDERS: PCP Internal Medicine; Visit Provider Orthopaedic Surgery
DX: E11.9 Type 2 diabetes mellitus without complications (principal); Z79.4 Long term (current) use of insulin; S62.635A Displaced fracture of distal phalanx of left ring finger, initial encounter for closed fracture
CPT/HCPCS: 99024

== ENCOUNTER 2022-12-19 15:13 | Outpatient (REF) | payer OTHER, SELFPAY ==
--- NOTE | ~2022-12-19 | XR_ITS ---
EXAMINATION: XR HAND, LEFT CLINICAL INFORMATION: Left hand pain. COMPARISON: December 05, 2022. TECHNIQUE: PA, lateral, and oblique views of the left hand. FINDINGS: An orthopedic pin traverses a fracture of the fourth distal phalanx and extends into the middle phalanx. No bony callus formation is seen. No evidence of hardware fracture or loosening. The bones and soft tissues otherwise appear unremarkable. No other fracture is appreciated. Alignment appears anatomic. Joint spaces appear maintained. No erosions or soft tissue calcifications. XR/XR hand LT min 3V IMPRESSION: An orthopedic pin traverses a fracture of the fourth distal phalanx and extends into the middle phalanx. No bony callus formation is seen. No evidence of hardware fracture or loosening.
== END 2022-12-19 15:14 | disposition home or self-care (01) ==
LOC: HO.HOSX 15:13
PROVIDERS: Visit Provider Orthopaedic Surgery
DX: S62.635D Displaced fracture of distal phalanx of left ring finger, subsequent encounter for fracture with routine healing (principal); E11.9 Type 2 diabetes mellitus without complications; Z79.4 Long term (current) use of insulin
CPT/HCPCS: 73130

== ENCOUNTER 2023-01-03 12:39 | Outpatient (AMB) | payer OTHER, SELFPAY ==
--- NOTE | 2023-01-03 13:17 | MHC.OFFVIS ---
Intake Intake Visit Reasons: PO-Lt RF P3Fx CRPP vs ORIF 12/07 Intake Note: Apurva 32 year old female presents today for her P/O visit for her left ring finger P3 fracture CRPP from 12/07/[address] Chamorro, for pin removal. Allergies dulaglutide [From Trulicity] Allergy (Severe, Verified 01/03/23 13:22) stomach pains, nausea and vomiting metformin Allergy (Severe, Verified 01/03/23 13:22) stomach pains canagliflozin [From Invokana] Allergy (Intermediate, Verified 01/03/23 13:22) UTI and yeast infections HPI PO-Lt RF P3Fx CRPP vs ORIF 12/07 HPI Details Apurva is a 32 year old right hand dominant woman who presents S/P left ring finger CRPP, DOS: 12/07/22. She says she got her finger caught in her screen door on 11/05/22. She says she is doing well and denies any pain at this time. She is happy with the results of her surgery at this time. 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 She says her Diabetes is well controlled and she had Bariatric surgery last year which has helped her to lose weight. She is currently out of work until the end of the month. [facility] Medical History Anesthesia PCOS (polycystic ovarian syndrome) Anxiety Depression Elevated testosterone level in female Hypertriglyceridemia Vitamin D deficiency Hirsutism Essential hypertension Proteinuria Type 2 diabetes mellitus with other diabetic kidney complication Obesity due to excess calories Type 2 diabetes mellitus with hyperglycemia Surgical History H/O gastric sleeve History of myringotomy History of ankle surgery History of cholecystectomy History of tonsillectomy Family History Father Diabetes Mother Diabetes Maternal Grandmother Diabetes Paternal Grandmother Diabetes Brother No problems noted. 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 The K-wire was withdrawn except for perhaps a couple cm that was still in the finger. K-wire was removed easily today in clinic, which she tolerated well With encouragement she can make a fist and extend all her digits Fracture site is non-tender to palpation Satisfactory clinical alignment Sensation is intact Cap refill is brisk Radiographs: 3 views of the left hand, with attention to the ring finger, were taken and viewed by me today in clinic. They show a distal phalanx fracture where the K-wire appears to have been partially withdrawn, and the tip of it is now distal to the fracture Psych Appearance: grossly normal Affect: normal affect Attitude: cooperative Assessment & Plan Assessment & Plan (1) Diabetes mellitus: Code(s): E11.9 - Type 2 diabetes mellitus without complications Qualifiers: Diabetes mellitus complication status: without complication Diabetes mellitus intermediate insulin use: with supervisor intermediates use Diabetes mellitus type: type 2 Qualified Code(s): E11.9 - Type 2 diabetes mellitus without complications; 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 Left ring finger distal phalanx fracture, S/P CRPP From an injury, DOI: 11/05/22 DOS: 12/07/22 K-wire removed: 01/03/23 The patient appears to be doing well post-operatively I educated her about the post-operative course & pin-site care which she will perform at home. I explained the signs and symptoms of infection, if the patient develops any new or worsening erythema, drainage, pain, or warmth they should contact the clinic or attend the ED. I discussed activity modifications, she is to avoid any heavy impact activities or activities prone to falling for the next few weeks She is to avoid any underwater activities for the next few days She will continue to work on gentle ROM exercises at home Her previous note for work has her remaining out of work until 01/09/23, we will keep this date She can follow up prn Scribed for Kacy Chamorro MD by Tj Ferraro, medical billing manager, on 01/03/23 at 1:40 PM, EST. Orders: Orders XR hand LT min 3V Today M79.642 - Pain in left hand Coding Level of Care Code Global (61760) Diagnoses Type 2 diabetes mellitus without complication, with long-term current use of insulin E11.9; Z79.4 Diabetes mellitus complication status: without complication Diabetes mellitus intermediate insulin use: with intermediate use Diabetes mellitus type: type 2 Closed fracture of distal phalanx of left ring finger S62.635A
== END 2023-01-03 13:53 | disposition home or self-care (01) ==
PROVIDERS: PCP Internal Medicine; Visit Provider Orthopaedic Surgery
DX: E11.9 Type 2 diabetes mellitus without complications (principal); Z79.4 Long term (current) use of insulin; S62.635A Displaced fracture of distal phalanx of left ring finger, initial encounter for closed fracture
CPT/HCPCS: 99024

== ENCOUNTER 2023-01-03 12:51 | Outpatient (REF) | payer OTHER, SELFPAY ==
--- NOTE | ~2023-01-03 | XR_ITS ---
EXAMINATION: XR HAND, LEFT CLINICAL INFORMATION: Left hand pain. COMPARISON: 12/19/2022 TECHNIQUE: PA, lateral, and oblique views of the left hand. FINDINGS: At the time of the 12/19/2022 study an orthopedic pin had been present extending through the distal phalanx into the midportion of the middle phalanx of the 4th digit. On today's exam, the pin has been retracted and now extends only through the distal portion of the distal phalanx. There is a fracture of the distal phalanx with distraction of fragments measuring about 2 mm. The pin no longer traverses the fracture. XR/XR hand LT min 3V IMPRESSION: Retraction of orthopedic pin from the distal phalanx of the 4th digit which no longer extends through the fracture line.
== END 2023-01-03 12:52 | disposition home or self-care (01) ==
LOC: HO.HOSX 12:51
PROVIDERS: Visit Provider Orthopaedic Surgery
DX: S62.635D Displaced fracture of distal phalanx of left ring finger, subsequent encounter for fracture with routine healing (principal); E11.9 Type 2 diabetes mellitus without complications; Z79.4 Long term (current) use of insulin
CPT/HCPCS: 73130; 99212

== ENCOUNTER 2023-01-28 13:20 | Emergency (ER) | payer OTHER, SELFPAY ==
--- NOTE | ~2023-01-28 | XR_ITS ---
EXAMINATION: XR CHEST CLINICAL INFORMATION: Shortness breath, cough COMPARISON: Chest x-ray from 06/13/2021 TECHNIQUE: 2 views of the chest were obtained. FINDINGS: No significant abnormality is noted involving the heart, lungs, mediastinum, bony thorax or soft tissues. XR/XR chest 2V IMPRESSION: Unremarkable examination.
[2023-01-28 13:29] VITALS: BP 138/87; PULSE 89; RESP 18; TEMP 36.7; O2SAT 100; BMI 31.2
[2023-01-28 14:05] LABS: IDNOW Serial# 08D9AD1C; Strep A Nucleic Acid Negative (Negative)
[2023-01-28 14:15] LABS: UPreg QC Valid YES; Urine Pregnancy NEGATIVE (NEGATIVE)
[2023-01-28 14:38] LABS: Influenza A PCR NEGATIVE (Negative); Influenza B PCR NEGATIVE (Negative); Resp Syncy Virus RNA Qual PCR NEGATIVE (Negative); SARS COV2 PCR INHOUSE NEGATIVE (Negative)
--- NOTE | 2023-01-28 15:02 | ED_ITS ---
HPI - URI/Sore Throat General Chief Complaint: Upper Respiratory Symptoms Stated Complaint: Diff breathing Time Seen by Provider: 01/28/23 13:41 Source: patient and RN notes reviewed Mode of arrival: ambulatory Limitations: no limitations History of Present Illness HPI Narrative: This is a 32-year-old female presenting to the emergency department for evaluation of cough, congestion x1 week. Patient states that she called her primary care physician who prescribed her azithromycin. She took the antibiotic as directed however reports that her symptoms have not been improving. The cough is dry and keeps her awake at night. No fevers, chills, abdominal pain, nausea, vomiting or diarrhea. No urinary symptoms. Reports sick contacts at work. No other complaints or concerns at this time. MD elicited complaint: cough and nasal congestion Onset (ago): day(s) Severity: moderate Description of mucous: clear and watery Able to tolerate fluids by mouth: Yes Exacerbating factors: nothing Relieving factors: nothing Context: sick contacts Associated symptoms: sore throat Treatments prior to arrival: antibiotics Related Data Home Medications Medication Instructions Recorded Confirmed pantoprazole 40 mg tablet,delayed 40 mg PO DAILY 08/09/22 12/07/22 release Previous Rx's Medication Instructions Recorded azithromycin 250 mg tablet See Rx Instructions PO .COMPLEX #6 01/24/23 tabs benzonatate 200 mg capsule 200 mg PO TID PRN cough #20 caps 01/28/23 hydrocodone-homatropine 5 mg-1.5 5 ml PO Q4-6H PRN cough #100 mL 01/28/23 mg/5 mL (5 mL) oral syrup (Hycodan) Allergies Allergy/AdvReac Type Severity Reaction Status Date / Time dulaglutide [From Trulicity] Allergy Severe stomach Verified 01/28/23 13:29 pains, nausea and vomiting metformin Allergy Severe stomach Verified 01/28/23 13:29 pains canagliflozin [From Invokana] Allergy Intermediate UTI and Verified 01/28/23 13:29 yeast infections Review of Systems Review of Systems: Yes all other systems are reviewed and are negative Constitutional: Constitutional: Reports as per HPI [facility] Past Medical History Medical History Anesthesia PCOS (polycystic ovarian syndrome) Anxiety Depression Elevated testosterone level in female Hypertriglyceridemia Vitamin D deficiency Hirsutism Essential hypertension Proteinuria Type 2 diabetes mellitus with other diabetic kidney complication Obesity due to excess calories Type 2 diabetes mellitus with hyperglycemia Surgical History H/O gastric sleeve History of myringotomy History of ankle surgery History of cholecystectomy History of tonsillectomy Family History Family History Father Diabetes Mother Diabetes Maternal Grandmother Diabetes Paternal Grandmother Diabetes Brother No problems noted. 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 Sexual orientation: Straight/Heterosexual Gender identity: Female Cognitive needs: No Hearing needs: No Vision needs: No Physical Exam Vital Signs: Vital Signs: Last Vital Signs Temp 98.1 F 01/28/23 13:29 Pulse 82 01/28/23 15:54 Resp 20 01/28/23 15:54 BP 142/89 H 01/28/23 15:54 Pulse Ox 99 01/28/23 15:54 O2 Del Method Room Air 01/28/23 15:54 BMI result Body Mass Index 31.2 Const: General: cooperative, comfortable and no acute distress Orientation/consciousness: patient oriented x3 Limitations: no limitations HEENT: Head: Yes normal to inspection, Yes normocephalic and Yes atraumatic Ears: hearing grossly normal bilaterally and TM's normal bilaterally General nose exam: Normal external nose present Face and sinus: Yes normal facial exam Mouth: Normal oral and palatal mucosa present, oropharynx normal and moist mucous membranes Throat: Yes posterior oropharynx normal Eyes: General: appearance normal, both eyes and all related structures Eyelids: Yes eyelids normal Conjunctivae: conjunctivae normal Sclerae: sclerae normal Pupils: Equal, round and reactive pupils present EOM: EOMs intact bilaterally Neck: Neck: Yes normal visual inspection, Yes full ROM and Yes no lymphadenopathy Lymphatic: no lymphadenopathy noted Chest: Chest palpation & inspection: normal inspection of the chest Resp: Effort & Inspection: normal respiratory effort and able to speak in complete sentences Auscultation: clear to auscultation bilaterally, no crackles, no rales, no rhonchi and no wheezes Cardio: Rate: regular rate Rhythm: regular rhythm Heart sounds: S1 normal heart sound present and S2 normal heart sound present GI: Inspection: Yes normal to inspection Skin: General skin exam: no rashes or lesions noted Trauma: no lacerations or abrasions Wounds: no wounds Neuro: General: patient oriented x3 and moves all extremities Cranial nerves: Yes Equal, round and reactive pupils present Extrem: General: Yes normal to inspection Right upper extremity: normal to inspection Left upper extremity: normal to inspection Right lower extremity: normal to inspection Left lower extremity: normal to inspection Medical Decision Making Medical Decision Making [facility] Narrative: 32 y/o F presenting to the ER with complaints of dry cough and congestion x 1 week. On arrival, vitals within normal limits. Lungs CTAB, pt nontoxic appearing. Frequent dry cough heard during examination. CXR ordererd. Pt has already been treated with Zpak w/o relief. Sxs likely viral- given rx for tessalon & hycodan. given return precautions. Pt stable for d/c. Differential Diagnosis Differential Diagnoses: The differential diagnosis associated with the presentation includes URI, bronchitis, pneumonia, covid Lab Data [facility] Lab Attestation statement: I reviewed the patient's lab results. negative Labs: Lab Results 01/28/23 01/28/23 Range/Units 13:52 14:02 Urine Test NEGATIVE (NEGATIVE) Influenza Type A (PCR) NEGATIVE (Negative) Influenza Type B (PCR) NEGATIVE (Negative) RSV RNA Qual (PCR) NEGATIVE (Negative) SARS-CoV-2 RNA (RT-PCR) NEGATIVE (Negative) S. pyogenes GrpA LA Negative (Negative) Radiology Impression Discussion of test interpretation with radiology: I have reviewed the radiologist's reading. Radiologist Impression: EXAMINATION: XR CHEST CLINICAL INFORMATION: Shortness breath, cough COMPARISON: Chest x-ray from 06/13/2021 TECHNIQUE: 2 views of the chest were obtained. FINDINGS: No significant abnormality is noted involving the heart, lungs, mediastinum, bony thorax or soft tissues. XR/XR chest 2V IMPRESSION: Unremarkable examination. Discharge Plan Discharge Clinical Impression: URI (upper respiratory infection) Patient Disposition: Home, Self-Care Instructions: Upper Respiratory Infection (ED) Additional Instructions: You tested negative for COVID, RSV, flu, and strep throat. Your chest x-ray did not show a pneumonia. Please continue taking your prescribed antibiotic. I am also giving you two medications to help with the cough. Hycodan Is a liquid cough medicine containing a narcotic. this is going to cause drowsiness, do not drink alcohol or drive while taking this. I am also prescribing you Tessalon. This is a cough medication you can take throughout the day as needed for cough. Please drink plenty of fluids and get plenty of rest. Follow-up with your primary care physician. If any new or worsening symptoms occur, please return for re-evaluation. Prescriptions: New hydrocodone-homatropine [Hycodan] 5-1.5 mg/5 mL (5 mL) syrup 5 ml PO Q4-6H PRN (Reason: cough) Qty: 100 0RF Rx Instructions: Partial Fill upon patient request. benzonatate 200 mg capsule 200 mg PO TID PRN (Reason: cough) Qty: 20 0RF No Action azithromycin 250 mg tablet See Rx Instructions PO .COMPLEX Qty: 6 0RF Rx Instructions: take 500 mg today (day 1), then 250 mg for 4 days (days 2-5) PO pantoprazole 40 mg tablet,delayed release (DR/EC) 40 mg PO DAILY Stand Alone Forms: Work/School Release Interventions: ED Discharge Assessment Last Done: 01/28/23 15:56 Discharge Date/Time: 01/28/23 15:57
[2023-01-28 15:54] VITALS: BP 142/89; PULSE 82; RESP 20; O2SAT 99
== END 2023-01-28 15:57 | disposition home or self-care (01) ==
PROVIDERS: Physician Assistant; Physician Assistant Medical; Emergency Provider Emergency Medicine; PCP Internal Medicine
DX: J06.9 Acute upper respiratory infection, unspecified (principal); R06.02 Shortness of breath; R05.9 Cough, unspecified; Z20.822 Contact with and (suspected) exposure to COVID-19; Z20.828 Contact with and (suspected) exposure to other viral communicable diseases
CPT/HCPCS: 0241U; 71046; 81025; 87651; 99283

== ENCOUNTER 2023-06-08 20:43 | Emergency (ER) | payer OTHER, SELFPAY ==
[2023-06-08 21:19] VITALS: BP 139/81; PULSE 106; RESP 16; TEMP 37.3; O2SAT 98; BMI 29.8
[2023-06-08 21:50] LABS: COVID-19 Test Negative (Negative); IDNOW Serial# 08D9AD1C; IDNOW Serial# 58CA691E; Influenza A Positive (Negative); Influenza B2 Negative (Negative)
--- NOTE | 2023-06-08 22:02 | ED.URI ---
HPI - URI/Sore Throat General Chief Complaint: Upper Respiratory Symptoms Stated Complaint: Flu like Symptoms Time Seen by Provider: 06/08/23 21:53 Source: patient Mode of arrival: ambulatory Limitations: no limitations History of Present Illness HPI Narrative: Patient comes in the emergency room complaining of 2 days of diffuse body aches, cough, fever and headache. Patient states that she has been taking Tylenol and Motrin at home without any significant relief. Patient denies chest pain or shortness of breath. Complaining of nausea, no vomiting or diarrhea, no abdominal pain. Related Data Home Medications Medication Instructions Recorded Confirmed pantoprazole 40 mg tablet,delayed 40 mg PO DAILY 08/09/22 12/07/22 release Previous Rx's Medication Instructions Recorded azithromycin 250 mg tablet See Rx Instructions PO .COMPLEX #6 01/24/23 tabs benzonatate 200 mg capsule 200 mg PO TID PRN cough #20 caps 01/28/23 hydrocodone-homatropine 5 mg-1.5 5 ml PO Q4-6H PRN cough #100 mL 01/28/23 mg/5 mL (5 mL) oral syrup (Hycodan) fluconazole 100 mg tablet 100 mg PO DAILY #3 tabs 02/28/23 (Diflucan) ondansetron HCl 4 mg tablet 4 mg PO Q6H PRN nausea and 06/08/23 vomiting #10 tabs oseltamivir 75 mg capsule (Tamiflu) 75 mg PO BID 5 days #10 caps 06/08/23 Allergies Allergy/AdvReac Type Severity Reaction Status Date / Time dulaglutide [From Trulicity] Allergy Severe stomach Verified 06/08/23 21:19 pains, nausea and vomiting metformin Allergy Severe stomach Verified 06/08/23 21:19 pains canagliflozin [From Invokana] Allergy Intermediate UTI and Verified 06/08/23 21:19 yeast infections Review of Systems Review of Systems: Constitutional : No Weight loss, complaining of fever, chills, fatigue and generalized malaise, diffuse myalgias ENT/Mouth : No Hearing loss, No Ear Pain, No Nasal Congestion, No Sinus Pain, No Hoarseness, No sore throat, No Rhinorrhea, No Swallowing Difficulty Eyes: No Eye Pain, No Swelling, No Redness, No Foreign Body, No Discharge, No Vision Changes Cardiovascular : No Chest Pain, No SOB, No Dyspnea on Exertion, No Orthopnea, No Edema, No Palpitations Respiratory : Complaining of dry Cough, No Sputum, No Wheezing, No Smoke Exposure, No Dyspnea Gastrointestinal : No Nausea, No Vomiting, No Diarrhea, No Constipation, No abdominal Pain, No Hematochezia, No Melena Genitourinary : no irregular bleeding, No Dysuria, No Urinary Frequency, No Hematuria, No Urinary Incontinence, No Urgency, No Flank Pain, No Urinary Flow Changes, No Hesitancy Musculoskeletal : No joint pain, No Myalgias, No Joint Swelling Skin : No Skin Lesions, No rash Neuro : No Weakness, No Numbness, No Paresthesias, No Loss of Consciousness, No Dizziness, complaining of Headache Psych : No Anxiety/Panic, No Depression, No SI/HI/AH/VH, No Social Issues, Heme/Lymph: No Bruising, No Bleeding,No Lymphadenopathy Endocrine : No Polyuria, No Polydipsia, No Temperature Intolerance PMFSH Past Medical History Medical History Anesthesia PCOS (polycystic ovarian syndrome) Anxiety Depression Elevated testosterone level in female Hypertriglyceridemia Vitamin D deficiency Hirsutism Essential hypertension Proteinuria Type 2 diabetes mellitus with other diabetic kidney complication Obesity due to excess calories Type 2 diabetes mellitus with hyperglycemia Surgical History H/O gastric sleeve History of myringotomy History of ankle surgery History of cholecystectomy History of tonsillectomy Family History Family History Father Diabetes Mother Diabetes Maternal Grandmother Diabetes Paternal Grandmother Diabetes Brother No problems noted. 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 Oriented X3. No acute distress. Eyes: Pupils equal, round and reactive to light. ENT: Pharynx normal. Neck: Normal inspection. Neck supple. No lymph nodes noted. No crepitus CVS: Normal heart rate and rhythm. Pulses normal. Normal S1 and S2 Respiratory: No respiratory distress. Breath sounds normal. No Wheezing. No rales Abdomen: Soft and nontender. No rigidity. No distention. Skin: Skin warm and dry. Normal skin color. Normal skin turgor. Extremities: No lower extremity edema. No Lacerations. No Rash Neuro: Oriented X 3. No motor deficit. No sensory deficit. Moving all extremities. No slurred speech. CN 2 through 12 grossly intact Psych: calm, cooperative, normal affect Medical Decision Making Medical Decision Making [facility] Narrative: My interpretation of labs: Patient tested positive for influenza. -for symptomatic relief, patient was given IM Toradol and p.o. Zofran -discussed with the patient that she can either be treated with Tamiflu at home since she is still within the window of treatment versus symptomatic treatment. Patient decided to go ahead and try Tamiflu Differential Diagnosis Differential Diagnoses: The differential diagnosis associated with the presentation includes (Influenza, COVID, RSV, viral illness) Lab Data [facility] Lab Attestation statement: I reviewed the patient's lab results. Labs: Lab Results 06/08/23 Range/Units 21:24 COVID-19 (JOSE) Negative (Negative) COVID-19 Clin Com See Note Influenza Type A (LA) Positive A (Negative) Influenza Type B (LA) Negative (Negative) Influenza A & B Note See Note Discharge Plan Discharge Clinical Impression: Influenza A Patient Disposition: Home, Self-Care Instructions: Influenza (ED) Additional Instructions: Please follow-up with your primary care physician tomorrow. If you have any worsening or new symptoms, please return to the emergency room or call 911 Prescriptions: New oseltamivir [Tamiflu] 75 mg capsule 75 mg PO BID 5 Days Qty: 10 0RF ondansetron HCl 4 mg tablet 4 mg PO Q6H PRN (Reason: nausea and vomiting) Qty: 10 0RF No Action azithromycin 250 mg tablet See Rx Instructions PO .COMPLEX Qty: 6 0RF Rx Instructions: take 500 mg today (day 1), then 250 mg for 4 days (days 2-5) PO fluconazole [Diflucan] 100 mg tablet 100 mg PO DAILY Qty: 3 0RF hydrocodone-homatropine [Hycodan] 5-1.5 mg/5 mL (5 mL) syrup 5 ml PO Q4-6H PRN (Reason: cough) Qty: 100 0RF Rx Instructions: Partial Fill upon patient request. benzonatate 200 mg capsule 200 mg PO TID PRN (Reason: cough) Qty: 20 0RF pantoprazole 40 mg tablet,delayed release (DR/EC) 40 mg PO DAILY Stand Alone Forms: Work/School Release
--- NOTE | 2023-06-08 22:14 | PC.NURSE ---
Pt ca&ox4, no signs of distress. Pt reports 6/10 body aches Pts family at bedside. Plan of care ongoing.
[2023-06-08] MEDS: Ondansetron ODT 4 MG TAB.RAPDIS TRANSLINGU (22:19)
[2023-06-08] MEDS: Ketorolac Tromethamine 60 MG/2 ML VIAL IM (22:19)
[2023-06-08 22:26] VITALS: BP 139/81; PULSE 106; RESP 16; TEMP 37.3; O2SAT 98
== END 2023-06-08 22:29 | disposition home or self-care (01) ==
PROVIDERS: Emergency Provider Emergency Medicine; PCP Internal Medicine
DX: J10.1 Influenza due to other identified influenza virus with other respiratory manifestations (principal); R05.9 Cough, unspecified; R51.9 Headache, unspecified; R50.9 Fever, unspecified; E11.9 Type 2 diabetes mellitus without complications; I10 Essential (primary) hypertension; Z79.899 Other long term (current) drug therapy
CPT/HCPCS: 87502; 87635; 96372; 99284; J1885

== ENCOUNTER 2023-09-17 12:55 | Outpatient (REF) | payer OTHER, SELFPAY ==
[2023-09-18 11:10] LABS: CT PCR NOT DETECTED (Not Detect.); NG PCR NOT DETECTED (Not Detect.)
[2023-09-18 11:51] LABS: Bacterial Vaginosis PCR NEGATIVE (Negative); Candida Group PCR NOT DETECTED (Not Detect); Candida glab krusei PCR NOT DETECTED (Not Detect); Trichomonas vaginalis PCR NOT DETECTED (Not Detect)
== END 2023-09-17 12:56 | disposition home or self-care (01) ==
LOC: HO.LNP 12:55
PROVIDERS: PCP Internal Medicine; Visit Provider Advanced Practice Midwife
DX: Z01.419 Encounter for gynecological examination (general) (routine) without abnormal findings (principal); Z87.42 Personal history of other diseases of the female genital tract; R79.89 Other specified abnormal findings of blood chemistry; E28.2 Polycystic ovarian syndrome
CPT/HCPCS: 0352U; 87491; 87591; 88175; 99385

== ENCOUNTER 2023-09-17 12:55 | Outpatient (AMB) | payer OTHER, SELFPAY ==
--- NOTE | 2023-09-17 13:00 | A.OFFVIS_ITS ---
Vital Signs 09/17/23 13:02 Height 5 ft 2 in Weight 168 lb BMI 30.7 BP 120/84 Blood Pressure Location Rt radial Position Sitting Intake Visit Reasons: HAND TWISTER annual exam Intake Note: Patient had a miscarriage in 2022, tested positive in May experienced the same pressure as the year before, went to [place], was told that there was no their urine HCG and blood tests came back negative, started bleeding 06/14 with extreme pain felt the need to push and clots came out then bleeding slowed down. Wants to discuss. Has PCOS, irregular periods, lower back pain with periods. Wants to have children, is not actively trying to not get . Is currently lactating Allergies dulaglutide [From Trulicity] Allergy (Severe, Verified 06/08/23 21:19) stomach pains, nausea and vomiting metformin Allergy (Severe, Verified 06/08/23 21:19) stomach pains canagliflozin [From Invokana] Allergy (Intermediate, Verified 06/08/23 21:19) UTI and yeast infections Is last menstrual period known: Yes Last menstrual period: 08/09/23 Post menopausal: No Patient : No (has not used protection) HPI HPI HAND TWISTER annual exam: Details: Patient is here for dedicated driver annual exam. 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 She was prediabetic and developed diabetes she had a history of very irregular periods and very severe hirsute is Um. She was given spironolactone and OCPs she felt they weren't doing anything and the hair growth all over and the hair thinning at the top of her head was getting worse, so she stopped. she got weight loss surgery and did manage to lose some weight and she also got laser treatments for the hirsuteisUm. She has recently been sexually active with men but currently wishes to conceive otherwise. She had an unusual pain on right side along with a positive tests at home, this past may or june, that was about a year after a miscarriage she was seen at [facility] but feels she did not get any answers the test done there was negative that was in June of this year she says she has been leaking milk ever since. Says her last menstrual period was August 08 and it lasted for 5 days. She had told [place] that it was June 14. COUNTS INCLUDE 234 BEDS AT THE [facility] Medical History (Updated 09/17/23 @ 16:13 by Debbie Rai CNM) Anesthesia PCOS (polycystic ovarian syndrome) Anxiety Depression Elevated testosterone level in female Hypertriglyceridemia Vitamin D deficiency Hirsutism Essential hypertension Proteinuria Type 2 diabetes mellitus with other diabetic kidney complication Obesity due to excess calories Type 2 diabetes mellitus with hyperglycemia Surgical History H/O gastric sleeve History of myringotomy History of ankle surgery History of cholecystectomy History of tonsillectomy Family History (Updated 09/17/23 @ 13:15 by Judie Braswell) Father Diabetes Mother Diabetes Epilepsy Cardiac arrest Maternal Grandmother Diabetes Paternal Grandmother Diabetes Brother No problems noted. 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 Sexual orientation: Straight/Heterosexual Gender identity: Female Cognitive needs: No Hearing needs: No Vision needs: No Female Reproductive History Menstrual Date of last menstrual period: 08/09/23 Total pregnancies: 1 Full term: 0 Number of Living Children: 0 Ab spontaneous: 1 Date of last pap smear: 06/12/22 History of abnormal pap smear: No History of STI: No Physical Exam Vital Signs: Last Vital Signs BP 120/84 09/17/23 13:02 BMI result Body Mass Index 30.7 Const Other: Patient pointed out some hair thinning at top of her head evidence of hirsutisUm and elevated BMI patient has lost weight status post bariatric surgery and she had laser treatments to deal with the hirsutism. General: healthy appearing, comfortable, no acute distress, well developed and alert Nutritional Appearance: average body habitus Orientation/consciousness: patient oriented x3 Limitations: no limitations HEENT Head: Yes normocephalic Neck Other: Some darkening skin consistent with acanthosis nigracans Neck: Yes normal visual inspection Thyroid: Thyroid normal Chest Chest palpation & inspection: normal inspection of the chest Breast/axilla inspection: normal inspection of the breasts and normal inspection of the axillae Breast/axilla palpation: normal palpation of the breasts and normal palpation of the axillae Resp Effort & Inspection: normal respiratory effort GI Inspection: Yes normal to inspection, No Abdominal wall edema and No distended Palpation (GI): Soft to palpation and nontender Other: External exam within normal limits increased hirsute is Um very obvious.. Clitoromegaly noted in discussed with patient Vagina pink and moist cervix nulliparous pink smooth mobile nontender uterus midposition nontender not enlarged adnexa nontender not enlarged very good muscle tone. Pap smear and cultures were done. Bleeding noted with Pap smear. General: Yes bladder normal to palpation External Female Exam: normal external appearance and normal appearance of the urethra Speculum Exam - Vagina: normal appearance of the vagina, normal palpation and normal vaginal discharge Speculum Exam - Cervix: normal appearance of the cervix, normal palpation and nontender Bimanual exam- vagina & uterus: normal bimanual exam, normal palpation, uterine size normal, bladder normal to palpation, consistency normal, normal palpation, uterine mobility normal, uterine shape normal, No Cervical tenderness present, non-tender and no cervical motion tenderness Bimanual Exam- Adnexa, other: normal adnexae, no masses, normal and No adnexal tenderness Neuro General: patient oriented x3 Results Reviewed Results Reviewed: Name: Colon,Apurva Age/Sex: 30/F Attending: Evelia Willett : 1990 Submitted by: Mago Monte CNM Copies to: Davonte Seals MD MR #: [id number] Evelia Willett Status: DEP REF Collected: 04/20/21 Location: .LAB Received: 04/21/21 Interpretation Satisfactory for evaluation. Negative for intraepithelial lesion or malignancy. Clinical Information LMP: 03/22/21 Previous PAP test: 3 yrs, WNL Material Received ThinPrep- Cervical Copies To Davonte Seals MD [address] [place] [address] Mago Monte CNM [address] [place] [address] [address] [place], [place] [id number] Evelia Willett [address] [place] [address] Dr[address] [place] [address] Electronically Signed By: TAMELA Guzman ([facility]) 05/05/21 [id number] The Pap Test is a screening procedure with the inherent possibility of both false negative and false positive results. Results should be interpreted in the context of historic and current clinical findings. Reliability of the Pap Test is enhanced by performing the test on a regular repetitive basis. Patient: Colon,Apurva Age/Sex: 30/F MR#: [id number] Page 1 of 1 Assessment & Plan Assessment & Plan (1) PCOS (polycystic ovarian syndrome): Comment: diagnosed at [facility] at age 15, has had laser to manage hirsutism. Was on pills for some years (OCPs and spironolactone). was diagnosed with diabetes says it is improved since weight loss, has had high blood pressure, (and fatty liver,?) today it is fine. History of unusual pains in ovaries 06/30/2023, desires , currently with a female partner most recently with male partner August of 2023 . Has had 1 miscarriage last year we would like to have a baby. Would most likely need referral to [facility] for reproductive assistance. Code(s): E28.2 - Polycystic ovarian syndrome Category: Medical (2) Hirsutism: Code(s): L68.0 - Hirsutism Category: Medical (3) Elevated testosterone level in female: Code(s): R79.89 - Other specified abnormal findings of blood chemistry Category: Medical (4) Status post sleeve gastrectomy: Comment: 8/25/22 Code(s): Z90.3 - Acquired absence of stomach [part of] Category: Surgical (5) History of irregular menstrual cycles: Code(s): Z87.42 - Personal history of other diseases of the female genital tract Category: Medical (6) Type 2 diabetes mellitus with other diabetic kidney complication: Comment: Patient states her diabetes has resolved since her weight loss after surgery.... Code(s): E11.29 - Type 2 diabetes mellitus with other diabetic kidney complication Category: Medical (7) Encounter for screening examination for sexually transmitted disease: Code(s): Z11.3 - Encounter for screening for infections with a predominantly sexual mode of transmission Category: Medical (8) Cervical cancer screening: Code(s): Z12.4 - Encounter for screening for malignant neoplasm of cervix Category: Medical Plan -----Discussed in this visit the following: healthy balanced diet, regular and consistent exercise, getting recommended health screens, doing the best she can for her particular health concerns, kegel exercises, pap smear screening and followup recommendations, mammography screening and SBE, normal changes in cycles in her life stage--- . ---Discussed PCOS in general and specifically about the interplay of the abnormal hormonal milieu related to being overweight, with the elevations of many hormone levels, including testosterone and estrogen, as well as others that contribute to cycles that are anovulatory and therefore prolonged, and when periods do come they come very heavy, and can contribute to lots of cramping, with passage of clots and anemia. Discussed the common symptoms related to the elvated hormonal levels, including increased facial hair, male pattern hair thinning, acne, and increased central abdominal girth. Discussed the interplay with difficulty getting when desired, but still possible, and therefore the need to contracept as appropriate and when needed. Discussed the role of weight loss as the primary, most important, and most likely to succeed, intervention, in achieving healthier status as regards PCOS, and ovulatory regular cycles. Additionally the very important relationship to elevated insulin levels, and blood sugars, and high risk of pre diabetes, progressing to diabetes as well as other metabolic syndromes related to this was discussed. Also discussed common interventions for some of the above, including if appropriate, use of oral contraceptives, and progestin iuds, and provera.This note is constructed using voice recognition software. While every effort has been made to ensure accuracy, semiconductor technician errors may have been included. I am ordering a pelvic ultrasound to check on the current status of her ovaries and see if there were evidence of any cyst that could explain her evidence but since so much time has passed since June it is not likely. It may show evidence of polycystic ovaries. Discussed if she ever misses a period for more than 3 months it should discussed and managed to prevent the lining building up. I also offered blood work which maybe repetitious blood work she has had before periods Explains that many of her physical findings or completely in keeping with the elevated hormone levels particularly testosterone . Suggested taking a multivitamin with folic acid but she does every day in preparation for future Discussed that she may very well need a referral from her primary care provider's to reproductive Services at [facility] and that she should have all her fasting done as well did discuss this all with her primary. We will have a visit after the ultrasound and labs. Orders: Orders US pelvic and transvaginal Today E28.2 - Polycystic ovarian syndrome, L68.0 - Hirsutism, R79.89 - Other specified abnormal findings of blood chemistry, Z87.42 - Personal history of other diseases of the female genital tract Testosterone, Free/Total Today E28.2 - Polycystic ovarian syndrome, L68.0 - Hirsutism, N92.6 - Irregular menstruation, unspecified, R79.89 - Other specified abnormal findings of blood chemistry, Z87.42 - Personal history of other diseases of the female genital tract, Z90.3 - Acquired absence of stomach [part of] HCG Quantitative Today E28.2 - Polycystic ovarian syndrome, L68.0 - Hirsutism, R79.89 - Other specified abnormal findings of blood chemistry, Z87.42 - Personal history of other diseases of the female genital tract, Z90.3 - Acquired absence of stomach [part of] Hepatitis B Surface Antigen Today E11.29 - Type 2 diabetes mellitus with other diabetic kidney complication, E28.2 - Polycystic ovarian syndrome, L68.0 - Hirsutism, R79.89 - Other specified abnormal findings of blood chemistry, Z11.3 - Encounter for screening for infections with a predominantly sexual mode of transmission, Z87.42 - Personal history of other diseases of the female genital tract, Z90.3 - Acquired absence of stomach [part of] CT NG by PCR Today Z01.419 - Encounter for gynecological examination (general) (routine) without abnormal findings Thyroid Stimulating Hormone Today E28.2 - Polycystic ovarian syndrome, L68.0 - Hirsutism, R79.89 - Other specified abnormal findings of blood chemistry, Z87.42 - Personal history of other diseases of the female genital tract, Z90.3 - Acquired absence of stomach [part of] Prolactin Today E28.2 - Polycystic ovarian syndrome, L68.0 - Hirsutism, R79.89 - Other specified abnormal findings of blood chemistry, Z87.42 - Personal history of other diseases of the female genital tract, Z90.3 - Acquired absence of stomach [part of] Hemoglobin A1c Today E28.2 - Polycystic ovarian syndrome, L68.0 - Hirsutism, R79.89 - Other specified abnormal findings of blood chemistry, Z87.42 - Personal history of other diseases of the female genital tract, Z90.3 - Acquired absence of stomach [part of] Syphilis Screen Today E11.29 - Type 2 diabetes mellitus with other diabetic kidney complication, E28.2 - Polycystic ovarian syndrome, L68.0 - Hirsutism, R79.89 - Other specified abnormal findings of blood chemistry, Z87.42 - Personal history of other diseases of the female genital tract, Z90.3 - Acquired absence of stomach [part of] Hepatitis C Antibody Today E11.29 - Type 2 diabetes mellitus with other diabetic kidney complication, E28.2 - Polycystic ovarian syndrome, L68.0 - Hirsutism, R79.89 - Other specified abnormal findings of blood chemistry, Z87.42 - Personal history of other diseases of the female genital tract, Z90.3 - Acquired absence of stomach [part of] HIV Ab/Ag Today E11.29 - Type 2 diabetes mellitus with other diabetic kidney complication, E28.2 - Polycystic ovarian syndrome, L68.0 - Hirsutism, R79.89 - Other specified abnormal findings of blood chemistry, Z87.42 - Personal history of other diseases of the female genital tract, Z90.3 - Acquired absence of stomach [part of] Bacterial Vaginosis Panel Today Z01.419 - Encounter for gynecological examination (general) (routine) without abnormal findings PAP Smear Today Z01.419 - Encounter for gynecological examination (general) (routine) without abnormal findings Coding Level of Care Code New Pt Prev Care 18-39yr([id number] Diagnoses PCOS (polycystic ovarian syndrome) E28.2 Hirsutism L68.0 Elevated testosterone level in female R79.89 Status post sleeve gastrectomy Z90.3 History of irregular menstrual cycles Z87.42 Type 2 diabetes mellitus with other diabetic kidney complication E11.29 Encounter for screening examination for sexually transmitted disease Z11.3 Cervical cancer screening Z12.4
[2023-09-17 13:02] VITALS: BP 120/84; BMI 30.7
== END 2023-09-17 14:20 | disposition home or self-care (01) ==
LOC: HO.HWSM 12:55
PROVIDERS: PCP Internal Medicine; Visit Provider Advanced Practice Midwife
DX: Z01.419 Encounter for gynecological examination (general) (routine) without abnormal findings (principal); E28.2 Polycystic ovarian syndrome; L68.0 Hirsutism; R79.89 Other specified abnormal findings of blood chemistry; Z90.3 Acquired absence of stomach [part of]; Z87.42 Personal history of other diseases of the female genital tract; E11.29 Type 2 diabetes mellitus with other diabetic kidney complication
CPT/HCPCS: 99385

== ENCOUNTER 2023-09-19 14:07 | Outpatient (REF) | payer OTHER, SELFPAY ==
--- NOTE | ~2023-09-19 | US_ITS ---
EXAMINATION: US PELVIS CLINICAL INFORMATION: Polycystic ovarian syndrome, history of irregular menstrual cysts, last menstrual period August 09, 2023. COMPARISON: None available. TECHNIQUE: Ultrasound of the pelvis is performed using both transabdominal and transvaginal transducers along with Doppler. Transvaginal imaging is performed due to inadequate visualization transabdominally. FINDINGS: Uterus is anteverted and measures 8.5 x 3.4 x 4.9 cm. Nabothian cysts in the cervix. Dilated uterine vessels. Endometrial thickness is 6 mm. Right ovary measures 3.5 x 2.5 x 2.7 cm, volume 12.4 mL. Left ovarian measures 4.4 x 2.2 x 1.8 cm, volume 9.4 mL. Limited visualization of bilateral ovaries due to bowel gas. A few small peripheral follicles are identified in these limited images of the bilateral ovaries. US/US pelvic and transvaginal IMPRESSION: 1. Endometrial thickness is 6 mm. 2. Right ovarian volume 12.4 mL and left ovarian volume 9.4 mL. Limited visualization of bilateral ovaries which demonstrate a few small peripheral follicles. Correlation with clinical exam recommended for patient with reported polycystic ovarian syndrome. 3. Dilated uterine vasculature.
== END 2023-09-19 14:08 | disposition home or self-care (01) ==
LOC: HO.US 14:07
PROVIDERS: PCP Internal Medicine; Visit Provider Advanced Practice Midwife
DX: E28.2 Polycystic ovarian syndrome (principal); R79.89 Other specified abnormal findings of blood chemistry; L68.0 Hirsutism; Z87.42 Personal history of other diseases of the female genital tract
CPT/HCPCS: 76830; 76856

== ENCOUNTER 2023-12-08 09:51 | Outpatient (AMB) | payer OTHER, SELFPAY ==
[2023-12-08 11:37] VITALS: BP 116/70; PULSE 84; TEMP 37; O2SAT 98; BMI 29.8
--- NOTE | 2023-12-08 11:37 | AM.OFFWIN_ITS ---
Intake Vital Signs 3 12/08/23 11:37 Height 5 ft 2 in Weight 163 lb BMI 29.8 BP 116/70 Blood Pressure Location Lt brachial Position Sitting Pulse 84 Pulse Source Pulse Oximeter Temp 98.6 F Temp Source Oral Pulse Oximetry (%) 98 Oxygen Delivery Method Room Air Intake Visit Reasons: EP RT eye pink eye Intake Note: Pt is here today c/o ?pink eye Patient Tobacco Use Status: Never used Tobacco Allergies dulaglutide [From Trulicity] Allergy (Severe, Verified 02/19/24 09:34) stomach pains, nausea and vomiting metformin Allergy (Severe, Verified 02/19/24 09:34) stomach pains canagliflozin [From Invokana] Allergy (Intermediate, Verified 02/19/24 09:34) UTI and yeast infections HPI EP RT eye pink eye 2 HPI0 Details Patient is a 33-year-old female with type 2 diabetes and PCOS who comes to the walk-in clinic 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 She reports that she irrigated the eye soon after, but still had discomfort after the end of her work shift last night. This morning her eye is red watery and irritated, with swelling to the upper eyelid. There is no vision changes, fever or chills, headache or vertigo, dizziness or weakness, nausea vomiting or diarrhea, respiratory symptoms, sore throat, myalgias or malaise or other significant associated symptoms. [facility] Medical History Anesthesia PCOS (polycystic ovarian syndrome) Anxiety Depression Elevated testosterone level in female Hypertriglyceridemia Vitamin D deficiency Hirsutism Essential hypertension Proteinuria Type 2 diabetes mellitus with other diabetic kidney complication Obesity due to excess calories Type 2 diabetes mellitus with hyperglycemia Surgical History H/O gastric sleeve History of myringotomy History of ankle surgery History of cholecystectomy History of tonsillectomy Family History Father Diabetes Mother Diabetes Epilepsy Cardiac arrest Maternal Grandmother Diabetes Paternal Grandmother Diabetes Brother No problems noted. 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 Sexual orientation: Straight/Heterosexual Gender identity: Female Cognitive needs: No Hearing needs: No Vision needs: No Review of Systems Const All systems reviewed & are unremarkable except as noted in HPI and below Physical Exam Vital Signs: Last Vital Signs Temp 98.6 F 12/08/23 11:37 Pulse 84 12/08/23 11:37 BP 116/70 12/08/23 11:37 Pulse Ox 98 12/08/23 11:37 Oxygen Delivery Method Room Air 12/08/23 11:37 BMI result Body Mass Index 29.8 Eyes General: appearance abnormal, both eyes Alignment and Position: alignment normal and position normal Periorbital: periorbital findings normal Eyelids: Yes eyelid abnormality (Right upper eyelid edematous, no erythema or warmth) Conjunctivae: conjunctival abnormal right conjunctival injection and discharge (Watery); without subconjunctival hemmorhages Sclerae: scleral abnormal right scleral injection and scleral tenderness (Irritated); without exudates, without foreign bodies and without hemorrhages Pupils: Equal, round and reactive pupils present, Pupils normal by confrontation and Pupil accommodation reflex normal EOM: EOMs intact bilaterally Eyes/upper lids images: 2 1. 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 With fluorescein exam using tetracaine analgesia, there is an apparent conjunctival abrasion with conjunctivitis due to trauma from foreign body object yesterday. I do not visualize any current foreign body. I wrote her for a course of erythromycin ophthalmic ointment, and she will follow up with her crankshaft straightener on Sunday if she is still symptomatic. She can go to the emergency department in the meantime if needed for worrisome symptoms. Medications: New 2 erythromycin 0.5 inches ophthalmic (eye) QID 3.5 grams 0RF Coding Level of Care Code Est Pt Level 4 (86175) Diagnoses Abrasion of right conjunctiva, initial encounter S05.01XA Encounter type: initial encounter Laterality: right
== END 2023-12-08 14:11 | disposition home or self-care (01) ==
PROVIDERS: PCP Internal Medicine; Visit Provider Physician Assistant Medical
DX: S05.01XA Injury of conjunctiva and corneal abrasion without foreign body, right eye, initial encounter (principal)

== ENCOUNTER → 2023-12-08 09:51 | Outpatient (BNVA) | payer OTHER, SELFPAY | PROVIDERS: PCP Internal Medicine | DX: S05.01XA Injury of conjunctiva and corneal abrasion without foreign body, right eye, initial encounter (principal); H10.9 Unspecified conjunctivitis; E11.9 Type 2 diabetes mellitus without complications; E28.2 Polycystic ovarian syndrome; X58.XXXA Exposure to other specified factors, initial encounter; Y93.89 Activity, other specified; Y92.9 Unspecified place or not applicable; Y99.9 Unspecified external cause status | CPT/HCPCS: 99212 ==

== ENCOUNTER 2024-02-19 09:32 | Outpatient (AMB) | payer OTHER, SELFPAY ==
--- NOTE | 2024-02-19 09:33 | A.OFFPC_ITS ---
Vital Signs 02/19/24 09:34 Height 5 ft 2 in Weight 161 lb BMI 29.4 BP 128/76 Blood Pressure Location Lt brachial Position Sitting Pulse 86 Pulse Source Pulse Oximeter Pulse Oximetry (%) 97 Oxygen Delivery Method [facility] Allergies dulaglutide [From Trulicity] Allergy (Severe, Verified 02/19/24 09:34) stomach pains, nausea and vomiting metformin Allergy (Severe, Verified 02/19/24 09:34) stomach pains canagliflozin [From Invokana] Allergy (Intermediate, Verified 02/19/24 09:34) UTI and yeast infections Medication List - Last Reconciled 02/19/24 by Davonte Seals MD erythromycin 0.5 inches ophthalmic (eye) QID Tobacco use date assessed: 02/19/24 Dental Screening Dental Screen Date: 02/19/24 Did you have a dental visit in the last 12 months?: Yes Did you have a dental problem in the last 6 months where you did not have access to dental care?: No Was dental information given to patient?: Patient has dentist HPI [facility] 02/01 abscess drainage HPI Details recurrent left groin abscess drained in ER; still has a cyst present and would like this removed [facility] Medical History Anesthesia PCOS (polycystic ovarian syndrome) Anxiety Depression Elevated testosterone level in female Hypertriglyceridemia Vitamin D deficiency Hirsutism Essential hypertension Proteinuria Type 2 diabetes mellitus with other diabetic kidney complication Obesity due to excess calories Type 2 diabetes mellitus with hyperglycemia Surgical History H/O gastric sleeve History of myringotomy History of ankle surgery History of cholecystectomy History of tonsillectomy Family History Father Diabetes Mother Diabetes Epilepsy Cardiac arrest Maternal Grandmother Diabetes Paternal Grandmother Diabetes Brother No problems noted. 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 1. Little interest or pleasure in doing things: not at all 2. Feeling down, depressed, or hopeless: not at all 3. Trouble falling or staying asleep, or sleeping too much: not at all 4. Feeling tired or having little energy: not at all 5. Poor appetite or overeating: not at all 6. Feeling bad about yourself - or that you are a failure or have let yourself or your family down: not at all 7. Trouble concentrating on things, such as reading the newspaper or watching television: not at all 8. Moving or speaking so slowly that other people could have noticed. Or the opposite - being so fidgety or restless that you have been moving around a lot more than usual: not at all 9. Thoughts that you would be better off or of hurting yourself in some way: not at all Total score: 0 Depression Screening Interpretation: Negative Depression Screening Done: Yes Source: Developed by Drs. Ramo Gallego, Sujey Price, Ulises Bains and colleagues, with an educational tata from [employer]. Thrive Questionnaire Date Thrive assessed: 02/19/24 I am a: Patient What is your living situation today?: I have a steady place to live Within the past 12 months, did the food you bought not last and you didn't have the money to get more?: Never true Within the past 12 months, did you worry whether your food would run out before you got money to buy more?: Never true Do you have trouble paying for medicines?: No Do you have trouble getting transportation to medical appointments?: No Do you have trouble paying your heating and electricity bill?: No Do you have trouble taking care of your child, family member or friend?: No Do you have trouble with day-to-day activities such as bathing, preparing meals, shopping, managing finances, etc.?: No Are you currently unemployed and looking for a job?: No Are you interested in more education?: No Currently or been in a relationship where the following occur: No concerns reported THRIVE Score: 0 AUDIT C Alcohol Use Questionnaire (AUDIT-C) 1. How often do you have a drink containing alcohol?: Monthly or less 2. How many drinks containing alcohol do you have on a typical day when you are drinking?: 1 or 2 Total Score: 1 EFRAIN-7 AMB Questionnaire EFRAIN-7 Date EFRAIN - 7 assessed: 02/19/24 Feeling nervous, anxious, or on edge: 0 = Not at all Not being able to stop or control worryin = Not at all Worrying too much about different things: 0 = Not at all Trouble relaxin = Not at all Being so restless that it is hard to sit still: 0 = Not at all Becoming easily annoyed or irritable: 0 = Not at all Feeling afraid as if something awful might happen: 0 = Not at all Total EFRAIN-7 score (0-4 normal; 5-9 mild; 10-14 moderate; 15-21 severe): 0 Source: Developed by Drs. Ramo Gallego, Sujey Price, Ulises Bains and colleagues, with an educational tata from [employer]. Review of Systems Const Denies chills, Denies headache(s) and Denies weight loss ENT Denies headache(s) Card Denies chest pain, Denies syncope, Denies irregular heart rhythm and Denies dyspnea Resp Denies chest congestion, Denies cough and Denies dyspnea GI Denies abdominal pain, Denies change in stool character, Denies nausea and Denies vomiting Musc Denies deformity and Denies joint swelling Neuro Denies syncope and Denies headache(s) Physical exam (Primary Care) Vital Signs: Last Vital Signs Pulse 86 02/19/24 09:34 BP 128/76 02/19/24 09:34 Pulse Ox 97 02/19/24 09:34 Oxygen Delivery Method Room Air 02/19/24 09:34 BMI result Body Mass Index 29.4 Tobacco/Smoking Status: Tobacco use Status Tobacco use date assessed 02/19/24 02/19/24 09:35 Patient Tobacco Use Status Never used Tobacco 02/19/24 09:35 Tobacco use type Cigarette 02/19/24 09:35 e-Cigarette/Vaping Use Never Used 02/19/24 09:35 PHQ-9: PHQ-9 Score PHQ-9: Total score 0 02/19/24 09:46 Depression Screening Interpretation: Negative Thrive Assessment: Date of Thrive Assessment Date Thrive assessed 02/19/24 02/19/24 09:35 Currently or been in a relationship where the following occur: No concerns reported Const General: cooperative, comfortable, no acute distress and alert Neck Neck: Yes no lymphadenopathy Thyroid: Thyroid normal Resp Effort & Inspection: normal respiratory effort Auscultation: clear to auscultation bilaterally Percussion: percussion normal Cardio Jugular venous distension: no JVD Palpation: normal PMI Rate: regular rate Rhythm: regular rhythm Heart sounds: S1 normal heart sound present and S2 normal heart sound present GI Inspection: Yes normal to inspection Palpation (GI): No hepatosplenomegaly present Skin Other: 1 cm cyst left groin Extrem General: Yes no clubbing, cyanosis or edema Results AMB Hemoglobin A1c AMB Hemoglobin A1c 5.9 % Last Edit by Mayela Leonard CMA on 02/19/24 09 :46 Results Reviewed Results Reviewed: Laboratory Last Values Hgb A1c (Clinic) 5.9 % (4.0-6.0) 02/19/24 09:36 Coding Level of Care Code Est Pt Level 3 (41460) Diagnoses Abscess of skin L02.91 Assessment & Plan Assessment & Plan (1) Abscess of skin: Code(s): L02.91 - Cutaneous abscess, unspecified Category: Medical Plan: surgery referral Orders: Orders AMB Hemoglobin A1c Today Z13.9 - Encounter for screening, unspecified Referrals General Surgery Referral L02.91 - Cutaneous abscess, unspecified Medications: New triamcinolone acetonide 0.5% 1 appl topical TID 15 grams 3RF
[2024-02-19 09:34] VITALS: BP 128/76; PULSE 86; O2SAT 97; BMI 29.4
== END 2024-02-19 09:49 | disposition home or self-care (01) ==
PROVIDERS: PCP Internal Medicine; Visit Provider Internal Medicine
DX: L02.91 Cutaneous abscess, unspecified (principal); Z13.9 Encounter for screening, unspecified

== ENCOUNTER → 2024-02-19 09:32 | Outpatient (BNVA) | payer OTHER, SELFPAY | PROVIDERS: PCP Internal Medicine; Visit Provider Internal Medicine | DX: L02.91 Cutaneous abscess, unspecified (principal); E11.9 Type 2 diabetes mellitus without complications | CPT/HCPCS: 83036; 96127; 99212 ==

== ENCOUNTER 2024-07-31 13:38 | Outpatient (AMB) | payer OTHER, SELFPAY ==
--- NOTE | 2024-07-31 13:42 | MHC.PC.OV ---
Vital Signs 07/31/24 13:44 07/31/24 14:29 Height 5 ft 2 in Weight 163 lb BMI 29.8 BP 146/88 H 134/84 Blood Pressure Location Lt brachial Lt brachial Position Sitting Sitting Pulse 101 H Pulse Source Pulse Oximeter Pulse Oximetry (%) 96 Oxygen Delivery Method Room Air Intake Visit Reasons: annual exam/ SAMANTH[facility] Dr. 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 Required: No Accompanied by: Self / Same As Patient Allergies dulaglutide [From Trulicity] Allergy (Severe, Verified 07/31/24 14:04) stomach pains, nausea and vomiting metformin Allergy (Severe, Verified 07/31/24 14:04) stomach pains canagliflozin [From Invokana] Allergy (Intermediate, Verified 07/31/24 14:04) UTI and yeast infections Medication List - Last Reconciled 07/31/24 by Suzy Conrad PA-C No Known Home Meds Tobacco use date assessed: 07/31/24 Dental Screening Dental Screen Date: 07/31/24 Did you have a dental visit in the last 12 months?: Yes Did you have a dental problem in the last 6 months where you did not have access to dental care?: No Was dental information given to patient?: Patient has dentist HPI annual exam/ SAMANTHA Dr. Seals HPI Details 33-year-old female with past medical history of diabetes mellitus, hypertension, obesity, hypertriglyceridemia, anxiety, depression, PCOS, liver fibrosis last seen 02/2024 coming in for transfer of care. Presenting to discuss various ongoing health concerns, including managing post-sleeve gastrectomy weight loss in the context of past liver fibrosis and ongoing galactorrhea. She maintains weekly therapy sessions for anxiety and depression, has a history of PCOS with persistent symptoms, and experiences intermittent abdominal pain potentially associated with ovarian cysts. The discussion included her history of high blood pressure, unmanaged with medications, and her recent prediabetic status. She also mentions having bilateral nipple discharge has been ongoing for over 1 year. Denies any breast pain or palpable masses. She also mentioned having locking of the right ring finger. [facility] Medical History Ankle fracture Congenital intra-abdominal adhesions Closed fracture of distal phalanx of left ring finger Anesthesia PCOS (polycystic ovarian syndrome) Anxiety Depression Elevated testosterone level in female Hypertriglyceridemia Vitamin D deficiency Hirsutism Essential hypertension Proteinuria Type 2 diabetes mellitus with other diabetic kidney complication Obesity due to excess calories Surgical History H/O gastric sleeve History of myringotomy History of ankle surgery History of cholecystectomy History of tonsillectomy Family History Father Diabetes Mother Diabetes Epilepsy Cardiac arrest Maternal Grandmother Diabetes Paternal Grandmother Diabetes Brother No problems noted. 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 1. Little interest or pleasure in doing things: not at all 2. Feeling down, depressed, or hopeless: not at all 3. Trouble falling or staying asleep, or sleeping too much: not at all 4. Feeling tired or having little energy: not at all 5. Poor appetite or overeating: not at all 6. Feeling bad about yourself - or that you are a failure or have let yourself or your family down: not at all 7. Trouble concentrating on things, such as reading the newspaper or watching television: not at all 8. Moving or speaking so slowly that other people could have noticed. Or the opposite - being so fidgety or restless that you have been moving around a lot more than usual: not at all 9. Thoughts that you would be better off or of hurting yourself in some way: not at all Total score: 0 Depression Screening Interpretation: Negative Depression Screening Done: Yes Source: Developed by Drs. Ramo Gallego, Sujey Price, Ulises Bains and colleagues, with an educational tata from [employer]. Thrive Questionnaire Date Thrive assessed: 07/31/24 I am a: Patient What is your living situation today?: I have a steady place to live Within the past 12 months, did the food you bought not last and you didn't have the money to get more?: Never true Within the past 12 months, did you worry whether your food would run out before you got money to buy more?: Never true Do you have trouble paying for medicines?: No Do you have trouble getting transportation to medical appointments?: No Do you have trouble paying your heating and electricity bill?: No Do you have trouble taking care of your child, family member or friend?: No Do you have trouble with day-to-day activities such as bathing, preparing meals, shopping, managing finances, etc.?: No Are you currently unemployed and looking for a job?: No Are you interested in more education?: No Please select the resources that you would like help with: None Currently or been in a relationship where the following occur: I choose not to answer THRIVE Score: 0 AUDIT C Alcohol Use Questionnaire (AUDIT-C) 1. How often do you have a drink containing alcohol?: Monthly or less 2. How many drinks containing alcohol do you have on a typical day when you are drinking?: 1 or 2 3. How often do you have six or more drinks on one occasion?: Never Total Score: 1 EFRAIN-7 AMB Questionnaire EFRAIN-7 Date EFRAIN - 7 assessed: 07/31/24 Feeling nervous, anxious, or on edge: 1 = Several days Not being able to stop or control worryin = Not at all Worrying too much about different things: 1 = Several days Trouble relaxin = Several days Being so restless that it is hard to sit still: 0 = Not at all Becoming easily annoyed or irritable: 1 = Several days Feeling afraid as if something awful might happen: 0 = Not at all Total EFRAIN-7 score (0-4 normal; 5-9 mild; 10-14 moderate; 15-21 severe): 4 Source: Developed by Drs. Ramo Gallego, Sujey Price, Ulises Bains and colleagues, with an educational tata from [employer]. EFRAIN-7 Assessment Billing EFRAIN-7 Assessment Tool: EFRAIN-7 Assessment 69086 Review of Systems Const Denies body aches, Denies chills, Denies fever(s), Denies headache(s) and Denies poor appetite Eyes Reports no additional complaints ENT Denies dysphagia, Denies dizziness, Denies headache(s) and Denies odynophagia Card Denies chest pain, Denies syncope, Denies edema, Denies irregular heart rhythm, Denies lightheadedness and Denies dyspnea Resp Denies cough and Denies dyspnea GI Denies abdominal pain, Denies constipation, Denies dysphagia, Denies diarrhea, Denies nausea, Denies odynophagia and Denies vomiting Reports no additional complaints Musc Reports no additional complaints and Denies abnormal gait Skin/Breast Details: We will keep discharged from bilateral nipples ongoing for the past year Reports system reviewed and no additional complaints, except as documented Neuro Denies abnormal gait, Denies dizziness, Denies syncope and Denies headache(s) Psych Reports no additional complaints Physical exam (Primary Care) Vital Signs: Last Vital Signs Pulse 101 H 07/31/24 13:44 BP 134/84 07/31/24 14:29 Pulse Ox 96 07/31/24 13:44 Oxygen Delivery Method Room Air 07/31/24 13:44 BMI result Body Mass Index 29.8 Tobacco/Smoking Status: Tobacco use Status Tobacco use date assessed 07/31/24 07/31/24 13:49 Patient Tobacco Use Status Never used Tobacco 07/31/24 13:49 Tobacco use type 07/31/24 13:49 e-Cigarette/Vaping Use Never Used 07/31/24 13:49 PHQ-9: PHQ-9 Score PHQ-9: Total score 0 07/31/24 14:13 Depression Screening Interpretation: Negative Thrive Assessment: Date of Thrive Assessment Date Thrive assessed 07/31/24 07/31/24 13:49 Currently or been in a relationship where the following occur: I choose not to answer Const General: cooperative, healthy appearing, comfortable and no acute distress Orientation/consciousness: patient oriented x3 HENMT Head: Yes normocephalic Ears: hearing grossly normal bilaterally General nose exam: Normal external nose present Eyes General: appearance normal, both eyes and all related structures Conjunctivae: conjunctivae normal Neck Neck: Yes full ROM and Yes no lymphadenopathy Resp Effort & Inspection: normal respiratory effort Auscultation: clear to auscultation bilaterally, no crackles, no rales, no rhonchi and no wheezes Cardio Rate: regular rate Rhythm: regular rhythm Skin General skin exam: no rashes or lesions noted Neuro General: patient oriented x3 Gait exam (Neuro): Normal gait present Extrem General: Yes normal to inspection, Yes full ROM and No edema Psych Affect: normal affect Attitude: cooperative Insight: Good insight present (Psych) Judgement: Good judgement present (Psych) Results AMB Hemoglobin A1c AMB Hemoglobin A1c 6.0 % Last Edit by MIKE Samuel on 07/31/24 14:14 Results Reviewed Results Reviewed: Laboratory Last Values Hgb A1c (Clinic) 6.0 % (4.0-6.0) 07/31/24 14:08 Coding Level of Care Code Est Pt Level 4 (10332) Diagnoses PCOS (polycystic ovarian syndrome) E28.2 Breast discharge N64.52 Anxiety F41.9 Depression F32.A Hypertriglyceridemia E78.1 Essential hypertension I10 Type 2 diabetes mellitus with other diabetic kidney complication E11.29 Steatosis, liver K76.0 Hidradenitis suppurativa L73.2 Vitamin D deficiency E55.9 Trigger finger M65.30 Additional Codes EFRAIN-7 Assessment Billing - EFRAIN-7 Assessment Tool: EFRAIN-7 Assessment [id number] ([id number]) Assessment & Plan Assessment & Plan (1) PCOS (polycystic ovarian syndrome): Comment: diagnosed at [facility] at age 15, has had laser to manage hirsutism. Was on pills for some years (OCPs and spironolactone). was diagnosed with diabetes says it is improved since weight loss, has had high blood pressure, (and fatty liver,?) today it is fine. History of unusual pains in ovaries 06/30/2023, desires , currently with a female partner most recently with male partner August of 2023 . Has had 1 miscarriage last year we would like to have a baby. Would most likely need referral to [facility] for reproductive assistance. Code(s): E28.2 - Polycystic ovarian syndrome Category: Medical Plan: Plan for endocrinology referral as she is no longer being seen at this time. Referral was placed today continue to follow with gynecology as well (2) Breast discharge: Code(s): N64.52 - Nipple discharge Category: Medical Plan: Patient having bilateral nipple discharge for over 1 year denies any pain, skin changes or masses. Patient states the discharge is milky in color plate ordered for blood work and consider imaging. Deferring breasts exam today plan for next visit patient agrees. (3) Anxiety: Comment: therapist weekly Code(s): F41.9 - Anxiety disorder, unspecified Category: Medical Plan: Patient is currently following with a therapist and does not feel the need for medication management at this time. (4) Depression: Comment: therapist weekly Code(s): F32.A - Depression, unspecified Category: Medical Plan: See above (5) Hypertriglyceridemia: Code(s): E78.1 - Pure hyperglyceridemia Category: Medical Plan: Avoid foods that are high in cholesterol such as red meat, fried foods, eggs and baked goods. Triglyceride goal of less than 150 and LDL goal of less than and 100. Ordered for updated blood work (6) Essential hypertension: Code(s): I10 - Essential (primary) hypertension Category: Medical Plan: Patient is doing well without medication Avoid salt intake and encourage healthy diet and regular exercise. (7) Type 2 diabetes mellitus with other diabetic kidney complication: Comment: Patient states her diabetes has resolved since her weight loss after surgery.... Code(s): E11.29 - Type 2 diabetes mellitus with other diabetic kidney complication Category: Medical Plan: Decrease the amount of carbohydrates such as pasta, bread, rice, and potatoes and limit the amount of sweets. Although fruits are generally healthy they should be eaten in moderation as they are still high in sugar. Hemoglobin A1c goal of less than 7%. Patient is currently not on medication and A1c in the clinic today is 6.0% (8) Steatosis, liver: Comment: mild 2021 Code(s): K76.0 - Fatty (change of) liver, not elsewhere classified Category: Medical Plan: Healthy diet and regular exercise is encouraged. (9) Hidradenitis suppurativa: Code(s): L73.2 - Hidradenitis suppurativa Category: Medical Plan: Referral was placed to Dermatology today at patient request (10) Vitamin D deficiency: Code(s): E55.9 - Vitamin D deficiency, unspecified Category: Medical Plan: Ordered for updated blood work (11) Trigger finger: Code(s): M65.30 - Trigger finger, unspecified finger Category: Medical Plan: Patient reporting locking of the right ring finger consistent with trigger finger. Recommend the use of NSAIDs as needed, heat, ice and splinting overnight. Patient was instructed on how to appropriately and safely splint the finger. Plan The patient's weight, mental health via therapy, and ongoing management of prediabetic status were reaffirmed as delong focus areas. For the galactorrhea, hormone levels will be evaluated, and potential imaging considered. I have implemented a referral to endocrinology for further management of PCOS and endocrinological concerns, including ongoing very mild galactorrhea. A dermatological workup is suggested for skin concerns. Conservatively managing trigger finger with splinting was discussed, with surgical consultation to follow if necessary. The patient will be receiving ordered blood work to assess fasting glucose, cholesterol, hormonal levels, and comprehensive metabolic profile. All these steps align with advancing her health maintenance and disease prevention in coming months, reinforcing regular follow-ups for effective monitoring. This note was constructed using voice recognition software. While every effort has been made to ensure accuracy and sap data analyst, still areas may have been included sometimes these areas may affect the content or meeting of the given symptoms. Total time spent caring for the patient today was 30 minutes. This includes time spent before the visit reviewing the chart, time spent during the visit, and time spent after the visit and documentation. Patient was informed and verbally consented to the use of an ambient scribe for clinic note documentation during this visit. Orders: Orders AMB Hemoglobin A1c Today E11.29 - Type 2 diabetes mellitus with other diabetic kidney complication Prolactin Today N64.52 - Nipple discharge Comprehensive Met. Panel Today E28.2 - Polycystic ovarian syndrome, Z00.00 - Encounter for general adult medical examination without abnormal findings Complete Blood Count Auto Diff Today E28.2 - Polycystic ovarian syndrome, Z00.00 - Encounter for general adult medical examination without abnormal findings Vitamin B12 and Folate Today E28.2 - Polycystic ovarian syndrome, Z13.21 - Encounter for screening for nutritional disorder Lipid Panel Today E28.2 - Polycystic ovarian syndrome, E78.1 - Pure hyperglyceridemia Vitamin D 25-OH Total Today E28.2 - Polycystic ovarian syndrome, Z00.00 - Encounter for general adult medical examination without abnormal findings TSH reflex Free T4 Today E28.2 - Polycystic ovarian syndrome, Z00.00 - Encounter for general adult medical examination without abnormal findings Free T4 (Free Thyroxine) Today E28.2 - Polycystic ovarian syndrome, Z00.00 - Encounter for general adult medical examination without abnormal findings Follicle Stimulating Hormone Today L68.0 - Hirsutism Referrals Endocrinology Referral E28.2 - Polycystic ovarian syndrome Dermatology Referral L68.0 - Hirsutism, L73.2 - Hidradenitis suppurativa
[2024-07-31 13:44] VITALS: BP 146/88; PULSE 101; O2SAT 96; BMI 29.8
--- OUTSIDE RECORDS SUMMARY | 2024-07-31 13:48 | XMS_ITS | Data Portability ---
Author Organization KULWINDER Ferraro s, [address] Address [address] [place] [address] Care Team Providers Care [employer] Dean Name Role Phone ALIA TOSCANO Primary Care Provider Assessment No assessment recorded. Plan of Treatment Reminders Order Date Submit Date Provider Last Modified By Organization Details Last Modified Time Details Appointments None recorded. Lab urinalysis, dipstick 2023 024 [email or web address] [id number][facility], [address] [place] [address], [address], 4 18:23:13 test, urine 2023 024 [email or web address] [id number][facility], [address] [place] [address], [address], 4 18:23:14 vaginal pathogens panel, JOSE+probe, vaginal fluid 2023 024 [place] [facility], [address] [place] [address], [place], [address], 4 20:06:49 Referral None recorded. Procedures None recorded. Surgeries None recorded. Imaging None recorded. Medication Orders fluconazole 150 mg tablet 2023 024 [place] [id number], [address] [place], [address], 4 18:23:13 Patient TargetsNo targets recorded. Patient InstructionsNo instructions recorded. Reason for Referral None Reported. Results Created Date Observation Date Name Description Value Unit Range Abnormal Flag Note LastModifiedBy Organization Detail LastModifiedTime 04/29/19 24 05/01/2023 NUA B VAGIN ITIS PLUS (VG+) atopobium vaginae LOW - 0 score Not Available [facility] ([facility]) [address] [facility], [place], [address], 05/02/2023 20:06:49 04/29/19 24 05/01/2023 NUA B VAGIN ITIS PLUS (VG+) bvab 2 LOW - 0 score Not Available [facility] ([facility]) [address] [facility], [place], [address], 05/02/2023 20:06:49 04/29/19 24 05/01/2023 [facility]AGIN [facility]US (VG+) megasphaera 1 LOW - 0 score Calcu late total score by chandrika g the 3 indiv idual bacte rial vagin osis (BV) marke r score s toget her. Total score is inter prete d as follo ws: Total score 0-1: Indic ates the absen ce of BV. Total score 2: Indet ermin ate for BV. Addit ional clini red data shoul d be evalu ated to estab stephen a diagn osis. Total score 3-6: Indic ates the prese nce of BV. This test was devel oped and its perfo rmanc e leonard cteri stics deter mined by [facility]. It has not been clear ed or appro mel by the Food and Drug Admin istra tion. Not Available [facility] ([facility]) [address] [facility], [place], [address], 05/02/2023 20:06:49 04/29/19 24 05/02/2023 NUA B VAGIN ITIS PLUS (VG+) nicanor albicans, JOSE POSITI VE negati ve abnormal Not Available [facility] ([facility]) [address] [facility], [place], [address], 05/02/2023 20:06:49 04/29/19 24 05/02/2023 [facility] B VAGIN ITIS PLUS (VG+) nicanor glabrata, JOSE NEGATI VE negati ve Not Available [facility] ([facility]) [address] [facility], [place], [address], 05/02/2023 20:06:49 04/29/19 24 05/02/2023 NUA B VAGIN ITIS PLUS (VG+) trich vag by JOSE NEGATI VE negati ve Not Available [facility] ([facility]) [address] [facility], [place], [address], 05/02/2023 20:06:49 04/29/19 24 05/02/2023 [facility] B VAGIN ITIS PLUS (VG+) chlamydia trachomatis, JOSE NEGATI VE negati ve Not Available [facility] ([facility]) [address] [facility], [place], [address], 05/02/2023 20:06:49 04/29/19 24 05/02/2023 [facility] B VAGIN ITIS PLUS (VG+) neisseria gonorrhoeae, JOSE NEGATI VE negati ve Not Available [facility] ([facility]) [address] [facility], [place], [address], 05/02/2023 20:06:49 04/29/19 24 04/29/2023 urina lysis , dipst ick Unknown Analyte Yellow Not Available [facility] [address] [place], [address], 04/29/2023 18:07:30 04/29/19 24 04/29/2023 urina lysis , dipst ick Unknown Analyte Clear Not Available Isaac [facility] [address] [place], [address], 04/29/2023 18:07:30 04/29/19 24 04/29/2023 urina lysis , dipst ick Unknown Analyte Negati ve Not Available [address] [place], [address], 04/29/2023 18:07:30 04/29/19 24 04/29/2023 urina lysis , dipst ick Unknown Analyte Negati ve Not Available [facility] [address] [place], [address], 04/29/2023 18:07:30 04/29/19 24 04/29/2023 urina lysis , dipst ick Unknown Analyte Negati ve Not Available [facility] [address] [place], [address], 04/29/2023 18:07:30 04/29/19 24 04/29/2023 urina lysis , dipst ick Unknown Analyte 1.030 Not Available [address] [place], [address], 04/29/2023 18:07:30 04/29/19 24 04/29/2023 urina lysis , dipst ick Unknown Analyte Trace- intact Not Available [facility] [address] [place], [address], 04/29/2023 18:07:30 04/29/19 24 04/29/2023 urina lysis , dipst ick Unknown Analyte 6.0 Not Available [address] [place], [address], 04/29/2023 18:07:30 04/29/19 24 04/29/2023 urina lysis , dipst ick Unknown Analyte Negati ve Not Available [facility] [address] [place], [address], 04/29/2023 18:07:30 04/29/19 24 04/29/2023 urina lysis , dipst ick Unknown Analyte 0.2 E.U./d L Not Available jordi bullard [facility] [address] [place], [address], 04/29/2023 18:07:30 04/29/19 24 04/29/2023 urina lysis , dipst ick Unknown Analyte Negati ve Not Available _jordi bullard [facility] [address] [place], [address], 04/29/2023 18:07:30 04/29/19 24 04/29/2023 urina lysis , dipst ick Unknown Analyte Negati ve Not Available _jordi bullard [place] [address] [address] [place], [address], 04/29/2023 18:07:30 04/29/19 24 04/29/2023 pregn helen test, urine Unknown Analyte negati ve Not Available jordi bullard [place] [address] [address] [place], [address], 04/29/2023 18:07:45 04/29/1904/29/2023 pregn helen test, urine Unknown Analyte yes Not Available _ [place] [address] [address] [place], [address], 04/29/2023 18:07:45 Result Notes None recorded. Problems Name Problem SNOMED Code Status Onset Date Resolution Date Notes Provider Name and Address Organization Details Recorded Time Hiatal hernia 39237002 Active 024 ROBBIE LUPICA null, PA - [facility] 4 18:04:41 Acid reflux 959856540 Active 024 ROBBIE LUPICA null, PA - [facility] 4 18:04:49 Polycystic ovary syndrome 219179882 Active 024 ROBBIE LUPICA null, PA - [facility] 4 18:07:21 Vaginal irritation 815145834 Active 024 ROBBIE LUPICA null, PA - [facility] 4 18:07:40 Problem Notes None recorded. Procedures Surgical History Date Name Laterality Status Provider Name and Address Organization Details Recorded Time laparoscopic sleeve gastrectomy completed ROBBIE NORTONYOLANDA PA - [facility] 04/29/2023 18:04:23 tonsillectomy completed ROBBIE SHERIDAN PA - [facility] 04/29/2023 18:06:30 Ear Tube completed ROBBIE SHERIDAN PA - [facility] 04/29/2023 18:06:40 cholecystectomy completed ROBBIE SHERIDAN PA - [facility] 04/29/2023 18:06:47 procedure on ankle completed ROBBIE SHERIDAN PA - [facility] 04/29/2023 18:06:57 Imaging Results None recorded. Procedure Notes None recorded. Medical Equipment None Reported. Allergies No known drug allergies Medications Name Sig Start Date Stop Date Status Note LastModified by Organization Details LastModified Time fluconazole 150 mg tablet Take 1 tablet every 72 hours by oral route for 6 days. 024 active Not Available Not Available Not Avai lable Vitals Date Recorded Body height Body mass index (BMI) Body weight Respiratory rate Body temperature Oxygen saturation Oxygen saturation in Arterial blood by Pulse oximetry Heart rate Systolic blood pressure Diastolic blood pressure Provider Name and Address Organization Details Last Updated DateTime 157.48 cm 30.4 kg/m2 54979.3 3 g 18 /min 97.7 [degF] 99 % 99 % 82 /min 135 mm[Hg] 87 mm[Hg] ROBBIE SHERIDAN PA - [facility] 18:10:26 Social History Question Answer Notes LastModified by [place] Details LastModified Time Tobacco Smoking Status Never Smoker ROBBIE SHERIDAN froylan PA - [facility] 04/29/2023 18:06:13 Which Illicit Or Recreational Drugs Have You Used? Marijuana Information not available 04/29/2023 Have You Recently Traveled Abroad? No [email or web address] Information not available 04/29/2023 Sex: Unknown Functional Status Question Answer Note LastModified by [place] Details LastModified Time Do you use any illicit or recreational drugs? Yes [email or web address] Information not available 04/29/2023 Do you or have you ever used any other forms of tobacco or nicotine? No [email or web address] Information not available 04/29/2023 What is your level of alcohol consumption? None [email or web address] Information not available 04/29/2023 Mental Status None recorded. Family History Relationship Description Onset Age of this Age Resolved Age Notes LastModified by Organization Details LastModified Time Father Diabetes mellitus [email or web address] Not available 2023 18:05:19 Mother Diabetes mellitus [email or web address] Not available 2023 18:05:19 Mother Hypertensive disorder [email or web address] Not available 2023 18:05:30 Mother Seizure disorder [email or web address] Not available 2023 18:05:39 Mother Osteoporosis [email or web address] Not avai lable 04/29/2023 18:05:48 Medical History No medical history recorded. Gynecological History Statement/Question Response Date of LMP 04/18/2023 Is there any chance of ? No LMP Definite Obstetrics History GPAL:G 0 P 0 0 0 0 Past Encounters Encounter ID Performer Location Encounter Start Date Encounter Closed Date Diagnosis/Indication Diagnosis SNOMED-CT Code Diagnosis ICD10 Code Diagnosis Note [id number] KULWINDER Salcedo [address] [place] [address] 04/29/2023 17:38:28 04/29/2023 18:24:39 Vaginal irritation 161563183 N89.8 VULVOVAGIN AL CANDIDIASI SA vaginal yeast infection is the growth of too many yeast cells in the vagina. This is common in women of all ages. Itching, vaginal discharge and irritation , and other symptoms can bother you. But yeast infections don't often cause other health problems.?Some medicines can increase your risk of getting a yeast infection. These include antibiotic s, control pills, hormones, and steroids. You may also be more likely to get a yeast infection if you are , have diabetes, douche, or wear tight clothes.?With treatment, most yeast infections get better in 2 to 3 days.?Follow-up care is a delong part of your treatment and safety. Be sure to make and go to all appointmen ts, and call your doctor or nurse advice line if you are having problems. It's also a good idea to know your test results and keep a list of the medicines you take.?How can you care for yourself at home?Take your medicines exactly as prescribed . Call your doctor or nurse advice line if you think you are having a problem with your medicine.A sk your doctor about over-the-c ounter (OTC) medicines for yeast infections . They may cost less than prescripti on medicines. If you use an OTC treatment, read and follow all instructio ns on the label.Don' t use tampons while using a vaginal cream or suppositor y. The tampons can absorb the medicine. Use pads instead.We ar loose cotton clothing. Don't wear nylon or other fabric that holds body heat and moisture close to the skin.Try sleeping without underwear. Don't scratch. Relieve itching with a cold pack or a cool bath.Don't wash your vaginal area more than once a day. Use plain water or a mild, unscented soap. Air-dry the vaginal area.Talamantes e out of wet swimsuits after swimming.I f you are using a vaginal medicine, don't have sex until you have finished your treatment. But if you do have sex, don't depend on a condom or diaphragm for control. The oil in some vaginal medicines weakens latex.Don' t douche.Whe n should you call for help?Call your doctor or nurse advice line now or seek immediate medical care if:- You have unexpected vaginal bleeding.- You have new or increased pain in your vagina or pelvis.- Watch closely for changes in your health, and be sure to contact your doctor or nurse advice line if:* You have a fever.* You are not getting better after 2 days. Health Concerns Section Related Observation LastModified by Organization Detai ls LastModified Time None Recorded Concern Status LastModified by Organization Details LastModified Time None Recorded Advance Directives Directive None Recorded Payers Insurance Date Sequence Insurance Name Policy Number Policy Coburn Covered Member ID Coburn Member ID Guarantor Name 04/29/2023 1 [facility] [id number] Apurva L Colon [id number] Apurva Colon 04/29/2023 1 AMRITA (PPO) [id number] Apurva L Colon [id number] Apurva Colon Notes Date Note Type Note Provider Name and Address Organization Details Recorded Time 04/29/2023 text/html 32 y/o female here with a day of vaginal itch and discharge, worsening, lower abdominal pain, bloating. Feels like a yeast infection aside from the bloating which is different KULWINDER Salcedo [address] [place], [address], [place] - [facility] 04/29/2023 18:25:13 OBGyn Episode No OBEpisode recorded.
[2024-07-31 14:29] VITALS: BP 134/84
== END 2024-07-31 14:37 | disposition home or self-care (01) ==
DX: E28.2 Polycystic ovarian syndrome (principal); E11.29 Type 2 diabetes mellitus with other diabetic kidney complication; N64.52 Nipple discharge; F41.9 Anxiety disorder, unspecified; F32.A Depression, unspecified; E78.1 Pure hyperglyceridemia; I10 Essential (primary) hypertension; K76.0 Fatty (change of) liver, not elsewhere classified; L73.2 Hidradenitis suppurativa; E55.9 Vitamin D deficiency, unspecified; M65.341 Trigger finger, right ring finger

== ENCOUNTER → 2024-07-31 13:38 | Outpatient (BNVA) | payer OTHER, SELFPAY | DX: E11.29 Type 2 diabetes mellitus with other diabetic kidney complication (principal); I10 Essential (primary) hypertension; E78.1 Pure hyperglyceridemia; F41.9 Anxiety disorder, unspecified; F32.A Depression, unspecified; E28.2 Polycystic ovarian syndrome; N64.52 Nipple discharge; K76.0 Fatty (change of) liver, not elsewhere classified; L73.2 Hidradenitis suppurativa; E55.9 Vitamin D deficiency, unspecified; M65.30 Trigger finger, unspecified finger; Z98.84 Bariatric surgery status; L68.0 Hirsutism | CPT/HCPCS: 83036; 96127; 99212 ==

== ENCOUNTER 2024-08-21 16:24 | Emergency (ER) | payer OTHER, SELFPAY ==
[2024-08-21 17:03] VITALS: BP 142/86; PULSE 80; RESP 18; TEMP 36.1; O2SAT 100
--- OUTSIDE RECORDS SUMMARY | 2024-08-21 18:23 | XMS_ITS | Data Portability ---
Author Organization KULWINDER Ferraro s, [address] Address [address] [place] [address] Care Team Providers Care Origination Specialist Name Role Phone ALIA TOSCANO Primary Care Provider Assessment No assessment recorded. Plan of Treatment Reminders Order Date Submit Date Provider Last Modified By Organization Details Last Modified Time Details Appointments None recorded. Lab urinalysis, dipstick 2023 024 [email or web address] 21009_[facility], [address] [place] [address], [address], 4 18:23:13 test, urine 2023 024 [email or web address] 20999_[facility], [address] [place] [address], [address], 4 18:23:14 vaginal pathogens panel, JOSE+probe, vaginal fluid 2023 024 [place] [facility], [address] [place] [address], [place], [address], 4 20:06:49 Referral None recorded. Procedures None recorded. Surgeries None recorded. Imaging None recorded. Medication Orders fluconazole 150 mg tablet 2023 024 [place] [id number], [address] [place], [address], 4 18:23:13 Patient TargetsNo targets recorded. Patient InstructionsNo instructions recorded. Reason for Referral None Reported. Results Created Date Observation Date Name Description Value Unit Range Abnormal Flag Note LastModifiedBy Organization Detail LastModifiedTime 04/29/19 24 05/01/2023 NUA B VAGIN ITIS PLUS (VG+) atopobium vaginae LOW - 0 score Not Available [facility] ([facility]) [address] [facility], [place], [address], 05/02/2023 20:06:49 04/29/19 24 05/01/2023 NUA B VAGIN ITIS PLUS (VG+) bvab 2 LOW - 0 score Not Available [facility] ([facility]) [address] [facility] [place] [facility], [place], [address], 05/02/2023 20:06:49 04/29/19 24 05/01/[facility] megasphaera 1 [...] Drug Admin istra tion. Not Available [facility] ([facility]) [address] [facility] [place] [facility], [place], [address], 05/02/2023 20:06:49 04/29/19 24 05/02/2023 NUA B VAGIN ITIS PLUS (VG+) nicanor albicans, JOSE POSITI VE negati ve abnormal Not Available [facility] ([facility]) [address] [facility] [place] [facility], [place], [address], 05/02/2023 20:06:49 04/29/19 24 05/02/2023 [facility] nicanor glabrata, JOSE NEGATI VE negati ve Not Available [facility] ([facility]) [address] [facility] [place] [facility], [place], [address], 05/02/2023 20:06:49 04/29/19 24 05/02/2023 NUA B VAGIN ITIS PLUS (VG+) trich vag by JOSE NEGATI VE negati ve Not Available [facility] ([facility]) [address] [facility], [place], [address], 05/02/2023 20:06:49 04/29/19 24 05/02/2023 [facility] B VAGIN ITIS PLUS (VG+) chlamydia trachomatis, JOSE NEGATI VE negati ve Not Available [facility] ([facility]) [address] [facility] [place] [facility], [place], [address], 05/02/2023 20:06:49 04/29/19 24 05/02/2023 [facility] B VAGIN ITIS PLUS (VG+) neisseria gonorrhoeae, JOSE NEGATI VE negati ve Not Available [facility] ([facility]) [address] [facility], [place], [address], 05/02/2023 20:06:49 04/29/19 24 04/29/2023 urina lysis , dipst ick Unknown Analyte Yellow Not Available Isaac [facility] [address] [place], [address], 04/29/2023 18:07:30 04/29/19 24 04/29/2023 urina lysis , dipst ick Unknown Analyte Clear Not Available Isaac green [facility] [address] [place], [address], 04/29/2023 18:07:30 04/29/19 24 04/29/2023 urina lysis , dipst ick Unknown Analyte Negati ve Not Available [address] [place], [address], 04/29/2023 18:07:30 04/29/19 24 04/29/2023 urina lysis , dipst ick Unknown Analyte Negati ve Not Available [facility] [address] [place], [address], 04/29/2023 18:07:30 04/29/19 24 04/29/2023 urina lysis , dipst ick Unknown Analyte Negati ve Not Available [facility] [address] [place], [address], 04/29/2023 18:07:30 04/29/19 24 04/29/2023 urina lysis , dipst ick Unknown Analyte 1.030 Not Available [address] [place], [address], 04/29/2023 18:07:30 04/29/19 24 04/29/2023 urina lysis , dipst ick Unknown Analyte Trace- intact Not Available [facility] [address] [place], [address], 04/29/2023 18:07:30 04/29/19 24 04/29/2023 urina lysis , dipst ick Unknown Analyte 6.0 Not Available [address] [place], [address], 04/29/2023 18:07:30 04/29/19 24 04/29/2023 urina lysis , dipst ick Unknown Analyte Negati ve Not Available [facility] [address] [place], [address], 04/29/2023 18:07:30 04/29/19 24 04/29/2023 urina lysis , dipst ick Unknown Analyte 0.2 E.U./d L Not Available jordi bullard [facility] [address] [place], [address], 04/29/2023 18:07:30 04/29/19 24 04/29/2023 urina lysis , dipst ick Unknown Analyte Negati ve Not Available _jordi bullard [facility] [address] [place], [address], 04/29/2023 18:07:30 04/29/19 24 04/29/2023 urina lysis , dipst ick Unknown Analyte Negati ve Not Available _jordi bullard [place] [address] [address] [place], [address], 04/29/2023 18:07:30 04/29/19 24 04/29/2023 pregn helen test, urine Unknown Analyte negati ve Not Available jordi bullard [place] [address] [address] [place], [address], 04/29/2023 18:07:45 04/29/1904/29/2023 pregn helen test, urine Unknown Analyte yes Not Available _ norm[place] [address] [address] [place], [address], 04/29/2023 18:07:45 Result Notes None recorded. Problems Name Problem SNOMED Code Status Onset Date Resolution Date Notes Provider Name and Address Organization Details Recorded Time Hiatal hernia 28298740 Active 024 ROBBIE LUPICA null, PA - [facility] 4 18:04:41 Acid reflux 830968533 Active 024 ROBBIE LUPICA null, PA - [facility] 4 18:04:49 Polycystic ovary syndrome 951604387 Active 024 ROBBIE LUPICA null, PA - [facility] 4 18:07:21 Vaginal irritation 893232263 Active 024 ROBBIE LUPICA null, PA - [...] Last Updated DateTime 157.48 cm 30.4 kg/m2 04914.3 3 g 18 /min 97.7 [degF] 99 % 99 % 82 /min 135 mm[Hg] 87 mm[Hg] ROBBIE SHERIDAN PA - [facility] 18:10:26 Social History Question Answer Notes LastModified by [email or web address] Details LastModified Time Tobacco Smoking Status Never Smoker ROBBIE SHERIDAN froylan PA - [facility] 04/29/2023 18:06:13 Which Illicit Or Recreational Drugs Have You Used? Marijuana [email or web address] Information not available 04/29/2023 Have You Recently Traveled Abroad? No [email or web address] Information not available 04/29/2023 Sex: Unknown Functional Status Question Answer Note LastModified by [email or web address] Details LastModified Time Do you use any illicit or recreational drugs? Yes [email or web address] Information not available 04/29/2023 Do you or have you ever used any other forms of tobacco or nicotine? No [email or web address] Information not available 04/29/2023 What is your level of alcohol consumption? None [email or web address] Information not available 04/29/2023 Mental Status None recorded. Family History Relationship Description Onset Age of this Age Resolved Age Notes LastModified by Organization Details LastModified Time Father Diabetes mellitus [email or web address] Not available 2023 18:05:19 Mother Diabetes mellitus [email or web address] Not available 2023 18:05:19 Mother Hypertensive disorder Not available 2023 18:05:30 Mother Seizure disorder [email or web address] Not available 2023 18:05:39 Mother Osteoporosis [email or web address] Not avai lable 04/29/2023 18:05:48 Medical History No medical history recorded. Gynecological History Statement/Question Response Date of LMP 04/18/2023 Is there any chance of ? No LMP Definite Obstetrics History GPAL:G 0 P 0 0 0 0 Past Encounters Encounter ID Performer Location Encounter Start Date Encounter Closed Date Diagnosis/Indication Diagnosis SNOMED-CT Code Diagnosis ICD10 Code Diagnosis Note [id number] KULWINDER Salcedo [address] [place] [address] 04/29/2023 17:38:28 04/29/2023 18:24:39 Vaginal irritation 694072861 N89.8 VULVOVAGIN AL CANDIDIASI SA vaginal yeast [...] Member ID Guarantor Name 04/29/2023 1 [facility] - HMO) [id number] Apurva L Colon [id number] Apurva Colon 04/29/2023 1 AMRITA (PPO) [id number] Apurva L Colon [id number] Apurva Colon Notes Date Note Type Note Provider Name and Address Organization Details Recorded Time 04/29/2023 text/html 32 y/o female here with a day of vaginal itch and discharge, worsening, lower abdominal pain, bloating. Feels like a yeast infection aside from the bloating which is different KULWINDER Salcedo [address] [place], [address], [place] - [facility] 04/29/2023 18:25:13 OBGyn Episode No OBEpisode recorded.
--- NOTE | 2024-08-21 19:10 | ED.SKABFB ---
HPI - Skin/Abscess/Foreign Bdy General Chief complaint: Skin/Abscess/Foreign Body Stated complaint: groin abscess Time Seen by Provider: 08/21/24 17:29 History of Present Illness ED Provider: Shmuel Blue MD HPI narrative: 33-year-old female with history of PCOS, hyperglycemia, hypertension with history of pubic region abscesses in the past left sides IUD remotely. Now with central pubic area redness tenderness concerning for abscess Related Data Previous Rx's ?Medication ?Instructions ?Recorded cefadroxil 500 mg capsule 500 mg PO BID 7 days #14 caps 08/21/24 sulfamethoxazole 800 1 tab PO Q12H 5 days #10 tabs 08/21/24 mg-trimethoprim 160 mg tablet (Bactrim DS) Allergies Allergy/AdvReac Type Severity Reaction Status Date / Time dulaglutide [From Trulicity] Allergy Severe stomach Verified 08/21/24 17:05 pains, nausea and vomiting metformin Allergy Severe stomach Verified 07/31/24 14:04 pains canagliflozin [From Invokana] Allergy Intermediate UTI and Verified 07/31/24 14:04 yeast infections PMFSH Past Medical History Medical History Ankle fracture Congenital intra-abdominal adhesions Closed fracture of distal phalanx of left ring finger Anesthesia PCOS (polycystic ovarian syndrome) Anxiety Depression Elevated testosterone level in female Hypertriglyceridemia Vitamin D deficiency Hirsutism Essential hypertension Proteinuria Type 2 diabetes mellitus with other diabetic kidney complication Obesity due to excess calories Surgical History H/O gastric sleeve History of myringotomy History of ankle surgery History of cholecystectomy History of tonsillectomy Family History Family History Father Diabetes Mother Diabetes Epilepsy Cardiac arrest Maternal Grandmother Diabetes Paternal Grandmother Diabetes Brother No problems noted. Social History Social History Household Members: Family Housing: House Are you a primary senior care manager to a significant other at home: No Do you presently have visiting nurse or other home services: No Alcohol intake: current Alcohol intake frequency: holidays/special occasions only Patient Tobacco Use Status: Never used Tobacco Smoked in Last 30 Days: No e-Cigarette/Vaping Use: Never Used Second Hand Smoke Exposure: No Use of substances other than those prescribed or required for medical reasons: Yes Substance Use Type: Marijuana Substance Use Frequency: Daily Advance Directives: Yes Advance Directives on File: Yes Advance Directives Date on File: 10/20/21 service: No Current occupational status: employed 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 No apparent distress. Alert. HEAD/NECK: No visual trauma. EYES: Normal to inspection. No conjunctival erythema. No discharge. ENMT: Hearing grossly normal. External nose normal. RESPIRATORY: Respiratory effort normal. CARDIOVASCULAR: Additional details (Grossly well perfused). SKIN: Pubic region with a central proximally 2 cm tender red fluctuant region NEUROLOGICAL: Alert. Moving all extremities x4. Additional details (No gross motor deficits. Normal tone. ). PSYCHIATRIC: Alert. Appearance appropriate for situation. Medications Administered Discontinued Medications Generic Name Dose Route Start Last Admin Trade Name Juanjoq PRN Reason Stop Dose Admin Cephalexin HCl 500 mg 08/21/24 18:44 08/21/24 19:49 Cephalexin 500 Mg Capsule PO 08/21/24 18:45 500 mg ONCE ONE Administration Ibuprofen 600 mg 08/21/24 18:44 08/21/24 19:49 Ibuprofen 600 Mg Tablet PO 08/21/24 18:45 600 mg ONCE ONE Administration Lidocaine/Epinephrine 10 ml 08/21/24 18:44 08/21/24 19:49 Lidocaine Hcl 1%/Epi 1:100,000 20 Ml Vial INFILTRATI 08/21/24 18:45 10 ml ONCE ONE Administration Trimethoprim/Sulfamethoxazole 1 tab 08/21/24 18:44 08/21/24 19:49 Sulfamethox/Trimeth 800/160 Tablet PO 08/21/24 18:45 1 tab ONCE ONE Administration Medical Decision Making Medical Decision Making MDM Narrative: [age] female with pubic abscess simple and superficial. Status post incision and drainage and packing. No systemic symptoms. No criteria met for sepsis. Antibiotics I and D discharged home Procedures Procedure Narrative Procedure Narrative: EMERGENCY ULTRASOUND INTERPRETATION- Limited skin and soft tissue [This study was ordered, performed, and interpreted by myself. The study reveals: Impression: Superficial abscess dimensions approximately 7 x 8 x 6 mm [Indication: Redness and swelling Skin: Pubic region skin with an abscess as identified above. Performed by: Shmuel Blue MD Images were stored ] Discharge Plan Discharge Clinical Impression: Abscess Patient Disposition: Home, Self-Care Instructions: Abscess (ED), Abscess Incision and Drainage (DC) Additional Instructions: DISCHARGE DIAGNOSES: Pubic region simple abscess HISTORY OF PRESENTATION: ?Swelling and abscess in the pubic area for few days EMERGENCY DEPARTMENT COURSE,TESTS, TREATMENTS: While in the ED today you had an incision and drainage after an ultrasound identified a drainable pocket DISCHARGE MEDICATIONS: ?Bactrim and cefadroxil 1 week prescription take with probiotic or 1 or 2 yogurt per day FOLLOW-UP: ?Call your primary or general physician soon as possible to discuss your symptoms, your ED visit and to discuss follow up plans Packing needs to be removed in 2 days. If it falls out on its own do not worry about it. Keep the region covered do not soak the area or submerge for at least 1 week INSTRUCTIONS ?& RETURN PRECAUTIONS: If any symptoms change first call your primary physician, if it is after-hours your primary doctors office should have a provider manager implementation you can speak with. If the symptoms are severe or very concerning to you then call 911 or return to the ED. Return if it is worsening or you develop high fevers Shmuel Blue MD Emergency Physician [facility] Prescriptions: New sulfamethoxazole-trimethoprim [Bactrim DS] 800-160 mg tablet 1 tab PO Q12H 5 Days Qty: 10 0RF cefadroxil 500 mg capsule 500 mg PO BID 7 Days Qty: 14 0RF Ref[place]: [facility] [place] Group] (If you continue to get pubic region or axillary abscesses you may need to follow up with General surgery as you may have hidradenitis suppurativa a chronic skin abscess condition) Stand Alone Forms: Work/School Release Interventions: ED Discharge Assessment Last Done: 08/21/24 19:39 Discharge Date/Time: 08/21/24 19:56 Print Language: Uzbek
[2024-08-21 19:15] VITALS: BP 130/75; PULSE 77; RESP 18; TEMP 36.9; O2SAT 100
[2024-08-21 19:21] VITALS: BP 130/75; PULSE 77; RESP 18; TEMP 36.9; O2SAT 100
[2024-08-21 19:39] VITALS: BP 130/75; PULSE 77; RESP 18; TEMP 36.9; O2SAT 100
[2024-08-21] MEDS: Lidocaine HCl 1%/Epi 1:100,000 20 ML VIAL 10 ML INFILTRATI (19:49)
[2024-08-21] MEDS: Sulfamethox/Trimeth 800/160 TABLET 1 TAB PO (19:49)
[2024-08-21] MEDS: cephALEXin 500 MG CAPSULE PO (19:49)
[2024-08-21] MEDS: Ibuprofen 600 MG TABLET PO (19:49)
== END 2024-08-21 19:56 | disposition home or self-care (01) ==
PROVIDERS: Emergency Provider Emergency Medicine
DX: L02.214 Cutaneous abscess of groin (principal); Z79.899 Other long term (current) drug therapy
CPT/HCPCS: 10060; 87070; 87077; 87186; 87205; 99284; J2004

== ENCOUNTER 2024-09-04 08:24 | Outpatient (REF) | payer OTHER, SELFPAY ==
[2024-09-04 08:37] LABS: MANUAL DIFF FLAG NO
--- OUTSIDE RECORDS SUMMARY | 2024-09-04 08:40 | XMS_ITS | Data Portability ---
Author Organization [facility], [address] Address [address] [place] [address] Care Team Providers Care Marketing Teacher Name Role Phone ALIA TOSCANO Primary Care Provider Assessment No assessment recorded. Plan of Treatment Reminders Order Date Submit Date Provider Last Modified By Organization Details Last Modified Time Details Appointments None recorded. Lab urinalysis, dipstick 2023 024 [email or web address] [address], [address] [place] [address], [phone], 4 18:23:13 test, urine 20[email or web address], [address] [place] [address], [id number], 4 18:23:14 vaginal pathogens panel, JOSE+probe, vaginal fluid 2023 024 [employer] [facility], [address] [place] [address], [place], [address], 4 20:06:49 Referral None recorded. Procedures None recorded. Surgeries None recorded. Imaging None recorded. Medication Orders fluconazole 150 mg tablet 2023 024 [employer] [id number], [address] [place], [address], 4 18:23:13 Patient TargetsNo targets recorded. Patient InstructionsNo instructions recorded. Reason for Referral None Reported. Results Created Date Observation Date Name Description Value Unit Range Abnormal Flag Note LastModifiedBy Organization Detail LastModifiedTime 04/29/19 24 05/01/2023 NUA B VAGIN ITIS PLUS (VG+) atopobium vaginae LOW - 0 score Not Available [facility] ([facility]) [address] [facility], [place], [address], 05/02/2023 20:06:49 04/29/19 24 05/01/2023 NUA B VAGIN ITIS PLUS (VG+) bvab 2 LOW - 0 score Not Available [facility] ([facility]) [address] [facility], [place], [address], 05/02/2023 20:06:49 04/29/19 24 05/01/2023 NUA B VAGIN ITIS PLUS (VG+) megasphaera 1 [...] Drug Admin istra tion. Not Available [facility] ([facility]) [address] [facility], [place], [address], 05/02/2023 20:06:49 04/29/19 24 05/02/2023 NUA B VAGIN ITIS PLUS (VG+) nicanor albicans, JOSE POSITI VE negati ve abnormal Not Available [facility] ([facility]) [address] [facility], [place], [address], 05/02/2023 20:06:49 04/29/19 24 05/02/2023 NUA B VAGIN ITIS PLUS (VG+) nicanor glabrata, JOSE NEGATI VE negati ve Not Available [facility] ([facility]) [address] [facility], [place], [address], 05/02/2023 20:06:49 04/29/19 24 05/02/2023 NUA B VAGIN ITIS PLUS (VG+) trich vag by JOSE NEGATI VE negati ve Not Available [facility] ([facility]) [address] [facility], [place], [address], 05/02/2023 20:06:49 04/29/19 24 05/02/2023 NUA B VAGIN ITIS PLUS (VG+) chlamydia trachomatis, JOSE NEGATI VE negati ve Not Available [facility] ([facility]) [address] [facility], [place], [address], 05/02/2023 20:06:49 04/29/19 24 05/02/2023 NUA B VAGIN ITIS PLUS (VG+) neisseria gonorrhoeae, JOSE NEGATI VE negati ve Not Available [facility] ([facility]) [address] [facility], [place], [address], 05/02/2023 20:06:49 04/29/19 24 04/29/2023 urina lysis , dipst ick Unknown Analyte Yellow Not Available [facility] [address] [place], [address], 04/29/2023 18:07:30 04/29/19 24 04/29/2023 urina lysis , dipst ick Unknown Analyte Clear Not Available [facility] [address], [address], 04/29/2023 18:07:30 04/29/19 24 04/29/2023 urina lysis , dipst ick Unknown Analyte Negati ve Not Available [address] [place], [address], 04/29/2023 18:07:30 04/29/19 24 04/29/2023 urina lysis , dipst ick Unknown Analyte Negati ve Not Available jordi bullard [address] [place], [address], 04/29/2023 18:07:30 04/29/19 24 04/29/2023 urina lysis , dipst ick Unknown Analyte Negati ve Not Available [address]ordi bullard [address], [address], 04/29/2023 18:07:30 04/29/19 24 04/29/2023 urina lysis , dipst ick Unknown Analyte 1.030 Not Available norma [address] [place], [address], 04/29/2023 18:07:30 04/29/19 24 04/29/2023 urina lysis , dipst ick Unknown Analyte Trace- intact Not Available jordi bullard [address] [place], [address], 04/29/2023 18:07:30 04/29/19 24 04/29/2023 urina lysis , dipst ick Unknown Analyte 6.0 Not Available norma [address] [place], [address], 04/29/2023 18:07:30 04/29/19 24 04/29/2023 urina lysis , dipst ick Unknown Analyte Negati ve Not Available [address]ordi [address]ard [address], [address], 04/29/2023 18:07:30 04/29/19 24 04/29/2023 urina lysis , dipst ick Unknown Analyte 0.2 E.U./d L Not Available [address], [address], 04/29/2023 18:07:30 04/29/19 24 04/29/2023 urina lysis , dipst ick Unknown Analyte Negati ve Not Available [address], [address], 04/29/2023 18:07:30 04/29/19 24 04/29/2023 urina lysis , dipst ick Unknown Analyte Negati ve Not Available jordi bullard [place] [address] [address] [place], [address], 04/29/2023 18:07:30 04/29/19 24 04/29/2023 pregn helen test, urine Unknown Analyte negati ve Not Available jordi bullard [address] [place], [address], 04/29/2023 18:07:45 04/29/19 24 04/29/2023 pregn helen test, urine Unknown Analyte yes Not Available [address]Naldo_ norma [address] [place], [address], 04/29/2023 18:07:45 Result Notes None recorded. Problems Name Problem SNOMED Code Status Onset Date Resolution Date Notes Provider Name and Address Organization Details Recorded Time Hiatal hernia 35619718 Active 024 ROBBIE LUPICA null, PA - [facility] 4 18:04:41 Acid reflux 484236237 Active 024 ROBBIE LUPICA null, PA - [facility] 4 18:04:49 Polycystic ovary syndrome 113137154 Active 024 ROBBIE LUPICA null, PA - [facility] 4 18:07:21 Vaginal irritation 521887701 Active 024 ROBBIE NORTONICA null, PA - [facility] 4 18:07:40 Problem Notes None recorded. Procedures Surgical History Date Name Laterality Status Provider Name and Address Organization Details Recorded Time laparoscopic sleeve gastrectomy completed ROBBIE SHERIDAN PA - [facility] 04/29/2023 18:04:23 tonsillectomy [...] and Address Organization Details Last Updated DateTime 4 157.48 cm 30.4 kg/m2 66900.3 3 g 18 /min 97.7 [degF] 99 % 99 % 82 /min 135 mm[Hg] 87 mm[Hg] ROBBIE SHERIDAN PA - [facility] 18:10:26 Social History Question Answer Notes LastModified by [employer] Details LastModified Time Tobacco Smoking Status Never Smoker ROBBIE SHERIDAN froylan PA - [facility] 04/29/2023 18:06:13 Which Illicit Or Recreational Drugs Have You Used? Marijuana [email or web address] Information not available 04/29/2023 Have You Recently Traveled Abroad? No [email or web address] Information not available 04/29/2023 Sex: Unknown Functional Status Question Answer Note LastModified by [employer] Details LastModified Time Do you use any illicit or recreational drugs? Yes [email or web address] Information not available 04/29/2023 Do you or have you ever used any other forms of tobacco or nicotine? No [email or web address] Information not available 04/29/2023 What is your level of alcohol consumption? None [email or web address] Information not available 04/29/2023 Mental Status None recorded. Family History Relationship Description Onset Age of this Age Resolved Age Notes LastModified by Organization Details LastModified Time Father Diabetes mellitus [email or web address] Not available 2023 18:05:19 Mother Diabetes mellitus [email or web address] Not available 2023 18:05:19 Mother Hypertensive disorder [email or web address] Not available 2023 18:05:30 Mother Seizure disorder Not available 2023 18:05:39 Mother Osteoporosis [email or web address] Not avai lable 04/29/2023 18:05:48 Medical History No medical history recorded. Gynecological History Statement/Question Response Date of LMP 04/18/2023 Is there any chance of ? No LMP Definite Obstetrics History GPAL:G 0 P 0 0 0 0 Past Encounters Encounter ID Performer Location Encounter Start Date Encounter Closed Date Diagnosis/Indication Diagnosis SNOMED-CT Code Diagnosis ICD10 Code Diagnosis Note [id number] [facility] [address] [place] [address] 04/29/2023 17:38:28 04/29/2023 18:24:39 Vaginal irritation 342807297 N89.8 VULVOVAGIN AL CANDIDIASI SA vaginal yeast infection is the growth of too many yeast cells in the vagina. This is common in women of all ages. Itching, vaginal discharge and irritation , and other symptoms can bother you. But yeast infections don't often cause other health problems. Some medicines can increase your risk of getting a yeast infection. These include antibiotic s, control pills, hormones, and steroids. You may also be more likely to get a yeast infection if you are , have diabetes, douche, or wear tight clothes. With treatment, most yeast infections get better in 2 to 3 days. Follow-up care is a delong part of your treatment and safety. Be sure to make and go to all appointmen ts, and call your doctor or nurse advice line if you are having problems. It's also a good idea to know your test results and keep a list of the medicines you take. How can you care for yourself at home?Take [...] t douche.Whe n should you call for help? Call your doctor or nurse advice line now [...] [place] Member ID Guarantor Name 04/29/2023 1 [facility] (MEDICAID REPLACEMENT - HMO) [id number] Apurva L Colon [id number] Apurva Colon 04/29/2023 1 [facility] (PPO) [id number] Apurva L Colon [id number] Apurva Colon Notes Date Note Type Note Provider Name and Address Organization Details Recorded Time 04/29/2023 text/html 32 y/o female here with a day of vaginal itch and discharge, worsening, lower abdominal pain, bloating. Feels like a yeast infection aside from the bloating which is different KULWINDER Salcedo [address] [place], [address], [place] - [facility] 04/29/2023 18:25:13 OBGyn Episode No OBEpisode recorded.
[2024-09-04 09:07] LABS: Basophils Percent Auto 0.3 % (0-2); Eosinophils Absolute Auto 0.1 X10*3/uL (0.0-0.4); Eosinophils Percent Auto 1.4 % (0-4); Hematocrit 35.9 % (37.0-47.0); Hemoglobin 12.3 g/dl (12.0-16.0); Imm Gran Abs Auto 0.04 X10*3/uL (0.00-0.03); Imm Gran Pct Auto 0.5 % (0.0-0.4); Lymphocytes Absolute Auto 1.9 X10*3/uL (1.2-4.9); Mean Corpuscular HGB Conc 34.3 g/dl (31.0-35.0); Mean Corpuscular Hemoglobin 28.3 pg (27.0-33.0); Mean Corpuscular Volume 82.7 fL (80.0-98.0); Mean Platelet Volume 12.3 fL (9.4-12.3); Monocytes Absolute Auto 0.4 X10*3/uL (0.1-1.2); Neutrophils Absolute Auto 6.4 x10*3/uL (2.0-8.3); Neutrophils Percent Auto 71.8 % (45-73); Platelet Count 177 X10*3/uL (160-400); Red Blood Count 4.34 X10*6/uL (4.20-5.50); Red Cell Distribution Width 13.4 % (11.0-16.0); White Blood Count 8.9 X10*3/uL (4.8-10.8)
[2024-09-04 09:42] LABS: Alanine Aminotransferase 24 U/L (0-31); Albumin Level 4.5 g/dL (3.5-5.0); Alkaline Phosphatase 62 U/L (39-117); Anion Gap 12 (12-20); Aspartate Amino Transferase 25 U/L (5-31); Bilirubin Total 0.5 mg/dL (0.0-1.0); Blood Urea Nitrogen 9 mg/dL (9-16); Calcium 9.2 mg/dL (8.4-10.2); Carbon Dioxide 27 mmol/L (22-29); Chloride 106 mmol/L (96-108); Cholesterol 175 mg/dL (<200); Estimated Glomerular Filt Rate > 60; Glucose Random 118 mg/dL (60-115); HDL Cholesterol 45 mg/dL (>40); LDL Cholesterol Calculated 108 mg/dL (<100); Sodium 141 mmol/L (135-145); Total Protein 8.1 g/dL (6.5-8.0); Triglycerides 110 mg/dL (<150)
[2024-09-04 10:01] LABS: Free T4 (Free Thyroxine) 0.92 ng/dL (0.71-1.85); TSH reflex Free T4 1.45 uIU/mL (0.32-4.0)
[2024-09-04 10:18] LABS: Folate 13.4 ng/mL (> or = 4.0); Vitamin B12 456 pg/mL (200-900)
[2024-09-06 02:24] LABS: Follicle Stimulating Hormone 7.5 mIU/mL; Prolactin 11.1 ng/mL
== END 2024-09-04 08:25 | disposition home or self-care (01) ==
LOC: HO.LAB 08:24
DX: Z00.00 Encounter for general adult medical examination without abnormal findings (principal); Z13.21 Encounter for screening for nutritional disorder; N64.52 Nipple discharge; E28.2 Polycystic ovarian syndrome; E78.1 Pure hyperglyceridemia; L68.0 Hirsutism; Z23 Encounter for immunization; F41.9 Anxiety disorder, unspecified; F32.A Depression, unspecified; I10 Essential (primary) hypertension; E11.29 Type 2 diabetes mellitus with other diabetic kidney complication; K76.0 Fatty (change of) liver, not elsewhere classified; L73.2 Hidradenitis suppurativa; E55.9 Vitamin D deficiency, unspecified; M65.30 Trigger finger, unspecified finger
CPT/HCPCS: 36415; 80053; 80061; 82306; 82607; 82746; 83001; 84146; 84439; 84443; 85025; 90471; 90715; 99395

== ENCOUNTER 2024-09-04 10:39 | Outpatient (AMB) | payer OTHER, SELFPAY ==
--- NOTE | 2024-09-04 10:44 | MHC.PC.OV ---
Vital Signs 09/04/24 10:45 Height 5 ft 2 in Weight 164 lb BMI 30.0 BP 100/66 Blood Pressure Location Lt brachial Position Sitting Pulse 86 Pulse Source Pulse Oximeter Temp 97.1 F Temp Source Temporal Artery Scan Pulse Oximetry (%) 98 Oxygen Delivery Method Room Air Intake Visit Reasons: Annual exam Intake Note: Patient is here today for a physical. Environmental Compliance Inspector Required: No Agricultural Engineering Technologist: Not Required per policy Accompanied by: Self / Same As Patient Allergies dulaglutide (From Trulicity) Allergy (Severe, Verified 09/04/24 11:05) stomach pains, nausea and vomiting metformin Allergy (Severe, Verified 09/04/24 11:05) stomach pains canagliflozin (From Invokana) Allergy (Intermediate, Verified 09/04/24 11:05) UTI and yeast infections Medication List - Last Reconciled 09/04/24 by Suzy Conrad PA-C No Known Home Meds Tobacco use date assessed: 09/04/24 Dental Screening Dental Screen Date: 07/31/24 HPI Annual exam HPI Details 33 year old female with past medical history of diabetes mellitus, hypertension, hirsutism, hypertriglyceridemia, depression, anxiety, PCOS, fatty liver, and HS last seen 07/2024 coming in for annual exam. Presenting with hidradenitis suppurativa, nipple discharge, and pain in the right ring finger. Hidradenitis suppurativa with recurring abscesses primarily in the groin and occasionally in the armpits, resolving spontaneously. Nipple discharge is Bilateral, non-bloody discharge, more frequent post-shower, described as crusting. Pain in right ring finger radiating to the pinky, exacerbated by work, with some relief from night splinting. pap smear: UTD through [facility] Medical History Ankle fracture Congenital intra-abdominal adhesions Closed fracture of distal phalanx of left ring finger Anesthesia PCOS (polycystic ovarian syndrome) Anxiety Depression Elevated testosterone level in female Hypertriglyceridemia Vitamin D deficiency Hirsutism Essential hypertension Proteinuria Type 2 diabetes mellitus with other diabetic kidney complication Obesity due to excess calories Surgical History H/O gastric sleeve History of myringotomy History of ankle surgery History of cholecystectomy History of tonsillectomy Family History Father Diabetes Mother Diabetes Epilepsy Cardiac arrest Maternal Grandmother Diabetes Paternal Grandmother Diabetes Brother No problems noted. 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 Current occupational exposures/hazards: No Sexual orientation: Straight/Heterosexual Gender identity: Female Cognitive needs: No Hearing needs: No Vision needs: No Questionnaire Thrive Questionnaire Date Thrive assessed: 07/31/24 I am a: Patient What is your living situation today?: I have a steady place to live Within the past 12 months, did the food you bought not last and you didn't have the money to get more?: Never true Within the past 12 months, did you worry whether your food would run out before you got money to buy more?: Never true Do you have trouble paying for medicines?: No Do you have trouble getting transportation to medical appointments?: No Do you have trouble paying your heating and electricity bill?: No Do you have trouble taking care of your child, family member or friend?: No Do you have trouble with day-to-day activities such as bathing, preparing meals, shopping, managing finances, etc.?: No Are you currently unemployed and looking for a job?: No Are you interested in more education?: No Please select the resources that you would like help with: None Currently or been in a relationship where the following occur: I choose not to answer THRIVE Score: 0 EFRAIN-7 AMB Questionnaire EFRAIN-7 Date EFRAIN - 7 assessed: 07/31/24 Source: Developed by Drs. Ramo Gallego, Sujey Price, Ulises Bains and colleagues, with an educational tata from [employer]. Review of Systems Const Denies body aches, Denies chills, Denies fever(s), Denies headache(s) and Denies poor appetite Eyes Reports no additional complaints ENT Denies dysphagia, Denies dizziness, Denies headache(s) and Denies odynophagia Card Denies chest pain, Denies syncope, Denies edema, Denies irregular heart rhythm, Denies lightheadedness and Denies dyspnea Resp Denies cough and Denies dyspnea GI Denies abdominal pain, Denies constipation, Denies dysphagia, Reports diarrhea (w/ abx), Denies nausea, Denies odynophagia and Denies vomiting Reports no additional complaints Musc Reports no additional complaints and Denies abnormal gait Skin/Breast Reports system reviewed and no additional complaints, except as documented Neuro Denies abnormal gait, Denies dizziness, Denies syncope and Denies headache(s) Psych Reports no additional complaints Physical exam (Primary Care) Vital Signs: Last Vital Signs Temp 97.1 F 09/04/24 10:45 Pulse 86 09/04/24 10:45 BP 100/66 09/04/24 10:45 Pulse Ox 98 09/04/24 10:45 Oxygen Delivery Method Room Air 09/04/24 10:45 BMI result Body Mass Index 30.0 Tobacco/Smoking Status: Tobacco use Status Tobacco use date assessed 09/04/24 09/04/24 10:49 Patient Tobacco Use Status Never used Tobacco 09/04/24 10:44 Tobacco use type 07/31/24 14:36 e-Cigarette/Vaping Use Never Used 09/04/24 10:44 Thrive Assessment: Date of Thrive Assessment Date Thrive assessed 07/31/24 09/04/24 10:44 Currently or been in a relationship where the following occur: I choose not to answer Const General: cooperative, healthy appearing, comfortable and no acute distress Orientation/consciousness: patient oriented x3 HENMT Head: Yes normocephalic Ears: hearing grossly normal bilaterally, external ears normal, TM's normal bilaterally and EAC's normal General nose exam: Normal external nose present Face and sinus: Yes normal facial exam and Yes sinuses nontender Mouth: Normal oral and palatal mucosa present and tongue normal Throat: Yes posterior oropharynx normal Eyes General: appearance normal, both eyes and all related structures Conjunctivae: conjunctivae normal Pupils: Equal, round and reactive pupils present EOM: EOMs intact bilaterally and No Nystagmus present Neck Neck: Yes normal visual inspection, Yes full ROM and Yes no lymphadenopathy Chest Chest palpation & inspection: normal inspection of the chest and normal palpation of entire chest wall Breast/axilla inspection: normal inspection of the breasts and normal inspection of the axillae Breast/axilla palpation: normal palpation of the breasts and no axillary lymphadenopathy Resp Effort & Inspection: normal respiratory effort Auscultation: clear to auscultation bilaterally, no crackles, no rales, no rhonchi, no wheezes and breath sounds present Cardio Rate: regular rate Rhythm: regular rhythm Peripheral pulses: radial pulses present and dorsalis pedis present GI Inspection: Yes normal to inspection and No Abdominal wall edema Palpation (GI): Soft to palpation, not firm and nontender Auscultation: normal bowel sounds Rectal Exam - Female: deferred General: Yes no CVA tenderness Back/Spine/Pelvis Back: no CVA tenderness Skin General skin exam: no rashes or lesions noted Neuro General: patient oriented x3 Cranial nerves: Yes Equal, round and reactive pupils present, Yes Midline tongue present, Yes Ability to bilaterally elevate shoulders present and No Nystagmus present Gait exam (Neuro): Normal gait present Extrem General: Yes normal to inspection, Yes full ROM, No no pedal edema and No edema Psych Speech and movement: Normal speech and movement present Affect: normal affect Insight: Good insight present (Psych) Judgement: Good judgement present (Psych) Immunizations Boostrix Tdap 2.5 Lf unit-8 mcg-5 Lf/0.5 mL intramuscular syringe Performing Provider: Suzy Conrad PA-C [facility] Administered by: ABBY Hernandez on 09/04/24 11:49 Dose Route Admin Location Dispensed Lot Number Expiration Date [facility] Wheel Presser 0.5 mL IM Left Deltoid 0.5 mL [id number] 11/07/26 49069-755-38 [email or web address] Total Dispensed Waste 0.5 mL 0 % VIS Given Date VIS Provided VIS Publication Date 09/04/24 Single Vaccine 24 Eligibility Eligibility Date Funding Source Not [facility] Eligible 09/04/24 Private Coding Level of Care Code Est Pt Prev Care 18-39y(40731) Diagnoses Annual physical exam Z00.00 PCOS (polycystic ovarian syndrome) E28.2 Breast discharge N64.52 Anxiety F41.9 Depression F32.A Hypertriglyceridemia E78.1 Essential hypertension I10 Type 2 diabetes mellitus with other diabetic kidney complication E11.29 Steatosis, liver K76.0 Hidradenitis suppurativa L73.2 Vitamin D deficiency E55.9 Trigger finger M65.30 Assessment & Plan Assessment & Plan (1) Annual physical exam: Code(s): Z00.00 - Encounter for general adult medical examination without abnormal findings Category: Medical Plan: Patient is up-to-date on all recommended routine screenings and vaccinations for her age. Tdap was given in the office today. Healthy diet and regular exercise is encouraged. (2) PCOS (polycystic ovarian syndrome): Comment: diagnosed at [facility] at age 15, has had laser to manage hirsutism. Was on pills for some years (OCPs and spironolactone). was diagnosed with diabetes says it is improved since weight loss, has had high blood pressure, (and fatty liver,?) today it is fine. History of unusual pains in ovaries 06/30/2023, desires , currently with a female partner most recently with male partner August of 2023 . Has had 1 miscarriage last year we would like to have a baby. Would most likely need referral to [facility] for reproductive assistance. Code(s): E28.2 - Polycystic ovarian syndrome Category: Medical Plan: Plan for endocrinology referral as she is no longer being seen at this time. Referral was placed at last visit continue to follow with gynecology as well. (3) Breast discharge: Code(s): N64.52 - Nipple discharge Category: Medical Plan: Patient has blood work pending plan to await results to determine next step in management/ workup. (4) Anxiety: Comment: therapist weekly Code(s): F41.9 - Anxiety disorder, unspecified Category: Medical Plan: Patient is currently following with a therapist and does not feel the need for medication management at this time. (5) Depression: Comment: therapist weekly Code(s): F32.A - Depression, unspecified Category: Medical Plan: See above (6) Hypertriglyceridemia: Code(s): E78.1 - Pure hyperglyceridemia Category: Medical Plan: Avoid foods that are high in cholesterol such as red meat, fried foods, eggs and baked goods. Triglyceride goal of less than 150 and LDL goal of less than and 100. Last LDL 108 continue without medication at this time. (7) Essential hypertension: Code(s): I10 - Essential (primary) hypertension Category: Medical Plan: Patient is doing well without medication Avoid salt intake and encourage healthy diet and regular exercise. (8) Type 2 diabetes mellitus with other diabetic kidney complication: Comment: Patient states her diabetes has resolved since her weight loss after surgery.... Code(s): E11.29 - Type 2 diabetes mellitus with other diabetic kidney complication Category: Medical Plan: Decrease the amount of carbohydrates such as pasta, bread, rice, and potatoes and limit the amount of sweets. Although fruits are generally healthy they should be eaten in moderation as they are still high in sugar. Hemoglobin A1c goal of less than 7%. Patient is currently not on medication and A1c in the clinic at last visit is 6.0% (9) Steatosis, liver: Comment: mild 2021 Code(s): K76.0 - Fatty (change of) liver, not elsewhere classified Category: Medical Plan: Healthy diet and regular exercise is encouraged. (10) Hidradenitis suppurativa: Code(s): L73.2 - Hidradenitis suppurativa Category: Medical Plan: Referral was placed to Dermatology today at patient request which has been scheduled for May. She does have recurrent abscess of the groin and would like to have evaluation from general surgery for possible removal. (11) Vitamin D deficiency: Code(s): E55.9 - Vitamin D deficiency, unspecified Category: Medical Plan: Ordered for updated blood work (12) Trigger finger: Comment: right ring finger Code(s): M65.30 - Trigger finger, unspecified finger Category: Medical Plan: Patient reporting locking of the right ring finger consistent with trigger finger. Splinting has not been effective and patient is still continues to have pain. Referral was placed to orthopedics today Plan The patient will be referred to general surgery for evaluation and potential removal of hidradenitis suppurativa lesions, as these may continue to refill if not excised completely. For the nipple discharge, we will await hormone test results to guide further imaging decisions, potentially leading to a mammogram if results are negative. Orthopedic consultation is recommended for the persistent pain in the right ring finger, which may require further evaluation and management. The patient is advised to monitor vitamin D levels and consider supplementation if necessary. This note was constructed using voice recognition software. While every effort has been made to ensure accuracy and executive vice president and chief operating officer, still areas may have been included sometimes these areas may affect the content or meeting of the given symptoms. Total time spent caring for the patient today was 30 minutes. This includes time spent before the visit reviewing the chart, time spent during the visit, and time spent after the visit and documentation. Patient was informed and verbally consented to the use of an ambient scribe for clinic note documentation during this visit. Orders: Orders TDaP Immunization Today Z23 - Encounter for immunization Referrals General Surgery Referral L73.2 - Hidradenitis suppurativa Orthopedics Referral M65.30 - Trigger finger, unspecified finger
[2024-09-04 10:45] VITALS: BP 100/66; PULSE 86; TEMP 36.2; O2SAT 98
== END 2024-09-04 11:40 | disposition home or self-care (01) ==
LOC: HO.HMCH 10:39
DX: Z00.00 Encounter for general adult medical examination without abnormal findings (principal); E28.2 Polycystic ovarian syndrome; E11.29 Type 2 diabetes mellitus with other diabetic kidney complication; N64.52 Nipple discharge; F41.9 Anxiety disorder, unspecified; F32.A Depression, unspecified; E78.1 Pure hyperglyceridemia; I10 Essential (primary) hypertension; L73.2 Hidradenitis suppurativa; E55.9 Vitamin D deficiency, unspecified; M65.311 Trigger thumb, right thumb; Z23 Encounter for immunization

== ENCOUNTER 2024-11-21 14:03 | Outpatient (AMB) | payer OTHER, SELFPAY ==
--- NOTE | 2024-11-21 14:29 | MHC.OFFVIS ---
Vital Signs 11/21/24 14:29 Height 5 ft 2 in Weight 164 lb BMI 30.0 Intake Visit Reasons: NewProb- RT ring trigger finger Intake Note: Apurva is a 34 year old right hand dominant female who presents today for a New Problem Visit complaining of Right Ring Finger Locking and Catching. Patient reports symptoms started aroruJune,. She has tried sleeping with a splint as it is worse at night. She has also been applying icy hot, taking Tylenol, all without relief. She denies numbness, tingling, other trigger fingers. Denies previous injuries or surgeries to the right hand. 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 History of Left Ring Finger Distal Phalanx Fracture, S/P CRPP DOS: 12/07/22. History of Type 2 Diabetes- A1C 6.0% 07/31/24 Allergies dulaglutide (From Trulicity) Allergy (Severe, Verified 11/21/24 14:29) stomach pains, nausea and vomiting metformin Allergy (Severe, Verified 11/21/24 14:29) stomach pains canagliflozin (From Invokana) Allergy (Intermediate, Verified 11/21/24 14:29) UTI and yeast infections HPI HPI NewProb- RT ring trigger finger: Details: Apurva is a 34 year old right hand dominant female who presents today for a New Problem Visit complaining of Right Ring Finger Locking and Catching. Patient reports symptoms started arorund June,. She has tried sleeping with a splint as it is worse at night. She has also been applying icy hot, taking Tylenol, all without relief. She denies numbness, tingling, other trigger fingers. Denies previous injuries or surgeries to the right hand. 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 History of Left Ring Finger Distal Phalanx Fracture, S/P CRPP DOS: 12/07/22. History of Type 2 Diabetes- A1C 6.0% 07/31/24 [facility] Medical History Ankle fracture Congenital intra-abdominal adhesions Closed fracture of distal phalanx of left ring finger Anesthesia PCOS (polycystic ovarian syndrome) Anxiety Depression Elevated testosterone level in female Hypertriglyceridemia Vitamin D deficiency Hirsutism Essential hypertension Proteinuria Type 2 diabetes mellitus with other diabetic kidney complication Obesity due to excess calories Surgical History H/O gastric sleeve History of myringotomy History of ankle surgery History of cholecystectomy History of tonsillectomy Family History Father Diabetes Mother Diabetes Epilepsy Cardiac arrest Maternal Grandmother Diabetes Paternal Grandmother Diabetes Brother No problems noted. 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 Neuro: Normal sensation of the tips of all digits of the right hand at this time Vascular: Cap refill brisk Pain: Tenderness to palpation of the A1 aditya of right ring finger Pain with locking and catching of the right ring finger ROM: There is visible and palpable locking and catching of the right ring finger in a flexed position Patient and flex and extend all other digits of the right hand fully and without difficulty Skin: No lacerations or abrasions. General: No ecchymosis, erythema, or evidence of infection. Psych: Appears grossly normal Affect normal Attitude cooperative Assessment & Plan Assessment & Plan (1) Trigger finger: Comment: right ring finger Code(s): M65.30 - Trigger finger, unspecified finger Category: Medical Plan 1. Right ring finger trigger finger I educated the patient about the condition. I discussed both operative and nonoperative treatment options. The patient would like to proceed with surgery. The risks and benefits of operative treatment were discussed with the patient and the patient wishes to proceed with surgery. These risks include, but are not limited to, risk of damage to blood vessels, nerves, tendons, infection, recurrence, incomplete relief of preoperative symptoms, persistent pain, possible need for further surgery, and the risks associated with regional blocks and/or anesthesia. Plan is to take the patient to the operating room at some point in the next few weeks for the following procedures: 1. Right ring finger trigger release under local All of the preoperative paperwork including the consent was discussed today. All of the patient's questions were answered in the clinic today. The patient understands that they will be in contact with our hand frame surgical elastic knitter to discuss scheduling their procedure. Patient denies diabetes, blood thinners, asthma, heart issues, lung issues, kidney issues, or current smoking. Coding Level of Care Code New Pt Level 4 (05224) Diagnoses Trigger finger M65.30
--- OUTSIDE RECORDS SUMMARY | 2024-11-21 17:02 | XMS_ITS | Clinical Summary ---
Author Organization [facility] Address [address] [place] [address] Phone Care Team Providers [employer] Specialist Name Role Phone Davonte Seals MD Primary Care Provider [phone] Allergies Active Allergy Reactions Criticality Noted Date Comments Dulaglutide Diarrhea,Nausea And Vomiting,Other High 04/12/2015 Severe GI upset. Canagliflozin Diarrhea 02/08/2024 Metformin Diarrhea,Nausea And Vomiting 021 Medications blood-glucose meter (ACCU-CHEK BRODY PLUS METER [facility] [place]) Active desogestreL-eth inyl estradioL (Apri) 0.15-0.03 mg per tablet QD Active cloNIDine (CATAPRES) 0.1 mg tablet EVERY FOUR HOURS Act radha drospirenone-et hinyl estradioL (Ocella) 3-0.03 mg per tablet Active ciprofloxacin (CIPRO) 500 mg tablet Active canagliflozin (Invokana) 100 mg tablet Take 1 tablet (100 mg total) by mouth 1 (one) time each day. Active ibuprofen (ADVIL,MOTRIN) 800 mg tablet Active lamoTRIgine (LaMICtal) 200 mg tablet Active insulin glargine (Lantus Solostar U-100 Insulin) 100 unit/mL (3 mL) injection pen Inject 25 units every day by subcutaneous route for 30 days. Active insulin lispro (HumaLOG KwikPen) 100 unit/mL injection pen Inject 46 Units under the skin. Active lamoTRIgine (LaMICtal) 25 mg tablet Active medroxyPROGESTE Julio (PROVERA) 10 mg tablet Take 1 tablet (10 mg total) by mouth 1 (one) time each day. Active lisinopriL (PRINIVIL,ZESTR IL) 5 mg tablet Take 1 tablet (5 mg total) by mouth 1 (one) time each day. Active methocarbamoL (ROBAXIN) 750 mg tablet Take 1 tablet every 4 hours by oral route. Active metroNIDAZOLE (FLAGYL) 500 mg tablet Active naproxen (NAPROSYN) 375 mg tablet BID Active Active Problems No known active problems Surgical History Surgery Date Site/Laterality Comments CHOLECYSTECTOMY 2013 PROCEDURE: HISTORICAL CHOLECYSTECTOMY TONSILLECTOMY 2013 PROCEDURE: HISTORICAL TONSILLECTOMY LAPAROSCOPIC GASTRIC BANDING ANKLE FRACTURE SURGERY Medical History Medical History Date Comments Depression 04/15/2020 DX:Depression Hirsutism 04/15/2020 DX:Hirsutism PCOS (polycystic ovarian syndrome) 04/15/2020 DX:PCOS (polycystic ovarian syndrome) Allergic rhinitis 04/15/2020 DX:Allergic rh initis PTSD (post-traumatic stress disorder) 04/15/2020 DX:PTSD (post-traumatic stress disorder) Anxiety 04/15/2020 DX:Anxiety Bipolar disorder (CMS/HCC V2 4, CMS/HCC V28) 04/15/2020 DX:Bipolar disorder (HCC) Fatty liver 04/15/2020 DX:Fatty liver Migraine 04/15/2020 DX:Migraine Carpal tunnel syndrome 04/15/2020 DX:Carpal tunnel syndrome 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 HTN (hypertension) 04/15/2020 DX:HTN (hyper tension) Asthma 04/15/2020 DX:Asthma GERD (gastroesophageal reflux disease) 04/15/2020 DX:GERD (gastroesophageal reflux disease) Chronic nonalcoholic liver disease 04/15/2020 DX:Chronic nonalcoholic liver disease Osteoarthritis 04/15/2020 DX:Osteoarthriti s; COMMENT: MRI: DJD knee. Hx derangement of knee. 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 Family History Medical History Relation Name Comments Diabetes Father Hepatocellular carcinoma Prostate cancer Maternal Grandfather Diabetes Mother Relation Name Status Comments Father Maternal Grandfather Mother Social History Tobacco Use Types Packs/Day Years Used Date Smoking Tobacco: Never Smokeless Tobacco: Never Alcohol Use Standard Drinks/Week Comments Yes 0 (1 standard drink = 0.6 oz pur e alcohol) occasionally Comments Unknown Sex and Gender Information Value Date Recorded Sex Assigned at Female 02/02/2024 9:01 PM EST Legal Sex Female 1:54 PM EST Gender Identity Female 02/02/2024 9:01 PM EST Sexual Orientation Choose not to disclose 2023 9:01 PM EST Obstetrics History Last Filed Vital Signs Vital Sign Reading Time Taken Comments Blood Pressure 122/73 02/08/2024 5:30 PM EST Pulse 73 02/08/2024 5:30 PM EST Temperature 36.7 C (98.1 F) 02/08/2024 5:30 PM EST Respiratory Rate 18 02/08/2024 5:30 PM EST Oxygen Saturation 100% 02/08/2024 5:30 PM EST Inhaled Oxygen Concentration - - Weight 73.9 kg (163 lb) 02/08/2024 2:27 PM EST Height 157.5 cm (5' 2 ) 02/08/2024 2:27 PM EST Body Mass Index 29.81 02/08/2024 2:27 PM EST Plan of Treatment Health Maintenance Due Date Last Done Comments Diabetes: Annual Foot Exam 2002 Diabetes: Annual Retina Eye Exam 2002 Hepatitis A Vaccines (1 of 2 - Risk 2-dose series) 10/31/2011 Cervical Cancer Screening: Pap Smear 2013 Pneumococcal Vaccine: Pediatrics (0 to 5 Years) and At-Risk Patients (6 to 49 Years) (2 of 2 - PCV) 11/27/2018 11/27/2017 Cholesterol Screening (Lipid Panel) 02/08/2022 HIV Screening 02/08/2022 Hepatitis C Screening 02/08/2022 Social Influencers of Health Screening 02/08/2022 Diabetes: Annual Urine Albumin-Creatinine Ratio (uACR) 02/24/2022 Diabetes: Blood Sugar Control Test (HGBA1C) 02/24/2022 DTaP,Tdap,and Td Vaccines (9 - Td or Tdap) 04/23/2023 04/23/2013, 11/09/2004, 01/16/2003, Additional history exists Depression Screening 03/12/2024 COVID-19 Vaccine ( season) 2024 03/27/2021, 07/22/2020, 06/24/2020 Influenza Vaccine (#1) 2024 , 01/07/2020, 11/20/2017, Additional history exists Diabetes: Annual GFR (Glomerular Filtration Rate) 02/01/2025 02/02/2024 Hypertension/CHF/CAD Annual BMP Blood Test 02/01/2025 02/02/2024 Hepatitis B Vaccines Completed 06/10/1993, 1992, 1992 HIB Vaccines Completed 02/23/1994, 02/09, 06/10/1993, Additional history exists IPV Vaccines Completed 10/28/1997, 03/1994, 02/23/1994, Additional history exists MMR Vaccines Completed 10/28/1997, 02/23/1994 HPV Vaccines Completed 10/28/2013, 06/10, 04/23/2013 Meningococcal ACWY Vaccine Aged Out N o longer eligible based on patient's age to complete this topic Meningococcal B Vaccine Aged Out No l onger eligible based on patient's age to complete this topic RSV Immunization Patients Under 20 months Aged Out No longer eligible based on patient's age to complete this topic Varicella Vaccines Aged Out No longer eligible based on patient's age to complete this topic Procedures Procedure Name Priority Date/Time Associated Diagnosis Comments BASIC METABOLIC PANEL STAT 02/02/2024 6:27 PM EST from Last 3 Months or Most Recently Relevant to Health Maintenance Results * (ABNORMAL) Basic metabolic panel (02/02/2024 6:27 PM EST) Sodium 138 133 - 145 mmol/L LAB CHEMISTRY METHOD 02/02/2024 6:56 PM EST [facility] Potassium 4.0 3.5 - 5.5 mmol/L LAB CHEMISTRY METHOD 02/02/2024 6:56 PM EST [facility] Chloride 106 96 - 110 mmol/L LAB CHEMISTRY METHOD 02/02/2024 6:56 PM EST [facility] CO2 28 21 - 32 mmol/L LAB CHEMISTRY METHOD 02/02/2024 6:56 PM [facility] Anion Gap 4 3 - 11 LAB CHEMISTRY METHOD 02/02/2024 6:56 PM [facility] Glucose 211(H) 70 - 100 mg/dL LAB CHEMISTRY METHOD 02/02/2024 6:56 PM [facility] BUN 11 5 - 25 mg/dL LAB CHEMISTRY METHOD 02/02/2024 6:56 PM [facility] Creatinine 0.75 0.50 - 1.10 mg/dL LAB CHEMISTRY METHOD 02/02/2024 6:56 PM [facility] eGFR 109 >=60 mL/min/1. 73m2 LAB CHEMISTRY METHOD 02/02/2024 6:56 PM [facility] Comment:Calculation based on the Chronic Kidney Disease Epidemiology Collaboration (CKD-EPI) equation refit without adjustment for race. BUN/Creatinine Ratio 14.7 LAB CHEMISTRY METHOD 02/02/2024 6:56 PM [facility] Calcium 9.0 8.5 - 10.5 mg/dL LAB CHEMISTRY METHOD 02/02/2024 6:56 PM [facility] Blood Venous blood specimen / Unknown Venipuncture / Unknown 02/02/2024 6:27 PM EST 02/02/2024 6:32 PM EST Randall Camilo Owens MD LAB BLOOD ORDERABLES Final Resu lt [facility] [address] [place] [address], from Last 3 Months or Most Recently Relevant to Health Maintenance Insurance [facility] Care Teams [employer] Specialist Relationship Specialty Start Date End Date Davonte Seals MD [address] [place] [address] PCP - General 04/20/22
== END 2024-11-21 14:55 | disposition home or self-care (01) ==
LOC: HO.HOS 14:04
DX: M65.341 Trigger finger, right ring finger (principal)
CPT/HCPCS: 99204

== ENCOUNTER → 2024-11-21 14:03 | Outpatient (BNVA) | payer OTHER, SELFPAY | DX: M65.341 Trigger finger, right ring finger (principal) | CPT/HCPCS: 99202 ==

== ENCOUNTER 2025-01-12 07:08 | Day surgery (SDC) | payer OTHER, SELFPAY ==
--- OUTSIDE RECORDS SUMMARY | 2024-12-30 10:26 | XMS_ITS | Data Portability ---
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 eous route for 30 days. 12/05 completed Not Available Not Available Not Available Trulicity 1.5 mg/0.5 mL subcutane ous pen injector 08/27 completed Not Available Not Available Not Available Trulicity 0.75 mg/0.5 mL subcutane ous pen injector INJECT THE CONTENT OF 1 syringe UNDER THE SKIN ONCE EVERY WEEK 08/27 completed Not Available Not Available Not Available Tresiba FlexTouch U-200 insulin 200 unit/mL (3 mL) subcutane ous pen 08/27 completed Not Available Not Available Not Available Tresiba FlexTouch U-100 insulin 100 unit/mL (3 mL) subcutane ous pen Inject 25 units by subcutan eous route. 08/27 completed Not Available Not Available Not Available Soliqua 100/33 100 unit-33 mcg/mL subcutane ous insulin pen 12/29 completed Not Available Not Available Not Available Vitals Date Recorded Body height Body mass index (BMI) Body weight Oxygen saturation Oxygen saturation in Arterial blood by Pulse oximetry Heart rate Body temperature Systolic And Diastolic Provider Name and Address Organization Details Last Updated DateTime 0 158.75 cm 34.9 kg/m2 27024.9 2 g 98 % 98 % 91 /min 97.7 [degF] 121/70 mm[Hg] Vianey Whitehead MA [facility] 0 13:32:59 Date Recorded Body height Body mass index (BMI) Body weight Oxygen saturation Oxygen saturation in Arterial blood by Pulse oximetry Heart rate Body temperature Systolic And Diastolic Provider Name and Address Organization Details Last Updated DateTime 9 158.75 cm 34.8 kg/m2 07432.0 3 g 99 % 99 % 91 /min 98.2 [degF] 119/72 mm[Hg] Vianey Whitehead MA [facility] 9 09:50:26 Date Recorded Body height Body temperature Oxygen saturation Oxygen saturation in Arterial blood by Pulse oximetry Heart rate Body mass index (BMI) Body weight Systolic And Diastolic Provider Name and Address Organization Details Last Updated DateTime 8 158.75 cm 97 [degF] 98 % 98 % 95 /min 35.8 kg/m2 81603.8 8 g 142/82 mm[Hg] Juanita minor MA [facility] 8 13:47:15 Date Recorded Body height Body mass index (BMI) Body weight Body temperature Heart rate Oxygen saturation Oxygen saturation in Arterial blood by Pulse oximetry Systolic And Diastolic Systolic And Diastolic Provider Name and Address Organization Details Last Updated DateTime 8 158.75 cm 36.4 kg/m2 50358.4 6 g 97.8 [degF] 96 /min 98 % 98 % 133/87 mm[Hg] 118/75 mm[Hg] Pura Hugonetta [facility] 8 09:59:31 Social History Question Answer Notes LastModified by Organizat ion Details LastModified Time Tobacco Smoking Status Never Smoker Letha galeano [facility] 01/22/2014 10:05:51 Do You Have An Advance Directive? No Information not available 08/14/2017 Is Blood Transfusion Acceptable In An Emergency? Yes [email or web address] Information not available 10/26/2014 What Is Your Level Of Caffeine Consumption? None Information not available 11/27/2017 How Much Tobacco Do You Chew? None Information not available 08/14/2017 What Type Of Diet Are You Following? REGULAR [email or web address] Information not available 05/28/2014 Which Illicit Or Recreational Drugs Have You Used? None Information not available 08/14/2017 Live Alone Or With Others? With Others Brother, [email or web address] Information not available 05/28/2014 Do You Take Precautions To Prevent Distracted Driving? Yes Information not available 10/26/2014 How Often Do You Need To Have Someone Help You When You Read Instructions, Pamphlets, Or Other Written Material From Your Doctor Or Pharmacy? Never [email or web address] Information not available 10/26/2014 Have You Served In The ? No [email or web address] Information not available 07/11/2016 What Was The Date Of Your Most Recent Tobacco Screening? 09/06/2018 Information n ot available 10/03/2018 How Many Children Do You Have? 0 [email or web address] Information not available 10/26/2014 Do You Use Protection During Sex? Always [email or web address] Information not available 10/26/2014 What Is Your Relationship Status? Domestic Partner [email or web address] Information not available 10/26/2014 Seat Belts Used Routinely Yes [email or web address] Information not available 05/28/2014 Are You Sexually Active? Yes [email or web address] Information not available 10/26/2014 Smoke Alarm In Home Yes [email or web address] Information not available 05/28/2014 At What Age Did You Start Smoking Tobacco? 0 Information not available 08/14/2017 Are You Passively Exposed To Smoke? No Information not available 08/14/2017 How Much Tobacco Do You Smoke? No [email or web address] Information not available 01/18/2015 General Stress Level Low [email or web address] Information not available 05/28/2014 Do You Use Sunscreen Routinely? Yes [email or web address] Information not available 05/28/2014 How Many Years Have You Smoked Tobacco? 0 Information not available 08/14/2017 Sex: Unknown Functional Status Question Answer Note LastModified by Organizat ion Details LastModified Time What is your level of alcohol consumption? Occasional rare [email or web address] Information not available 05/28/2014 Do you or have you ever used smokeless tobacco? Never used smokeless tobacco [email or web address] Information not available 08/28/2019 Are you currently employed? Yes Information not available 05/28/2014 Are you able to care for yourself independently ? 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 Never used electronic cigarettes [email or web address] Information not available 08/28/2019 What is your exercise level? Occasional 2 x week Information not available 11/27/2017 Mental Status None recorded. Family History Relationship Description Onset Age of this Age Resolved Age Notes LastModified by Organization Details LastModified Time Mother Depressive disorder [email or web address] Not available 07/2015 10:49:41 Mother Diabetes mellitus [email or web address] Not available 07/2015 10:49:41 Father Diabetes mellitus [email or web address] Not available 07/2015 10:49:41 Notes:No FH of colon or rajan st cancer Medical History No medical history recorded. Gynecological History Statement/Question Response Date of Last Pap Smear 06/15/2016 Obstetrics History GPAL:G 0 P 0 0 0 0 Immunizations Vaccine Type Date Status Note Provider Nam e and Address Organization Details Recorded Time HPV, quadrivalent 4 completed Not Available [facility] 03/29/2019 02:21:34 Influenza, split virus, quadrivalent, PF 5 completed Not Available [facility] 03/29/2019 02:22:02 Influenza, split virus, quadrivalent, PF 6 completed Not Available [facility] 03/29/2019 02:22:08 Influenza, split virus, quadrivalent, PF 7 completed Not Available [facility] 03/29/2019 02:22:13 Influenza, split virus, quadrivalent, PF 8 completed Not Available [facility] 03/29/2019 02:22:17 pneumococcal polysaccharide PPV23 8 completed Not Available [facility] 03/29/2019 02:21:28 Influenza, split virus, trivalent, PF 4 completed Not Available [facility] 03/29/2019 02:21:58 Hep B, adolescent or pediatric 3 completed Not Available [facility] 09/23/2013 13:59:05 DTaP 3 completed Not Available [facility] 09/23/2013 13:59:05 IPV 3 completed Not Available [facility] 09/23/2013 13:59:05 Hep B, adolescent or pediatric 3 completed Not Available [facility] 09/23/2013 13:59:05 Hib (HbOC) 3 completed Not Available [facility] 09/23/2013 13:59:05 DTaP 3 completed Not Available [facility] 09/23/2013 13:59:05 IPV 3 completed [facility] 09/23/2013 13:59:05 DTaP 4 completed Not [facility] 09/23/2013 13:59:05 Hib (HbOC) 4 completed Not Available [facility] 09/23/2013 13:59:05 Hib (HbOC) 4 completed Not Available [facility] 09/23/2013 13:59:05 Hep B, adolescent or pediatric 4 completed Not Available [facility] 09/23/2013 13:59:05 Hib (HbOC) 4 completed Not [facility] 09/23/2013 13:59:05 MMR 4 completed Not Available [facility] 09/23/2013 13:59:05 DTaP 5 completed Not Available [facility] 09/23/2013 13:59:06 IPV 5 completed Not Available [facility] 09/23/2013 13:59:06 IPV 8 completed Not Available [facility] 09/23/2013 13:59:06 DTaP 8 completed Not Available [facility] 09/23/2013 13:59:06 MMR 8 completed Not Available [facility] 09/23/2013 13:59:06 Td (adult), 2 Lf tetanus toxoid, preservative free, adsorbed 5 completed Not Available [facility] 09/23/2013 13:59:06 Influenza, split virus, trivalent, preservative 5 completed Not Available [facility] 09/23/2013 13:59:06 Influenza, split virus, trivalent, preservative 9 completed Not Available [facility] 09/23/2013 13:59:06 Influenza, split virus, trivalent, preservative 0 completed Not Available [facility] 09/23/2013 13:59:06 Influenza, split virus, trivalent, preservative 1 completed Not Available [facility] 09/23/2013 13:59:06 Tdap 4 completed Not Available [facility] 09/23/2013 13:59:06 HPV, quadrivalent 4 completed Not Available [facility] 09/23/2013 13:59:06 HPV, quadrivalent 4 completed Not Available [facility] 09/23/2013 13:59:06 Past Encounters Encounter ID Performer Location Encounter Start Date Encounter Closed Date Diagnosis/Indication Diagnosis SNOMED-CT Code Diagnosis ICD10 Code Diagnosis IMO Codes Diagnosis Note [id number] [facility] [address] [facility] [place] [address] 05/30/2006 00:00:00 [id number] [facility]Comm [facility] [address] [facility] [place] [address] 11/06/2006 00:00:00 [id number] autoEComm erce [address] [facility] [address] [place] [address] 11/21/2006 00:00:00 [id number] [facility] [address] [address] [place] [address] 05/27/2007 00:00:00 [id number] auto[facility]Comm erce [address] [facility] [address] [place] [address] 07/12/2007 00:00:00 [id number] auto[facility]Comm erce [address] [facility] [place] [address] 08/20/2007 00:00:00 [id number] auto[facility]Comm erce [address] [facility] [place] [address] 10/24/2007 00:00:00 [id number] autoEComm erce [address] [facility] [place] [address] 12/19/2007 00:00:00 [id number] auto[facility]Comm erce [address] [facility] [place] [address] 02/12/2008 00:00:00 [id number] auto[facility]Comm erce [address] [facility] [place] [address] 03/10/2008 00:00:00 [id number] autoEComm erce [address] [facility] [place] [address] 04/22/2008 00:00:00 [id number] autoEComm erce [address] [facility] [place] [address] 05/25/2008 00:00:00 [id number] autoEComm erce [address] [facility] [place] [address] 06/12/2008 00:00:00 [id number] autoEComm erce [address] [facility] [place] [address] 07/21/2008 00:00:00 [id number] auto[facility]Comm er[address] [place] [address] 11/25/2008 00:00:00 [id number] autoEComm erce [address] [facility] [address] [place] [address] 12/31/2008 00:00:00 [id number] autoEComm erce [address] [facility] [place] [address] 02/10/2009 00:00:00 [id number] autoEComm erce [address] [facility] [place] [address] 03/18/2009 00:00:00 [id number] autoEComm erce [address] [facility] [place] [address] 03/25/2009 00:00:00 [id number] autoEComm erce [address] [facility] [place] [address] 05/12/2009 00:00:00 [id number] auto[facility]Comm erce [address] [facility] [place] [address] 06/22/2009 00:00:00 [id number] autoEComm erce [address] [facility] [place] [address] 08/19/2009 00:00:00 [id number] autoEComm erce [address] [facility] [place] [address] 09/22/2009 00:00:00 [id number] autoEComm erce [address] [facility] [place] [address] 11/12/2009 00:00:00 [id number] autoEComm erce [address] [facility] [place] [address] 11/24/2009 00:00:00 [id number] autoEComm erce [address] [facility] [place] [address] 12/27/2009 00:00:00 [id number] autoEComm erce [address] [facility] [place] [address] 02/25/2010 00:00:00 [id number] auto[facility]Comm er[address] [place] [address] 08/04/2010 00:00:00 [id number] autoEComm erce [address] [place] [address] 09/28/2010 00:00:00 [id number] auto[facility]Comm erce [address] [place] [address] 11/18/2010 00:00:00 [id number] auto[facility]Comm erce [address] [place] [address] 12/28/2010 00:00:00 [id number] autoEComm erce [address] [facility] [address] [place] [address] 01/16/2011 00:00:00 [id number] autoEComm erce [address] [facility] [place] [address] 01/26/2011 00:00:00 [id number] autoEComm erce [address] [facility] [place] [address] 03/20/2011 00:00:00 [id number] autoEComm erce [address] [facility] [place] [address] 03/30/2011 00:00:00 [id number] autoEComm erce [address] [facility] [place] [address] 05/17/2011 00:00:00 [id number] autoEComm erce [address] [facility] [place] [address] 05/24/2011 00:00:00 [id number] autoEComm erce [address] [facility] [place] [address] 06/21/2011 00:00:00 [id number] autoEComm erce [address] [facility] [place] [address] 08/29/2012 00:00:00 [id number] autoEComm erce [address] [facility] [place] [address] 10/08/2012 00:00:00 [id number] autoEComm erce [address] [facility] [place] [address] 03/18/2013 00:00:00 [id number] autoEComm erce [address] [facility] [place] [address] 04/23/2013 00:00:00 [id number] autoEComm erce [address] [facility] [place] [address] 06/30/2013 00:00:00 [id number] autoEComm erce [address] [facility] [place] [address] 08/01/2013 00:00:00 [id number] Franky Mccallum MD Main Office [address] [place] [address] [place] [address] 10/22/2013 12:57:58 10/22/2013 13:50:16 Administration of viral vaccine 12791000 [id number] Jaziel Roman [facility] Main Office [address] [place] [address], [place] [address] 01/16/2014 15:46:07 01/16/2014 16:58:32 Type 2 diabetes mellitus 12555095 will restage Needs infl uenza immunization 204810434 Acute vaginitis 14977935 [id number] Vipul Leos [facility] Main Office [address] [address] [place] [address] 01/22/2014 09:48:32 01/22/2014 10:29:45 Decreased hearing 875750384 Decreased hearing to left ear since sunday, she has a hx of surgery to left ear at age 8, she does not recall details but states there was an infection and a bump behind ear which was removed. Scar noted at posterior ear crease, she has some tenderness over the scar but no redness, swelling, warmth to area. TM intact, no cerumen impaction or evidcnce of OM or OE. Will refer back to ENT for further eval. Type 2 vidal betes mellitus 26758554 Has an appt with Dr. Pa 01/26/14 at 9:30 am, Informatio n provided to pt, she will keep this appt. She states she has been checking sugars at home and is trying to monitor her diet. [id number] VIVIAN Dickey Main Office [address] [address] [place] [address] 02/24/2014 10:19:16 02/24/2014 11:03:32 Viral gastroenteritis 648682197 resolv ing, continue clear fluids/BRA T diet, progress diet as tolerated [id number] Mary hoff MD Main Office [address] [address] [place] [address] 05/28/2014 10:45:54 05/28/2014 11:50:32 Adult health examination 907046243 pap is utd, utd on TDAP pt is living on her own, cooking for herself, working 2 jobs, will check with pt next visit if she got menactra when she was living in [facility], if not give to her at followup Depressive disorder 80537624 is on mood stablilize r lamictal and Prozac, has stopped Prozac for a few days but will restart. Type 2 vidal betes mellitus 33991596 new, presented with high sugars, working on control, healthy eating, cooking for herself [id number] VIVIAN Cobb Main Office [address] [address] [place] [address] 07/14/2014 13:26:12 07/14/2014 15:34:08 Ankle pain 718826369 Likely Achilles tendonitis , continue naproxen BID, ice 4 times daily, rest, elevate, ortho/ PT referrals provided. [id number] Mary hoff MD Main Office [address] [address] [place] [address] 10/26/2014 08:33:34 10/26/2014 10:34:41 Type 2 diabetes mellitus 61689859 pt needs more education on diet, cooking for self, will cut out soda and juice, she will meet with Brielle today, and then Concetta for ongoing education Elevated blood-pressure reading without diagnosis of hypertension 336301043 recheck at followup visit in a month Bipolar disorder 56129919 very stable continue meds and psychiatry followup Body mass index 30+ - obesity 299853245 Otitis externa 8703953 lef t external otitis cannot see TM so will use cortispori n suspension in case she ahs a perforated TM [id number] Concetta Rogers PA-C Main Office [address] [facility] [address] [place] [address] 01/18/2015 09:03:25 01/18/2015 10:34:10 Needs influenza immunization 021100037 Z23 Uncontroll ed type 2 diabetes mellitus 130760634 E11.65 Total time spent teaching ans coordinati ng care 45 min . Basic Type II DM pathophysi ology reviewed. Pt. was advised to continue working on vegan , low carb calorie diet and continue increasing exercise to 30 min walking daily or more. Continue testing glucose tid before each main meal and rotate that with 2 hrpc on qod basis. Recommenda tions fro diabetic eye and foot care reviewed. Continue current antidiabet ics, Add INvokana at 100 mg daily before the first meal of the day. Possib le side effects reviewed. PT. advised to increase fluids. Start Trulicity SC weekly injections at 0.75 mg . Injection instructio ns given with demo pen. F/u 6 weeks or sooner will be set up. Obesity 428961246 E66.9 [id number] VIVIAN Cobb Main Office [address] [facility] [address] [place] [address] 01/27/2015 08:40:30 01/27/2015 10:43:15 Upper respiratory infection 32521793 J06.9 Suspect her sx are related to URI, Symptomati c treatment- lots of fluids, rest, tea with honey, OTC cough drops/ cough med as needed, humidifier as needed, take zpak as directed x 5 days. Uncontroll ed type 2 diabetes mellitus 149522868 E11.65 Her nausea is not likely related to invokana and she is tolerating meals without issue. She has not yet started trulicity but will be meeting with Isaac today for teaching on the injection, she is to start this weekly. Should symptoms worsen please return/ call back, otherwise f/u as scheduled 03/01. [id number] Concetta Rogers PA-C Main Office [address] [facility] [address] [place] [address] 03/01/2015 08:51:58 03/01/2015 10:07:02 Uncontrolled type 2 diabetes mellitus 982650309 E11.65 Overall imroved diabetic control. Goal A1c however is under 7%. Pt. is advised to continue Invokana at 100 mg daily and Metformin as well. Will start Bydureon 2mg SC weekly injection. Pt. was instructed on device use. Pt. will call if GI symptoms ocur with this med as well. Plan then will be to increase Invokana to 300 mg daily. Continue vegan diet , exercise. Return in 6 weeks. Morbid obesity 999734164 E66.01 Continue vegan diet and exercise. Microalbuminuria 0634055 06 R80.0 Protenuria likley due to hyperglyce son. Will repeat at next visit. If not down to norm, will use smallest dose of ACEI. [id number] Concetta Rogers PA-C Main Office [address] [facility] [address] [place] [address] 04/14/2015 08:47:09 04/14/2015 09:53:10 Uncontrolled type 2 diabetes mellitus 925964724 E11.65 Overall imroved diabetic control. Goal A1c however is under 7%. Pt. is advised to increase Invokana to 300 mg daily and continue Metformin and Bydureon the same. Continue glucose testing TID rotate pre and post meal readings. Continue low red vegan diet and daily exercise activity. SChedule diabetic eye exam as discussed. F/u 2 months. Microalbuminuria 8400238 06 R80.0 Protenuria likely due to hyperglyce son. Repeat today along with BMP. If not down to norm, will use smallest dose of ACEI. Elevated blood-pressure reading without diagnosis of hypertension 051949419 R03.0 Recheck at next visit. Keep sodium down. If elevated over 140/90 and /or protenuria persists, will use small dose of ACEI. [id number] Concetta Rogers PA-C Main Office [address] [facility] [address] [place] [address] 06/14/2015 08:59:49 06/14/2015 10:02:33 Obesity 762748598 E66.9 E66.01 See goals. Uncontroll ed type 2 diabetes mellitus 052803244 E11.65 Improved overall diabetic control, but not at goal as of yet. Metfromin and Bydureon are held due to GI upset and diarrhea. Will try Januvia at 100 mg daily. test glucose TID-QID as previously . Return in 1 m. Repeat BMP after next visit. Essential hypertension 78728141 I10 Start ACEI daily. Recheck in 1 month. Reduce dietary sodium and caffeine as discussed. Diarrhea 11052607 R19.7 ? gastropare sis vs. IBS. Symptoms are both upper and lower GI. Hold Metformin and GLP1 for now. TRy Imodium for couple of days. If symptoms are not improve will do stool testing and consider referring for gastropare sis testing. Gastroesop hageal reflux disease 017176177 K21.9 Increase Omeprazole to 40 mg daily for 1-2 weeks. [id number] Concetta Rogers PA-C Main Office [address] [place] [address] 06/23/2015 14:42:53 06/23/2015 15:14:47 Low back strain 088739292 S39.012A ? arthropath y as well as pt. had back trauma as a child. XRay will be done. Pt. will start Naprosyn 500 BID with food, continue muscle relaxant at HS and Tramadol PRN. Alternate cold and warm packs 10 minutes each 2-3 times daily. Refer for course of PT. Back exercises daily am and pm for stretching . [id number] Concetta Rogers PA-C Main Office [address] [facility] [address] [place] [address] 07/27/2015 09:45:59 07/27/2015 10:44:44 Uncontrolled type 2 diabetes mellitus 169442379 E11.65 Diabetic control slightly worsened since the discontinu ation of Bydureon and Metformin and reduction in exercise due to back pain. Januvia was added and is well tolerated along with Invokana. Continue current meds. Increase exercise activity to daily walking. I let pt. know about [facility] diabetic program that includes affordable rate for the membership and diabetic lectures. Pt. was interested in trying. Return in 6 week.s Will repeat BMP and A1c. Essential hypertension 92522202 I10 D/c ACEI due to dry cough side effect. Start Losartan 50 mg daily. Recheck in 4-6 weeks. Body mass index 30+ - obesity 253723305 Z68.38 Abdominal pain 21319314 R10.9 Recurrent generalize d abdominal pains and change in bowels. ? IBS vs gastropare sis although diarrhea resolved for now with stopping Metformin and Bydureon. GI referral for evaluation . [id number] Concetta Rogers PA-C Main Office [address] [address] [place] [address] 09/14/2015 10:45:10 09/14/2015 11:30:51 Uncontrolled type 2 diabetes mellitus 986991911 E11.65 Significan tly worsened diabetic control , ? combinatio n of non adherence to diet , stress , sinus infection. Continue Januvia 100 mg daily and Invokana 300 mg daily. Start Lantus at 15 u daily. Increase in 5-7 days to 20 u if am glucose is still over 150. Restart Bydureon SC injections weekly. F/u 2 weeks with log. Pt. was advised to restart testing 4 times daily: before each main meal and at HS. Morbid obesity 784784043 E66.01 Restart vegan diet and exercise. Body mass index 30+ - obesity 249314005 Z68.38 [id number] Mary hoff MD Main Office [address] [address] [place] [address] 10/01/2015 14:00:26 10/01/2015 15:03:06 Tachycardia 3949857 R00.0 EKG with pulse in 90's and nl rhythmn, encouraged more fluids, like soup, only drinking water. Bipolar disorder 5178426 4 F31.9 very stable continue meds and psychiatry followup Uncontroll ed type 2 diabetes mellitus 055109575 E11.65 was doing really well and then sugars ran high, back on good schedule. Hypertensive disorder 38 143012 I10 continue meds, well controlled Gastroesop hageal reflux disease 229484812 K21.9 continue meds well controlled [id number] Concetta Rogers PA-C Main Office [address] [address] [place] [address] 10/05/2015 14:23:19 10/05/2015 15:04:23 Uncontrolled type 2 diabetes mellitus 081098057 E11.65 Improved glycemia in the past 20 days. Pt. was started on Bydureon weekly and is tolerating med. well. Januvia will be stopped at this point. Continue Lantus at 20 u daily and INvokana 300 mg daily. Continue diabetic low red diet and slowly reintroduc e exercise activity. F/u 6-8 weeks. Essential hypertension 20242298 I10 Continue Losartan 50 mg daily. [id number] Concetta Rogers PA-C Main Office [address] [address] [place] [address] 11/01/2015 13:31:20 11/01/2015 14:07:39 Abdominal pain 67365838 R10.10 Upper abdominal pain and nausea with vomiting. Check Amylase/Li pase , CBC and hepatic panel. Increase fluids. Discontinu e Bydureon. Uncontroll ed type 2 diabetes mellitus 221756417 E11.65 Improved glycemia in the past 20 days. Pt. was started on Bydureon but cannot tolerate with GI side effects. Will stop BYdureon and restart Januvia 10 mg daily. Increase Lantus if needed to 25 u daily in the week or so if glucose goes up. Continue INvokana 300 mg daily. Continue diabetic low red diet and slowly reintroduc e exercise activity. F/u 6-8 weeks. Nausea 921099878 R11.0 [id number] Concetta Rogers PA-C Main Office [address] [place] [address] 12/06/2015 12:57:39 12/06/2015 15:30:18 Diabetes mellitus 48731584 E11.9 Improved overall diabetic control. Lower Lantus to 20 u daily from 25 to avoid hypoglycem ia. Continue INvokana 300 and Januvia 100 mg daily. Continue diabetic diet and exercise activity. F/u 6-8 weeks. PE to be set up with PCP. Body mass index 30+ - obesity 219958170 Z68.37 Needs infl uenza immunization 434554684 Z23 [id number] Concetta Rogers PA-C Main Office [address] [place] [address] 01/21/2016 10:36:38 01/21/2016 11:13:23 Uncontrolled type 2 diabetes mellitus 690372505 E11.65 IMproved overall diabetic control. AM fasting is a bit elevated still. Will advise pt. to increase Lantus to 25 u daily and continue oral antidiabet ics. Continue working on weight loss to get under 200 lbs via low red diet and exercise. F/u 3 m. Body mass index 30+ - obesity 667960148 Z68.37 [id number] Concetta Rogers PA-C Main Office [address] [facility] [address] [place] [address] 06/12/2016 15:28:06 06/12/2016 16:27:36 Uncontrolled type 2 diabetes mellitus 770172952 E11.65 Worsened diabetic control due to stopping meds. Now pt. has insurance and will be restarted on INvokana at 300 mg daily, Januvia 100 mg daily and Lantus at 25 u daily. Test glcusoe TID premeal. Return in 4 weeks. pT. was advised to increase hydration, continue small portion diet and exercise. Repeat microalbum in. 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 followed by Concetta Anxiety 75042636 F41.9 pt prefers to let semester end for school and see how she feels, if still anxious or sleep disruption will see therapist and prescriber she saw in past, was on meds int he past [id number] Tigre Caicedo MD Main Office [address] [facility] [address] [place] [address] 07/24/2016 14:10:41 07/24/2016 14:54:38 Acute pharyngitis 989414900 J02.9 Overall symptom score suggests that strep is unlikely. Will treat if culture is positive. Supportive /symptomat ic tx advised. Call inb/worse. Otitis externa 1117745 H 62.42 Responded well to this RX in the past. Advised to call inb/worse given her hx of diabetes and potential for resistent infection. [id number] Concetta Rogers PA-C Main Office [address] [facility] [address] [place] [address] 08/04/2016 15:23:42 08/04/2016 16:20:55 Uncontrolled type 2 diabetes mellitus 327483298 E11.65 Uncontroll ed diabetes despite basal insulin and 2 antidiabet ics. Will switch to Soliqua and d/c Lantus to try to lower postprandi al glucoses . F/u in 2 weeks with glucose log. Continue Invokana and Januvia. PLan on stoping Januvia if pt. can tolerate Soliqua well and have glucose improved. Body mass index 30+ - obesity 327822355 Z68.36 [id number] Mary hoff MD Main Office [address] [address] [place] [address] 12/29/2016 10:28:33 12/29/2016 12:01:22 Anxiety 01521176 F41.9 pt is not on meds for bipolar disorder, is having anxiety related to her new job, will set up counseling and consider a med prescriber if not improving Bipolar disorder 1159434 4 F31.9 see above Uncontroll ed type 2 diabetes mellitus 486197893 E11.65 working on control, doing better, lost weight Body mass index 30+ - obesity 663876879 E66.9 Z68.35 Elevated blood-pressure reading without diagnosis of hypertension 487709236 R03.0 anxious today, recheck with Concetta Needs infl uenza immunization 335700575 Z23 [id number] Concetta Rogers PA-C Main Office [address] [facility] [address] [place] [address] 01/12/2017 10:44:07 01/12/2017 11:23:28 Upper respiratory infection 94447500 J06.9 ADvised to use Sudafed 30-60 mg q 4-6 hrs for decongesti on and nasal saline solution. [id number] Concetta Rogers PA-C Main Office [address] [address] [place] [address] 01/30/2017 14:57:21 01/30/2017 16:01:41 Uncontrolled type 2 diabetes mellitus 013509567 E11.65 Body mass index 30+ - obesity 642484705 E66.01 Z68.35 [id number] Concetta Rogers PA-C Main Office [address] [address] [place] [address] 07/24/2017 15:07:09 07/24/2017 15:57:15 Uncontrolled type 2 diabetes mellitus 196903387 E11.65 Restart insulin injections . Will try to get Tresiba covered and start at 25 u daily. If not covered, will restart Lantus at 25 u daily. ADjust at next visit in 4 weeks. Restart testing glucose at . Body mass index 30+ - obesity 611287160 E66.01 Z68.35 [id number] VIVIAN Cobb Main Office [address] [place] [address] 08/14/2017 10:48:32 08/14/2017 11:51:57 Dysuria 40923694 R30.0 urine dip negative. Spasm of u rinary bladder 218853979 N32.89 hydration avoid irritants such as caffeine, may try pyridium as needed for 1-2 days. Flank pain 945445282 R10 .9 will check bladder/ kidney US Amenorrhea 69326941 N91. 2 negative hcg [id number] Concetta Rogers PA-C Main Office [address] [place] [address] 08/21/2017 14:09:45 08/21/2017 14:54:37 Uncontrolled type 2 diabetes mellitus 388923930 E11.65 Continue Tresiba at 25 u daily and oral antidiabet ics. Pt. was encouraged to use [employer] Olivia CGM monitoring system. F/u with log in 6 weeks. Pt. will have repeat A1c , microalbum in and BMP 1 week prior to visit. Body mass index 30+ - obesity 377463720 E66.01 Z68.35 [id number] Concetta Rogers PA-C Main Office [address] [place] [address] 11/20/2017 09:46:52 11/20/2017 10:53:41 Uncontrolled type 2 diabetes mellitus 752426963 E11.65 Diabetic control is not improving w/o premeal insulin. Increase Tresiba to 35 u daily . If in 1 week am fasting is still above 150 , go to 40 u daily. Start HUmalog at 10 u TID. Test glucose before break. and 2 hrpc and return with log in 6 wks. D/c Haileia after completion of current Rx. Continue Metformin and INvokana. 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, needs to increase exercise, supporting herself, work on diet as well Uncontroll ed type 2 diabetes mellitus 186456066 E11.65 working on diet and exercise, encouraged her to set up a schedule Essential hypertension 28673523 I10 BP is up, past 3 visits higher than nl for DM, start low dose lisinopril and pt to see Concetta in Administra tion of pneumococcal vaccine 56524112 Z23 Body mass index 30+ - obesity 100260926 E66.9 with poorly controlled DM [id number] Concetta Rogers PA-C Main Office [address] [facility] [address] [place] [address] 01/08/2018 09:47:46 01/08/2018 11:27:17 Uncontrolled type 2 diabetes mellitus 664776884 E11.65 Increase Tresiba to 40 u daily. Increase HUmalog to 15 u TID. COntinue CGM . repeat A1c in 6 weeks and adjust meds again as needed. Continue working on eating small portions and no processed foods. Body mass index 30+ - obesity 009494021 Z68.36 Obesity 446824118 E66.9 See goals. [id number] Franky Mccallum MD Main Office [address] [facility] [address] [place] [address] 09/06/2018 09:27:23 09/06/2018 10:28:59 Dysuria 48528141 R30.0 urine dip negative. Glycosuria 62093576 R81 A1C up to 9.9, counseled on being consistent with her meds, watching her diet, cars and sugars etc. she needs to schedule to see ROSIE for follow-up. Acute vaginitis 06151649 N76.0 treated for yeat with 3 days of diflucan and OTC monistat 7 day 3 weeks ago. also tx'd for UTI, will tx for BV for now and wait for results of vaginitis swab. [id number] Mary hoff MD Main Office [address] [facility] [address] [place] [address] 08/28/2019 13:13:40 08/28/2019 14:04:03 Adult health examination 317505670 Z00.00 has appt with her business management associate, needs to increase exercise, supporting herself, work on diet as well, is eating better. Bipolar disorder 3826779 4 F31.9 ot on meds, feels well, knows to call if mood changes for early treatment Chronic no nalcoholic liver disease 36164009 K76.9 Essential hypertension 98077617 I10 well controlled continue lisinopril , labs by endo [id number] Mary hoff MD Main Office [address] [facility] [address] [facility] [place] [address] 05/03/2020 11:23:25 05/03/2020 11:43:13 Health Concerns Section Related Observation LastModified by Organization Detai ls LastModified Time None Recorded Concern Status LastModified by Organization Details LastModified Time None Recorded Advance Directives Directive N: Payers Insurance Date Sequence Insurance Name Policy Number Policy Coburn Covered Member ID Coburn Member ID Guarantor Name 09/03/2018 1 [facility] PUBLIC PLANS [facility] TYPE II (HMO) Apurva L Colon [id number] Apurva L Colon 04/18/2019 1 [facility] (O) [id number] Apurva L Colon [id number] Apurva L Colon 04/18/2019 1 [place] [facility] Apurva L Colon [id number] Apurva L Colon 05/03/2020 1 [facility] (O) [id number] Apurva L L Colon [id number] Apurva L Colon 09/03/2018 2 [place] [facility] Apurva L Colon [id number] Apurva L Colon 09/03/2018 1 [facility] [employer] [facility] [employer] (MEDICAID HMO) Apurva L Colon [id number] Apurva L Colon 09/03/2018 1 [facility] - QHP (MEDICAID REPLACEMENT - HMO) [id number] Apurva L Colon [id number] Apurva L Colon 05/03/2020 1 [facility] (HMO) [id number] Apurva L Colon [id number] Apurva L Colon 09/03/2018 1 [employer] (POS) [id number] Apurva L Colon [id number] Apurva L Colon 04/18/2019 1 [facility] (HMO) Apurva L Colon [id number] Apurva L Colon 09/03/2018 1 [place] [facility] Apurva L Colon [id number] 1 Apurva L Colon Notes Date Note Type Note Provider Name and Address Organization Details Recorded Time 8 text/html Generic HPI TemplateReported by Patient Pt is here for a PE. PT is doing well except her DM is not well controlled, her last AiC was 10.2. PT is taking meds but needs to clean up her diet and exercise. 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 BP is up today, it has been elevated past visits. Mary galeano [facility] 11/27/2017 14:26:20 8 text/html Diabetes F/UReported by PatientHPIFor associated symptoms, patient reportsweight gain (3 lbs)but reportsno weight loss,no dizziness,no sweats,no headaches,no confusion,no increased thirst,no increased appetite,no increased urination,no blurred vision,no numbness of feet, andno calluses on feet. For review finger sticks, patient reportsmiddle of the night: ___(uses cgm for the past month.average glucose for the past 2 weeks is 72495% in the target range and 57% above the target; no hypoglycemiafasting bg is close to 180; post breakfast and lunch bg are above 200 on average.). For context, patient reportsseeing eye doctor regularly (last visit in august),checking feet regularly,not missing doses of medications, andno side effects from medications.HgA1c today is 8.9% Despite decrease in HgA1c, overall diabetic control is not well-controlled.Pt likes the CGM but had problems with the sensors; progressing pain at the sensor site; 2 sensors did not work properly. Weight - gain 3lbs since the last visit Diet - read labels, try to eat more vegetables, low calories, low carb. Exercies - cardio workout at home; try to do twice a week.No complaints w/ insulin and other med.patient coordinator front desk hypoglycemic symptoms.ROS as noted in the HPI Tigre Caicedo MD [address] [address], [place], [address], [facility] 01/09/2018 15:44:23 9 text/html Generic HPI TemplateReported by Patient3 weeks ago thought she had a yeast infection, went to , NO PELVIC EXAM, HAD +UTI and checked for GC, took abx for 5 days BID, still feels itchy and has discharge- clear white, gooey, some cottage cheese like. Vipul Leos [facility] [address] [facility] [address], [place], [address], [facility] 09/06/2018 10:32:48 0 text/html Generic HPI TemplateReported by Patient PT is here for an annual PE. PT just saw joseph Quinones for her DM. 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 Wondering about a weight loss center in [place]. PT has a dx of anxiety and bipolar disorder but not on meds and feels she does not need them, mood is stable. Mary galeano, [facility] 08/28/2019 14:10:38 1 text/html Hospitalization Contact RecordReported by PatientHospitalization Contact RecordFor follow up, [facility],admit date: (please enter in format 'mm/dd/yyyy') (04/29/2020),date of discharge: (please enter in format 'mm/dd/yyyy') (04/30/2020), anddate of contact: (please enter in format 'mm/dd/yyyy') (05/03/2020).Medicare covered inpatient stay? no - [facility] Plan SAMANTHA with in 48 working hours? yes HCP on file? no MOLST on file? no Discharge Summary available? yes 29 y/o female w/ PMH significant for PCOS and uncontrolled diabetes presented to [facility] 04/29 after slip/fall with resulting ankle pain.Images revealed displaced ankle fracture and ORIF was required.Patient tolerated surgery well and was d/c home 04/30. 04/30 patient called office to report her injury and let us know that 3rd libertarian may be covering costs as she will seek damages [facility]. 05/03/20 CM f/u call - patient reports she is in pain ut otherwise doing ok. She had to change her insurance and so will now have to change providers as we do not accept her insuance here. She has been assigned a new PCP and will make appt there. CM encouraged her to work very hard on keping her blood sugars wnl so that she can have a chance to heal properly. he knows ot follow closely w/ ortho Sybil Brooks RN [facility] 05/03/2020 11:43:12 OBGyn Episode No OBEpisode recorded.
--- OUTSIDE RECORDS SUMMARY | 2024-12-30 10:26 | XMS_ITS | Data Portability ---
Author Organization [facility], [address] Address [address] [place] [address] Care Team Providers Care Riveter Portable Machine Name Role Phone ALIA TOSCANO Primary Care Provider Assessment No assessment recorded. Plan of Treatment Reminders Order Date Submit Date Provider Last Modified By Organization Details Last Modified Time Details Appointments None recorded. Lab urinalysis, dipstick 2023 024 [email or web address] [facility], [address] [place] [address], [id number], 4 18:23:13 test, urine 20[email or web address], [address] [place] [address], [phone], 4 18:23:14 vaginal pathogens panel, JOSE+probe, vaginal fluid 2023 024 [facility], [address] [place] [address], [place], [address], 4 20:06:49 Referral None recorded. Procedures None recorded. Surgeries None recorded. Imaging None recorded. Medication Orders fluconazole 150 mg tablet 2023 024 [id number], [address] [place], [address], 4 18:23:13 Patient TargetsNo targets recorded. Patient InstructionsNo instructions recorded. Reason for Referral None Reported. Results Created Date Observation Date Name Description Value Unit Range Abnormal Flag Note LastModifiedBy Organization Detail LastModifiedTime 04/29/19 24 05/01/2023 NUA B VAGIN ITIS PLUS (VG+) atopobium vaginae LOW - 0 score Not Available [facility] [address] [facility], [place], [address], 05/02/2023 20:06:49 04/29/19 24 05/01/2023 NUA B VAGIN ITIS PLUS (VG+) bvab 2 LOW - 0 score Not Available [facility] [address] [facility], [place], [address], 05/02/2023 20:06:49 04/29/19 24 05/01/2023 NUA B [...] Drug Admin istra tion. Not Available [facility] [address] [facility], [place], [address], 05/02/2023 20:06:49 04/29/19 24 05/02/2023 NUA B VAGIN ITIS PLUS (VG+) nicanor albicans, JOSE POSITI VE negati ve abnormal Not Available [facility] [address] [facility], [place], [address], 05/02/2023 20:06:49 04/29/19 24 05/02/2023 NUA B VAGIN ITIS PLUS (VG+) nicanor glabrata, JOSE NEGATI VE negati ve Not Available [facility] [address] [facility], [place], [address], 05/02/2023 20:06:49 04/29/19 24 05/02/2023 NUA B VAGIN ITIS PLUS (VG+) trich vag by JOSE NEGATI VE negati ve Not Available [facility] [address] [facility], [place], [address], 05/02/2023 20:06:49 04/29/19 24 05/02/2023 NUA B VAGIN ITIS PLUS (VG+) chlamydia trachomatis, JOSE NEGATI VE negati ve Not Available [facility] [address] [facility], [place], [address], 05/02/2023 20:06:49 04/29/19 24 05/02/2023 NUA B VAGIN ITIS PLUS (VG+) neisseria gonorrhoeae, JOSE NEGATI VE negati ve Not Available [facility] [address] [facility], [place], [address], 05/02/2023 20:06:49 04/29/19 24 04/29/2023 urina lysis , dipst ick Unknown Analyte Yellow Not Available [facility] [address] [place], [address], 04/29/2023 18:07:30 04/29/19 24 04/29/2023 urina lysis , dipst ick Unknown Analyte Clear Not Available [facility] [address], [address], 04/29/2023 18:07:30 04/29/19 24 04/29/2023 urina lysis , dipst ick Unknown Analyte Negati ve Not Available [address]i [address]ard [address] [place], [address], 04/29/2023 18:07:30 04/29/19 24 04/29/2023 urina lysis , dipst ick Unknown Analyte Negati ve Not Available jordi bullard [address] [place], [address], 04/29/2023 18:07:30 04/29/19 24 04/29/2023 urina lysis , dipst ick Unknown Analyte Negati ve Not Available [address]ordi bullard [address] [place], [address], 04/29/2023 18:07:30 04/29/19 24 04/29/2023 urina lysis , dipst ick Unknown Analyte 1.030 Not Available [facility] [address] [place], [address], 04/29/2023 18:07:30 04/29/19 24 04/29/2023 urina lysis , dipst ick Unknown Analyte Trace- intact Not Available jordi bullard [address] [place], [address], 04/29/2023 18:07:30 04/29/19 24 04/29/2023 urina lysis , dipst ick Unknown Analyte 6.0 Not Available norm[facility] [address] [place], [address], 04/29/2023 18:07:30 04/29/19 24 04/29/2023 urina lysis , dipst ick Unknown Analyte Negati ve Not Available [address]ordi bullard [address] [place], [address], 04/29/2023 18:07:30 04/29/19 24 04/29/2023 urina lysis , dipst ick Unknown Analyte 0.2 E.U./d L Not Available [address], [address], 04/29/2023 18:07:30 04/29/19 24 04/29/2023 urina lysis , dipst ick Unknown Analyte Negati ve Not Available [address], [address], 04/29/2023 18:07:30 04/29/19 24 04/29/2023 urina lysis , dipst ick Unknown Analyte Negati ve Not Available jordi bullard [place] [address] [address] [place], [address], 04/29/2023 18:07:30 04/29/19 24 04/29/2023 pregn helen test, urine Unknown Analyte negati ve Not Available jordi bullard [address] [place], [address], 04/29/2023 18:07:45 04/29/19 24 04/29/2023 pregn helen test, urine Unknown Analyte yes Not Available 2099Naldo_ [facility] [address] [place], [address], 04/29/2023 18:07:45 Result Notes None recorded. Problems Name Problem SNOMED Code Status Onset Date Resolution Date Notes Provider Name and Address Organization Details Recorded Time Hiatal hernia 28116724 Active 024 ROBBIE LUPICA null, PA - [facility] 4 18:04:41 Acid reflux 704572724 Active 024 ROBBIE LUPICA null, PA - [facility] 4 18:04:49 Polycystic ovary syndrome 844745824 Active 024 ROBBIE LUPICA null, PA - [facility] 4 18:07:21 Vaginal irritation 517548218 Active 024 ROBBIE NORTONICA null, PA - [facility] 4 18:07:40 Problem Notes None recorded. Procedures Surgical History Date Name Laterality Status Provider Name and Address Organization Details Recorded Time laparoscopic sleeve gastrectomy completed ROBBIE FATIMAH PA - [facility] 04/29/2023 18:04:23 tonsillectomy completed ROBBIE NORTONYOLANDA PA - [facility] 04/29/2023 18:06:30 Ear Tube completed ROBBIE FATIMAH PA - [facility] 04/29/2023 18:06:40 cholecystectomy completed ROBBIE FATIMAH PA - [facility] 04/29/2023 18:06:47 procedure on ankle completed ROBBIE LUPYOLANDA PA - [facility] 04/29/2023 18:06:57 Imaging [...] height Body mass index (BMI) Body weight Pain severity - 0-10 verbal numeric rating [Score] - Reported Respiratory rate Body temperature Oxygen saturation Oxygen saturation in Arterial blood by Pulse oximetry Heart rate Systolic And Diastolic Provider Name and Address Organization Details Last Updated DateTime 4 157.48 cm 30.4 kg/m2 79380.3 3 g 0 18 /min 97.7 [degF] 99 % 99 % 82 /min 135/87 mm[Hg] ROBBIE FATIMAH PA - [facility] 18:10:26 Social History Question Answer Notes LastModified by Bozuko Details LastModified Time Tobacco Smoking Status Never Smoker ROBBIE NORTONYOLANDA galeano PA - [facility] 04/29/2023 18:06:13 Which Illicit Or Recreational Drugs Have You Used? Marijuana [email or web address] Information not available 04/29/2023 Have You Recently Traveled Abroad? No [email or web address] Information not available 04/29/2023 Sex: Unknown Functional Status Question Answer Note LastModified by Bozuko Details LastModified Time Do you use any illicit or recreational drugs? Yes [email or web address] Information not available 04/29/2023 Do you or have you ever used any other forms of tobacco or nicotine? No Information not available 04/29/2023 What is your level of alcohol consumption? None [email or web address] Information not available 04/29/2023 Mental Status None recorded. Family History Relationship Description Onset Age of this Age Resolved Age Notes LastModified by Organization Details LastModified Time Father Diabetes mellitus [email or web address] Not available 2023 18:05:19 Mother Diabetes mellitus [email or web address] Not available 2023 18:05:19 Mother Hypertensive disorder [email or web address] Not available 2023 18:05:30 Mother Seizure disorder Not available 2023 18:05:39 Mother Osteoporosis [email or web address] Not avai lable 04/29/2023 18:05:48 Medical History No medical history recorded. Gynecological History Statement/Question Response Date of LMP 04/18/2023 Is there any chance of ? No LMP Definite Obstetrics History GPAL:G 0 P 0 0 0 0 Past Encounters Encounter ID Performer Location Encounter Start Date Encounter Closed Date Diagnosis/Indication Diagnosis SNOMED-CT Code Diagnosis ICD10 Code Diagnosis IMO Codes Diagnosis Note [id number] [facility]ULWINDER Salcedo [address] [place] [address] 04/29/2023 17:38:28 04/29/2023 18:24:39 Vaginal irritation 895348915 N89.8 VULVOVAGIN AL CANDIDIASI SA vaginal yeast infection is the growth of too many yeast cells in the vagina. This is common in women of all ages. Itching, vaginal discharge and irritation , and other symptoms can bother you. But yeast infections don't often cause other health problems. S ome medicines can increase your risk of getting a yeast infection. These include antibiotic s, control pills, hormones, and steroids. You may also be more likely to get a yeast infection if you are , have diabetes, douche, or wear tight clothes. W ith treatment, most yeast infections get better in 2 to 3 days. F ollow-up care is a delong part of your treatment and safety. Be sure to make and go to all appointmen ts, and call your doctor or nurse advice line if you are having problems. It's also a good idea to know your test results and keep a list of the medicines you take. H ow can you care for yourself at home?Take [...] douche.Whe n should you call for help? C all your doctor or nurse advice line now [...] [place] Member ID Guarantor Name 04/29/2023 1 [facility]) [id number] Apurva L Colon [id number] Apurva Colon 04/29/[address] [facility] (PPO) [id number] Apurva L Colon [id number] Apurva Colon Notes Date Note Type Note Provider Name and Address Organization Details Recorded Time 04/29/2023 text/html 32 y/o female here with a day of vaginal itch and discharge, worsening, lower abdominal pain, bloating. Feels like a yeast infection aside from the bloating which is different KULWINDER Salcedo [address] [place], [address], [place] - [facility] 04/29/2023 18:25:13 OBGyn Episode No OBEpisode recorded.
[2025-01-12 07:24] VITALS: BMI 29.8
--- NOTE | 2025-01-12 08:59 | MHC.SHP ---
Pre-Procedural Eval Section A - 24 Hr Update-Section A only Date of Service: 01/12/25 The patient is an INPATIENT: No Changes since office visit: No Cold of Flu in the past 2 weeks, No New Medical Problems, No Changes in Medication and No Patient answered all questions The patient has been examined within 24 hours of the surgical procedure. The History & Physical has been completed within 30 days and I have reviewed it.: Yes Section B - Complete if H&P > 30 days Chief Complaint: Trigger finger, right ring finger Allergies: Allergies Allergy/AdvReac Type Severity Reaction Status Date / Time dulaglutide (From Trulicity) Allergy Severe stomach Verified 01/12/25 07:24 pains, nausea and vomiting metformin Allergy Severe stomach Verified 01/12/25 07:24 pains canagliflozin (From Invokana) Allergy Intermediate UTI and Verified 01/12/25 07:24 yeast infections Plan Diagnosis/Plan: Unchanged I have reviewed the history and physical and performed a pertinent physical examination on my patient. No changes have occurred unless specified. Time Spent With Patient Time: Total time managing care of this patient today ____ minutes.
--- NOTE | 2025-01-12 08:59 | P.OP_ITS ---
Operative Note Operative Note Date of Service: 01/12/25 Narrative: Operative Note Preop diagnosis: 1. Right ring finger Trigger finger Postop diagnosis: Same Procedure: 1. Right ring finger A1 aditya release Surgeon: Kacy Chamorro MD Doughnut Glazier: None Anesthesia: local block using 1% lidocaine with epinephrine Findings: No locking or catching after A1 aditya release EBL: Less than 5 mL Tourniquet time: None Specimens: None Complications: None Disposition: Brought to recovery room in stable condition Plan: Follow-up for 10-14 days for wound check and suture removal Indications: The patient is 34 years old, with a right ring finger trigger finger that has been unresponsive to nonoperative management. The risks and benefits of operative treatment including but not limited to risk of damage to blood vessels, nerves, tendons, infection, persistent pain, persistent symptoms, recurrence or possible need for additional surgery were discussed with the patient and the patient wishes to proceed with surgery. Procedure: Once consent was obtained a local block was performed in the preop area using a combination of 1% lidocaine with epinephrine. The patient was then brought back to the operating suite and placed on the operative table in supine position. The right ring finger upper extremity was prepped and draped in a standard surgical fashion. Once assured that we had a good block, a 1.5 cm oblique incision was made centered over the A1 aditya of the right ring finger . The incision was made through the skin to the subcutaneous tissues using a #15 blade. Careful dissection was made down to the level of the A1 aditya using tenotomy scissors, with care being taken to protect the nearby neurovascular structures. A longitudinal incision was made in the A1 aditya 1st using a #15 blade, then using tenotomy scissors under direct visualization. The A1 aditya was noted to be thickened. Following our A1 aditya release, we no longer saw any locking or catching of the digit with flexion and extension. Once satisfied with our A1 aditya release the wound was copiously irrigated with normal saline and hemostasis was obtained with a brief period of local pressure. The skin edges were reapproximated with some 5.0 nylon suture material and a sterile dressing was applied. The patient appears to have tolerated the procedure well and with no complications. All digits were well vascularized at the conclusion of the case.
[2025-01-12 09:46] VITALS: BP 145/92; PULSE 77; RESP 16; O2SAT 100
== END 2025-01-12 09:56 | disposition home or self-care (01) ==
PROVIDERS: Visit Provider Orthopaedic Surgery
PROC: (CPT 26055; principal; 2025-01-12 10:10)
DX: M65.341 Trigger finger, right ring finger (principal); E11.69 Type 2 diabetes mellitus with other specified complication; I10 Essential (primary) hypertension; E55.9 Vitamin D deficiency, unspecified; E66.09 Other obesity due to excess calories; Z68.30 Body mass index [BMI] 30.0-30.9, adult; Z87.81 Personal history of (healed) traumatic fracture; F32.A Depression, unspecified; F41.9 Anxiety disorder, unspecified; Z88.8 Allergy status to other drugs, medicaments and biological substances; Z98.890 Other specified postprocedural states; Z98.84 Bariatric surgery status; Z90.49 Acquired absence of other specified parts of digestive tract
CPT/HCPCS: 26055; J0165; J2003

== ENCOUNTER → 2025-01-12 07:08 | Outpatient (BNV) | payer OTHER, SELFPAY | PROVIDERS: Visit Provider Orthopaedic Surgery | DX: M65.341 Trigger finger, right ring finger (principal) | CPT/HCPCS: 26055 ==

== ENCOUNTER 2025-01-26 10:45 | Outpatient (AMB) | payer OTHER, SELFPAY ==
--- NOTE | 2025-01-26 10:49 | MHC.OFFVIS ---
Vital Signs 01/26/25 10:58 Height 5 ft 2 in Weight 163 lb BMI 29.8 Intake Visit Reasons: PO-Rt RF Trigger Release 01/12/25 Intake Note: Apurva is a 34 year old right hand dominant female who presents today for a Post-Operative Visit status post Right Ring Trigger Finger Release performed by Dr. Chamorro on 01/12/25. Patient reports she is doing well. She denies any finger locking, numbness, or tingling. Sutures removed and steri strips applied. Allergies dulaglutide (From Trulicity) Allergy (Severe, Verified 01/26/25 10:58) stomach pains, nausea and vomiting metformin Allergy (Severe, Verified 01/26/25 10:58) stomach pains canagliflozin (From Invokana) Allergy (Intermediate, Verified 01/26/25 10:58) UTI and yeast infections HPI HPI PO-Rt RF Trigger Release 01/12/25: Details: Apurva is a 34 year old right hand dominant female who presents today for a Post-Operative Visit status post Right Ring Trigger Finger Release performed by Dr. Chamorro on 01/12/25. Patient reports she is doing well. She denies any finger locking, numbness, or tingling. Denies any active pain at this time. No redness or discharge from the incision site. No other acute complaints or concerns at this time. Sutures removed and steri strips applied. [facility] Medical History Ankle fracture Congenital intra-abdominal adhesions Closed fracture of distal phalanx of left ring finger Anesthesia PCOS (polycystic ovarian syndrome) Anxiety Depression Elevated testosterone level in female Hypertriglyceridemia Vitamin D deficiency Hirsutism Essential hypertension Proteinuria Type 2 diabetes mellitus with other diabetic kidney complication Obesity due to excess calories Surgical History H/O gastric sleeve History of myringotomy History of ankle surgery History of cholecystectomy History of tonsillectomy Family History Father Diabetes Mother Diabetes Epilepsy Cardiac arrest Maternal Grandmother Diabetes Paternal Grandmother Diabetes Brother No problems noted. 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 Neuro: Normal sensation of the tips of all digits of the right hand at this time Vascular: Cap refill brisk Pain: No Tenderness to palpation of incision over the A1 aditya of right ring finger No pain with range of motion of the right ring finger or any of the other digits of the right hand ROM: There is no further visible and palpable locking and catching of the right ring finger in a flexed position Patient and flex and extend all digits of the right hand fully and without difficulty Skin: Well approximated and well healing incision site noted over the A1 aditya of the right ring finger No lacerations or abrasions. General: No ecchymosis, erythema, or evidence of infection. Psych: Appears grossly normal Affect normal Attitude cooperative Assessment & Plan Assessment & Plan (1) Trigger finger: Comment: right ring finger Code(s): M65.30 - Trigger finger, unspecified finger Category: Medical Plan 1. Status post right ring finger trigger release DOS 01/12/2025 With good symptomatic resolution postoperatively Patient appears to be recovering well postoperatively Patient is educated about the typical recovery course No under water times one-week, 2 lb weight limit x2 weeks Patient appears to be recovering very well, and requires no further acute follow-up with us postoperatively Patient is educated and worrisome signs and symptoms, and should call us if they experience any of these, including but not limited to redness, swelling, increased pain, and discharge Patient understands this and is amenable to this plan Patient may return to work tomorrow with a 2 lb weight limit in the right hand for a further 2 weeks 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
[2025-01-26 10:58] VITALS: BMI 29.8
--- OUTSIDE RECORDS SUMMARY | 2025-01-26 22:14 | XMS_ITS | Data Portability ---
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 [address] [facility] [address], [place], [address], [facility] 6 12:29:17 Administ ration of diphther ia, pertussi s, and tetanus vaccine Completed 201309/23/2013 RECORDED 06/25/19 14 12:53PM BY LETHA CARVALHO MA, CORAZON ON/KASEY Muñozoria [facility] [address] [facility] [address], [place], [address], [facility] 6 12:29:16 Patient status finding [id number] Completed 201309/23/2013 RECORDED 06/25/19 14 12:52PM BY LETHA CARVALHO MA, CORAZON ON/ADDKRISTA GROSSMAN Viktoria 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 [address] [facility] [address], [place], [address], [facility] 6 12:29:17 Administ ration of diphther ia, pertussi s, and tetanus vaccine Completed 201310/20/2013 RECORDED 06/25/19 14 12:53PM BY LETHA CARVALHO MA, ANNOTATI ON/ADDEN DUM Concetta Rogers PR-C [address], [place], [address], [facility] 6 12:29:16 Patient status finding [id number] Completed 201310/20/2013 RECORDED 06/25/19 14 12:52PM BY LETHA CARVALHO MA, ANNOTATI ON/ADDEN DUM Concetta Rogers PR-C [address] [facility] [address], [place], [address], [facility] 6 12:29:16 Exposure to organism Completed 201310/20/2013 IMPRESSI ON: TREATED FOR + CHLAMYDI A 02/19/13 WITH SYMPTOM RESOLUTI ON, STD FISCAL SERVICES MANAGER DONE; RECORDED 06/25/19 14 12:53PM BY LETHA CARVALHO MA, CORAZON ON/ADDEN DUM Concetta Rogers PR-C [address] [facility] [address], [place], [address], [facility] 6 12:29:16 Administ ration of viral vaccine Completed 201309/23/2013 RECORDED 07/01/19 14 8:02AM BY CORAZON MAY ON/ADDEN DUM Concetta Rogers PR-C [address] [facility] [address], [place], [address], [facility] 6 12:29:16 Administ ration of viral vaccine Completed 201310/20/2013 RECORDED 07/01/19 14 8:02AM BY CORAZON MAY ON/ADDEN DUM Concetta Rogers PR-C [address] [facility] [address], [place], [address], [facility] 6 12:29:16 Allergic rhinitis 40646218 Active 2013 SHAMAR Daniels, [facility] 8 10:58:53 Anxiety state 421072744 Active 2013 SHAMAR Daniels [facility] 8 10:58:13 Asthma 952753597 Active 2013 SHAMAR Daniels [facility] 8 10:59:27 Atopic dermatit is 01291637 Completed 201312/29/2016 RECORDED 08/02/19 14 9:52AM BY MARY Bradley MD, OFFICE VISIT SHAMAR Church [facility] 7 11:08:08 Carpal tunnel syndrome 89604189 Active 2013 SHAMAR Daniels [facility] 8 10:58:35 Chronic nonalcoh olic liver disease 92456563 Active 2013 IMPRESSI ON: KEEP WORKING ON WEIGHT LOSS SHAMAR Daniels [facility] 8 10:59:08 Persiste nt insomnia 776731531 Active 2013 SHAMAR Daniels [facility] 8 10:59:24 Derangem ent of knee 13282603 Active 2013 COULD BE MENISCAL INJURY WITH POSITIVE PERLA AND APLEY TEST. WILL DO MRI Juanita minor SHAMAR froylan [facility] 8 10:58:49 Irregula r periods 06125219 Active 2013 HISTORY AND PHYSICAL SUGGESTI VE OF CUSHINGS SYNDROME . SHAMAR Daniels [facility] 8 10:59:17 Migraine 10657173 Active 2013 SHAMAR Daniels [facility] 8 10:58:29 Obesity 760495710 Active 2013 SHAMAR Daniels [facility] 8 10:58:26 Osteoart hritis of knee 673297522 Active 2013 MRI NORMAL EXCEPT SOME DJD SHAMAR Daniels [facility] 8 10:58:22 Polycyst ic ovaries Active 2013 OFF APRI, PT NOT SEXUALLY ACTIVE SHAMAR Daniels [facility] 8 10:59:03 Amenorrh ea 49991389 Active 2013 SHAMAR Daniels [facility] 8 10:59:22 Gastroes ophageal reflux disease 626001720 Active 2015 SHAMAR Daniels [facility] 8 10:58:10 Problem Notes None recorded. Procedures Surgical History Date Name Laterality Status Provider Name and Address Organization Details Recorded Time 01/09/20 18 Diabetic Foot Exam (Monofilament) completed Pura Mcknight [facility] 01/08/2018 09:52:24 06/16/19 17 Date of Last Pap Smear completed Juanita avendano MA [facility] 08/14/2017 11:02:23 Ear Tube completed Vianey Whitehead MA [facility] 05/28/2014 11:22:57 Tonsillectomy completed Vianey Whitehead MA [facility] 05/28/2014 11:22:57 Cholecystectomy completed Vianey Whitehead MA [facility] 05/28/2014 11:22:57 Imaging Results None recorded. Procedure Notes None recorded. Medical Equipment None Reported. Allergies Allergen ID Allergen Name Allergen Category Reaction Reaction Severity Criticality Documentation Date Start Date Code Code System Note Provider Name and Address Organization Details Recorded Time 35887 Trulicity medicatio n other severe Not available 03/01/20152015 60641 96 RxNorm GI upset JOAQUÍN Benavides [facility] 6 10:03:15 82382 metformin medicatio n diarrhea vomiting Not available Not available Not available 08/21/2017 6809 RxNorm Juanita minor MA [facility], [facility] 8 14:22:06 6809 No known allergy (situatio n) Not available Not available Not available Not available 09/23/2013 27986 6003 SNOMED Sybil Brooks RN [facility], [facility] 6 10:01:53 Medications Name Sig Start Date [...] Not Avai lable Nasonex 50 mcg/actua tion Crowder AT BEDTIME 12/06 completed RECORDED 12/07/19 10 [...] e 50 mcg/actua tion nasal spray,chen pension Crowder 2 sprays every day by intranas al [...] Not Available Not Available Not Available FreeStyle Elma Lite meter 06/12 completed Not Available Not [...] Not Available Not Available Comfort EZ Pen [place] 32 gauge x 5/32 USE TO INJECT [...] Updated DateTime 0 158.75 cm 34.9 kg/m2 21191.9 2 g 98 % 98 % 91 /min 97.7 [degF] 121/70 mm[Hg] Vianey Whitehead MA [facility] 0 13:32:59 Date Recorded Body height Body mass index (BMI) Body weight Oxygen saturation Oxygen saturation in Arterial blood by Pulse oximetry Heart rate Body temperature Systolic And Diastolic Provider Name and Address Organization Details Last Updated DateTime 9 158.75 cm 34.8 kg/m2 67348.0 3 g 99 % 99 % 91 /min 98.2 [degF] 119/72 mm[Hg] iVaney Whitehead MA [facility] 9 09:50:26 Date Recorded Body height Body temperature Oxygen saturation Oxygen saturation in Arterial blood by Pulse oximetry Heart rate Body mass index (BMI) Body weight Systolic And Diastolic Provider Name and Address Organization Details Last Updated DateTime 8 158.75 cm 97 [degF] 98 % 98 % 95 /min 35.8 kg/m2 00225.8 8 g 142/82 mm[Hg] Juanita minor MA [facility] 8 13:47:15 Date Recorded Body height Body mass index (BMI) Body weight Body temperature Heart rate Oxygen saturation Oxygen saturation in Arterial blood by Pulse oximetry Systolic And Diastolic Systolic And Diastolic Provider Name and Address Organization Details Last Updated DateTime 8 158.75 cm 36.4 kg/m2 36520.4 6 g 97.8 [degF] 96 /min 98 % 98 % 133/87 mm[Hg] 118/75 mm[Hg] Pura Hugonetta [facility] 8 09:59:31 Social History Question Answer Notes LastModified by Organizat ion Details LastModified Time Tobacco Smoking Status Never Smoker Letha galeano [facility] 01/22/2014 10:05:51 Do You Have An Advance Directive? No Information not available 08/14/2017 Is Blood Transfusion Acceptable In An Emergency? Yes [email or web address] Information not available 10/26/2014 What Is Your Level Of Caffeine Consumption? None Information not available 11/27/2017 How Much Tobacco Do You Chew? None Information not available 08/14/2017 What Type Of Diet Are You Following? REGULAR [email or web address] Information not available 05/28/2014 Which Illicit Or Recreational Drugs Have You Used? None Information not available 08/14/2017 Live Alone Or With Others? With Others Brother, Information not available 05/28/2014 Do You Take Precautions To Prevent Distracted Driving? Yes [email or web address] Information not available 10/26/2014 How Often Do You Need To Have Someone Help You When You Read Instructions, Pamphlets, Or Other Written Material From Your Doctor Or Pharmacy? Never [email or web address] Information not available 10/26/2014 Have You Served In The ? No [email or web address] Information not available 07/11/2016 What Was The Date Of Your Most Recent Tobacco Screening? 09/06/2018 Information n ot available 10/03/2018 How Many Children Do You Have? 0 [email or web address] Information not available 10/26/2014 Do You Use Protection During Sex? Always [email or web address] Information not available 10/26/2014 What Is Your Relationship Status? Domestic Partner [email or web address] Information not available 10/26/2014 Seat Belts Used Routinely Yes [email or web address] Information not available 05/28/2014 Are You Sexually Active? Yes Information not available 10/26/2014 Smoke Alarm In Home Yes [email or web address] Information not available 05/28/2014 At What Age Did You Start Smoking Tobacco? 0 Information not available 08/14/2017 Are You Passively Exposed To Smoke? No Information not available 08/14/2017 How Much Tobacco Do You Smoke? No [email or web address] Information not available 01/18/2015 General Stress Level Low [email or web address] Information not available 05/28/2014 Do You Use Sunscreen Routinely? Yes [email or web address] Information not available 05/28/2014 How Many Years Have You Smoked Tobacco? 0 Information not available 08/14/2017 Sex: Unknown Functional Status Question Answer Note LastModified by Organizat ion Details LastModified Time What is your level of alcohol consumption? Occasional rare [email or web address] Information not available 05/28/2014 Do you or have you ever used smokeless tobacco? Never used smokeless tobacco [email or web address] Information not available 08/28/2019 Are you currently employed? Yes [email or web address] Information not available 05/28/2014 Are you able to care for yourself independently ? 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 Never used electronic cigarettes [email or web address] Information not available 08/28/2019 What is your [...] Time HPV, quadrivalent 4 completed Not Available [facility] 03/29/2019 02:21:34 Influenza, split virus, quadrivalent, PF 5 completed [facility] 02:22:02 Influenza, split virus, quadrivalent, PF 6 completed Not Available [facility] 03/29/2019 02:22:08 Influenza, split virus, quadrivalent, PF 7 completed Not Available [facility] 03/29/2019 02:22:13 Influenza, split virus, quadrivalent, PF 8 completed Not Available [facility] 03/29/2019 02:22:17 pneumococcal polysaccharide PPV23 8 completed Not Available [facility] 03/29/2019 02:21:28 Influenza, split virus, trivalent, PF 4 completed Not Available [facility] 03/29/2019 02:21:58 Hep B, adolescent or pediatric 3 completed Not Available [facility] 09/23/2013 13:59:05 DTaP 3 completed Not Available [facility] 09/23/2013 13:59:05 IPV 3 completed Not Available [facility] 09/23/2013 13:59:05 Hep B, adolescent or pediatric 3 completed Not Available [facility] 09/23/2013 13:59:05 Hib (HbOC) 3 completed Not Available [facility] 09/23/2013 13:59:05 DTaP 3 completed Not Available [facility] 09/23/2013 13:59:05 IPV 3 completed [facility] 09/23/2013 13:59:05 DTaP 4 completed Not [facility] 09/23/2013 13:59:05 Hib (HbOC) 4 completed Not Available [facility] 09/23/2013 13:59:05 Hib (HbOC) 4 completed Not Available [facility] 09/23/2013 13:59:05 Hep B, adolescent or pediatric 4 completed Not Available [facility] 09/23/2013 13:59:05 Hib (HbOC) 4 completed [facility] 09/23/2013 13:59:05 MMR 4 completed Not Available [facility] 09/23/2013 13:59:05 DTaP 5 completed Not Available [facility] 09/23/2013 13:59:06 IPV 5 completed Not Available [facility] 09/23/2013 13:59:06 IPV 8 completed Not Available [facility] 09/23/2013 13:59:06 DTaP 8 completed Not Available [facility] 09/23/2013 13:59:06 MMR 8 completed Not Available [facility] 09/23/2013 13:59:06 Td (adult), 2 Lf tetanus toxoid, preservative free, adsorbed 5 completed Not Available [facility] 09/23/2013 13:59:06 Influenza, split virus, trivalent, preservative 5 completed Not Available [facility] 09/23/2013 13:59:06 Influenza, split virus, trivalent, preservative 9 completed Not Available [facility] 09/23/2013 13:59:06 Influenza, split virus, trivalent, preservative 0 completed Not Available [facility] 09/23/2013 13:59:06 Influenza, split virus, trivalent, preservative 1 completed Not Available [facility] 09/23/2013 13:59:06 Tdap 4 completed Not Available [facility] 09/23/2013 13:59:06 HPV, quadrivalent 4 completed Not Available [facility] 09/23/2013 13:59:06 HPV, quadrivalent 4 completed Not Available [facility] 09/23/2013 13:59:06 Past Encounters Encounter ID Performer Location Encounter Start Date Encounter Closed Date Diagnosis/Indication Diagnosis SNOMED-CT Code Diagnosis ICD10 Code Diagnosis IMO Codes Diagnosis Note [id number] autoEComm erce [address] [facility] [facility] [place] [place] [address] 05/30/2006 00:00:00 [id number] [facility]Comm [facility] [address] [facility] [facility] [place] [address] 11/06/2006 00:00:00 [id number] autoEComm erce [address] [facility] [address] [place] [address] 11/21/2006 00:00:00 [id number] autoEComm erce [address] [place] [address] 05/27/2007 00:00:00 [id number] autoEComm erce [address] [facility] [address] [place] [address] 07/12/2007 00:00:00 [id number] autoEComm erce [address] [facility] [place] [address] 08/20/2007 00:00:00 [id number] autoEComm erce [address] [facility] [place] [address] 10/24/2007 00:00:00 [id number] autoEComm erce [address] [facility] [place] [address] 12/19/2007 00:00:00 [id number] autoEComm erce [address] [facility] [place] [address] 02/12/2008 00:00:00 [id number] autoEComm erce [address] [facility] [place] [address] 03/10/2008 00:00:00 [id number] autoEComm erce [address] [facility] [place] [address] 04/22/2008 00:00:00 [id number] autoEComm erce [address] [facility] [place] [address] 05/25/2008 00:00:00 [id number] autoEComm erce [address] [facility] [place] [address] 06/12/2008 00:00:00 [id number] autoEComm erce [address] [facility] [place] [address] 07/21/2008 00:00:00 [id number] autoEComm erce [address] [place] [address] 11/25/2008 00:00:00 [id number] autoEComm erce [address] [facility] [address] [place] [address] 12/31/2008 00:00:00 [id number] autoEComm erce [address] [facility],[address] [place] [address] 02/10/2009 00:00:00 [id number] autoEComm erce [address] [facility] [place] [address] 03/18/2009 00:00:00 [id number] autoEComm erce [address] [facility] [place] [address] 03/25/2009 00:00:00 [id number] autoEComm erce [address] [facility] [place] [address] 05/12/2009 00:00:00 [id number] autoEComm erce [address] [facility] [place] [address] 06/22/2009 00:00:00 [id number] autoEComm erce [address] [facility] [place] [address] 08/19/2009 00:00:00 [id number] autoEComm erce [address] [facility] [place] [address] 09/22/2009 00:00:00 [id number] autoEComm erce [address] [facility] [place] [address] 11/12/2009 00:00:00 [id number] autoEComm erce [address] [facility] [place] [address] 11/24/2009 00:00:00 [id number] autoEComm erce [address] [facility],[address] [place] [address] 12/27/2009 00:00:00 [id number] autoEComm erce [address] [facility],[address] [place] [address] 02/25/2010 00:00:00 [id number] autoEComm erce [address] [place] [address] 08/04/2010 00:00:00 [id number] autoEComm erce [address] [place] [address] 09/28/2010 00:00:00 [id number] autoEComm erce [address] [place] [address] 11/18/2010 00:00:00 [id number] autoEComm erce [address] [place] [address] 12/28/2010 00:00:00 [id number] autoEComm erce [address] [facility] [address] [place] [address] 01/16/2011 00:00:00 [id number] autoEComm erce [address] [facility] [place] [address] 01/26/2011 00:00:00 [id number] autoEComm erce [address] [facility] [place] [address] 03/20/2011 00:00:00 [id number] autoEComm erce [address] [facility] [place] [address] 03/30/2011 00:00:00 [id number] autoEComm erce [address] [facility] [place] [address] 05/17/2011 00:00:00 [id number] autoEComm erce [address] [facility],[address] [place] [address] 05/24/2011 00:00:00 [id number] autoEComm erce [address] [facility] [place] [address] 06/21/2011 00:00:00 [id number] autoEComm erce [address] [facility] [place] [address] 08/29/2012 00:00:00 [id number] autoEComm erce [address] [facility] [place] [address] 10/08/2012 00:00:00 [id number] autoEComm erce [address] [facility],[address] [place] [address] 03/18/2013 00:00:00 [id number] autoEComm erce [address] [facility],[address] [place] [address] 04/23/2013 00:00:00 [id number] autoEComm erce [address] [facility],[address] [place] [address] 06/30/2013 00:00:00 [id number] autoEComm erce [address] [facility],[address] [place] [address] 08/01/2013 00:00:00 [id number] Franky Mccallum MD Main Office [address] [place] [address] [place] [address] 10/22/2013 12:57:58 10/22/2013 13:50:16 Administration of viral vaccine [id number] Jaziel Roman [facility] Main Office [address] [place] [address], [place] [address] 01/16/2014 15:46:07 01/16/2014 16:58:32 Type 2 diabetes mellitus [id number] will restage Needs infl uenza immunization [id number] Acute vaginitis 23071158 [id number] Vipul Leos [facility] Main Office [address] [address] [place] [address] 01/22/2014 09:48:32 01/22/2014 10:29:45 Decreased hearing 715944910 Decreased hearing to left ear since sunday, [...] further eval. Type 2 vidal betes mellitus [id number] Has an appt with Dr. Pa 01/26/14 at 9:30 am, Informatio n provided to pt, she will keep this appt. She states she has been checking sugars at home and is trying to monitor her diet. [id number] VIVIAN Dickey Main Office [address] [address] [place] [address] 02/24/2014 10:19:16 02/24/2014 11:03:32 Viral gastroenteritis [id number] resolv ing, continue clear fluids/BRA T diet, progress diet as tolerated [id number] Mary hoff MD Main Office [address] [address] [place] [address] 05/28/2014 10:45:54 05/28/2014 11:50:32 Adult health examination [id number] pap is utd, utd on TDAP pt is living on her own, cooking for herself, working 2 jobs, will check with pt next visit if she got menactra when she was living in [facility], if not give to her at followup Depressive disorder 02304010 is on mood stablilize r lamictal and Prozac, has stopped Prozac for a few days but will restart. Type 2 vidal betes mellitus 39887272 new, presented with high sugars, working on control, healthy eating, cooking for herself [id number] VIVIAN Cobb Main Office [address] [address] [place] [address] 07/14/2014 13:26:12 07/14/2014 15:34:08 Ankle pain 185247554 Likely Achilles tendonitis , continue naproxen BID, ice 4 times daily, rest, elevate, ortho/ PT referrals provided. [id number] Mary hoff MD Main Office [address] [address] [place] [address] 10/26/2014 08:33:34 10/26/2014 10:34:41 Type 2 diabetes mellitus 85751452 pt needs more education on diet, cooking for self, will cut out soda and juice, she will meet with Brielle today, and then Concetta for ongoing education Elevated blood-pressure reading without diagnosis of hypertension [id number] recheck at followup visit in a month Bipolar disorder 60775888 very stable continue meds and psychiatry followup Body mass index 30+ - obesity 582425792 Otitis externa 6648222 lef t external otitis cannot see TM so will use cortispori n suspension in case she ahs a perforated TM [id number] Concetta Rogers PA-C Main Office [address] [facility] [address] [place] [address] 01/18/2015 09:03:25 01/18/2015 10:34:10 Needs influenza immunization 176253724 Z23 Uncontroll ed type 2 diabetes mellitus 130106567 E11.65 Total time spent teaching ans coordinati [...] or sooner will be set up. Obesity 353767598 E66.9 [id number] VIVIAN Cobb Main Office [address] [facility] [address] [place] [address] 01/27/2015 08:40:30 01/27/2015 10:43:15 Upper respiratory infection 09144233 J06.9 Suspect her sx are related to URI, Symptomati c treatment- lots of fluids, rest, tea with honey, OTC cough drops/ cough med as needed, humidifier as needed, take zpak as directed x 5 days. Uncontroll ed type 2 diabetes mellitus 865248046 E11.65 Her nausea is not likely related to invokana and she is tolerating meals without issue. She has not yet started trulicity but will be meeting with Isaac today for teaching on the injection, she is to start this weekly. Should symptoms worsen please return/ call back, otherwise f/u as scheduled 03/01. [id number] Concetta Rogers PA-C Main Office [address] [facility] [address] [place] [address] 03/01/2015 08:51:58 03/01/2015 10:07:02 Uncontrolled type 2 diabetes mellitus 078296814 E11.65 Overall imroved diabetic control. Goal A1c [...] exercise. Return in 6 weeks. Morbid obesity 331869049 E66.01 Continue vegan diet and exercise. Microalbuminuria 8290764 06 R80.0 Protenuria likley due to hyperglyce son. Will repeat at next visit. If not down to norm, will use smallest dose of ACEI. [id number] Concetta Rogers PA-C Main Office [address] [facility] [address] [place] [address] 04/14/2015 08:47:09 04/14/2015 09:53:10 Uncontrolled type 2 diabetes mellitus 222946375 E11.65 Overall imroved diabetic control. Goal A1c however is under 7%. Pt. is advised to increase Invokana to 300 mg daily and continue Metformin and Bydureon the same. Continue glucose testing TID rotate pre and post meal readings. Continue low red vegan diet and daily exercise activity. SChedule diabetic eye exam as discussed. F/u 2 months. Microalbuminuria 9364902 06 R80.0 Protenuria likely due to hyperglyce son. Repeat today along with BMP. If not down to norm, will use smallest dose of ACEI. Elevated blood-pressure reading without diagnosis of hypertension 627649683 R03.0 Recheck at next visit. Keep sodium down. If elevated over 140/90 and /or protenuria persists, will use small dose of ACEI. [id number] Concetta Rogers PA-C Main Office [address] [facility] [address] [place] [address] 06/14/2015 08:59:49 06/14/2015 10:02:33 Obesity 904081301 E66.9 E66.01 See goals. Uncontroll ed type 2 diabetes mellitus 097285920 E11.65 Improved overall diabetic control, but not at goal as of yet. Metfromin and Bydureon are held due to GI upset and diarrhea. Will try Januvia at 100 mg daily. test glucose TID-QID as previously . Return in 1 m. Repeat BMP after next visit. Essential hypertension 33569510 I10 Start ACEI daily. Recheck in 1 month. Reduce dietary sodium and caffeine as discussed. Diarrhea 35140061 R19.7 ? gastropare sis vs. IBS. Symptoms are both upper and lower GI. Hold Metformin and GLP1 for now. TRy Imodium for couple of days. If symptoms are not improve will do stool testing and consider referring for gastropare sis testing. Gastroesop hageal reflux disease 866827873 K21.9 Increase Omeprazole to 40 mg daily for 1-2 weeks. [id number] Concetta Rogers PA-C Main Office [address] [place] [address] 06/23/2015 14:42:53 06/23/2015 15:14:47 Low back strain 334738871 S39.012A ? arthropath y as well as pt. had back trauma as a child. XRay will be done. Pt. will start Naprosyn 500 BID with food, continue muscle relaxant at HS and Tramadol PRN. Alternate cold and warm packs 10 minutes each 2-3 times daily. Refer for course of PT. Back exercises daily am and pm for stretching . [id number] Concetta Rogers PA-C Main Office [address] [facility] [address] [place] [address] 07/27/2015 09:45:59 07/27/2015 10:44:44 Uncontrolled type 2 diabetes mellitus 384143119 E11.65 Diabetic control slightly worsened since the [...] Will repeat BMP and A1c. Essential hypertension 89106213 I10 D/c ACEI due to dry cough side effect. Start Losartan 50 mg daily. Recheck in 4-6 weeks. Body mass index 30+ - obesity 738417535 Z68.38 Abdominal pain 65203242 R10.9 Recurrent generalize d abdominal pains and change in bowels. ? IBS vs gastropare sis although diarrhea resolved for now with stopping Metformin and Bydureon. GI referral for evaluation . [id number] Concetta Rgoers PA-C Main Office [address] [address] [place] [address] 09/14/2015 10:45:10 09/14/2015 11:30:51 Uncontrolled type 2 diabetes mellitus 354513879 E11.65 Significan tly worsened diabetic control , [...] main meal and at HS. Morbid obesity 137399416 E66.01 Restart vegan diet and exercise. Body mass index 30+ - obesity 714649198 Z68.38 [id number] Mary hoff MD Main Office [address] [address] [place] [address] 10/01/2015 14:00:26 10/01/2015 15:03:06 Tachycardia 4585093 R00.0 EKG with pulse in 90's and nl rhythmn,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
--- OUTSIDE RECORDS SUMMARY | 2025-01-26 22:14 | XMS_ITS | Data Portability ---
Author Organization [facility], [address] Address [address] [place] [address] Care Team Providers Care Mixer Operator Name Role Phone ALIA TOSCANO Primary Care Provider Assessment No assessment recorded. Plan of Treatment Reminders Order Date Submit Date Provider Last Modified By Organization Details Last Modified Time Details Appointments None recorded. Lab urinalysis, dipstick 2023 024 [email or web address] [facility], [address] [place] [address], [id number], 4 18:23:13 test, urine 2023 024 [email or web address], [address] [place] [address], [id number], 4 18:23:14 vaginal pathogens panel, JOSE+probe, vaginal fluid 2023 024 SENOIA [facility], [address] [place] [address], [place], [address], 4 20:06:49 Referral None recorded. Procedures None recorded. Surgeries None recorded. Imaging None recorded. Medication Orders fluconazole 150 mg tablet 2023 024 SENOIA [id number], [address] [place], [address], 4 18:23:13 Patient TargetsNo targets recorded. Patient InstructionsNo instructions recorded. Reason for Referral None Reported. Results Created Date Observation Date Name Description Value Unit Range Abnormal Flag Note LastModifiedBy Organization Detail LastModifiedTime 04/29/19 24 05/01/2023 NUA B VAGIN ITIS PLUS (VG+) atopobium vaginae LOW - 0 score Not Available [facility] ([facility]) [address] [facility], [place], [address], 05/02/2023 20:06:49 04/29/19 24 05/01/2023 NUA B VAGIN ITIS PLUS (VG+) bvab 2 LOW - 0 score Not Available [facility] ([facility]) [address] [facility], [place], [address], 05/02/2023 20:06:49 04/29/19 24 05/01/2023 NUA B [...] Drug Admin istra tion. Not Available [facility] ([facility]) [address] [facility], [place], [address], 05/02/2023 20:06:49 04/29/19 24 05/02/2023 NUA B VAGIN ITIS PLUS (VG+) nicanor albicans, JOSE POSITI VE negati ve abnormal Not Available [facility] ([facility]) [address] [facility], [place], [address], 05/02/2023 20:06:49 04/29/19 24 05/02/2023 NUA B VAGIN ITIS PLUS (VG+) nicanor glabrata, JOSE NEGATI VE negati ve Not Available [facility] ([facility]) [address] [facility], [place], [address], 05/02/2023 20:06:49 04/29/19 24 05/02/2023 NUA B VAGIN ITIS PLUS (VG+) trich vag by JOSE NEGATI VE negati ve Not Available [facility] ([facility]) [address] [facility], [place], [address], 05/02/2023 20:06:49 04/29/19 24 05/02/2023 NUA B VAGIN ITIS PLUS (VG+) chlamydia trachomatis, JOSE NEGATI VE negati ve Not Available [facility] ([facility]) [address] [facility], [place], [address], 05/02/2023 20:06:49 04/29/19 24 05/02/2023 NUA B VAGIN ITIS PLUS (VG+) neisseria gonorrhoeae, JOSE NEGATI VE negati ve Not Available [facility] ([facility]) [address] [facility], [place], [address], 05/02/2023 20:06:49 04/29/19 24 04/29/2023 urina lysis , dipst ick Unknown Analyte Yellow Not Available [facility] [address] [place], [address], 04/29/2023 18:07:30 04/29/19 24 04/29/2023 urina lysis , dipst ick Unknown Analyte Clear Not Available norma [address], [address], 04/29/2023 18:07:30 04/29/19 24 04/29/2023 urina lysis , dipst ick Unknown Analyte Negati ve Not Available [address]i [place] [address] [place], [address], 04/29/2023 18:07:30 04/29/19 24 04/29/2023 urina lysis , dipst ick Unknown Analyte Negati ve Not Available jordi bullard [address] [place], [address], 04/29/2023 18:07:30 04/29/19 24 04/29/2023 urina lysis , dipst ick Unknown Analyte Negati ve Not Available jordi bullard [address], [address], 04/29/2023 18:07:30 04/29/19 24 04/29/2023 urina lysis , dipst ick Unknown Analyte 1.030 Not Available norma [address] [place], [address], 04/29/2023 18:07:30 04/29/19 24 04/29/2023 urina lysis , dipst ick Unknown Analyte Trace- intact Not Available jordi bullard [address] [place], [address], 04/29/2023 18:07:30 04/29/19 24 04/29/2023 urina lysis , dipst ick Unknown Analyte 6.0 Not Available norma [address] [place], [address], 04/29/2023 18:07:30 04/29/19 24 04/29/2023 urina lysis , dipst ick Unknown Analyte Negati ve Not Available jordi bullard [address], [address], 04/29/2023 18:07:30 04/29/19 24 04/29/2023 urina lysis , dipst ick Unknown Analyte 0.2 E.U./d L Not Available [address]jordi bullard [address], [address], 04/29/2023 18:07:30 04/29/19 24 04/29/2023 urina lysis , dipst ick Unknown Analyte Negati ve Not Available [address], [address], 04/29/2023 18:07:30 04/29/19 24 04/29/2023 urina lysis , dipst ick Unknown Analyte Negati ve Not Available jordi bullard [place] [address] [address] [place], [address], 04/29/2023 18:07:30 04/29/19 24 04/29/2023 pregn helen test, urine Unknown Analyte negati ve Not Available jordi bullard [address] [place], [address], 04/29/2023 18:07:45 04/29/19 24 04/29/2023 pregn helen test, urine Unknown Analyte yes Not Available 2099Naldo_ norma [address] [place], [address], 04/29/2023 18:07:45 Result Notes None recorded. Problems Name Problem SNOMED Code Status Onset Date Resolution Date Notes Provider Name and Address Organization Details Recorded Time Hiatal hernia 96211317 Active 024 ROBBIE LUPICA null, [place] - [facility] 4 18:04:41 Acid reflux 946539136 Active 024 ROBBIE LUPICA null, [place] - [facility] 4 18:04:49 Polycystic ovary syndrome 518936783 Active 024 ROBBIE LUPICA null, PA - [facility] 4 18:07:21 Vaginal irritation 675199634 Active 024 ROBBIE NORTONICA null, PA - [...] Updated DateTime 4 157.48 cm 30.4 kg/m2 49888.3 3 g 0 18 /min 97.7 [degF] 99 % 99 % 82 /min 135/87 mm[Hg] ROBBIE FATIMAH PA - [facility] 18:10:26 Social History Question Answer Notes LastModified by Lumatic Details LastModified Time Tobacco Smoking Status Never Smoker ROBBIE NORTONYOLANDA galeano [place] - [facility] 04/29/2023 18:06:13 Which Illicit Or Recreational Drugs Have You Used? Marijuana Information not available 04/29/2023 Have You Recently Traveled Abroad? No [email or web address] Information not available 04/29/2023 Sex: Unknown Functional Status Question Answer Note LastModified by Lumatic Details LastModified Time Do you use any illicit or recreational drugs? Yes [email or web address] Information not available 04/29/2023 Do you or have you ever used any other forms of tobacco or nicotine? No [email or web address] Information not available 04/29/2023 What is your level of alcohol consumption? None [email or web address] Information not available 04/29/2023 Mental Status None recorded. Family History Relationship Description Onset Age of this Age Resolved Age Notes LastModified by Organization Details LastModified Time Father Diabetes mellitus [email or web address] Not available 2023 18:05:19 Mother Diabetes mellitus Not available 2023 18:05:19 Mother Hypertensive disorder [email or web address] Not available 2023 18:05:30 Mother Seizure disorder [email or web address] Not available 2023 18:05:39 Mother Osteoporosis [email or web address] Not avai lable 04/29/2023 18:05:48 Medical History No medical history recorded. Gynecological History Statement/Question Response Date of LMP 04/18/2023 Is there any chance of ? No LMP Definite Obstetrics History GPAL:G 0 P 0 0 0 0 Past Encounters Encounter ID Performer Location Encounter Start Date Encounter Closed Date Diagnosis/Indication Diagnosis SNOMED-CT Code Diagnosis ICD10 Code Diagnosis IMO Codes Diagnosis Note [id number] KULWINDER Salcedo [address] [place] [address] 04/29/2023 17:38:28 04/29/2023 18:24:39 Vaginal irritation 694720461 N89.8 VULVOVAGIN AL CANDIDIASI SA vaginal yeast [...] [place] Member ID Guarantor Name 04/29/2023 1 [facility] [id number] Apurva L Colon [id number] Apurva Colon 04/29/2023 1 [facility] (PP[facility]) [id number] Apurva L Colon [id number] Apurva Colon Notes Date Note Type Note Provider Name and Address Organization Details Recorded Time 04/29/2023 text/html 32 y/o female here with a day of vaginal itch and discharge, worsening, lower abdominal pain, bloating. Feels like a yeast infection aside from the bloating which is different KULWINDER Salcedo [address] [place], [address], [place] - [facility] 04/29/2023 18:25:13 OBGyn Episode No OBEpisode recorded.
== END 2025-01-26 11:08 | disposition home or self-care (01) ==
LOC: HO.HOS 10:46
DX: M65.30 Trigger finger, unspecified finger (principal)
CPT/HCPCS: 99024

== ENCOUNTER → 2025-01-26 10:45 | Outpatient (BNVA) | payer OTHER, SELFPAY | DX: M65.341 Trigger finger, right ring finger (principal); Z98.890 Other specified postprocedural states | CPT/HCPCS: 99212 ==